=== PATIENT | male | born 1965 | race Caucasian/White ===

== ENCOUNTER 2023-10-01 07:24 | Outpatient (CLI) | payer SELFPAY ==
--- NOTE | ~2023-10-01 | XR_ITS ---
EXAMINATION: XR cervical spine 4-5V DATE: 10/01/2023 08:07 INDICATION: Numbness, anesthesia of skin. TECHNIQUE: 5 views of cervical spine were obtained. COMPARISON: Cervical spine radiographs 02/03/2008 FINDINGS: There is 7 degrees levocurvature of cervicothoracic spine. Vertebral body heights are morena l. There is moderately decreased disc height at C5-C6 and C6-C7. There is multilevel mild facet joint osteoarthritis. There is multilevel uncovertebral joint osteoarthritis, severe on the right at C5-C6 and bilaterally at C6-C7. There is mild central canal stenosis at C5-C6 and C6-C7. No prevertebral s oft tissue swelling. IMPRESSION: 1. Moderate cervical spondylosis. Reviewed, dictated and finalized at location A.
== END 2023-10-01 07:25 ==
PROVIDERS: PCP Internal Medicine Gastroenterology; Visit Provider Internal Medicine Gastroenterology
DX: M43.02 Spondylolysis, cervical region (principal)
CPT/HCPCS: 72050

== ENCOUNTER 2023-10-15 07:14 | Outpatient (CLI) | payer SELFPAY ==
--- NOTE | ~2023-10-15 | US_ITS ---
US abdomen limited INDICATION: Elevated liver function tests PROCEDURE: Realtime right upper abdominal ultrasound. COMPARISON: No prior studies for comparison. FINDINGS: The pancreas is not well visualized due to bowel gas. Liver echotexture is normal without focal mass or intrahepatic biliary dilatation. There is normal directional flow in the portal vein. Gallbladder contains a gallstone. Common bile duct measures 7.5 mm. No sonographic Pham's sign. IMPRESSION: 1: Cholelithiasis. Mild dilation of the common bile duct measuring 7.5 mm. Reviewed, dictated and finalized at location B.
== END 2023-10-15 07:15 ==
LOC: MICIMG 07:18
PROVIDERS: PCP Internal Medicine Gastroenterology; Visit Provider Internal Medicine Gastroenterology
DX: R74.01 Elevation of levels of liver transaminase levels (principal); K80.20 Calculus of gallbladder without cholecystitis without obstruction
CPT/HCPCS: 76705

== ENCOUNTER 2024-09-12 09:52 | Emergency (ER) | payer SELFPAY ==
--- NOTE | ~2024-09-12 | XR_ITS ---
XR elbow LT min 3V Ordering provider: Noemi Jacinto PA-C History: . burisitis, cut by metal . Comparison: None. FINDINGS: BONES: Chip fracture in the medial aspect of the tip of the olecranon process is noted. No other frac tures seen. JOINT SPACES: Normal. SOFT TISSUES: Soft tissue swelling is seen posteriorly in the elbow area. No definite joint effusion. IMPRESSION: Chip fracture in the olecranon process medially. Reviewed, dictated and finalized at location A.
[2024-09-12 10:03] VITALS: BP 137/84; PULSE 76; RESP 16; TEMP 36.7; O2SAT 98
[2024-09-12] MEDS: SULFAMETHOXAZOLE/TRIMETHOPRIM 800/160 MG DS TABLET 1 TAB PO (10:38)
[2024-09-12] MEDS: CEPHALEXIN 500 MG CAPSULE PO (10:38)
--- NOTE | 2024-09-12 10:39 | ED_ITS ---
HPI - Extremity Injury (Upper) General Chief Complaint: Extremity Injury, Upper Stated Complaint: hit by metal piece last week. left elbow pain Time Seen by Provider: 09/12/24 09:56 Source: patient Mode of arrival: ambulatory Limitations: no limitations History of Present Illness HPI narrative: Patient is a 58-year-old male who presents the ED with report of left elbow infection. Patient reports he was hit by a piece of metal in his L elbow at work last Tuesday. Sustained laceration to left posterior elbow. Since developed swelling throughout the left elbow. States he has been bandaging the elbow at home, but over the past couple of days, has had drainage from the laceration wound. Denies significant pain with range of motion of elbow, reports mild pain with certain pushing movements. Denies numbness. Denies fevers. Related Data Allergies Allergy/AdvReac Type Severity Reaction Status Date / Time No Known Allergies Allergy Mild Verified 09/12/24 10:06 Review of Systems 2 Review of Systems: All systems reviewed & are unremarkable except as noted in HPI. All systems reviewed & are unremarkable except as noted in HPI and below Exam 2 Narrative: GENERAL: Well appearing, well-nourished, non-toxic, in no acute distress. HEAD: Normocephalic, atraumatic. RESPIRATORY: Airway patent, respirations nonlabored. CARDIOVASCULAR: Regular rate and rhythm. Radial pulses strong and easily palpable. MUSCULOSKELETAL: Moves all extremities. Full range of motion of left elbow flexion and extension. Swelling to olecranon, seems most consistent with bursitis. No significant warmth or erythema over olecranon swelling. No significant focal tenderness over olecranon. Small laceration just proximal from olecranon region/posterior elbow/distal humerus region, appears to be healing, but small amount of purulence material draining. Sensation intact throughout extremity. SKIN: Warm, dry, normal color. NEURO: A&O X3. Speech clear. PSYCHIATRIC: Appropriate mood and affect. Normal interaction. Course Vital Signs Vital signs: Vital Signs Temperature 98.1 F 09/12/24 10:03 Pulse Rate 76 09/12/24 10:03 Respiratory Rate 16 09/12/24 10:03 Blood Pressure 137/84 09/12/24 10:03 Pulse Oximetry 98 09/12/24 10:03 Oxygen Delivery Room Air 09/12/24 10:03 Temperature 98.1 F 09/12/24 10:03 Pulse Rate 76 09/12/24 10:03 Respiratory Rate 16 09/12/24 10:03 Blood Pressure 137/84 09/12/24 10:03 Pulse Oximetry 98 09/12/24 10:03 Oxygen Delivery Room Air 09/12/24 10:03 MDM - Extremity Injury (Upper) MDM Narrative Medical decision making narrative: Exam consistent with traumatic olecranon bursitis with possibly infected laceration. Low suspicion for septic bursitis. No significant erythema or warmth over actual olecranon/bursa. No significant tenderness to palpation over olecranon/bursa. Full range of motion of elbow. Low suspicion for septic joint. Patient will be started on antibiotics for secondary infection of wound. Will be referred to orthopedics for further evaluation. X-ray of left elbow does show chip fx of medial olecranon process. Discussed case with Dr. Rodríguez, orthopedics, recommended labs, agrees w/ plan for abx, sling for fx, f/u in office next week. Laboratory studies reassuring, minimal leukocytosis of 11.2, normal inflammatory markers. Patient safe for d/c home at this time w/ outpatient f/u. Given strict return precautions. He agrees with plan. Discharged in stable condition. Medical Records Attestation: I reviewed the patient's medical records. Lab Data Attestation: I reviewed the patient's lab results. 09/12/24 12:24 09/12/24 12:24 Labs: Lab Results 09/12/24 09/12/24 09/12/24 Range/Units 12:24 12:24 12:24 WBC 11.2 H (4.5-10.0) K/mm3 RBC 5.34 (4.6-6.20) M/mm3 Hgb 15.0 (14.0-18.0) g/dL Hct 46.8 (42.0-52.0) % MCV 87.6 (80-100) fl MCH 28.1 (26-34) pg MCHC 32.1 (32-36) g/dl RDW 13.5 (11.5-14.5) % Plt Count 286 (150-375) k/mm3 MPV 10.8 H (7.4-10.4) fl Immature Gran % (Auto) 0.2 (0-0.5) % Neut % (Auto) 65.8 (45.5-73.1) % Lymph % (Auto) 25.0 (18.3-44.2) % [place] % (Auto) 7.3 (2.6-8.5) % Eos % (Auto) 1.3 (0-4.4) % Baso % (Auto) 0.4 (0.2-1.2) % Lymph # (Auto) 2.80 (0.9-3.2) K/mm3 [place] # (Auto) 0.8 H (0.1-0.6) K/mm3 Eos # (Auto) 0.2 (0-0.3) K/mm3 Baso # (Auto) 0.0 (0.0-0.1) K/mm3 Abs Immat Gran (auto) 0.02 (0.00-0.031) K/mm3 Absolute Neuts (auto) 7.4 H (1.3-6.7) K/mm3 Absolute Nucleated RBC 0.000 (0.0-0.012) K/mm3 Nucleated RBC % 0.0 (0.0-0.2) % ESR 8 (0-20) mm/hr Sodium 138 Cancelled (137-145) mmol/L Potassium 4.3 Cancelled (3.4-5.0) mmol/L Chloride 103 (98-107) mmol/L Carbon Dioxide (22-30) mmol/L Anion Gap (4-12) mmol/L BUN (9-20) mg/dL Creatinine (0.7-1.3) mg/dL Estim Creat Clear Calc ml/min Estimated GFR (59 - ) Glucose (65-110) mg/dL Calcium (8.4-10.2) mg/dL C-Reactive Protein (<1.0) mg/dL 09/12/24 09/12/24 09/12/24 Range/Units 12:24 12:24 12:24 WBC (4.5-10.0) K/mm3 RBC (4.6-6.20) M/mm3 Hgb (14.0-18.0) g/dL Hct (42.0-52.0) % MCV (80-100) fl MCH (26-34) pg MCHC (32-36) g/dl RDW (11.5-14.5) % Plt Count (150-375) k/mm3 MPV (7.4-10.4) fl Immature Gran % (Auto) (0-0.5) % Neut % (Auto) (45.5-73.1) % Lymph % (Auto) (18.3-44.2) % [place] % (Auto) (2.6-8.5) % Eos % (Auto) (0-4.4) % Baso % (Auto) (0.2-1.2) % Lymph # (Auto) (0.9-3.2) K/mm3 [place] # (Auto) (0.1-0.6) K/mm3 Eos # (Auto) (0-0.3) K/mm3 Baso # (Auto) (0.0-0.1) K/mm3 Abs Immat Gran (auto) (0.00-0.031) K/mm3 Absolute Neuts (auto) (1.3-6.7) K/mm3 Absolute Nucleated RBC (0.0-0.012) K/mm3 Nucleated RBC % (0.0-0.2) % ESR (0-20) mm/hr Sodium (137-145) mmol/L Potassium (3.4-5.0) mmol/L Chloride Cancelled (98-107) mmol/L Carbon Dioxide 27 Cancelled (22-30) mmol/L Anion Gap 8 Cancelled (4-12) mmol/L BUN 13 (9-20) mg/dL Creatinine (0.7-1.3) mg/dL Estim Creat Clear Calc ml/min Estimated GFR (59 - ) Glucose (65-110) mg/dL Calcium (8.4-10.2) mg/dL C-Reactive Protein (<1.0) mg/dL 09/12/24 09/12/24 09/12/24 Range/Units 12:24 12:24 12:24 WBC (4.5-10.0) K/mm3 RBC (4.6-6.20) M/mm3 Hgb (14.0-18.0) g/dL Hct (42.0-52.0) % MCV (80-100) fl MCH (26-34) pg MCHC (32-36) g/dl RDW (11.5-14.5) % Plt Count (150-375) k/mm3 MPV (7.4-10.4) fl Immature Gran % (Auto) (0-0.5) % Neut % (Auto) (45.5-73.1) % Lymph % (Auto) (18.3-44.2) % [place] % (Auto) (2.6-8.5) % Eos % (Auto) (0-4.4) % Baso % (Auto) (0.2-1.2) % Lymph # (Auto) (0.9-3.2) K/mm3 [place] # (Auto) (0.1-0.6) K/mm3 Eos # (Auto) (0-0.3) K/mm3 Baso # (Auto) (0.0-0.1) K/mm3 Abs Immat Gran (auto) (0.00-0.031) K/mm3 Absolute Neuts (auto) (1.3-6.7) K/mm3 Absolute Nucleated RBC (0.0-0.012) K/mm3 Nucleated RBC % (0.0-0.2) % ESR (0-20) mm/hr Sodium (137-145) mmol/L Potassium (3.4-5.0) mmol/L Chloride (98-107) mmol/L Carbon Dioxide (22-30) mmol/L Anion Gap (4-12) mmol/L BUN Cancelled (9-20) mg/dL Creatinine 0.73 Cancelled (0.7-1.3) mg/dL Estim Creat Clear Calc 97 Cancelled ml/min Estimated GFR > 60 (59 - ) Glucose (65-110) mg/dL Calcium (8.4-10.2) mg/dL C-Reactive Protein (<1.0) mg/dL 09/12/24 09/12/24 09/12/24 Range/Units 12:24 12:24 12:24 WBC (4.5-10.0) K/mm3 RBC (4.6-6.20) M/mm3 Hgb (14.0-18.0) g/dL Hct (42.0-52.0) % MCV (80-100) fl MCH (26-34) pg MCHC (32-36) g/dl RDW (11.5-14.5) % Plt Count (150-375) k/mm3 MPV (7.4-10.4) fl Immature Gran % (Auto) (0-0.5) % Neut % (Auto) (45.5-73.1) % Lymph % (Auto) (18.3-44.2) % [place] % (Auto) (2.6-8.5) % Eos % (Auto) (0-4.4) % Baso % (Auto) (0.2-1.2) % Lymph # (Auto) (0.9-3.2) K/mm3 [place] # (Auto) (0.1-0.6) K/mm3 Eos # (Auto) (0-0.3) K/mm3 Baso # (Auto) (0.0-0.1) K/mm3 Abs Immat Gran (auto) (0.00-0.031) K/mm3 Absolute Neuts (auto) (1.3-6.7) K/mm3 Absolute Nucleated RBC (0.0-0.012) K/mm3 Nucleated RBC % (0.0-0.2) % ESR (0-20) mm/hr Sodium (137-145) mmol/L Potassium (3.4-5.0) mmol/L Chloride (98-107) mmol/L Carbon Dioxide (22-30) mmol/L Anion Gap (4-12) mmol/L BUN (9-20) mg/dL Creatinine (0.7-1.3) mg/dL Estim Creat Clear Calc ml/min Estimated GFR Cancelled (59 - ) Glucose 88 Cancelled (65-110) mg/dL Calcium 9.4 Cancelled (8.4-10.2) mg/dL C-Reactive Protein 0.9 (<1.0) mg/dL Imaging Data Attestation: I personally reviewed and interpreted this imaging study as follows: Radiologist's impression: ITS Impressions Elbow X-Ray 09/12/24 11:03 IMPRESSION: Chip fracture in the olecranon process medially. Discharge Plan Discharge Clinical Impression: Olecranon bursitis of left elbow Closed olecranon process fracture Qualifiers: Encounter type: initial encounter Laterality: left Qualified Code(s): S52.022A - Displaced fracture of olecranon process without intraarticular extension of left ulna, initial encounter for closed fracture Laceration of left elbow with complication Qualifiers: Encounter type: initial encounter Qualified Code(s): S51.012A - Laceration without foreign body of left elbow, initial encounter Patient Disposition: Home Condition: Stable Instructions: Antibiotic Form, Laceration (ED), Cellulitis (ED), Elbow Bursitis (ED) Additional Instructions: Call orthopedic office make follow-up appointment for further evaluation next week. He is aware of your ED visit. Take antibiotics as prescribed. Keep wound clean and dry, change bandage frequently, at least once daily. You may continue Tylenol/ibuprofen if needed for pain. Sling for comfort/support. Return to ED if you experience worsening or severe symptoms, severe redness or warmth of elbow, redness streaking up or down arm, worsening drainage, fevers, difficulty moving arm, or any other symptoms of concern Patient Language: Croatian Prescriptions: New sulfamethoxazole-trimethoprim [Bactrim DS] 800-160 mg tablet 1 tablet PO Q12H 7 Days Qty: 14 0RF cephalexin 500 mg capsule 500 mg PO Q6H 7 Days Qty: 28 0RF Follow-up/Referrals: Laila,Fritz Johnson MD [Primary Care Provider] - Gabe Rodríguez MD [Physician] - (ORTHOPEDICS) Time of Disposition: 10:46
--- OUTSIDE RECORDS SUMMARY | 2024-09-12 11:01 | XMS_ITS | Clinical Summary ---
Author Organization [facility] Care Team Providers Care Featherer Name Role Phone Unavailable Primary Care Provider Unavailabl e Immunizations Immunization Administration Dates Next Due Covid-19, Mrna, Lnp-s, PF, 1 00 mcg/0.5 mL Dose (Moderna) 06/03/2020,05/01/2020 Social History Tobacco Use Types Packs/Day Years Used Date Smoking Tobacco: Never Assessed Sex and Gender Information Value Date Recorded Sex Assigned at Not on file Legal Sex Male 8:19 AM CDT Gender Identity Not on file Sexual Orientation Not on file Plan of Treatment Health Maintenance Due Date Last Done Comments Hepatitis C Virus (HCV) Screening 1965 TdaP Immunization 1965 Hepatitis B Immunization (1 of 3 - 19+ 3-dose series) 11/08/1983 Colonoscopy 2009 Colorectal Cancer Screening 2009 Cologuard 2014 Immunochemical Fecal Occult Blood 2014 Pneumococcal Immunization (5 0+ years) (1 of 1 - PCV) 2014 Zoster Immunization (1 of 2) 2014 PSA Discussion 11/08/2019 Influenza Immunization (#1) 2023 SARS-COV-2 Immunization (3 - 2023-25 season) 2023 06/03/2020, 05/01/2020 Respiratory Syncytial Virus (RSV) Immunization (Adult) (1 - 1-dose 75+ series) 11/08/2039 Meningococcal Immunization (ACWY) Aged Out No longer eligible b ased on patient's age to complete this topic Pneumococcal Immunization Combined Aged Out No longer eligible b ased on patient's age to complete this topic Rotavirus Immunization Aged Out No lo nger eligible based on patient's age to complete this topic
--- OUTSIDE RECORDS SUMMARY | 2024-09-12 11:01 | XMS_ITS | CONTINUITY OF CARE DOCUMENT ---
Author Name alissa maxwell Address Unknown Organization [facility] Address [address] [place] [address] Phone [phone] Care Team Providers Care [employer] Dynamics Manager Architect Name Role Phone alissa maxwell Unavailable Unavailable
[2024-09-12 12:32] LABS: Basophils Percent Auto 0.4 % (0.2-1.2); Eosinophils Absolute Auto 0.2 K/mm3 (0-0.3); Eosinophils Percent Auto 1.3 % (0-4.4); Hematocrit 46.8 % (42.0-52.0); Immature Granulocyte Absolute 0.02 K/mm3 (0.00-0.031); Immature Granulocyte Percent A 0.2 % (0-0.5); Mean Corpuscular HGB Conc 32.1 g/dl (32-36); Mean Corpuscular Hemoglobin 28.1 pg (26-34); Mean Corpuscular Volume 87.6 fl (80-100); Mean Platelet Volume 10.8 fl (7.4-10.4); Monocytes Absolute Auto 0.8 K/mm3 (0.1-0.6); Monocytes Percent Auto 7.3 % (2.6-8.5); Neutrophils Absolute Auto 7.4 K/mm3 (1.3-6.7); Neutrophils Percent Auto 65.8 % (45.5-73.1); Platelet Count Result 286 k/mm3 (150-375); Red Blood Count 5.34 M/mm3 (4.6-6.20); Red Cell Distribution Width 13.5 % (11.5-14.5); White Blood Count 11.2 K/mm3 (4.5-10.0)
--- OUTSIDE RECORDS SUMMARY | 2024-09-12 12:52 | XMS_ITS | CONTINUITY OF CARE DOCUMENT ---
Author Name alissa maxwell Address Unknown Organization [facility] Address [address] [place] [address] Phone [phone] Care Team Providers Care Supervisor [employer] Name Role Phone alissa maxwell Unavailable Unavailable
--- OUTSIDE RECORDS SUMMARY | 2024-09-12 12:52 | XMS_ITS | Clinical Summary ---
Author Organization [facility] Care Team Providers Care Car Record Clerk Name Role Phone Unavailable Primary Care Provider [...]
[2024-09-12 12:56] LABS: Anion Gap 8 mmol/L (4-12); Blood Urea Nitrogen 13 mg/dL (9-20); CRP 0.9 mg/dL (<1.0); Calcium 9.4 mg/dL (8.4-10.2); Carbon Dioxide 27 mmol/L (22-30); Chloride 103 mmol/L (98-107); Estimated CRCL calculation 97 ml/min; Estimated Glomerular Filt Rate > 60; Glucose 88 mg/dL (65-110); Potassium 4.3 mmol/L (3.4-5.0); Sodium 138 mmol/L (137-145)
[2024-09-12 13:19] LABS: Erythrocyte Sedimentation Rate 8 mm/hr (0-20)
== END 2024-09-12 14:24 | disposition home or self-care (01) ==
PROVIDERS: Emergency Provider Physician Assistant; PCP Internal Medicine Gastroenterology
DX: S52.022A Displaced fracture of olecranon process without intraarticular extension of left ulna, initial encounter for closed fracture (principal); S51.012A Laceration without foreign body of left elbow, initial encounter; L08.9 Local infection of the skin and subcutaneous tissue, unspecified; M70.22 Olecranon bursitis, left elbow
CPT/HCPCS: 36415; 73080; 80048; 85025; 85652; 86140; 99284; A4565; A9270

== ENCOUNTER 2024-12-24 07:12 | Inpatient (IN) | payer SELFPAY ==
[2024-12-24] VITALS (17 sets, daily range): BP systolic 128–172; BP diastolic 66–95; PULSE 52–92; RESP 14–21; TEMP 35.4–36.6; O2SAT 90–100; BMI 27.8
--- NOTE | 2024-12-24 | ECHO_ITS ---
Patient Info Name: Mino Young Age: 59 years : 1965 Gender: Male Ht: 70 in Wt: 201 lbs BSA: 2.14 m2 HR: 76 bpm BP: 170 / 82 mmHg Technical Quality: Good Exam Date: 12/24/2024 1:29 PM Patient Status: I Admit Date: 12/24/2024 Exam Type: CA echo doppler color flow Complete two-dimensional, color flow and Doppler transthoracic echocardiogram is performed. Staff Referring Physician: Aida Nair MD Mri Tech: Ehsan Pantoja III Attending Provider: Flower Liriano Summary 1. Complete two-dimensional, color flow and Doppler transthoracic echocardiogram is performed. 2. Left ventricular systolic function is normal, estimated at 55-60. 3. The left ventricular diastolic function is grade II diastolic dysfunction. 4. There is moderate aortic valve calcification.Significant zully on calcium on the right cusp of the aortic valve. 5. There is mild aortic valve regurgitation. 6. There is trace mitral valve regurgitation. 7. There is mild tricuspid valve regurgitation. 8. Moderate pulmonary hypertension, estimated pulmonary arterial systolic pressure is 45 mmHg. Left Ventricle Left ventricular chamber dimension is normal. Left ventricular systolic function is normal, estimated at 55-60. There is no increased left ventricular wall thickness. Left ventricular septal wall motion is normal. The left ventricular diastolic function is grade II diastolic dysfunction. Right Ventricle Right ventricular chamber dimension is normal. Right ventricular systolic function is normal. Left Atria Left atrial chamber dimension is normal. Right Atria Right atrial chamber dimension is normal. Aortic Valve The aortic valve is trileaflet. There is no aortic valve sclerosis. There is no aortic valve stenosis. There is mild aortic valve regurgitation. There is moderate aortic valve calcification.Significant zully on calcium on the right cusp of the aortic valve. Pulmonic Valve The pulmonic valve is normal. There is no pulmonic valve stenosis. There is no pulmonic regurgitation. Mitral Valve The mitral valve has normal leaflets. There is no mitral valve stenosis. There is trace mitral valve regurgitation. Tricuspid Valve The tricuspid valve leaflets are normal. There is no significant tricuspid valve stenosis. There is mild tricuspid valve regurgitation. Moderate pulmonary hypertension, estimated pulmonary arterial systolic pressure is 45 mmHg. Pericardium/Pleural The pericardium appears normal. There is no pericardial effusion. Inferior Vena Cava Normal inferior vena cava with >50% collapse upon inspiration consistent with normal right atrial pressure, 5 mmHg. Aorta The aortic root size at the sinus of Valsalva is normal. The prox ascending aorta size is normal. Left Ventricular Outflow Tract Name Value Normal LVOT 2D LVOT Diameter 2.5 cm LVOT Doppler LVOT Peak Velocity 111 cm/s LVOT Peak Gradient 5 mmHg LVOT Mean Gradient 3 mmHg LVOT VTI 26 cm LVOT VTI/AV VTI Ratio 0.5 LVOT Stroke Volume 126 ml LVOT CO 8.6 l/min LVOT CI 4.0 l/min/m2 Pulmonic Valve Name Value Normal PV Doppler PV Peak Velocity 110 cm/s PV Peak Gradient 5 mmHg PV Mean Gradient 3 mmHg Mitral Valve Name Value Normal MV Doppler MV Peak Gradient 3 mmHg MV Mean Gradient 1 mmHg MV Area (Cont Eq VTI) 4.2 cm2 MV Diastolic Function MV E Peak Velocity 97 cm/s MV A Peak Velocity 70 cm/s MV E/A 1.4 MV Decel Time (PW) 291 ms MV Annular TDI MV E/e' (Septal) 11.6 MV E/e' (Lateral) 8.2 MV E/e' (Average) 9.9 Tricuspid Valve Name Value Normal TV Regurgitation Doppler TR Peak Velocity 315 cm/s TR Peak Gradient 40 mmHg Estimated PAP/RSVP RA Pressure 5 mmHg <=5 PA Systolic Pressure 45 mmHg <36 RV Systolic Pressure 45 mmHg <36 TV Annular TDI TV Lateral Alivia s' Velocity 17.7 cm/s >=9.5 Aortic Valve Name Value Normal AV Doppler AV Peak Velocity 274 cm/s AV Peak Gradient 30 mmHg AV Mean Gradient 15 mmHg AV VTI 54 cm AV Area (Cont Eq VTI) 2.3 cm2 >=3.0 AV Area (Cont Eq Brown) 2.0 cm2 AV DI (Brown) 0.41 AV Regurgitation 2D LVOT Area 4.8 cm2 Ventricles Name Value Normal LV Dimensions 2D/MM IVS Diastolic Thickness (2D) 1.0 cm 0.6-1.0 LVID Diastole (2D) 5.9 cm 4.2-5.8 LVIW Diastolic Thickness (2D) 0.9 cm 0.6-1.0 LVID Systole (2D) 4.2 cm 2.5-4.0 LVOT Diameter 2.5 cm LV Mass (2D Cubed) 233.65 g 88.00-224.00 LV Mass Index (2D Cubed) 109 g/m2 49-115 Relative Wall Thickness (2D) 0.32 <=0.42 LV Fractional Shortening/Ejection Fraction 2D/MM LV Fractional Shortening (2D) 29 % 25-43 LV EF (2D Teichholz) 55 % LV Diastolic Volume (4C MOD) 153 ml LV EF (4C MOD) 60 % LV Diastolic Volume (2C MOD) 98 ml LV EF (2C MOD) 54 % LV Diastolic Volume (BP MOD) 126 ml 62-150 LV Diastolic Volume Index (BP MOD) 59 ml/m2 34-74 LV Systolic Volume (BP MOD) 54 ml 21-61 LV Systolic Volume Index (BP MOD) 25 ml/m2 11-31 LV EF (BP MOD) 57 % 52-72 LV Diastolic Length (4C) 8.9 cm LV Systolic Length (4C) 6.8 cm LV Stroke Volume (4C MOD) 92 ml Atria Name Value Normal LA Dimensions LA Volume (4C A-L) 76 ml LA Volume (BP A-L) 76 ml RA Dimensions RA Systolic [place] Length (4C) 6.3 cm 2.1-2.7 RA Area (4C) 20.4 cm2 <=18.0 Report Signatures
--- NOTE | ~2024-12-24 | XR_ITS ---
EXAMINATION: XR chest 1V DATE: 12/24/2024 08:16 INDICATION: Dizziness TECHNIQUE: frontal view of the chest was obtained. COMPARISON: Chest radiograph dated 01/25/2006 FINDINGS: Mild increased interstitial pattern in the bilateral lower lung zones. No focal airspace opacities, pleural effusion or pneumothorax The cardiomediastinal silhouette is normal. Old healed left clavicle fracture deformity. There are some residual intravenous contrast in the veins at the left upper arm and axilla likely related to the prior contrast-enhanced CT angiogram. Metallic BB projects along the lateral margin of the right mandible. IMPRESSION: 1. Mild increased interstitial pattern in the bilateral lower lung zones which could be due to mild pulmonary edema or atelectasis. Reviewed, dictated and finalized at location A.
--- NOTE | ~2024-12-24 | CT_ITS ---
EXAMINATION: CT brain wo phuc, 12/28/2024 17:15 CDT HISTORY: headache and dizziness post stroke COMPARISON: No comparisons available. Technique: Axial images obtained of the brain without contrast. One or more of the following dose reduction techniques were used: automated exposure control, adjustment of the mA and/or kV according to patient size, use of iterative reconstruction technique. Findings: There is a large areas of abnormal density in the right cerebellum with mass effect upon the fourth ventricle and posterior midline shift measuring 5 mm. There is no parenchymal hemorrhage. No extra-axial fluid collections. Mastoid air cells unremarkable. Sinuses and orbits unremarkable. No acute fracture. No significant facial or scalp soft tissue swelling evident. No radiopaque foreign body is seen. Impression: Large focus of abnormal density within the right cerebellum. This may be ischemic however underlying lesion is not excluded. Contrast-enhanced MRI is recommended Reviewed, dictated and finalized at location P. Impression: Large focus of abnormal density within the right cerebellum. This may be ischem ic however underlying lesion is not excluded. Contrast-enhanced MRI is recommen ded
--- NOTE | ~2024-12-24 | US_ITS ---
EXAMINATION: US venous doppler [facility], 12/25/2024 17:00 CDT HISTORY: DVT COMPARISON: None Technique: Mcneal-scale and color Doppler images were attempted of the lower saphenofemoral junction, common femoral vein,superficial femoral vein, proximal deep femoral vein, proximal deep femoral vein, popliteal vein and posterior tibial veins. Findings: Deep Venous System:There is thrombus with diminished flow in the left femoral and popliteal veins, the remaining visualized deep venous system bilaterally appears unremarkable. Superficial Venous SystemNo superficial thrombophlebitis. Soft tissues: Soft tissues are unremarkable. Impression: Left-sided DVT detailed above Reviewed, dictated and finalized at location P. Impression: Left-sided DVT detailed above
--- NOTE | ~2024-12-24 | US_ITS ---
EXAMINATION: US aorta, 12/26/2024 13:30 CDT HISTORY: stroke Comparison: None Technique: Mcneal-scale and color Doppler images were obtained. Findings: There is no aneurysm identified of the visualized aorta or the proximal common iliac arteries, no significant thrombus formation identified IMPRESSION: No aneurysm identified Reviewed, dictated and finalized at location P. IMPRESSION: No aneurysm identified
--- NOTE | ~2024-12-24 | CT_ITS ---
EXAMINATION: CTA brain carotid DATE: 12/24/2024 08:12 INDICATION: Dizziness. Headache. TECHNIQUE: Computed tomographic angiography (CTA) of the head was performed without and with 100 mL Omnipaque-350 intravenous contrast. CTA of the neck was performed with intravenous contrast. Automated exposure control and iterative reconstruction technique were employed. The dose-length product was 1687.83 mGy- cm. Maximum intensity projection and volume rendered 3D-reconstructions were created by the technologist on a separate workstation. COMPARISON: Head CT 02/03/2008 FINDINGS: HEAD CTA: There is a small old infarct in right cerebellum. There are scattered areas of low attenuation in the cerebral white matter, which is within normal limits for the patient's age. There is no intracranial hemorrhage, acute infarction, or abnormal intracranial mass lesion. The ventricles are normal in size. The orbits are normal. There is mild mucosal thickening in the paranasal sinuses. There is a small left mastoid effusion. The vertebral arteries are codominant. There is no significant stenosis of basilar artery or the posterior cerebral arteries. There is no significant stenosis of the intracranial internal carotid arteries or anterior or middle cerebral arteries. Anterior communicating artery is normal. The posterior communicating arteries are normal. There is no aneurysm. NECK CTA: There are no pathologically enlarged lymph nodes. There is no significant stenosis of the vertebral arteries. There is plaque in the proximal internal carotid arteries. There is 13% stenosis of the proximal right internal carotid artery relative to normal distal artery lumen diameter (NASCET criteria). There is 26% stenosis of the proximal left internal carotid artery relative to normal distal artery lumen diameter. There is severe cervical spondylosis. IMPRESSION: 1. Small old infarct in right cerebellum. 2. No aneurysm or significant intracranial arterial stenosis. 3. 13% stenosis of the proximal right internal carotid artery relative to normal distal artery lumen diameter (NASCET criteria). 4. 26% stenosis of the proximal left internal carotid artery relative to normal distal artery lumen diameter. Reviewed, dictated and finalized at location E. IMPRESSION: 1. Small old infarct in right cerebellum. 2. No aneurysm or significant intracranial arterial stenosis. 3. 13% stenosis of the proximal right internal carotid artery relative to morena l distal artery lumen diameter (NASCET criteria). 4. 26% stenosis of the proximal left internal carotid artery relative to normal distal artery lumen diameter.
--- NOTE | ~2024-12-24 | XR_ITS ---
EXAMINATION: XR lumbar puncture diagnostic DATE: 12/24/2024 14:35 INDICATION: Headache. Leukocytosis. TECHNIQUE: The procedure including the risks and benefits was discussed with the patient. Risks discussed included spinal headache, cerebrospinal fluid leak, bleeding, and infection. The patient understood the risks and agreed to proceed. A timeout was performed to verify the patient's name, date of , and procedure to be performed. The skin overlying the L3-L4 level was prepped and draped in usual sterile fashion. Subcutaneous 1% lidocaine was used for local anesthesia. A 22 gauge spinal needle was advanced under fluoroscopic guidance. The needle was removed and the entry site was cleaned and dressed. There were no immediate complications. A total of 1 fluoroscopic image(s) were obtained. The amount of fluoroscopy time used during this procedure was 0.1 minutes. Total DAP was 0.95 Gycm^2. There were no immediate complications. FINDINGS: Real-time fluoroscopy demonstrates the needle at the L3-L4 level. Opening pressure was 22 cm water. (Normal range is variably defined as 6-20 cm water and up to 25 cm water in obese patients. Pressure >25 cm water is one of the modified Dandy criteria for idiopathic intracranial hypertension). 12 mL of clear, colorless fluid was collected in 4 tubes. IMPRESSION: 1. Successful fluoro-guided lumbar puncture. Mildly elevated opening pressure of 22 cm water. Reviewed, dictated and finalized at location A. IMPRESSION: 1. Successful fluoro-guided lumbar puncture. Mildly elevated opening pressure o f 22 cm water.
--- NOTE | ~2024-12-24 | MR_ITS ---
EXAMINATION: MR brain/brain stem w con DATE: 12/25/2024 11:25 INDICATION: Headache. Nausea and vomiting. TECHNIQUE: Magnetic resonance imaging (MRI) of the brain and brainstem was performed without and with 19 mL MultiHance intravenous contrast. COMPARISON: Head CT 12/24/2024 FINDINGS: There are scattered acute infarcts in the frontal, parietal, and occipital lobes and cerebellum bilaterally. Metal artifact obscures much of the brain on multiple sequences. There is a 5 mm enhancing lesion in left frontal lobe. The ventricles are normal in size. The orbits are normal. There is mild mucosal thickening in left maxillary sinus. IMPRESSION: 1. Acute infarcts scattered in the bilateral frontal, parietal, and occipital lobes and cerebellum. 2. 5 mm enhancing lesion in left frontal lobe, likely a subacute infarct. Metastatic disease is less likely. Reviewed, dictated and finalized at location E. IMPRESSION: 1. Acute infarcts scattered in the bilateral frontal, parietal, and occipital l obes and cerebellum. 2. 5 mm enhancing lesion in left frontal lobe, likely a subacute infarct. Metas tatic disease is less likely.
--- NOTE | 2024-12-24 07:26 | ECG_ITS ---
Test Date: 2024-12-24 07:37:32 Measurements Intervals Miracle Rate: 46 P: 50 UT: 158 QRS: -37 QRSD: 138 T: -27 QT: 458 QTc: 403 Interpretive Statements SINUS BRADYCARDIA WITH SINUS ARRHYTHMIA MARKED LEFT AXIS DEVIATION [QRS AXIS < -30] RIGHT BUNDLE BRANCH BLOCK [120+ ms QRS DURATION, UPRIGHT V1, 40+ ms S IN I/aVL/V4/V5/V6] No previous ECG available for comparison Electronically Signed On 12-24-2024 08:43:43 CDT by Tani Marshall M.D.
[2024-12-24] MEDS: ONDANSETRON INJ 4 MG/2 ML VIAL IV PUSH (07:44)
[2024-12-24] MEDS: LACTATED RINGERS 1,000 ML 999 ML IV CONT (07:44)
--- OUTSIDE RECORDS SUMMARY | 2024-12-24 07:44 | XMS_ITS | Clinical Summary ---
Author Organization [facility] Care Team Providers Care Tile Grinder Name Role Phone Unavailable Primary Care Provider [...] Virus (HCV) Screening 1965 TdaP Immunization 1965 Cologuard 2009 Colonoscopy 2009 Colorectal Cancer Screening 2009 Immunochemical Fecal Occult Blood 2009 Pneumococcal Immunization (5 0+ years) (1 of 1 - PCV) 2014 Zoster Immunization (1 of 2) 2014 SARS-COV-2 Immunization ( - season) 2023 06/03/2020, 05/01/2020 Influenza Immunization (#1) 2024 Respiratory Syncytial Virus (RSV) Immunization (Adult) (1 - 1-dose 75+ series) 11/08/2039 Hepatitis B Immunization Aged Out No longer eligible based on patient's age to complete this topic Human Papillomavirus (HPV) Immunization Aged Out No longer eligible b ased on patient's age to complete this topic Meningococcal Immunization (ACWY) Aged Out No longer eligible b ased on patient's age to complete this topic Rotavirus Immunization Aged Out No lo nger eligible based on patient's age to complete this topic
[2024-12-24 07:48] LABS: Hematocrit 45.0 % (42.0-52.0); Hemoglobin 14.4 g/dL (14.0-18.0); Immature Granulocyte Percent A 0.7 % (0-0.5); Immature Platelet Fraction Pct 8.5 % (0.9-11.2); Lymphocytes Absolute Auto 3.35 K/mm3 (0.9-3.2); Mean Corpuscular HGB Conc 32.0 g/dl (32-36); Mean Corpuscular Hemoglobin 28.3 pg (26-34); Mean Corpuscular Volume 88.4 fl (80-100); Nucleated Red Blood Cells Absolute Auto 0.000 K/mm3 (0.0-0.012); Nucleated Red Blood Cells Perc 0.0 % (0.0-0.2); Platelet Count Result 140 k/mm3 (150-375); Red Blood Count 5.09 M/mm3 (4.6-6.20); White Blood Count 19.5 K/mm3 (4.5-10.0)
[2024-12-24] MEDS: MECLIZINE HCL 25 MG TABLET PO (07:52)
[2024-12-24 07:56] LABS: Alanine Aminotransferase 139 U/L (6-50); Albumin Level 4.2 g/dL (3.5-5.1); Alkaline Phosphatase 112 U/L (38-126); Anion Gap 9 mmol/L (4-12); Aspartate Amino Transferase 76 U/L (17-59); Bilirubin,Total 1.3 mg/dL (0.2-1.3); Blood Urea Nitrogen 10 mg/dL (9-20); Calcium 9.0 mg/dL (8.4-10.2); Carbon Dioxide 26 mmol/L (22-30); Chloride 104 mmol/L (98-107); Estimated CRCL calculation 93 ml/min; Estimated Glomerular Filt Rate > 60; Glucose 186 mg/dL (65-110); Magnesium 1.9 mg/dL (1.6-2.3); Potassium 3.6 mmol/L (3.4-5.0); Sodium 139 mmol/L (137-145); Total Protein 7.6 g/dL (6.3-8.2)
[2024-12-24 08:12] LABS: Troponin I 1.070 ng/mL (0.000-0.034)
[2024-12-24 08:33] LABS: INR 1.4; Prothrombin Time 16.7 Seconds (11.1-14.7)
[2024-12-24 08:35] LABS: Partial Thromboplastin Time 25.9 Seconds (22.3-36.8)
--- NOTE | 2024-12-24 08:36 | ED_ITS ---
HPI - Weakness General Chief complaint: Weakness Stated complaint: NICOLE PENG Time Seen by Provider: 12/24/24 07:18 Source: patient, EMS, RN notes reviewed and old records reviewed Mode of arrival: EMS Limitations: no limitations History of Present Illness HPI Narrative: This is a 59 year old male who presents for evaluation of generalized weakness. He states that for 1 week he has been having intermittent headaches, nausea, and generally feeling unwell. He reports left side throbbing headaches that last for 30 minutes and it subsides. He reports his headache has currently resolved. He came to ER because this morning he felt generalized weakness and diaphoresis. He denies chest pain but he reports having lightheadedness . He had difficulty walking due to weakness so he called 911. During my exam, he developed nausea and vomiting. Denies focal weakness. MD Complaint: generalized weakness Related Data Home Medications ?Medication ?Instructions ?Recorded ?Confirmed ?Last Taken ?Type No Home Medications 12/24/24 12/24/24 U nknown History Allergies Allergy/AdvReac Type Severity Reaction Status Date / Time No Known Allergies Allergy Mild Verified 12/24/24 17:26 Review of Systems 2 Constitutional: Constitutional: Reports fatigue and Reports weakness Eyes: Eyes: Reports photophobia Cardiovascular: Cardiovascular: Denies chest pain Gastrointestinal: Gastrointestinal: Denies abdominal pain PMFSH Past Medical History Medical History Patient denies medical problems Social History Social History Smoking status: Heavy tobacco smoker Alcohol intake: current Drinks per week: 0 Substance use: never Lack of Transportation: No Lack of Food: Never True Current Housing: I Have Housing Concerned About Future Housing: No Difficulty Paying Gas/Electric Bills: No Difficulty Paying for Meds: No Currently Unemployed: No Education: High School Diploma/GED Difficulty w/ Childcare or Family Care: No Spiritual care concerns: No Exam 2 Const: General: no acute distress and ill appearing Nutritional Appearance: well nourished Orientation/consciousness: patient oriented x3 Limitations: no limitations HENMT: Head: normal to inspection Face and sinus: normal facial exam M outh: Yes Normal oral and palatal mucosa present, Yes lip normal and Yes moist mucous membranes Eyes: Conjunctivae: conjunctivae normal Pupils: Equal, round and reactive pupils present EOM: EOMs intact bilaterally Neck: Neck: normal visual inspection Chest: Chest palpation & inspection: normal inspection of the chest Resp: Effort & Inspection: normal respiratory effort Auscultation: clear to auscultation bilaterally Cardio: Rate: regular rate Rhythm: regular rhythm Heart sounds: no murmurs GI: GI Palp: Yes Soft to palpation, No Tenderness to palpation present (GI), No Guarding due to palpation present (GI) and No Rigid due to palpation A uscultation: normal bowel sounds Skin: General skin exam: normal color Neuro: General: patient oriented x3 and CN's II-XI intact bilaterally C ranial nerves: Yes CN's II-XII intact bilaterally and Yes Nystagmus present S peech: normal speech Sensory Exam: normal sensation Coordination: f [id number] test normal and [id number] test normal Extrem: General: normal to inspection Psych: Mental Status: mental status grossly normal Affect: normal affect Attitude: cooperative Course Reevaluation(s) Reevaluation #1: PAtient denies headache and reports vertigo is subsiding Date: 12/24/24 Time: 08:37 Reevaluation #2: Dr. Corbin with hospitalist in ER. I discussed patient with her. I placed ordered for LP and patient is accepted to hospitalist service. Date: 12/24/24 Time: 11:00 Consultations Consultation #1: I spoke with business agent Dr. Nowak . He agrees to consult for NSTEMI. no recommendations given Date: 12/24/24 Time: 09:12 Consultation #2: I spoke with Dr. Woo about patient. We discussed patient symptoms and labs showing elevated wbc, low platelets, elevated troponin with cardiology consult. He states he will call neurology to see if LP should be performed and he will call back so discuss patient again. Date: 12/24/24 Time: 09:40 Vital Signs Vital signs: Vital Signs Pulse Rate 54 L 12/24/24 07:10 Respiratory Rate 17 12/24/24 07:10 Blood Pressure 159/83 H 12/24/24 07:10 Pulse Oximetry 98 12/24/24 07:10 Oxygen Delivery Room Air 12/24/24 07:10 Temperature 97.9 F 12/24/24 20:00 Pulse Rate 73 12/24/24 20:57 Respiratory Rate 20 12/24/24 20:57 Blood Pressure 132/66 12/24/24 20:00 Pulse Oximetry 90 12/24/24 20:57 Oxygen Delivery Room Air 12/24/24 20:57 Fraction of Inspired Oxygen 21 12/24/24 20:57 MDM - Weakness MDM Narrative Medical decision making narrative: PAtient presents with weakness, intermittent headache, nausea and vomiting. labs, EKG, CTA head and neck , chest xray initially ordered. I ordered 4 mg IV zofran with 25 mg meclizine as patient complaining of vertigo with nausea and vomiting. HE denies headache as this time. LAbs shows elevated wbc and elevated troponin 1.0. He denies chest pain. No source of infection found yet for elevated wbc. This could be stress. business agent consulted. Patient reported improvement in symptoms. 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 I discussed with patient and that he will need to be admitted for further evaluation given signs of AR. She reports patient was heavy drinking several years ago but not any more. Hospitalist called for admission and we discussed possibility of meningitis. HE does not have meningismus signs. Hospitalist states they will consult neuro . Antibiotics were started on patient and LP performed. Gram stain no wbc, no organisms. Patient admitted to IMU given bradycardia and elevated troponin. Differential Diagnosis Differential diagnosis: Likely acute myocardial infarction, anemia, hypoglycemia, hypothyroidism, sepsis, dehydration and other (migraine, SAH, CVA, vertigo) Medical Records Attestation: I reviewed the patient's medical records. Lab Data Attestation: I reviewed the patient's lab results. 12/24/24 07:37 12/24/24 07:37 Labs: Lab Results 12/24/24 12/24/24 12/24/24 Range/Units 07:37 07:42 09:37 WBC 19.5 H (4.5-10.0) K/mm3 RBC 5.09 (4.6-6.20) M/mm3 Hgb 14.4 (14.0-18.0) g/dL Hct 45.0 (42.0-52.0) % MCV 88.4 (80-100) fl MCH 28.3 (26-34) pg MCHC 32.0 (32-36) g/dl RDW 13.4 (11.5-14.5) % Plt Count 140 L D (150-375) k/mm3 MPV 11.3 H (7.4-10.4) fl Immature Gran % (Auto) 0.7 H (0-0.5) % Neut % (Auto) 75.9 H (45.5-73.1) % Lymph % (Auto) 17.1 L (18.3-44.2) % [place] % (Auto) 4.8 (2.6-8.5) % Eos % (Auto) 1.1 (0-4.4) % Baso % (Auto) 0.4 (0.2-1.2) % Lymph # (Auto) 3.35 H (0.9-3.2) K/mm3 [place] # (Auto) 0.9 H (0.1-0.6) K/mm3 Eos # (Auto) 0.2 (0-0.3) K/mm3 Baso # (Auto) 0.1 (0.0-0.1) K/mm3 Abs Immat Gran (auto) 0.13 H (0.00-0.031) K/mm3 Absolute Neuts (auto) 14.8 H (1.3-6.7) K/mm3 Absolute Nucleated RBC 0.000 (0.0-0.012) K/mm3 Nucleated RBC % 0.0 (0.0-0.2) % % Immature Plt Fraction 8.5 (0.9-11.2) % PT 16.7 H (11.1-14.7) Seconds INR 1.4 APTT 25.9 (22.3-36.8) Seconds Sodium 139 (137-145) mmol/L Potassium 3.6 (3.4-5.0) mmol/L Chloride 104 (98-107) mmol/L Carbon Dioxide 26 (22-30) mmol/L Anion Gap 9 (4-12) mmol/L BUN 10 (9-20) mg/dL Creatinine 0.76 (0.7-1.3) mg/dL Estim Creat Clear Calc 93 ml/min Estimated GFR > 60 (59 - ) Glucose 186 H (65-110) mg/dL POC Capillary Glucose 170 H (65-105) mg/dl Lactic Acid (0.7-2.0) mmol/L Calcium 9.0 (8.4-10.2) mg/dL Magnesium 1.9 (1.6-2.3) mg/dL Total Bilirubin 1.3 (0.2-1.3) mg/dL AST 76 H (17-59) U/L ALT 139 H (6-50) U/L Alkaline Phosphatase 112 (38-126) U/L Troponin I 1.070 H* (0.000-0.034) ng/mL Total Protein 7.6 (6.3-8.2) g/dL Albumin 4.2 (3.5-5.1) g/dL Urine Color Yellow (Yellow) Urine Appearance Clear (Clear) Urine pH 6.5 (5.0-9.0) Ur Specific [place] 1.034 (1.001-1.035) Urine Protein 2+ H (Negative) mg/dL Urine Glucose (UA) 2+ H (Negative) mg/dL Urine Ketones 1+ H (Negative) mg/dL Ur Blood (Man) Trace (Negative) Urine Nitrate Negative (Negative) Urine Bilirubin Negative (Negative) Urine Urobilinogen 1.0 (<2.0) mg/dL Leukocyte Esterase Rfl Negative (Negative) TONIO/UL Urine RBC 6-10 H (0-2) /hpf Urine WBC 0-5 (0-3) /hpf Ur Squamous Epith Cells None seen (Few) /hpf Urine Bacteria None seen /hpf Urine Casts 3-5 Urine Opiates Screen Negative (Negative) Urine Methadone Screen Negative (Negative) Ur Barbiturates Screen Negative (Negative) Ur Phencyclidine Scrn Negative (Negative) Ur Amphetamine Screen Negative (Negative) U Benzodiazepines Scrn Negative (Negative) Urine Cocaine Screen Negative (Negative) U Cannabinoids Screen Negative (Negative) Ethyl Alcohol < 10 (<10) mg/dL Influenza A (RT-PCR) Negative (Negative) Influenza B (RT-PCR) Negative (Negative) SARS-CoV-2 RNA (RT-PCR) Negative (Negative) 12/24/24 12/24/24 Range/Units 10:26 10:39 WBC (4.5-10.0) K/mm3 RBC (4.6-6.20) M/mm3 Hgb (14.0-18.0) g/dL Hct (42.0-52.0) % MCV (80-100) fl MCH (26-34) pg MCHC (32-36) g/dl RDW (11.5-14.5) % Plt Count (150-375) k/mm3 MPV (7.4-10.4) fl Immature Gran % (Auto) (0-0.5) % Neut % (Auto) (45.5-73.1) % Lymph % (Auto) (18.3-44.2) % Kid[place] % (Auto) (2.6-8.5) % Eos % (Auto) (0-4.4) % Baso % (Auto) (0.2-1.2) % Lymph # (Auto) (0.9-3.2) K/mm3 Kid[place] # (Auto) (0.1-0.6) K/mm3 Eos # (Auto) (0-0.3) K/mm3 Baso # (Auto) (0.0-0.1) K/mm3 Abs Immat Gran (auto) (0.00-0.031) K/mm3 Absolute Neuts (auto) (1.3-6.7) K/mm3 Absolute Nucleated RBC (0.0-0.012) K/mm3 Nucleated RBC % (0.0-0.2) % % Immature Plt Fraction (0.9-11.2) % PT (11.1-14.7) Seconds INR APTT (22.3-36.8) Seconds Sodium (137-145) mmol/L Potassium (3.4-5.0) mmol/L Chloride (98-107) mmol/L Carbon Dioxide (22-30) mmol/L Anion Gap (4-12) mmol/L BUN (9-20) mg/dL Creatinine (0.7-1.3) mg/dL Estim Creat Clear Calc ml/min Estimated GFR (59 - ) Glucose (65-110) mg/dL POC Capillary Glucose (65-105) mg/dl Lactic Acid 2.1 H (0.7-2.0) mmol/L Calcium (8.4-10.2) mg/dL Magnesium (1.6-2.3) mg/dL Total Bilirubin (0.2-1.3) mg/dL AST (17-59) U/L ALT (6-50) U/L Alkaline Phosphatase (38-126) U/L Troponin I 0.886 H* (0.000-0.034) ng/mL Total Protein (6.3-8.2) g/dL Albumin (3.5-5.1) g/dL Urine Color (Yellow) Urine Appearance (Clear) Urine pH (5.0-9.0) Ur Specific [place] (1.001-1.035) Urine Protein (Negative) mg/dL Urine Glucose (UA) (Negative) mg/dL Urine Ketones (Negative) mg/dL Ur Blood (Man) (Negative) Urine Nitrate (Negative) Urine Bilirubin (Negative) Urine Urobilinogen (<2.0) mg/dL Leukocyte Esterase Rfl (Negative) TONIO/UL Urine RBC (0-2) /hpf Urine WBC (0-3) /hpf Ur Squamous Epith Cells (Few) /hpf Urine Bacteria /hpf Urine Casts Urine Opiates Screen (Negative) Urine Methadone Screen (Negative) Ur Barbiturates Screen (Negative) Ur Phencyclidine Scrn (Negative) Ur Amphetamine Screen (Negative) U Benzodiazepines Scrn (Negative) Urine Cocaine Screen (Negative) U Cannabinoids Screen (Negative) Ethyl Alcohol (<10) mg/dL Influenza A (RT-PCR) (Negative) Influenza B (RT-PCR) (Negative) SARS-CoV-2 RNA (RT-PCR) (Negative) Imaging Data Radiologist's impression: ITS Impressions Head/Neck CTA 12/24/24 08:15 IMPRESSION: 1. Small old infarct in right cerebellum. 2. No aneurysm or significant intracranial arterial stenosis. 3. 13% stenosis of the proximal right internal carotid artery relative to normal distal artery lumen diameter (NASCET criteria). 4. 26% stenosis of the proximal left internal carotid artery relative to normal distal artery lumen diameter. Chest X-Ray 12/24/24 09:16 IMPRESSION: 1. Mild increased interstitial pattern in the bilateral lower lung zones which could be due to mild pulmonary edema or atelectasis. ECG Data EKG #1: Attestation: I personally reviewed and interpreted this ECG as follows: ECG completion date: 12/24/24 ECG completion time: 07:37 EKG Interpretation: bradycardia (47), sinus rhythm, RBBB and left axis Critical Care Time Critical Care Time Critical Care Time: Yes Total Critical Care Time: 40 Discharge Plan Discharge Clinical Impression: Headache, Nausea & vomiting, Elevated troponin Patient Disposition: Still a Patient Condition: Serious
[2024-12-24 08:41] LABS: Influenza A QL RT-PCR Negative (Negative); Influenza B QL RT-PCR Negative (Negative); SARS-CoV-2 RNA PCR Negative (Negative)
[2024-12-24 09:49] LABS: Add Urine Microscopic? YES; Appearance Urine Clear (Clear); Glucose Urine UA 2+ mg/dL (Negative); Leukocyte Esterase Ur Negative LEU/UL (Negative); Nitrate Urine Negative (Negative); Specific Grav Ur 1.034 (1.001-1.035)
[2024-12-24 10:07] LABS: Cannabinoid Screen Urine Negative (Negative)
--- NOTE | 2024-12-24 10:08 | PC.NURSE ---
EDP aware of pt vital signs
--- NOTE | 2024-12-24 10:21 | ECG_ITS ---
Test Date: 2024-12-24 10:27:45 Measurements Intervals [place] Rate: 67 P: 56 DC: 160 QRS: -36 QRSD: 138 T: -26 QT: 413 QTc: 437 Interpretive Statements SINUS RHYTHM LEFT AXIS DEVIATION [QRS AXIS < -30] RIGHT BUNDLE BRANCH BLOCK [120+ ms QRS DURATION, UPRIGHT V1, 40+ ms S IN I/aVL/V4/V5/V6] Compared to ECG 12/24/2024 07:37:32 Sinus bradycardia no longer present Sinus arrhythmia no longer present Electronically Signed On 12-24-2024 15:06:47 CDT by Tani Marshall M.D.
[2024-12-24 10:59] LABS: Troponin I 0.886 ng/mL (0.000-0.034)
[2024-12-24] MEDS: CEFEPIME 2 GM in SODIUM CHLORIDE 0.9% IV 50 ML 100 ML IVPB ×2 (11:08→21:33)
--- NOTE | 2024-12-24 11:11 | PM.IMHP ---
H&P: HPI History of Present Illness Date/Time: 12/24/24 11:11 Chief Complaint: Headache, nausea, vomiting Diaphoresis Narrative: 59-year-old male with past medical history of ongoing smoking, almost 2 packs per day presenting with 1 week history of headache with intermittent diaphoresis. He has been experiencing bilateral temporal headache with intermittent diaphoretic episodes. Does resolve with Tylenol occasionally. He did not check his temperature at home but feels like he might have had episode of fever. This morning he had 2 episodes of vomiting after he had his breakfast. Denies any chest pain, shortness of breath, leg swelling. Complains of discomfort in eye with light. Denies any blurry vision. Denies any outside country travel. Denies any abdominal pain. Initial workup in the ER shows white count of 19.5. CTA head and neck shows Small old infarct in right cerebellum. No aneurysm or significant intracranial arterial stenosis. 13% stenosis of the proximal right internal carotid artery relative to normal distal artery lumen diameter (NASCET criteria). 26% stenosis of the proximal left internal carotid artery relative to normal distal artery lumen diameter. His 1st troponin was elevated up to 1.070, trending down right now Review of Systems Review of Systems: All systems reviewed & are unremarkable except as noted in HPI and below PMFSH Past Medical History Medical History Patient denies medical problems Social History Social History Smoking status: Current every day smoker Meds Home Medications and Allergies Home Medications ?Medication ?Instructions ?Recorded ?Confirmed ?Type cephalexin 500 mg capsule 500 mg PO Q6H 7 days #28 caps 09/12/24 Rx sulfamethoxazole 800 1 tablet PO Q12H 7 days #14 tabs 09/12/24 Rx mg-trimethoprim 160 mg tablet (Bactrim DS) Allergies Allergy/AdvReac Type Severity Reaction Status Date / Time No Known Allergies Allergy Mild Verified 12/24/24 07:19 Vital Signs Vital Signs - 24 hr 12/24/24 07:10 12/24/24 07:56 12/24/24 08:26 Temperature 96 F L Pulse Rate 54 L 52 L 67 Respiratory Rate 17 16 Blood Pressure 159/83 H 159/81 H Pulse Oximetry 98 96 Oxygen Delivery Room Air 12/24/24 10:02 12/24/24 11:08 Temperature 95.7 F L Pulse Rate 61 60 Respiratory Rate 19 15 Blood Pressure 128/67 168/92 H Pulse Oximetry 97 95 Oxygen Delivery Exam Const: Other: Diaphoretic, ill-looking HENMT: Mouth: Yes dry mucous membranes Eyes: Sclera: sclerae normal Pupils: Equal, round and reactive pupils present EOM: EOMs intact bilaterally Neck: Neck: supple Other: No neck rigidity Resp: Effort & Inspection: normal respiratory effort Auscultation: clear to auscultation bilaterally Cardio: Rate: regular rate Rhythm: regular rhythm GI: Inspection: distended GI Palp: Yes Soft to palpation Auscultation: normal bowel sounds Neuro: Motor exam (neuro): 5/5 motor strength present throughout Other: No neck rigidity 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 No motor weakness noted in lower extremity as well Extrem: Other: No leg edema H&P: Results Labs Labs: Short CBC 12/24/24 Range/Units 07:37 WBC 19.5 H (4.5-10.0) K/mm3 Hgb 14.4 (14.0-18.0) g/dL Hct 45.0 (42.0-52.0) % Plt Count 140 L D (150-375) k/mm3 BMP 12/24/24 07:37 Sodium 139 Potassium 3.6 Chloride 104 Carbon Dioxide 26 BUN 10 Creatinine 0.76 Glucose 186 H Calcium 9.0 Cardiac Enzymes 12/24/24 12/24/24 Range/Units 07:37 10:26 Troponin I 1.070 H* 0.886 H* (0.000-0.034) ng/mL Liver Function 12/24/24 Range/Units 07:37 Total Bilirubin 1.3 (0.2-1.3) mg/dL AST 76 H (17-59) U/L ALT 139 H (6-50) U/L Alkaline Phosphatase 112 (38-126) U/L Albumin 4.2 (3.5-5.1) g/dL Urine 12/24/24 Range/Units 09:37 Urine Color Yellow (Yellow) Urine Appearance Clear (Clear) Urine pH 6.5 (5.0-9.0) Ur Specific [place] 1.034 (1.001-1.035) Urine Protein 2+ H (Negative) mg/dL Urine Glucose (UA) 2+ H (Negative) mg/dL Assessment and Plan Assessment and plan (1) Elevated troponin: Code(s): R79.89 - Other specified abnormal findings of blood chemistry Status: Acute (2) Headache: Code(s): R51.9 - Headache, unspecified Status: Acute (3) Nausea & vomiting: Code(s): R11.2 - Nausea with vomiting, unspecified Status: Acute (4) Diaphoresis: Code(s): R61 - Generalized hyperhidrosis Status: Acute (5) Leucocytosis: Code(s): D72.829 - Elevated white blood cell count, unspecified Status: Acute Plan 59-year-old male with past medical history of smoking presenting with 1 week history of headache along with nausea, vomiting and diaphoresis. 1. Headache with nausea vomiting: Admit to telemetry medicine CTA head and neck was negative for any acute events Obtain blood culture Will plan for lumbar puncture with IR Obtain CSF stain, culture, CSF protein, glucose Will start on vancomycin, cefepime, ampicillin until we have further information MRI brain Neurology consult Zofran, Tylenol p.r.n. 2. Elevated troponin: Patient denies any chest pain Continue with tele monitoring Cardiology consult Obtain echocardiogram Will continue to trend troponin Will hold aspirin, anticoagulation temporarily until we get the lumbar puncture Obtain lipid panel, hemoglobin A1c with next set of labs 3. Hyperglycemia: Obtain hemoglobin A1c with next set of labs Blood glucose checks q.6 hours Sliding-scale insulin q.6 hours Hypoglycemia treatment per protocol 4. Elevated blood pressure: Will add p.r.n. IV hydralazine until NPO status Monitor blood pressure 5. Code status: Full 6. DVT prophylaxis: SCDs for now 7. Disposition: Admit to telemetry medicine/IMU Quality VTE Prophylaxis VTE prophylaxis: mechanical ordered Hospitalist MIPS Advance Care Plan I have confirmed that the patient's Advanced Care Plan is present, code status is documented, or surrogate decision maker is listed in patient medical record.: Yes Medication Reconciliation I have utilized all available resources to obtain, update and review the patients current medications (includes all prescriptions, OTC, herbals, cannabis, and nutritional supplements).: Yes
[2024-12-24] MEDS: AMPICILLIN SODIUM 1 GM in SODIUM CHLORIDE 0.9% IV 50 ML 100 ML IVPB ×3 (12:06→23:36)
[2024-12-24] MEDS: VANCOMYCIN 1,250 MG/NS 250 ML 1,250 MG/250 ML BAG 166.67 MG IVPB (12:48)
--- NOTE | 2024-12-24 13:15 | P.CONCA_ITS ---
Assessment and Plan Assessment and plan (1) Acute non-Q wave non-ST elevation myocardial infarction (NSTEMI): Code(s): I21.4 - Non-ST elevation (NSTEMI) myocardial infarction Status: Acute (2) Elevated troponin: Code(s): R79.89 - Other specified abnormal findings of blood chemistry Status: Acute Plan Assessment: (1) Elevated cardiac troponin in patient with complaints of weakness and diaphoresis but no chest pain or shortness of breath. EKG reveals normal sinus rhythm with heart rate of 69 per minute and right bundle-branch block as well as left anterior fascicular block. Patient also has nonspecific T changes. In the absence of chest pain this appears to be type [address] segment elevation myocardial injury. No previous cardiac workup noted. (2) Elevated WBC count. Rule out infection or sepsis. (3) chest x-ray does reveal mild Sheryl increased interstitial pattern in the lower lung zones. Cannot rule out mild pulmonary edema or atelectasis. Recommendations: Continue to monitor serial cardiac enzymes and EKGs. Echocardiogram to evaluate for left ventricular systolic function and wall motion abnormalities. Treat underlying infection. Empiric antibiotics and blood cultures. Full-dose subcu Lovenox. Blood pressure is 159/81 mm of mercury. Heart rate 65 per minute History of Present Illness History of Present Illness Consult date/time: 12/24/24 13:15 Requesting physician: Flower Liriano MD Consult reason: Other (Elevated Cardiac Enzymes) Reason For Visit: nstemi,leukocytosis Narrative: This is a 59-year-old male with complaints of weakness, diaphoresis and lightheadedness for about 1 week. Patient complained of bilateral temporal headache with intermittent diaphoresis but did no complaints of chest pain, shortness of breath, abdominal pain, nausea or vomiting. Patient had 2 episodes of vomiting after the request this morning. No complaints of fever or chills. Workup in the emergency room revealed elevated WBC count 19,500. 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 No significant stenosis of the internal carotid artery is noted bilaterally. EKG has shown incomplete right bundle branch block with nonspecific T changes. Cardiac troponin was increased to 1.0 and cardiology consultation was requested. No known previous history of cardiac problems or any history suggestive of myocardial infarction or angina. Patient was examined at bedside. Patient appears comfortable without shortness of breath chest pain. Review of Systems 2 Review of Systems: Twelve point review of system was completed. Pertinent positive and negative findings per HPI. Cardiovascular: Comments: Negative for chest pain, shortness of breath or palpitations. [facility] Past Medical History Medical History Patient denies medical problems Social History Social History Smoking status: Heavy tobacco smoker Alcohol intake: current Drinks per week: 0 Substance use: never Lack of Transportation: No Lack of Food: Never True Current Housing: I Have Housing Concerned About Future Housing: No Difficulty Paying Gas/Electric Bills: No Difficulty Paying for Meds: No Currently Unemployed: No Education: High School Diploma/GED Difficulty w/ Childcare or Family Care: No Spiritual care concerns: No Meds Home Medications and Allergies Home Medications ?Medication ?Instructions ?Recorded ?Confirmed ?Type No Home Medications 12/24/24 12/24/24 H istory Allergies Allergy/AdvReac Type Severity Reaction Status Date / Time No Known Allergies Allergy Mild Verified 12/24/24 17:26 Vital Signs Vital Signs - 24 hr 12/24/24 07:10 12/24/24 07:56 12/24/24 08:26 Temperature 35.5 C L Pulse Rate 54 L 52 L 67 Respiratory Rate 17 16 Blood Pressure 159/83 H 159/81 H Pulse Oximetry 98 96 Oxygen Delivery Room Air 12/24/24 10:02 12/24/24 11:08 12/24/24 12:07 Temperature 35.4 C L 36.4 C L Pulse Rate 61 60 65 Respiratory Rate 19 15 14 Blood Pressure 128/67 168/92 H 158/83 H Pulse Oximetry 97 95 98 Oxygen Delivery 12/24/24 12:44 Temperature Pulse Rate 76 Respiratory Rate 16 Blood Pressure 139/84 Pulse Oximetry 96 Oxygen Delivery Exam 2 Narrative: Ideally gentleman appears to be awake and alert but weak. Normocephalic. No head injury noted. Neck is supple. There is no JVD or carotid bruit. Thyroid is not enlarged. There is no cervical lymphadenopathy. Lungs are clear auscultation percussion Heart sounds reveal normal S1-S2 present a soft systolic murmur. There is no S3 or S4. Abdomen soft nontender. There is no hepatosplenomegaly. Bowel sounds present. Extremities revealed no pedal edema. Distal pulses are fair bilaterally with There are no focal neurological signs. Skin and musculoskeletal is intact. Results Labs and Meds 12/25/24 03:54 12/25/24 03:54 Lab results: Cardiac Enzymes 12/24/24 12/24/24 Range/Units 07:37 10:26 AST 76 H (17-59) U/L Troponin I 1.070 H* 0.886 H* (0.000-0.034) ng/mL Coagulation 12/24/24 Range/Units 07:37 PT 16.7 H (11.1-14.7) Seconds APTT 25.9 (22.3-36.8) Seconds CBC 12/24/24 Range/Units 07:37 WBC 19.5 H (4.5-10.0) K/mm3 RBC 5.09 (4.6-6.20) M/mm3 Hgb 14.4 (14.0-18.0) g/dL Hct 45.0 (42.0-52.0) % Plt Count 140 L D (150-375) k/mm3 Lymph # (Auto) 3.35 H (0.9-3.2) K/mm3 [place]usk # (Auto) 0.9 H (0.1-0.6) K/mm3 Eos # (Auto) 0.2 (0-0.3) K/mm3 Baso # (Auto) 0.1 (0.0-0.1) K/mm3 Comprehensive Metabolic Panel 12/24/24 Range/Units 07:37 Sodium 139 (137-145) mmol/L Potassium 3.6 (3.4-5.0) mmol/L Chloride 104 (98-107) mmol/L Carbon Dioxide 26 (22-30) mmol/L BUN 10 (9-20) mg/dL Creatinine 0.76 (0.7-1.3) mg/dL Glucose 186 H (65-110) mg/dL Calcium 9.0 (8.4-10.2) mg/dL AST 76 H (17-59) U/L ALT 139 H (6-50) U/L Alkaline Phosphatase 112 (38-126) U/L Total Protein 7.6 (6.3-8.2) g/dL Albumin 4.2 (3.5-5.1) g/dL Intake and Output 12/23/24 12/24/24 12/24/24 23:59 07:59 15:59 Intake Total 1100 Balance 1100 Intake: IV 1100 Lactated Ringers 1,000 ml @ 999 1000 mls/hr IV CONT .Q1H1M STA Rx#: [id number] Ampicillin Sodium 1 gm In 50 Sodium Chloride 0.9% IV 50 ml @ 100 mls/hr IVPB Q6HR [facility] Rx#: [id number] Cefepime 2 gm In Sodium 50 Chloride 0.9% IV 50 ml @ 100 mls/hr IVPB Q8HR [facility] Rx#: [id number] Patient Weight 12/24/24 23:59 Weight 91.2 kg Imaging and Cardiology EKG results: report reviewed and other (Normal sinus rhythm with heart rate of 69 per minute. Patient has right bundle-branch block with left axis deviation and nonspecific T changes in the inferolateral leads.) Quality VTE Prophylaxis VTE prophylaxis: pharmacologic ordered (Patient will be on full-dose subcu Lovenox )
--- NOTE | 2024-12-24 13:39 | ECG_ITS ---
Test Date: 2024-12-24 13:54:17 Measurements Intervals [place] Rate: 69 P: 51 ME: 158 QRS: -38 QRSD: 133 T: -14 QT: 394 QTc: 424 Interpretive Statements SINUS RHYTHM POSSIBLE LEFT ATRIAL ENLARGEMENT [-0.1mV P-WAVE IN V1/V2] LEFT AXIS DEVIATION [QRS AXIS < -30] RIGHT BUNDLE BRANCH BLOCK [120+ ms QRS DURATION, UPRIGHT V1, 40+ ms S IN I/aVL/V4/V5/V6] POSSIBLE LEFT VENTRICULAR HYPERTROPHY [VOLTAGE CRITERIA PLUS LAE OR QRS WIDENING] Compared to ECG 12/24/2024 07:37:32 Sinus bradycardia no longer present Sinus arrhythmia no longer present Electronically Signed On 12-24-2024 15:06:34 CDT by Tani Marshall M.D.
--- NOTE | 2024-12-24 13:58 | PC.NURSE ---
Pt to XRAY at this time on portable monitor
--- NOTE | 2024-12-24 14:10 | PC.NURSE ---
Pt instructed to keep arm straight so IV pump will continue running his abx
[2024-12-24 14:48] LABS: Troponin I 0.928 ng/mL (0.000-0.034)
[2024-12-24 15:33] LABS: Nucleated Cell CSF 1 /uL (0-5)
[2024-12-24 15:34] LABS: Lymphocytes CSF 64 % (40-80); Monocytes CSF 16 % (15-45); Neutrophils CSF 20 % (0-6); Red Blood Cell CSF 88 (0-2)
[2024-12-24] MEDS: VANCOMYCIN HCL 1,000 MG in SODIUM CHLORIDE 0.9% IV 250 ML 250 MG IVPB (16:19)
--- NOTE | 2024-12-24 16:45 | PC.NURSE ---
lab called for gram stain results Neg For WBC no organism found EDP made aware
--- NOTE | 2024-12-24 17:38 | PC.NURSE ---
patient arrived.tele applied. precautions initiated.
--- NOTE | 2024-12-24 17:49 | P.CONNEU_ITS ---
Assessment and Plan Assessment and plan (1) Headache: Code(s): R51.9 - Headache, unspecified Status: Acute (2) Nausea & vomiting: Code(s): R11.2 - Nausea with vomiting, unspecified Status: Acute (3) Leucocytosis: Code(s): D72.829 - Elevated white blood cell count, unspecified Status: Acute Plan Patient has history suggestive of some sort of infection. His white cell count of the high at 19.7 with a predominance of polymorphs. Spinal fluid however shows only 1 WBC but protein was 73. Viral studies are pending. Whether it is in early stages of viral meningitis or some other viral infection or bacterial infection require further analysis. All the cultures have been sent in CSF viral studies have also been sent. The patient has been covered with antibiotics. Currently he is also being placed in isolation. The patient does smoke 2 packs of cigarettes a day however denies any alcohol or drug abuse. Urine toxicology screen was negative. Screening test for influenza a and B and COVID negative. Urinalysis however shows 2+ protein and 2+ glucose and 1+ urinary ketone and 6-10 WBC. Blood cultures have been obtained and the results of CSF and blood cultures and urine culture would follow. Consult date: 12/24/24 HPI: Mino Young is a 59 year old male presented to the emergency room with the not feeling well for a week and having intermittent headache and nausea. He generally does not suffer from chronic headache. The pain was throbbing type pain most in the left side and has some visual disturbance which is difficult to describe he became diaphoretic and almost passed out today at which point he was brought to the hospital. He still has some headache pre in the emergency underwent CT scan of brain and thereafter spinal tap, the results of which will be discussed below. His WBC count was very high at 19.5 and platelet count slightly low at 140. His WBC differential shows 75.9% polymorphs. Initial blood work shows liver enzymes slightly high with AST at 76 and ALT at was 39. Troponin level was also high at 1.07. This has been evaluated by passenger service manager. Spinal fluid examination shows 1 WBC and 20% neutrophils 64% lymphocytes and 16% monocytes CSF protein was elevated at 73 mg%. there where also 88 RBC. The viral studies are pending. Review of Systems 2 Review of Systems: Patient denies any recent febrile illness or any head trauma. He does not suffer from chronic headache and has been in fairly decent health and hardly takes any medications. The patient lives his . He does smoke 2 packs of cigarettes a day but denies any history of alcohol drinking. [facility] Past Medical History Medical History Patient denies medical problems Social History Social History Smoking status: Heavy tobacco smoker Alcohol intake: current Drinks per week: 0 Substance use: never Lack of Transportation: No Lack of Food: Never True Current Housing: I Have Housing Concerned About Future Housing: No Difficulty Paying Gas/Electric Bills: No Difficulty Paying for Meds: No Currently Unemployed: No Education: High School Diploma/GED Difficulty w/ Childcare or Family Care: No Spiritual care concerns: No Meds Home Medications and Allergies Home Medications ?Medication ?Instructions ?Recorded ?Confirmed ?Type No Home Medications 12/24/24 12/24/24 H istory Allergies Allergy/AdvReac Type Severity Reaction Status Date / Time No Known Allergies Allergy Mild Verified 12/24/24 17:26 Vital Signs Vital Signs - 24 hr 12/24/24 07:10 12/24/24 07:56 12/24/24 08:26 Temperature 96 F L Pulse Rate 54 L 52 L 67 Respiratory Rate 17 16 Blood Pressure 159/83 H 159/81 H Pulse Oximetry 98 96 Oxygen Delivery Room Air 12/24/24 10:02 12/24/24 11:08 12/24/24 12:07 Temperature 95.7 F L 97.5 F L Pulse Rate 61 60 65 Respiratory Rate 19 15 14 Blood Pressure 128/67 168/92 H 158/83 H Pulse Oximetry 97 95 98 Oxygen Delivery 12/24/24 12:44 12/24/24 13:56 12/24/24 14:47 Temperature Pulse Rate 76 78 77 Respiratory Rate 16 21 H 19 Blood Pressure 139/84 164/85 H 172/95 H Pulse Oximetry 96 98 100 Oxygen Delivery 12/24/24 15:26 12/24/24 16:19 12/24/24 16:39 Temperature 97.7 F 97.9 F Pulse Rate 76 92 84 Respiratory Rate 16 20 18 Blood Pressure 161/93 H 157/71 H 162/85 H Pulse Oximetry 99 98 97 Oxygen Delivery 12/24/24 17:08 Temperature 97.7 F Pulse Rate 83 Respiratory Rate 18 Blood Pressure 164/83 H Pulse Oximetry 100 Oxygen Delivery Exam 2 Const: General: cooperative, healthy appearing and comfortable Other: No aphasia or dysarthria. Mental status within normal range. HENMT: Head: atraumatic Mouth: Yes oropharynx normal Eyes: Alignment and Position: alignment normal and position normal EOM: E OMs intact bilaterally Neck: Neck: normal visual inspection and supple Resp: Effort & Inspection: normal respiratory effort Skin: General skin exam: normal color Neuro: Cranial nerves: Yes CN's II-XII intact bilaterally, Yes facial symmetry and Yes Midline tongue present Cognition (Neuro): normal cognition Speech: normal speech Coordination: [id number] test normal and Normal rapid alternating movements of the distal upper extremity present (Neuro) Extrem: General: normal to inspection Psych: Appearance: well kempt Mental Status: mental status grossly normal Speech and movement: Normal speech and movement present Affect: normal affect Thought process: Normal thought process present Thought content: Y es Normal thought content present Insight: Good insight present (Psych) J udgement: Good judgement present (Psych) Results Labs 12/24/24 07:37 12/24/24 07:37 Labs: Short CBC 12/24/24 Range/Units 07:37 WBC 19.5 H (4.5-10.0) K/mm3 Hgb 14.4 (14.0-18.0) g/dL Hct 45.0 (42.0-52.0) % Plt Count 140 L D (150-375) k/mm3 BMP 12/24/24 07:37 Sodium 139 Potassium 3.6 Chloride 104 Carbon Dioxide 26 BUN 10 Creatinine 0.76 Glucose 186 H Calcium 9.0 Cardiac Enzymes 12/24/24 12/24/24 12/24/24 Range/Units 07:37 10:26 13:53 Troponin I 1.070 H* 0.886 H* 0.928 H* (0.000-0.034) ng/mL Liver Function 12/24/24 Range/Units 07:37 Total Bilirubin 1.3 (0.2-1.3) mg/dL AST 76 H (17-59) U/L ALT 139 H (6-50) U/L Alkaline Phosphatase 112 (38-126) U/L Albumin 4.2 (3.5-5.1) g/dL Urine 12/24/24 Range/Units 09:37 Urine Color Yellow (Yellow) Urine Appearance Clear (Clear) Urine pH 6.5 (5.0-9.0) Ur Specific Rodman 1.034 (1.001-1.035) Urine Protein 2+ H (Negative) mg/dL Urine Glucose (UA) 2+ H (Negative) mg/dL
[2024-12-25] VITALS (16 sets, daily range): BP systolic 126–176; BP diastolic 63–83; PULSE 60–80; RESP 14–73; TEMP 36.1–36.9; O2SAT 95–96
[2024-12-25] MEDS: VANCOMYCIN 1,500 MG/NS 500 ML 1,500 MG/500 ML BAG 250 MG IVPB ×2 (00:48→13:48)
[2024-12-25] MEDS: ACETAMINOPHEN 325 MG TABLET 650 MG PO ×2 (02:03→14:37)
[2024-12-25 04:36] LABS: Hematocrit 41.4 % (42.0-52.0); Hemoglobin 13.2 g/dL (14.0-18.0); Immature Granulocyte Percent A 0.4 % (0-0.5); Immature Platelet Fraction Pct 9.8 % (0.9-11.2); Lymphocytes Absolute Auto 2.47 K/mm3 (0.9-3.2); Mean Corpuscular HGB Conc 31.9 g/dl (32-36); Mean Corpuscular Hemoglobin 28.1 pg (26-34); Mean Corpuscular Volume 88.1 fl (80-100); Nucleated Red Blood Cells Absolute Auto 0.000 K/mm3 (0.0-0.012); Nucleated Red Blood Cells Perc 0.0 % (0.0-0.2); Platelet Count Result 110 k/mm3 (150-375); Red Blood Count 4.70 M/mm3 (4.6-6.20); White Blood Count 14.2 K/mm3 (4.5-10.0)
[2024-12-25 04:39] LABS: Hemoglobin A1C 5.7 % (<5.7)
[2024-12-25 04:54] LABS: Alanine Aminotransferase 135 U/L (6-50); Albumin Level 3.7 g/dL (3.5-5.1); Alkaline Phosphatase 91 U/L (38-126); Anion Gap 6 mmol/L (4-12); Aspartate Amino Transferase 76 U/L (17-59); Bilirubin,Total 1.2 mg/dL (0.2-1.3); Blood Urea Nitrogen 9 mg/dL (9-20); Calcium 8.7 mg/dL (8.4-10.2); Carbon Dioxide 27 mmol/L (22-30); Chloride 103 mmol/L (98-107); Cholesterol 323 mg/dL (0-200); Estimated CRCL calculation 81 ml/min; Estimated Glomerular Filt Rate > 60; Glucose 97 mg/dL (65-110); HDL Direct 39 mg/dL; Potassium 4.1 mmol/L (3.4-5.0); Sodium 136 mmol/L (137-145); Total Protein 6.7 g/dL (6.3-8.2); Triglycerides 222 mg/dL (<150)
[2024-12-25] MEDS: ENOXAPARIN 100 MG/ML SYRINGE 90 MG SUB-Q ×2 (05:02→17:47)
[2024-12-25] MEDS: AMPICILLIN SODIUM 1 GM in SODIUM CHLORIDE 0.9% IV 50 ML 100 ML IVPB ×4 (05:02→23:46)
[2024-12-25] MEDS: CEFEPIME 2 GM in SODIUM CHLORIDE 0.9% IV 50 ML 100 ML IVPB ×3 (06:14→21:22)
[2024-12-25] MEDS: NICOTINE (*PBKC) 21 MG PATCH 1 PATCH TRANSDERM (08:31)
--- NOTE | 2024-12-25 12:27 | PM.PNCARD ---
Progress Note: A&P Assessment and Plan (1) Acute non-Q wave non-ST elevation myocardial infarction (NSTEMI): Code(s): I21.4 - Non-ST elevation (NSTEMI) myocardial infarction Status: Acute (2) Elevated troponin: Code(s): R79.89 - Other specified abnormal findings of blood chemistry Status: Acute Plan Assessment: (1) Elevated cardiac troponin in patient with complaints of weakness and diaphoresis but no chest pain or shortness of breath. EKG reveals normal sinus rhythm with heart rate of 69 per minute and right bundle-branch block as well as left anterior fascicular block. Patient also has nonspecific T changes. In the absence of chest pain this appears to be type [address] segment elevation myocardial injury. No previous cardiac workup noted. -S serial cardiac troponin been not suggest acute coronary syndrome. Follow-up EKG did not show ischemic ST changes. Patient is stable without chest pain. (2) Elevated WBC count. Rule out infection or sepsis. (3) chest x-ray does reveal mild Sheryl increased interstitial pattern in the lower lung zones. Cannot rule out mild pulmonary edema or atelectasis. Recommendations: -Echocardiogram reviewed from 12/24/2024 which showed normal left ventricular size and systolic function with grade 2 diastolic dysfunction and moderately elevated pulmonary hypertension the range of 45 mm Hg. Clinically patient is stable without any chest pain or shortness of breath. Cardiac troponin was flat without suggestion for acute coronary syndrome. Patient likely has type 2 , Non Q non ST segment elevation myocardial infarction likely secondary to type 2 injury and lactic acidosis and his infection. -Okay to discontinue full-dose subcu Lovenox at this time. -WBC count has been decreased. Platelet count is mildly decreased at 110,000 . -current medications reviewed. Vital signs are stable. Patient remains afebrile. -continue treatment of underlying condition prepped. Check BNP if not done on admission blood Subjective Date/time seen: 12/25/24 12:27 Interval history: Patient was examined at bedside. Patient is awake alert and appears comfortable. No complaints of shortness of breath chest pain. The cardiac troponin was 1.07 on admission which decreased to 0.88 followed by 0.928. The trend is nonspecific and does not suggest acute coronary syndrome per . Laboratory data reviewed Restoril 136, potassium 4.1, BUN is 9, creatinine 0.88. WBC decreased to 14.2 and hemoglobin is 13.2. Platelets are decreased to 110,000. Echocardiogram reviewed from 12/24/2024 which showed normal left ventricular size and systolic function estimated 55-60% with grade 2 diastolic dysfunction (moderate aortic valve calcification with mild aortic valve regurgitation. Moderate pulmonary hypertension noted estimated at 45 mm Hg. Last EKG reviewed from 12/24/2024 and does not show significant ST or ischemic changes but had nonspecific T changes noted in inferior leads. Review of Systems Review of Systems: 12 point review of system was completed. Pertinent positive and negative findings per HPI. Exam Const: Other: Patient examined bedside. Patient is awake alert and appears comfortable. No shortness of breath, orthopnea chest pain. Head and neck examination is unremarkable sclerae nonicteric. ENT examination is negative. Neck is supple. There is no JVD or carotid bruit. Thyroid isn't enlarged. Lungs are clear auscultation percussion. There is no wheezing or crepitations. Heart sounds reveal normal S1-S2. There is no significant murmurs S3 or S4. Abdomen is soft nontender there is no parasternal megaly. Bowel sounds present. Extremities revealed no pedal edema. Distal pulses are fair bilaterally. Neurological examination is intact at Skin and musculoskeletal is intact. No new rash. Objective Data Vital Signs Vital Signs: Vital Signs - 24 hr 12/24/24 12:44 12/24/24 13:56 12/24/24 14:47 Temperature Pulse Rate 76 78 77 Respiratory Rate 16 21 H 19 Blood Pressure 139/84 164/85 H 172/95 H Pulse Oximetry 96 98 100 Oxygen Delivery Fraction of Inspired Oxygen 12/24/24 15:26 12/24/24 16:19 12/24/24 16:39 Temperature 36.5 C 36.6 C Pulse Rate 76 92 84 Respiratory Rate 16 20 18 Blood Pressure 161/93 H 157/71 H 162/85 H Pulse Oximetry 99 98 97 Oxygen Delivery Fraction of Inspired Oxygen 12/24/24 17:08 12/24/24 18:00 12/24/24 20:00 Temperature 36.5 C 36.6 C Pulse Rate 83 80 83 Respiratory Rate 18 14 Blood Pressure 164/83 H 132/66 Pulse Oximetry 100 95 Oxygen Delivery Fraction of Inspired Oxygen 12/24/24 20:00 12/24/24 20:00 12/24/24 20:57 Temperature Pulse Rate 89 73 Respiratory Rate 20 Blood Pressure Pulse Oximetry 90 Oxygen Delivery Room Air Room Air Fraction of Inspired Oxygen 21 12/24/24 22:00 12/25/24 00:00 12/25/24 00:00 Temperature 36.8 C Pulse Rate 70 80 Respiratory Rate 14 Blood Pressure 145/75 H Pulse Oximetry 95 Oxygen Delivery Room Air Fraction of Inspired Oxygen 12/25/24 00:00 12/25/24 02:00 12/25/24 04:00 Temperature Pulse Rate 60 74 Respiratory Rate Blood Pressure Pulse Oximetry Oxygen Delivery Room Air Fraction of Inspired Oxygen 12/25/24 04:00 12/25/24 04:00 12/25/24 06:00 Temperature 36.7 C Pulse Rate 75 66 68 Respiratory Rate 14 Blood Pressure 126/63 Pulse Oximetry 95 Oxygen Delivery Fraction of Inspired Oxygen 12/25/24 07:39 12/25/24 11:37 Temperature 36.1 C L 36.9 C Pulse Rate 73 75 Respiratory Rate 18 18 Blood Pressure 163/82 H 176/78 H Pulse Oximetry 96 95 Oxygen Delivery Fraction of Inspired Oxygen Intake/Output Intake/Output: Intake & Output 12/22/24 12/23/24 12/24/24 12/25/24 23:59 23:59 23:59 23:59 Intake Total 1450 690 Balance 1450 690 Meds/Results Medications: Active Medications Generic Name Dose Route Start Last Admin Trade Name Freq PRN Reason Stop Dose Admin Acetaminophen 650 mg 12/24/24 10:37 12/25/24 02:03 Acetaminophen 325 Mg Tablet PO 650 mg Q6HR PRN Administration headache Dextrose 12.5 gm 12/24/24 11:15 Dextrose 50% 25 Gm/50 Ml Syringe IV PUSH PRN PRN Hypoglycemia Protocol Enoxaparin Sodium 90 mg 12/25/24 06:00 12/25/24 05:02 Enoxaparin 100 Mg/Ml Syringe SUB-Q 90 mg Q12H LUPE Administration Glucagon 1 mg 12/24/24 11:15 Glucagon For Inj 1 Mg Vial IM PRN PRN Hypoglycemia Protocol Glucose 15 gm 12/24/24 11:15 Glucose Oral Gel 15 Gm Of Glucse In 37.5 Gm Tube PO PRN PRN Hypoglycemia Protocol Hydralazine HCl 5 mg 12/24/24 11:16 Hydralazine Hcl 20 Mg/Ml Vial IV PUSH Q8H PRN Blood Pressure - High, for BP> Ampicillin Sodium 1 gm/ Sodium 50 mls @ 100 mls/hr 12/24/24 12:00 12/25/24 05:02 Chloride IVPB 100 mls/hr Q6HR LUPE Administration Cefepime HCl 2 gm/ Sodium 50 mls @ 100 mls/hr 12/24/24 22:00 12/25/24 06:14 Chloride IVPB 100 mls/hr Q8HR LUPE Administration Dextrose 1,000 mls @ 100 mls/hr 12/24/24 11:15 Dextrose 5% 1,000 Ml IVPB PRN PRN Hypoglycemia Protocol Vancomycin HCl 1,500 mg in 500 mls @ 250 mls/hr 12/25/24 01:00 12/25/24 00:48 Vancomycin 1,500 Mg/Ns 500 Ml IVPB 250 mls/hr Q12H LUPE Administration Insulin Aspart 4 - 8 units 12/24/24 12:00 12/25/24 06:25 Insulin Aspart (*Bkc) 100 Units/Ml SUB-Q Not Given Q6HR LUPE Protocol Nicotine 1 patch 12/24/24 09:00 12/25/24 08:31 Nicotine (*Pbkc) 21 Mg Patch TRANSDERM 1 patch DAILY LUPE Administration Ondansetron HCl 4 mg 12/24/24 10:36 Ondansetron Inj 4 Mg/2 Ml Vial IV PUSH Q6HR PRN Nausea And Vomiting Ondansetron HCl 4 mg 12/24/24 11:35 Ondansetron Inj 4 Mg/2 Ml Vial IV PUSH Q4H PRN Nausea Perflutren Lipid Microsphere 0 ml 12/24/24 10:36 Perflutren Lipid Microspheres 1.5 Ml Vial Diluted To 10 Ml Total Volume IV PUSH 12/27/24 10:36 ONCE PRN adequate visualization Protocol Radiology Results: ITS Impressions Head/Neck CTA 12/24/24 08:15 IMPRESSION: 1. Small old infarct in right cerebellum. 2. No aneurysm or significant intracranial arterial stenosis. 3. 13% stenosis of the proximal right internal carotid artery relative to normal distal artery lumen diameter (NASCET criteria). 4. 26% stenosis of the proximal left internal carotid artery relative to normal distal artery lumen diameter. Chest X-Ray 12/24/24 09:16 IMPRESSION: 1. Mild increased interstitial pattern in the bilateral lower lung zones which could be due to mild pulmonary edema or atelectasis. Lumbar Puncture Fluoroscopy 12/24/24 14:55 IMPRESSION: 1. Successful fluoro-guided lumbar puncture. Mildly elevated opening pressure of 22 cm water. Brain MRI 12/25/24 11:32 IMPRESSION: 1. Acute infarcts scattered in the bilateral frontal, parietal, and occipital lobes and cerebellum. 2. 5 mm enhancing lesion in left frontal lobe, likely a subacute infarct. Metastatic disease is less likely. Labs Labs: Laboratory Results - last 24 hr 12/24/24 12/24/24 12/24/24 13:53 14:26 14:28 WBC RBC Hgb Hct MCV MCH MCHC RDW Plt Count MPV Immature Gran % (Auto) Neut % (Auto) Lymph % (Auto) [place] % (Auto) Eos % (Auto) Baso % (Auto) Lymph # (Auto) [place] # (Auto) Eos # (Auto) Baso # (Auto) Abs Immat Gran (auto) Absolute Neuts (auto) Absolute Nucleated RBC Nucleated RBC % % Immature Plt Fraction Sodium Potassium Chloride Carbon Dioxide Anion Gap BUN Creatinine Estim Creat Clear Calc Estimated GFR Glucose POC Capillary Glucose Hemoglobin A1c Lactic Acid 1.3 Calcium Total Bilirubin AST ALT Alkaline Phosphatase Troponin I 0.928 H* Total Protein Albumin Triglycerides Cholesterol LDL Cholesterol Direct HDL Direct CSF Source Csf CSF Appearance Clear CSF Color Colorless CSF RBC 88 H CSF Tot Nucleated Cells 1 CSF Neutrophils 20 H CSF Lymphocytes 64 CSF Monocytes 16 CSF Glucose 90 H CSF Total Protein 73 H 12/25/24 12/25/24 12/25/24 00:07 03:54 11:35 WBC 14.2 H RBC 4.70 Hgb 13.2 L Hct 41.4 L MCV 88.1 MCH 28.1 MCHC 31.9 L RDW 13.3 Plt Count 110 L MPV 11.5 H Immature Gran % (Auto) 0.4 Neut % (Auto) 74.5 H Lymph % (Auto) 17.5 L [place] % (Auto) 6.8 Eos % (Auto) 0.4 Baso % (Auto) 0.4 Lymph # (Auto) 2.47 [place] # (Auto) 1.0 H Eos # (Auto) 0.1 Baso # (Auto) 0.1 Abs Immat Gran (auto) 0.05 H Absolute Neuts (auto) 10.6 H Absolute Nucleated RBC 0.000 Nucleated RBC % 0.0 % Immature Plt Fraction 9.8 Sodium 136 L Potassium 4.1 Chloride 103 Carbon Dioxide 27 Anion Gap 6 BUN 9 Creatinine 0.88 Estim Creat Clear Calc 81 Estimated GFR > 60 Glucose 97 POC Capillary Glucose 105 95 Hemoglobin A1c 5.7 Lactic Acid Calcium 8.7 Total Bilirubin 1.2 AST 76 H ALT 135 H Alkaline Phosphatase 91 Troponin I Total Protein 6.7 Albumin 3.7 Triglycerides 222 H Cholesterol 323 H LDL Cholesterol Direct 199 HDL Direct 39 CSF Source CSF Appearance CSF Color CSF RBC CSF Tot Nucleated Cells CSF Neutrophils CSF Lymphocytes CSF Monocytes CSF Glucose CSF Total Protein ECG Attestation: I personally reviewed and interpreted this ECG as follows: ECG completion date: 12/24/24
[2024-12-25] MEDS: SODIUM CHLORIDE 0.9% IV 250 ML 30 ML (13:07)
[2024-12-25] MEDS: oxyCODONE/ACETAMINOPHEN (*CRX) 5-325 MG TABLET 1 TABLET PO ×2 (17:10→23:47)
--- NOTE | 2024-12-25 17:28 | PM.IMPN ---
Progress Note: A&P Assessment and Plan (1) Elevated troponin: Code(s): R79.89 - Other specified abnormal findings of blood chemistry Status: Acute (2) Headache: Code(s): R51.9 - Headache, unspecified Status: Acute (3) Nausea & vomiting: Code(s): R11.2 - Nausea with vomiting, unspecified Status: Acute (4) Diaphoresis: Code(s): R61 - Generalized hyperhidrosis Status: Acute (5) Leucocytosis: Code(s): D72.829 - Elevated white blood cell count, unspecified Status: Acute Plan 59-year-old male with past medical history of smoking presenting with 1 week history of headache along with nausea, vomiting and diaphoresis. 1. Headache with nausea vomiting: Multi infarct bilateral stroke Rule out shower embolism CTA head and neck was negative for any acute events MRI brain reviewed CA ordered S/p lumbar puncture and CSF cultures still pending CSF analysis showed protein 73 with RBC 88 Continue Vancomycin, Cefepime and Ampiciliin pending CA eval A1c, lipid panel, PT/OT/ST and Aspirin and lipitor Neurology following 2. Elevated troponin: Patient denies any chest pain Continue with tele monitoring Cardiology consult Obtain echocardiogram Will continue to trend troponin Will hold aspirin, anticoagulation temporarily until we get the lumbar puncture Obtain lipid panel, hemoglobin A1c with next set of labs 3. Hyperglycemia: Obtain hemoglobin A1c with next set of labs Blood glucose checks q.6 hours Sliding-scale insulin q.6 hours Hypoglycemia treatment per protocol 4. Elevated blood pressure: Will add p.r.n. IV hydralazine until NPO status Monitor blood pressure 5. Code status: Full 6. DVT prophylaxis: SCDs for now 7. Disposition: Admit to telemetry medicine/IMU Subjective Date/time seen: 12/25/24 17:28 Interval history: Comfortable at bedside MRI brain showed showed infarct in bilateral hemispheres CA ordered Review of Systems Review of Systems: All systems reviewed & are unremarkable except as noted in HPI and below Exam Const: Other: Diaphoretic, ill-looking HENMT: Mouth: Yes dry mucous membranes Eyes: Sclera: sclerae normal Pupils: Equal, round and reactive pupils present EOM: EOMs intact bilaterally Neck: Neck: supple Other: No neck rigidity Resp: Effort & Inspection: normal respiratory effort Auscultation: clear to auscultation bilaterally Cardio: Rate: regular rate Rhythm: regular rhythm GI: Inspection: distended Auscultation: normal bowel sounds Neuro: Cranial nerves: Yes Equal, round and reactive pupils present Motor exam (neuro): 5/5 motor strength present throughout Other: No neck 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 No motor weakness noted in lower extremity as well Extrem: Other: No leg edema Objective Data Vital Signs Vital Signs: Vital Signs - 24 hr 12/24/24 18:00 12/24/24 20:00 12/24/24 20:00 Temperature 97.9 F Pulse Rate 80 83 Respiratory Rate 14 Blood Pressure 132/66 Pulse Oximetry 95 Oxygen Delivery Room Air Fraction of Inspired Oxygen 12/24/24 20:00 12/24/24 20:57 12/24/24 22:00 Temperature Pulse Rate 89 73 70 Respiratory Rate 20 Blood Pressure Pulse Oximetry 90 Oxygen Delivery Room Air Fraction of Inspired Oxygen 21 12/25/24 00:00 12/25/24 00:00 12/25/24 00:00 Temperature 98.3 F Pulse Rate 80 60 Respiratory Rate 14 Blood Pressure 145/75 H Pulse Oximetry 95 Oxygen Delivery Room Air Fraction of Inspired Oxygen 12/25/24 02:00 12/25/24 04:00 12/25/24 04:00 Temperature 98.0 F Pulse Rate 74 75 Respiratory Rate 14 Blood Pressure 126/63 Pulse Oximetry 95 Oxygen Delivery Room Air Fraction of Inspired Oxygen 12/25/24 04:00 12/25/24 06:00 12/25/24 07:39 Temperature 97.0 F L Pulse Rate 66 68 73 Respiratory Rate 18 Blood Pressure 163/82 H Pulse Oximetry 96 Oxygen Delivery Fraction of Inspired Oxygen 12/25/24 08:00 12/25/24 10:00 12/25/24 11:37 Temperature 98.4 F Pulse Rate 80 79 75 Respiratory Rate 18 Blood Pressure 176/78 H Pulse Oximetry 95 Oxygen Delivery Fraction of Inspired Oxygen 12/25/24 12:00 12/25/24 14:00 12/25/24 15:52 Temperature 97.5 F L Pulse Rate 62 72 76 Respiratory Rate 18 Blood Pressure 146/80 H Pulse Oximetry 96 Oxygen Delivery Fraction of Inspired Oxygen 12/25/24 16:00 Temperature Pulse Rate 75 Respiratory Rate Blood Pressure Pulse Oximetry Oxygen Delivery Fraction of Inspired Oxygen Intake/Output Intake/Output: Intake & Output 09/27/12/23/24 12/24/24 12/25/24 23:59 23:59 23:59 23:59 Intake Total 1450 1880 Balance 1450 1880 Meds/Results Medications: Active Medications Generic Name Dose Route Start Last Admin Trade Name Freq PRN Reason Stop Dose Admin Acetaminophen 650 mg 12/24/24 10:37 12/25/24 14:37 Acetaminophen 325 Mg Tablet PO 650 mg Q6HR PRN Administration headache Dextrose 12.5 gm 12/24/24 11:15 Dextrose 50% 25 Gm/50 Ml Syringe IV PUSH PRN PRN Hypoglycemia Protocol Enoxaparin Sodium 90 mg 12/25/24 06:00 12/25/24 05:02 Enoxaparin 100 Mg/Ml Syringe SUB-Q 90 mg Q12H LUPE Administration Glucagon 1 mg 12/24/24 11:15 Glucagon For Inj 1 Mg Vial IM PRN PRN Hypoglycemia Protocol Glucose 15 gm 12/24/24 11:15 Glucose Oral Gel 15 Gm Of Glucse In 37.5 Gm Tube PO PRN PRN Hypoglycemia Protocol Hydralazine HCl 5 mg 12/24/24 11:16 Hydralazine Hcl 20 Mg/Ml Vial IV PUSH Q8H PRN Blood Pressure - High, for BP> Ampicillin Sodium 1 gm/ Sodium 50 mls @ 100 mls/hr 12/24/24 12:00 12/25/24 12:56 Chloride IVPB 100 mls/hr Q6HR LUPE Administration Cefepime HCl 2 gm/ Sodium 50 mls @ 100 mls/hr 12/24/24 22:00 12/25/24 16:01 Chloride IVPB 100 mls/hr Q8HR LUPE Administration Dextrose 1,000 mls @ 100 mls/hr 12/24/24 11:15 Dextrose 5% 1,000 Ml IVPB PRN PRN Hypoglycemia Protocol Vancomycin HCl 1,500 mg in 500 mls @ 250 mls/hr 12/25/24 01:00 12/25/24 13:48 Vancomycin 1,500 Mg/Ns 500 Ml IVPB 250 mls/hr Q12H LUPE Administration Insulin Aspart 4 - 8 units 12/24/24 12:00 12/25/24 14:07 Insulin Aspart (*Bkc) 100 Units/Ml SUB-Q Not Given Q6HR LUPE Protocol Nicotine 1 patch 12/24/24 09:00 12/25/24 08:31 Nicotine (*Pbkc) 21 Mg Patch TRANSDERM 1 patch DAILY LUPE Administration Ondansetron HCl 4 mg 12/24/24 10:36 Ondansetron Inj 4 Mg/2 Ml Vial IV PUSH Q6HR PRN Nausea And Vomiting Ondansetron HCl 4 mg 12/24/24 11:35 Ondansetron Inj 4 Mg/2 Ml Vial IV PUSH Q4H PRN Nausea Oxycodone/Acetaminophen 1 tablet 12/25/24 16:33 Oxycodone/Acetaminophen (*Crx) 5-325 Mg Tablet PO Q6H PRN Pain Rated 7-10 Perflutren Lipid Microsphere 0 ml 12/24/24 10:36 Perflutren Lipid Microspheres 1.5 Ml Vial Diluted To 10 Ml Total Volume IV PUSH 12/27/24 10:36 ONCE PRN adequate visualization Protocol Radiology Results: ITS Impressions Head/Neck CTA 12/24/24 08:15 IMPRESSION: 1. Small old infarct in right cerebellum. 2. No aneurysm or significant intracranial arterial stenosis. 3. 13% stenosis of the proximal right internal carotid artery relative to normal distal artery lumen diameter (NASCET criteria). 4. 26% stenosis of the proximal left internal carotid artery relative to normal distal artery lumen diameter. Chest X-Ray 12/24/24 09:16 IMPRESSION: 1. Mild increased interstitial pattern in the bilateral lower lung zones which could be due to mild pulmonary edema or atelectasis. Lumbar Puncture Fluoroscopy 12/24/24 14:55 IMPRESSION: 1. Successful fluoro-guided lumbar puncture. Mildly elevated opening pressure of 22 cm water. Brain MRI 12/25/24 11:32 IMPRESSION: 1. Acute infarcts scattered in the bilateral frontal, parietal, and occipital lobes and cerebellum. 2. 5 mm enhancing lesion in left frontal lobe, likely a subacute infarct. Metastatic disease is less likely. Labs Labs: Laboratory Results - last 24 hr 12/25/24 12/25/24 12/25/24 00:07 03:54 11:35 WBC 14.2 H RBC 4.70 Hgb 13.2 L Hct 41.4 L MCV 88.1 MCH 28.1 MCHC 31.9 L RDW 13.3 Plt Count 110 L MPV 11.5 H Immature Gran % (Auto) 0.4 Neut % (Auto) 74.5 H Lymph % (Auto) 17.5 L [place] % (Auto) 6.8 Eos % (Auto) 0.4 Baso % (Auto) 0.4 Lymph # (Auto) 2.47 [place] # (Auto) 1.0 H Eos # (Auto) 0.1 Baso # (Auto) 0.1 Abs Immat Gran (auto) 0.05 H Absolute Neuts (auto) 10.6 H Absolute Nucleated RBC 0.000 Nucleated RBC % 0.0 % Immature Plt Fraction 9.8 Sodium 136 L Potassium 4.1 Chloride 103 Carbon Dioxide 27 Anion Gap 6 BUN 9 Creatinine 0.88 Estim Creat Clear Calc 81 Estimated GFR > 60 Glucose 97 POC Capillary Glucose 105 95 Hemoglobin A1c 5.7 Calcium 8.7 Total Bilirubin 1.2 AST 76 H ALT 135 H Alkaline Phosphatase 91 Total Protein 6.7 Albumin 3.7 Triglycerides 222 H Cholesterol 323 H LDL Cholesterol Direct 199 HDL Direct 39 Quality VTE Prophylaxis VTE prophylaxis: pharmacologic ordered (Patient will be on full-dose subcu Lovenox )
[2024-12-25] MEDS: ASPIRIN 81 MG ENTERIC TABLET PO (17:47)
[2024-12-25] MEDS: ATORVASTATIN 40 MG TABLET PO (17:47)
[2024-12-26] VITALS (16 sets, daily range): BP systolic 111–169; BP diastolic 58–93; PULSE 56–79; RESP 16–20; TEMP 36.4–37.2; O2SAT 90–100
[2024-12-26] MEDS: VANCOMYCIN 2,000 MG/NS 500 ML 2,000 MG/500 ML BAG 250 MG IVPB ×2 (03:50→14:31)
[2024-12-26 03:57] LABS: Hematocrit 41.1 % (42.0-52.0); Hemoglobin 13.2 g/dL (14.0-18.0); Immature Granulocyte Percent A 0.4 % (0-0.5); Immature Platelet Fraction Pct 9.6 % (0.9-11.2); Lymphocytes Absolute Auto 3.13 K/mm3 (0.9-3.2); Mean Corpuscular HGB Conc 32.1 g/dl (32-36); Mean Corpuscular Hemoglobin 27.8 pg (26-34); Mean Corpuscular Volume 86.7 fl (80-100); Nucleated Red Blood Cells Absolute Auto 0.000 K/mm3 (0.0-0.012); Nucleated Red Blood Cells Perc 0.0 % (0.0-0.2); Platelet Count Result 122 k/mm3 (150-375); Red Blood Count 4.74 M/mm3 (4.6-6.20); White Blood Count 11.2 K/mm3 (4.5-10.0)
[2024-12-26 04:08] LABS: Hemoglobin A1C 5.6 % (<5.7)
[2024-12-26 04:20] LABS: Alanine Aminotransferase 106 U/L (6-50); Albumin Level 3.7 g/dL (3.5-5.1); Alkaline Phosphatase 91 U/L (38-126); Anion Gap 6 mmol/L (4-12); Aspartate Amino Transferase 46 U/L (17-59); Bilirubin,Total 1.2 mg/dL (0.2-1.3); Blood Urea Nitrogen 14 mg/dL (9-20); Calcium 9.0 mg/dL (8.4-10.2); Carbon Dioxide 26 mmol/L (22-30); Chloride 103 mmol/L (98-107); Estimated CRCL calculation 85 ml/min; Estimated Glomerular Filt Rate > 60; Glucose 91 mg/dL (65-110); HDL Direct 35 mg/dL; Magnesium 2.1 mg/dL (1.6-2.3); Potassium 3.6 mmol/L (3.4-5.0); Sodium 135 mmol/L (137-145); Total Protein 6.7 g/dL (6.3-8.2); Triglycerides 326 mg/dL (<150)
[2024-12-26 05:11] LABS: Cholesterol 333 mg/dL (0-200)
--- NOTE | 2024-12-26 05:20 | PC.NURSE ---
called up asking about what time pt would be taken down for CA. Time unknown at this point but will call back as soon as time is known
[2024-12-26] MEDS: AMPICILLIN SODIUM 1 GM in SODIUM CHLORIDE 0.9% IV 50 ML 100 ML IVPB ×2 (05:59→11:22)
[2024-12-26] MEDS: CEFEPIME 2 GM in SODIUM CHLORIDE 0.9% IV 50 ML 100 ML IVPB ×3 (06:36→22:05)
[2024-12-26] MEDS: ENOXAPARIN 100 MG/ML SYRINGE 90 MG SUB-Q ×2 (07:29→20:26)
[2024-12-26] MEDS: ATORVASTATIN 40 MG TABLET PO (08:56)
[2024-12-26] MEDS: ASPIRIN 81 MG ENTERIC TABLET PO (08:56)
--- NOTE | 2024-12-26 12:45 | P.PNIM_ITS ---
Progress Note: A&P Assessment and Plan (1) Elevated troponin: Code(s): R79.89 - Other specified abnormal findings of blood chemistry Status: Acute (2) Headache: Code(s): R51.9 - Headache, unspecified Status: Acute (3) Nausea & vomiting: Code(s): R11.2 - Nausea with vomiting, unspecified Status: Acute (4) Diaphoresis: Code(s): R61 - Generalized hyperhidrosis Status: Acute (5) Leucocytosis: Code(s): D72.829 - Elevated white blood cell count, unspecified Status: Acute Plan 59-year-old male with past medical history of smoking presenting with 1 week history of headache along with nausea, vomiting and diaphoresis. 1. Headache with nausea vomiting: Multi infarct bilateral stroke Rule out shower embolism CTA head and neck was negative for any acute events MRI brain reviewed CA ordered S/p lumbar puncture and CSF cultures still pending CSF analysis showed protein 73 with RBC 88 Continue Vancomycin, Cefepime and Ampicillin pending CA eval A1c, lipid panel, PT/OT/ST and Aspirin and lipitor Neurology following 2. Elevated troponin: Patient denies any chest pain Continue with tele monitoring ECHO EF 55-60% Will continue to trend troponin Will hold aspirin, anticoagulation temporarily until we get the lumbar puncture LDL 200, A1c 5.6 cardiology recommended discontinuing Full dose lovenox 3. Hyperglycemia, diabetes ruled out A1c 5.6 Blood glucose checks q.6 hours Sliding-scale insulin q.6 hours Hypoglycemia treatment per protocol 4. Hypertension Started on Lisinopril and HCTZ monitor blood pressure 5. Code status: Full 6. DVT prophylaxis: Heparin infusion 7. Disposition: pending CA Subjective Date/time seen: 12/26/24 12:45 Interval history: Comfortable at bedside MRI brain showed showed infarct in bilateral hemispheres CA pending Venous doppler positive for Left sided DVT Review of Systems Review of Systems: All systems reviewed & are unremarkable except as noted in HPI and below Exam Const: Other: Diaphoretic, ill-looking HENMT: Mouth: Yes dry mucous membranes Eyes: Sclera: sclerae normal Pupils: Equal, round and reactive pupils present EOM: EOMs intact bilaterally Neck: Neck: supple Other: No neck rigidity Resp: Effort & Inspection: normal respiratory effort Auscultation: clear to auscultation bilaterally Cardio: Rate: regular rate Rhythm: regular rhythm GI: Inspection: distended Auscultation: normal bowel sounds Neuro: Cranial nerves: Yes Equal, round and reactive pupils present Motor exam (neuro): 5/5 motor strength present throughout Other: No neck 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 No motor weakness noted in lower extremity as well Extrem: Other: No leg edema Objective Data Vital Signs Vital Signs: Vital Signs - 24 hr 12/25/24 14:00 12/25/24 15:52 12/25/24 16:00 Temperature 97.5 F L Pulse Rate 72 76 75 Respiratory Rate 18 Blood Pressure 146/80 H Pulse Oximetry 96 Oxygen Delivery 12/25/24 18:00 12/25/24 20:00 12/25/24 20:00 Temperature Pulse Rate 64 70 Respiratory Rate Blood Pressure Pulse Oximetry Oxygen Delivery Room Air 12/25/24 20:09 12/25/24 22:00 12/26/24 00:00 Temperature 98.5 F Pulse Rate 73 74 Respiratory Rate 73 H Blood Pressure 156/83 H Pulse Oximetry 96 Oxygen Delivery Room Air 12/26/24 00:00 12/26/24 00:00 12/26/24 02:00 Temperature 98.5 F Pulse Rate 70 69 56 L Respiratory Rate 18 Blood Pressure 150/86 H Pulse Oximetry 96 Oxygen Delivery 12/26/24 04:00 12/26/24 04:00 12/26/24 05:18 Temperature 98.9 F Pulse Rate 72 68 Respiratory Rate 18 Blood Pressure 169/78 H Pulse Oximetry 100 Oxygen Delivery Room Air 12/26/24 06:00 12/26/24 08:00 12/26/24 08:00 Temperature 97.5 F L Pulse Rate 57 L 60 70 Respiratory Rate 16 Blood Pressure 165/80 H Pulse Oximetry 96 Oxygen Delivery 12/26/24 10:00 12/26/24 12:00 Temperature Pulse Rate 64 67 Respiratory Rate Blood Pressure Pulse Oximetry Oxygen Delivery Intake/Output Intake/Output: Intake & Output 12/23/24 12/24/24 12/25/24 12/26/24 23:59 23:59 23:59 23:59 Intake Total 1450 2320 500 Output Total 600 Balance 1450 2320 -100 Meds/Results Medications: Active Medications Generic Name Dose Route Start Last Admin Trade Name Freq PRN Reason Stop Dose Admin Acetaminophen 650 mg 12/24/24 10:37 12/25/24 14:37 Acetaminophen 325 Mg Tablet PO 650 mg Q6HR PRN Administration headache Aspirin 81 mg 12/25/24 17:30 12/26/24 08:56 Aspirin 81 Mg Enteric Tablet PO 81 mg QAM [facility]PE Administration Atorvastatin Calcium 40 mg 12/25/24 17:30 12/26/24 08:56 Atorvastatin 40 Mg Tablet PO 40 mg DAILY [facility]PE Administration Dextrose 12.5 gm 12/24/24 11:15 Dextrose 50% 25 Gm/50 Ml Syringe IV PUSH PRN PRN Hypoglycemia Protocol Enoxaparin Sodium 90 mg 12/25/24 06:00 12/26/24 07:29 Enoxaparin 100 Mg/Ml Syringe SUB-Q 90 mg Q12H [facility]PE Administration Glucagon 1 mg 12/24/24 11:15 Glucagon For Inj 1 Mg Vial IM PRN PRN Hypoglycemia Protocol Glucose 15 gm 12/24/24 11:15 Glucose Oral Gel 15 Gm Of Glucse In 37.5 Gm Tube PO PRN PRN Hypoglycemia Protocol Heparin Sodium (Porcine) 0 units 12/26/24 12:43 Heparin Sodium 5,000 Units/Ml Vial IV PUSH PRN PRN aPTT less than 55 seconds Heparin Sodium (Porcine) 0 units 12/26/24 12:43 Heparin Sodium 5,000 Units/Ml Vial IV PUSH PRN PRN aPTT 55 - 70 seconds Hydralazine HCl 5 mg 12/24/24 11:16 12/26/24 08:58 Hydralazine Hcl 20 Mg/Ml Vial IV PUSH 5 mg Q8H PRN Administration Blood Pressure - High, for BP> Ampicillin Sodium 1 gm/ Sodium 50 mls @ 100 mls/hr 12/24/24 12:00 12/26/24 12:14 Chloride IVPB Infused Q6HR [facility] Infusion Cefepime HCl 2 gm/ Sodium 50 mls @ 100 mls/hr 12/24/24 22:00 12/26/24 06:36 Chloride IVPB 100 mls/hr Q8HR [facility] Administration Dextrose 1,000 mls @ 100 mls/hr 12/24/24 11:15 Dextrose 5% 1,000 Ml IVPB PRN PRN Hypoglycemia Protocol Vancomycin HCl 2,000 mg in 500 mls @ 250 mls/hr 12/26/24 03:00 12/26/24 03:50 Vancomycin 2,000 Mg/Ns 500 Ml IVPB 250 mls/hr Q12H [facility] Administration Heparin Sodium/Dextrose 25,000 units in 250 mls @ 16.056 mls/hr 12/26/24 12:45 Heparin Sodium/D5w 100 Units/Ml IV CONT .[id number] [facility] Protocol 18 UNITS/KG/HR Nicotine 1 patch 12/24/24 09:00 12/26/24 09:05 Nicotine (*Pbkc) 21 Mg Patch TRANSDERM Not Given DAILY [facility] Ondansetron HCl 4 mg 12/24/24 10:36 Ondansetron Inj 4 Mg/2 Ml Vial IV PUSH Q6HR PRN Nausea And Vomiting Ondansetron HCl 4 mg 12/24/24 11:35 Ondansetron Inj 4 Mg/2 Ml Vial IV PUSH Q4H PRN Nausea Oxycodone/Acetaminophen 1 tablet 12/25/24 16:33 12/25/24 23:47 Oxycodone/Acetaminophen (*Crx) 5-325 Mg Tablet PO 1 tablet Q6H PRN Administration Pain Rated 7-10 Perflutren Lipid Microsphere 0 ml 12/24/24 10:36 Perflutren Lipid Microspheres 1.5 Ml Vial Diluted To 10 Ml Total Volume IV PUSH 12/27/24 10:36 ONCE PRN adequate visualization Protocol Radiology Results: ITS Impressions Head/Neck CTA 12/24/24 08:15 IMPRESSION: 1. Small old infarct in right cerebellum. 2. No aneurysm or significant intracranial arterial stenosis. 3. 13% stenosis of the proximal right internal carotid artery relative to normal distal artery lumen diameter (NASCET criteria). 4. 26% stenosis of the proximal left internal carotid artery relative to normal distal artery lumen diameter. Chest X-Ray 12/24/24 09:16 IMPRESSION: 1. Mild increased interstitial pattern in the bilateral lower lung zones which could be due to mild pulmonary edema or atelectasis. Lumbar Puncture Fluoroscopy 12/24/24 14:55 IMPRESSION: 1. Successful fluoro-guided lumbar puncture. Mildly elevated opening pressure of 22 cm water. Brain MRI 12/25/24 11:32 IMPRESSION: 1. Acute infarcts scattered in the bilateral frontal, parietal, and occipital lobes and cerebellum. 2. 5 mm enhancing lesion in left frontal lobe, likely a subacute infarct. Metastatic disease is less likely. Venous Doppler Study 12/25/24 17:47 Impression: Left-sided DVT detailed above Labs Labs: Laboratory Results - last 24 hr 12/25/24 12/25/24 12/26/24 17:53 23:38 00:09 WBC RBC Hgb Hct MCV MCH MCHC RDW Plt Count MPV Immature Gran % (Auto) Neut % (Auto) Lymph % (Auto) [place] % (Auto) Eos % (Auto) Baso % (Auto) Lymph # (Auto) [place] # (Auto) Eos # (Auto) Baso # (Auto) Abs Immat Gran (auto) Absolute Neuts (auto) Absolute Nucleated RBC Nucleated RBC % % Immature Plt Fraction Sodium Potassium Chloride Carbon Dioxide Anion Gap BUN Creatinine Estim Creat Clear Calc Estimated GFR Glucose POC Capillary Glucose 138 H 85 Hemoglobin A1c Lactic Acid Calcium Magnesium Total Bilirubin AST ALT Alkaline Phosphatase Total Protein Albumin Triglycerides Cholesterol LDL Cholesterol Direct HDL Direct Vancomycin Trough 11.7 12/26/24 12/26/24 03:50 11:13 WBC 11.2 H RBC 4.74 Hgb 13.2 L Hct 41.1 L MCV 86.7 MCH 27.8 MCHC 32.1 RDW 13.4 Plt Count 122 L MPV 11.5 H Immature Gran % (Auto) 0.4 Neut % (Auto) 61.5 Lymph % (Auto) 27.9 [place] % (Auto) 8.2 Eos % (Auto) 1.2 Baso % (Auto) 0.8 Lymph # (Auto) 3.13 [place] # (Auto) 0.9 H Eos # (Auto) 0.1 Baso # (Auto) 0.1 Abs Immat Gran (auto) 0.05 H Absolute Neuts (auto) 6.9 H Absolute Nucleated RBC 0.000 Nucleated RBC % 0.0 % Immature Plt Fraction 9.6 Sodium 135 L Potassium 3.6 Chloride 103 Carbon Dioxide 26 Anion Gap 6 BUN 14 D Creatinine 0.83 Estim Creat Clear Calc 85 Estimated GFR > 60 Glucose 91 POC Capillary Glucose 84 Hemoglobin A1c 5.6 Lactic Acid 0.6 L Calcium 9.0 Magnesium 2.1 Total Bilirubin 1.2 AST 46 ALT 106 H Alkaline Phosphatase 91 Total Protein 6.7 Albumin 3.7 Triglycerides 326 H Cholesterol 333 H LDL Cholesterol Direct 200 HDL Direct 35 Vancomycin Trough Quality VTE Prophylaxis VTE prophylaxis: pharmacologic ordered (Patient will be on full-dose subcu Lovenox )
--- NOTE | 2024-12-26 13:00 | WPDNEUROPN ---
Subjective Date/time seen: 12/26/24 13:00 Interval history: 59 years old right-handed male has been admitted to the hospital through the emergency room for the complaints of headache for which he underwent spinal fluid studies in the emergency room and was subsequently treated for the possible meningitis of viral in nature though the possibility of bacterial meningitis is also entertained, since admission his CBC has revealed decreasing leukocytosis with platelet count also going down, his head and neck CTA was only with 13% stenosis of proximal right internal carotid and 26% stenosis proximal left internal carotid but MRI of the brain raised the possibly acute infarct scattered in the bilateral frontal parietal and occipital lobes as the left cerebellum obviously he will need a transesophageal echocardiogram in addition I have ordered the ultrasound of the abdominal and thoracic aorta as well, he is being continued on aspirin 81mg daily till the echocardiogram is done and also is receiving broad-spectrum antibiotic kills the spinal fluid culture is obtained the antibiotic have not been discontinued for the possibility of the vasculitis incidental because of the bihemispheric involvement. Obviously we have to rule out the possibility of bihemispheric embolic source. Objective Data Vital Signs Vital Signs: Vital Signs - 24 hr 12/25/24 14:00 12/25/24 15:52 12/25/24 16:00 Temperature 36.4 C L Pulse Rate 72 76 75 Respiratory Rate 18 Blood Pressure 146/80 H Pulse Oximetry 96 Oxygen Delivery 12/25/24 18:00 12/25/24 20:00 12/25/24 20:00 Temperature Pulse Rate 64 70 Respiratory Rate Blood Pressure Pulse Oximetry Oxygen Delivery Room Air 12/25/24 20:09 12/25/24 22:00 12/26/24 00:00 Temperature 36.9 C Pulse Rate 73 74 Respiratory Rate 73 H Blood Pressure 156/83 H Pulse Oximetry 96 Oxygen Delivery Room Air 12/26/24 00:00 12/26/24 00:00 12/26/24 02:00 Temperature 36.9 C Pulse Rate 70 69 56 L Respiratory Rate 18 Blood Pressure 150/86 H Pulse Oximetry 96 Oxygen Delivery 12/26/24 04:00 12/26/24 04:00 12/26/24 05:18 Temperature 37.2 C Pulse Rate 72 68 Respiratory Rate 18 Blood Pressure 169/78 H Pulse Oximetry 100 Oxygen Delivery Room Air 12/26/24 06:00 12/26/24 08:00 12/26/24 08:00 Temperature 36.4 C L Pulse Rate 57 L 60 70 Respiratory Rate 16 Blood Pressure 165/80 H Pulse Oximetry 96 Oxygen Delivery 12/26/24 10:00 12/26/24 12:00 12/26/24 12:39 Temperature Pulse Rate 64 67 Respiratory Rate Blood Pressure Pulse Oximetry Oxygen Delivery Room Air Intake/Output Intake/Output: Intake & Output 12/23/24 12/24/24 12/25/24 12/26/24 23:59 23:59 23:59 23:59 Intake Total 1450 2320 500 Output Total 600 Balance 1450 2320 -100 Meds/Results Medications: Active Medications Generic Name Dose Route Start Last Admin Trade Name Freq PRN Reason Stop Dose Admin Acetaminophen 650 mg 12/24/24 10:37 12/25/24 14:37 Acetaminophen 325 Mg Tablet PO 650 mg Q6HR PRN Administration headache Aspirin 81 mg 12/25/24 17:30 12/26/24 08:56 Aspirin 81 Mg Enteric Tablet PO 81 mg QAM LUPE Administration Atorvastatin Calcium 40 mg 12/25/24 17:30 12/26/24 08:56 Atorvastatin 40 Mg Tablet PO 40 mg DAILY LUPE Administration Dextrose 12.5 gm 12/24/24 11:15 Dextrose 50% 25 Gm/50 Ml Syringe IV PUSH PRN PRN Hypoglycemia Protocol Enoxaparin Sodium 90 mg 12/25/24 06:00 12/26/24 07:29 Enoxaparin 100 Mg/Ml Syringe SUB-Q 90 mg Q12H [facility]PE Administration Glucagon 1 mg 12/24/24 11:15 Glucagon For Inj 1 Mg Vial IM PRN PRN Hypoglycemia Protocol Glucose 15 gm 12/24/24 11:15 Glucose Oral Gel 15 Gm Of Glucse In 37.5 Gm Tube PO PRN PRN Hypoglycemia Protocol Heparin Sodium (Porcine) 0 units 12/26/24 12:43 Heparin Sodium 5,000 Units/Ml Vial IV PUSH PRN PRN aPTT less than 55 seconds Heparin Sodium (Porcine) 0 units 12/26/24 12:43 Heparin Sodium 5,000 Units/Ml Vial IV PUSH PRN PRN aPTT 55 - 70 seconds Hydralazine HCl 5 mg 12/24/24 11:16 12/26/24 08:58 Hydralazine Hcl 20 Mg/Ml Vial IV PUSH 5 mg Q8H PRN Administration Blood Pressure - High, for BP> Hydrochlorothiazide 12.5 mg 10/01/25 12:55 Hydrochlorothiazide 12.5 Mg Capsule PO QAM [facility] Ampicillin Sodium 1 gm/ Sodium 50 mls @ 100 mls/hr 12/24/24 12:00 12/26/24 12:14 Chloride IVPB Infused Q6HR [facility] Infusion Cefepime HCl 2 gm/ Sodium 50 mls @ 100 mls/hr 12/24/24 22:00 12/26/24 06:36 Chloride IVPB 100 mls/hr Q8HR [facility]PE Administration Dextrose 1,000 mls @ 100 mls/hr 12/24/24 11:15 Dextrose 5% 1,000 Ml IVPB PRN PRN Hypoglycemia Protocol Vancomycin HCl 2,000 mg in 500 mls @ 250 mls/hr 12/26/24 03:00 12/26/24 03:50 Vancomycin 2,000 Mg/Ns 500 Ml IVPB 250 mls/hr Q12H [facility] Administration Heparin Sodium/Dextrose 25,000 units in 250 mls @ 16.056 mls/hr 12/26/24 12:45 Heparin Sodium/D5w 100 Units/Ml IV CONT .[id number] [facility] Protocol 18 UNITS/KG/HR Lisinopril 5 mg 12/26/24 12:55 Lisinopril 5 Mg Tablet PO QAM [facility] Nicotine 1 patch 12/24/24 09:00 12/26/24 09:05 Nicotine (*Pbkc) 21 Mg Patch TRANSDERM Not Given DAILY [facility] Ondansetron HCl 4 mg 12/24/24 10:36 Ondansetron Inj 4 Mg/2 Ml Vial IV PUSH Q6HR PRN Nausea And Vomiting Ondansetron HCl 4 mg 12/24/24 11:35 Ondansetron Inj 4 Mg/2 Ml Vial IV PUSH Q4H PRN Nausea Oxycodone/Acetaminophen 1 tablet 12/25/24 16:33 12/25/24 23:47 Oxycodone/Acetaminophen (*Crx) 5-325 Mg Tablet PO 1 tablet Q6H PRN Administration Pain Rated 7-10 Perflutren Lipid Microsphere 0 ml 12/24/24 10:36 Perflutren Lipid Microspheres 1.5 Ml Vial Diluted To 10 Ml Total Volume IV PUSH 12/27/24 10:36 ONCE PRN adequate visualization Protocol Radiology Results: ITS Impressions Head/Neck CTA 12/24/24 08:15 IMPRESSION: 1. Small old infarct in right cerebellum. 2. No aneurysm or significant intracranial arterial stenosis. 3. 13% stenosis of the proximal right internal carotid artery relative to normal distal artery lumen diameter (NASCET criteria). 4. 26% stenosis of the proximal left internal carotid artery relative to normal distal artery lumen diameter. Chest X-Ray 12/24/24 09:16 IMPRESSION: 1. Mild increased interstitial pattern in the bilateral lower lung zones which could be due to mild pulmonary edema or atelectasis. Lumbar Puncture Fluoroscopy 12/24/24 14:55 IMPRESSION: 1. Successful fluoro-guided lumbar puncture. Mildly elevated opening pressure of 22 cm water. Brain MRI 12/25/24 11:32 IMPRESSION: 1. Acute infarcts scattered in the bilateral frontal, parietal, and occipital lobes and cerebellum. 2. 5 mm enhancing lesion in left frontal lobe, likely a subacute infarct. Metastatic disease is less likely. Venous Doppler Study 12/25/24 17:47 Impression: Left-sided DVT detailed above Labs Labs: Laboratory Results - last 24 hr 12/25/24 12/25/24 12/26/24 17:53 23:38 00:09 WBC RBC Hgb Hct MCV MCH MCHC RDW Plt Count MPV Immature Gran % (Auto) Neut % (Auto) Lymph % (Auto) [place] % (Auto) Eos % (Auto) Baso % (Auto) Lymph # (Auto) [place] # (Auto) Eos # (Auto) Baso # (Auto) Abs Immat Gran (auto) Absolute Neuts (auto) Absolute Nucleated RBC Nucleated RBC % % Immature Plt Fraction Sodium Potassium Chloride Carbon Dioxide Anion Gap BUN Creatinine Estim Creat Clear Calc Estimated GFR Glucose POC Capillary Glucose 138 H 85 Hemoglobin A1c Lactic Acid Calcium Magnesium Total Bilirubin AST ALT Alkaline Phosphatase Total Protein Albumin Triglycerides Cholesterol LDL Cholesterol Direct HDL Direct Vancomycin Trough 11.7 12/26/24 12/26/24 03:50 11:13 WBC 11.2 H RBC 4.74 Hgb 13.2 L Hct 41.1 L MCV 86.7 MCH 27.8 MCHC 32.1 RDW 13.4 Plt Count 122 L MPV 11.5 H Immature Gran % (Auto) 0.4 Neut % (Auto) 61.5 Lymph % (Auto) 27.9 [place] % (Auto) 8.2 Eos % (Auto) 1.2 Baso % (Auto) 0.8 Lymph # (Auto) 3.13 [place] # (Auto) 0.9 H Eos # (Auto) 0.1 Baso # (Auto) 0.1 Abs Immat Gran (auto) 0.05 H Absolute Neuts (auto) 6.9 H Absolute Nucleated RBC 0.000 Nucleated RBC % 0.0 % Immature Plt Fraction 9.6 Sodium 135 L Potassium 3.6 Chloride 103 Carbon Dioxide 26 Anion Gap 6 BUN 14 D Creatinine 0.83 Estim Creat Clear Calc 85 Estimated GFR > 60 Glucose 91 POC Capillary Glucose 84 Hemoglobin A1c 5.6 Lactic Acid 0.6 L Calcium 9.0 Magnesium 2.1 Total Bilirubin 1.2 AST 46 ALT 106 H Alkaline Phosphatase 91 Total Protein 6.7 Albumin 3.7 Triglycerides 326 H Cholesterol 333 H LDL Cholesterol Direct 200 HDL Direct 35 Vancomycin Trough
[2024-12-26 13:19] LABS: Hematocrit 42.7 % (42.0-52.0); Hemoglobin 13.9 g/dL (14.0-18.0); Immature Granulocyte Percent A 0.3 % (0-0.5); Lymphocytes Absolute Auto 2.44 K/mm3 (0.9-3.2); Mean Corpuscular HGB Conc 32.6 g/dl (32-36); Mean Corpuscular Hemoglobin 27.9 pg (26-34); Mean Corpuscular Volume 85.6 fl (80-100); Nucleated Red Blood Cells Absolute Auto 0.000 K/mm3 (0.0-0.012); Nucleated Red Blood Cells Perc 0.0 % (0.0-0.2); Platelet Count Result 141 k/mm3 (150-375); Red Blood Count 4.99 M/mm3 (4.6-6.20); White Blood Count 11.5 K/mm3 (4.5-10.0)
[2024-12-26 13:30] LABS: INR 1.2; Prothrombin Time 15.1 Seconds (11.1-14.7)
[2024-12-26 13:31] LABS: Partial Thromboplastin Time 37.8 Seconds (22.3-36.8)
[2024-12-26 14:08] LABS: HSV-1 DNA, CSF Negative (Negative); HSV-2 DNA, CSF Negative (Negative)
[2024-12-26] MEDS: oxyCODONE/ACETAMINOPHEN (*CRX) 5-325 MG TABLET 1 TABLET PO ×2 (14:33→20:26)
--- NOTE | 2024-12-26 14:47 | PM.PNCARD ---
Progress Note: A&P Assessment and Plan (1) Acute non-Q wave non-ST elevation myocardial infarction (NSTEMI): Code(s): I21.4 - Non-ST elevation (NSTEMI) myocardial infarction Status: Acute Assessment and Plan: Assessment: (1) Elevated cardiac troponin in patient with complaints of weakness and diaphoresis but no chest pain or shortness of breath. EKG reveals normal sinus rhythm with heart rate of 69 per minute and right bundle-branch block as well as left anterior fascicular block. Patient also has nonspecific T changes. In the absence of chest pain this appears to be type [address] segment elevation myocardial injury. No previous cardiac workup noted. (2) Elevated WBC count. Rule out infection or sepsis. Patient has complaints of headache. Evaluated by Neurology Service also her lumbar tap. (3) chest x-ray does reveal mild increased interstitial pattern in the lower lung zones. Cannot rule out mild pulmonary edema or atelectasis. 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 Subsequent MRI scan shows several areas of acute infarcts involving the frontal, parietal and occipital lobes as well as cerebellum. Transesophageal echocardiogram is not recommended. (5) hyperlipidemia with total cholesterol 333 with triglycerides at 326. LDL cholesterol is 200 and HDL is 35. (2) Elevated troponin: Code(s): R79.89 - Other specified abnormal findings of blood chemistry Status: Acute Plan 1. Neurology assessment noted as well as MRI scan reports. Agree with transesophageal echocardiogram which will be done tomorrow by Cardiology Department blood 2. Echocardiogram reports an EKG reviewed. EKG will start bundle branch block with left axis deviation and normal sinus rhythm. 3. Currently blood pressure 150 to 93 mm of mercury. Heart rate 70 per minute in normal sinus rhythm. Patient is afebrile. 4. Laboratory data reviewed from 12/26/2024. I have discussed 11.5, hemoglobin 13.9 and platelets are 141,000. Sodium 135, potassium 3.6, BUN is 14, creatinine 0.83. 5. Recommend high-dose statin possible he epidural 40 mg at bedtime for hyperlipidemia and elevated LDL cholesterol. Patient is already on Lipitor 40 mg daily. 6. No suggestion of acute coronary syndrome based on EKG and troponin pattern. Discontinue full-dose subcu Lovenox on this patient. Continue only needed for DVT prophylaxis. Subjective Date/time seen: 12/26/24 14:47 Interval history: Patient admitted on 12/20/2024 with elevated WBC count, headache and nausea. His cardiac troponin I was elevated however subsequently the trend was nonsignificant. Patient was taken off the whole does subQ Lovenox. His CT scan on 12/24/2024 revealed a small old infarct in the right cerebellum but no aneurysm and no significant stenosis of internal carotid arteries bilaterally. MRI scan on 12/25/2024 revealed acute infarct scattered bilateral in frontal parietal and occipital lobes and cerebellum. There was 2.5 mm enhancing lesion in the left frontal lobe likely subacute infarct. Transesophageal echocardiogram is now recommended to to rule out cardiac embolic source. His echocardiogram on 12/24/2024 revealed normal left ventricular size and systolic function with moderate aortic valve calcification and mild aortic valve regurgitation. Moderate pulmonary hypertension noted at 45 mm acute His EKG on admission revealed normal sinus rhythm with complete right bundle-branch block and left axis deviation. Nonspecific ST changes noted. Patient was evaluated by Neurology Service and had a lumbar spine tap and was empirically treated for meningitis a viral nature. His white count was elevated therefore bacterial infection also cannot be ruled out. Ultrasound the abdominal and thoracic aorta were recommended by Neurology Service and continue aspirin 81 mg daily. Review of Systems Review of Systems: Twelve point review of system was completed. Pertinent positive and negative findings per HPI. Cardiovascular negative for chest pain or shortness of breath. Neurovascular positive for headache. Exam Narrative: Patient is awake alert. Continued but improved headache. Head and neck examination is unremarkable sclerae nonicteric. Neck is supple. There is no due to carotid bruit. Lungs are clear auscultation percussion. Heart sounds reveal normal S1-S2, no S3 or S4 appreciated. No murmur appreciated. Abdomen soft nontender without hepatosplenomegaly. Bowel sounds present. Obese. Neuro exam is intact without any focal neurological abnormalities. There is no leg edema. Objective Data Vital Signs Vital Signs: Vital Signs - 24 hr 12/25/24 15:52 12/25/24 16:00 12/25/24 18:00 Temperature 36.4 C L Pulse Rate 76 75 64 Respiratory Rate 18 Blood Pressure 146/80 H Pulse Oximetry 96 Oxygen Delivery 12/25/24 20:00 12/25/24 20:00 12/25/24 20:09 Temperature 36.9 C Pulse Rate 70 73 Respiratory Rate 73 H Blood Pressure 156/83 H Pulse Oximetry 96 Oxygen Delivery Room Air 12/25/24 22:00 12/26/24 00:00 12/26/24 00:00 Temperature 36.9 C Pulse Rate 74 70 Respiratory Rate 18 Blood Pressure 150/86 H Pulse Oximetry 96 Oxygen Delivery Room Air 12/26/24 00:00 12/26/24 02:00 12/26/24 04:00 Temperature Pulse Rate 69 56 L Respiratory Rate Blood Pressure Pulse Oximetry Oxygen Delivery Room Air 12/26/24 04:00 12/26/24 05:18 12/26/24 06:00 Temperature 37.2 C Pulse Rate 72 68 57 L Respiratory Rate 18 Blood Pressure 169/78 H Pulse Oximetry 100 Oxygen Delivery 12/26/24 08:00 12/26/24 08:00 12/26/24 10:00 Temperature 36.4 C L Pulse Rate 60 70 64 Respiratory Rate 16 Blood Pressure 165/80 H Pulse Oximetry 96 Oxygen Delivery 12/26/24 12:00 12/26/24 12:00 12/26/24 12:39 Temperature 36.4 C Pulse Rate 67 70 Respiratory Rate 16 Blood Pressure 150/93 H Pulse Oximetry 97 Oxygen Delivery Room Air Intake/Output Intake/Output: Intake & Output 12/23/24 12/24/24 12/25/24 12/26/24 23:59 23:59 23:59 23:59 Intake Total 1450 2320 1050 Output Total 600 Balance 1450 2320 450 Meds/Results Medications: Active Medications Generic Name Dose Route Start Last Admin Trade Name Freq PRN Reason Stop Dose Admin Acetaminophen 650 mg 12/24/24 10:37 12/25/24 14:37 Acetaminophen 325 Mg Tablet PO 650 mg Q6HR PRN Administration headache Aspirin 81 mg 12/25/24 17:30 12/26/24 08:56 Aspirin 81 Mg Enteric Tablet PO 81 mg QAM LUPE Administration Atorvastatin Calcium 40 mg 12/25/24 17:30 12/26/24 08:56 Atorvastatin 40 Mg Tablet PO 40 mg DAILY LUPE Administration Dextrose 12.5 gm 12/24/24 11:15 Dextrose 50% 25 Gm/50 Ml Syringe IV PUSH PRN PRN Hypoglycemia Protocol Enoxaparin Sodium 90 mg 12/25/24 06:00 12/26/24 07:29 Enoxaparin 100 Mg/Ml Syringe SUB-Q 90 mg Q12H LUPE Administration Glucagon 1 mg 12/24/24 11:15 Glucagon For Inj 1 Mg Vial IM PRN PRN Hypoglycemia Protocol Glucose 15 gm 12/24/24 11:15 Glucose Oral Gel 15 Gm Of Glucse In 37.5 Gm Tube PO PRN PRN Hypoglycemia Protocol Hydralazine HCl 5 mg 12/24/24 11:16 12/26/24 08:58 Hydralazine Hcl 20 Mg/Ml Vial IV PUSH 5 mg Q8H PRN Administration Blood Pressure - High, for BP> Hydrochlorothiazide 12.5 mg 12/26/24 12:55 12/26/24 14:23 Hydrochlorothiazide 12.5 Mg Capsule PO 12.5 mg QAM LUPE Administration Ampicillin Sodium 1 gm/ Sodium 50 mls @ 100 mls/hr 12/24/24 12:00 12/26/24 12:14 Chloride IVPB Infused Q6HR LUPE Infusion Cefepime HCl 2 gm/ Sodium 50 mls @ 100 mls/hr 12/24/24 22:00 12/26/24 14:30 Chloride IVPB 100 mls/hr Q8HR LUPE Administration Dextrose 1,000 mls @ 100 mls/hr 12/24/24 11:15 Dextrose 5% 1,000 Ml IVPB PRN PRN Hypoglycemia Protocol Vancomycin HCl 2,000 mg in 500 mls @ 250 mls/hr 12/26/24 03:00 12/26/24 14:31 Vancomycin 2,000 Mg/Ns 500 Ml IVPB 250 mls/hr Q12H LUPE Administration Lisinopril 5 mg 12/26/24 12:55 12/26/24 14:24 Lisinopril 5 Mg Tablet PO 5 mg QAM LUPE Administration Nicotine 1 patch 12/24/24 09:00 12/26/24 09:05 Nicotine (*Pbkc) 21 Mg Patch TRANSDERM Not Given DAILY LUPE Ondansetron HCl 4 mg 12/24/24 10:36 Ondansetron Inj 4 Mg/2 Ml Vial IV PUSH Q6HR PRN Nausea And Vomiting Ondansetron HCl 4 mg 12/24/24 11:35 Ondansetron Inj 4 Mg/2 Ml Vial IV PUSH Q4H PRN Nausea Oxycodone/Acetaminophen 1 tablet 12/25/24 16:33 12/26/24 14:33 Oxycodone/Acetaminophen (*Crx) 5-325 Mg Tablet PO 1 tablet Q6H PRN Administration Pain Rated 7-10 Perflutren Lipid Microsphere 0 ml 12/24/24 10:36 Perflutren Lipid Microspheres 1.5 Ml Vial Diluted To 10 Ml Total Volume IV PUSH 12/27/24 10:36 ONCE PRN adequate visualization Protocol Radiology Results: ITS Impressions Head/Neck CTA 12/24/24 08:15 IMPRESSION: 1. Small old infarct in right cerebellum. 2. No aneurysm or significant intracranial arterial stenosis. 3. 13% stenosis of the proximal right internal carotid artery relative to normal distal artery lumen diameter (NASCET criteria). 4. 26% stenosis of the proximal left internal carotid artery relative to normal distal artery lumen diameter. Chest X-Ray 12/24/24 09:16 IMPRESSION: 1. Mild increased interstitial pattern in the bilateral lower lung zones which could be due to mild pulmonary edema or atelectasis. Lumbar Puncture Fluoroscopy 12/24/24 14:55 IMPRESSION: 1. Successful fluoro-guided lumbar puncture. Mildly elevated opening pressure of 22 cm water. Brain MRI 12/25/24 11:32 IMPRESSION: 1. Acute infarcts scattered in the bilateral frontal, parietal, and occipital lobes and cerebellum. 2. 5 mm enhancing lesion in left frontal lobe, likely a subacute infarct. Metastatic disease is less likely. Venous Doppler Study 12/25/24 17:47 Impression: Left-sided DVT detailed above Aorta Ultrasound 12/26/24 14:02 IMPRESSION: No aneurysm identified Labs Labs: Laboratory Results - last 24 hr 12/24/24 12/25/24 12/25/24 14:26 17:53 23:38 WBC RBC Hgb Hct MCV MCH MCHC RDW Plt Count MPV Immature Gran % (Auto) Neut % (Auto) Lymph % (Auto) Braxton % (Auto) Eos % (Auto) Baso % (Auto) Lymph # (Auto) Braxton # (Auto) Eos # (Auto) Baso # (Auto) Abs Immat Gran (auto) Absolute Neuts (auto) Absolute Nucleated RBC Nucleated RBC % % Immature Plt Fraction PT INR APTT Sodium Potassium Chloride Carbon Dioxide Anion Gap BUN Creatinine Estim Creat Clear Calc Estimated GFR Glucose POC Capillary Glucose 138 H 85 Hemoglobin A1c Lactic Acid Calcium Magnesium Total Bilirubin AST ALT Alkaline Phosphatase Total Protein Albumin Triglycerides Cholesterol LDL Cholesterol Direct HDL Direct CSF Herpes I DNA (PCR) Negative CSF Herpes II DNA (PCR) Negative Vancomycin Trough 12/26/24 12/26/24 12/26/24 00:09 03:50 11:13 WBC 11.2 H RBC 4.74 Hgb 13.2 L Hct 41.1 L MCV 86.7 MCH 27.8 MCHC 32.1 RDW 13.4 Plt Count 122 L MPV 11.5 H Immature Gran % (Auto) 0.4 Neut % (Auto) 61.5 Lymph % (Auto) 27.9 Braxton % (Auto) 8.2 Eos % (Auto) 1.2 Baso % (Auto) 0.8 Lymph # (Auto) 3.13 Braxton # (Auto) 0.9 H Eos # (Auto) 0.1 Baso # (Auto) 0.1 Abs Immat Gran (auto) 0.05 H Absolute Neuts (auto) 6.9 H Absolute Nucleated RBC 0.000 Nucleated RBC % 0.0 % Immature Plt Fraction 9.6 PT INR APTT Sodium 135 L Potassium 3.6 Chloride 103 Carbon Dioxide 26 Anion Gap 6 BUN 14 D Creatinine 0.83 Estim Creat Clear Calc 85 Estimated GFR > 60 Glucose 91 POC Capillary Glucose 84 Hemoglobin A1c 5.6 Lactic Acid 0.6 L Calcium 9.0 Magnesium 2.1 Total Bilirubin 1.2 AST 46 ALT 106 H Alkaline Phosphatase 91 Total Protein 6.7 Albumin 3.7 Triglycerides 326 H Cholesterol 333 H LDL Cholesterol Direct 200 HDL Direct 35 CSF Herpes I DNA (PCR) CSF Herpes II DNA (PCR) Vancomycin Trough 11.7 12/26/24 13:05 WBC 11.5 H RBC 4.99 Hgb 13.9 L Hct 42.7 MCV 85.6 MCH 27.9 MCHC 32.6 RDW 13.2 Plt Count 141 L MPV 11.5 H Immature Gran % (Auto) 0.3 Neut % (Auto) 70.6 Lymph % (Auto) 21.2 Braxton % (Auto) 6.4 Eos % (Auto) 1.0 Baso % (Auto) 0.5 Lymph # (Auto) 2.44 Braxton # (Auto) 0.7 H Eos # (Auto) 0.1 Baso # (Auto) 0.1 Abs Immat Gran (auto) 0.04 H Absolute Neuts (auto) 8.1 H Absolute Nucleated RBC 0.000 Nucleated RBC % 0.0 % Immature Plt Fraction PT 15.1 H INR 1.2 APTT 37.8 H Sodium Potassium Chloride Carbon Dioxide Anion Gap BUN Creatinine Estim Creat Clear Calc Estimated GFR Glucose POC Capillary Glucose Hemoglobin A1c Lactic Acid Calcium Magnesium Total Bilirubin AST ALT Alkaline Phosphatase Total Protein Albumin Triglycerides Cholesterol LDL Cholesterol Direct HDL Direct CSF Herpes I DNA (PCR) CSF Herpes II DNA (PCR) Vancomycin Trough
[2024-12-26] MEDS: AMPICILLIN SODIUM 2 GM in SODIUM CHLORIDE 0.9% IV 100 ML 200 ML IVPB ×3 (17:11→23:36)
--- NOTE | 2024-12-26 18:30 | PC.NURSE ---
On 12/26/24, the CONTRACT MAIL CARRIER, [Lupillo Champion ], provided care and completed [facility] documentation on this patient. I have reviewed the CONTRACT MAIL CARRIER's documentation and agree with the findings.
--- NOTE | 2024-12-26 20:54 | PC.NURSE ---
called pts Amara and updated her on pt condition and plan for night. Also updated her on scheduled time for pts CA in morning but knows time could change.
[2024-12-27] VITALS (22 sets, daily range): BP systolic 113–177; BP diastolic 67–97; PULSE 48–76; RESP 12–18; TEMP 36–36.7; O2SAT 94–100
--- NOTE | 2024-12-27 | ECHO_ITS ---
Patient Info Name: Mino Young Age: 59 years : 1965 Gender: Male Ht: 70 in Wt: 196 lbs BSA: 2.11 m2 HR: 113 bpm Technical Quality: Good Exam Date: 12/27/2024 8:37 AM Patient Status: I Admit Date: 12/24/2024 Exam Type: CA echo transesophageal Complete two-dimensional, color flow and Doppler transesophageal study is performed. Staff Referring Physician: Apolinar Lomeli MD Rack Washer: Pebbles Cassidy Attending Provider: Flower Liriano Summary 1. Left ventricular chamber dimension is normal. 2. Left ventricular systolic function is normal with an ejection fraction of 65-70% by visual estimation. 3. The left ventricular diastolic function is indeterminate as it was not assessed. 4. There is moderate aortic valve sclerosis. 5. There is mild aortic valve stenosis with valve area of 1.9 cm2 by planimetry. 6. There is trace mitral valve regurgitation. Procedure Details Risks/benefits/alternative to CA discuss with patient and he gave informed consent. Patient was monitored electrocardiographically, vitals, pulse ox. He was in sinus rhythm, HR 70 bpm, BP 150/80 mmHg, pulse ox 100%. Cetcaine spray x 2 to posterior oropharynx. Versed 2 mg and Fentanyl 50 mcg IV given for conscious sedation. CA probe advanced and he swallowed probe without incident. Multiple images obtained. Agitated saline administered x 1. CA probe withdrawn and no blood noted on CA probe tip. Patient tolerated procedure well with no complications. Left Ventricle Left ventricular chamber dimension is normal. Left ventricular systolic function is normal with an ejection fraction of 65-70% by visual estimation. The left ventricular diastolic function is indeterminate as it was not assessed. Right Ventricle Right ventricular chamber dimension is normal. Right ventricular systolic function is normal. Left Atria Left atrial chamber dimension is normal. Right Atria Right atrial chamber dimension is normal. Atrial Septum Intact interatrial septum visualized by 2D, color flow and agitated saline imaging. Agitated saline injection opacified right side cardiac chambers without shunt to left side cardiac chambers. Atrial Appendage There is no thrombus visualized in the left atrial appendage. Aortic Valve The aortic valve is trileaflet. There is moderate aortic valve sclerosis. There is mild aortic valve stenosis with valve area of 1.9 cm2 by planimetry. There is no aortic valve regurgitation. Pulmonic Valve There is no pulmonic regurgitation. Mitral Valve There is no mitral valve stenosis. There is trace mitral valve regurgitation. Tricuspid Valve There is no tricuspid valve regurgitation. Pericardium/Pleural There is no pericardial effusion. Inferior Vena Cava Inferior vena cava is not well visualized. Aorta The aortic root size at the sinus of Valsalva is normal. Aortic Valve Name Value Normal AV 2D/MM AV Area (Planimetry) 1.9 cm2 Report Signatures
[2024-12-27] MEDS: VANCOMYCIN 2,000 MG/NS 500 ML 2,000 MG/500 ML BAG 250 MG IVPB (04:25)
[2024-12-27 04:29] LABS: Hematocrit 40.7 % (42.0-52.0); Hemoglobin 13.2 g/dL (14.0-18.0); Immature Granulocyte Percent A 0.4 % (0-0.5); Lymphocytes Absolute Auto 2.84 K/mm3 (0.9-3.2); Mean Corpuscular HGB Conc 32.4 g/dl (32-36); Mean Corpuscular Hemoglobin 28.0 pg (26-34); Mean Corpuscular Volume 86.2 fl (80-100); Nucleated Red Blood Cells Absolute Auto 0.000 K/mm3 (0.0-0.012); Nucleated Red Blood Cells Perc 0.0 % (0.0-0.2); Platelet Count Result 145 k/mm3 (150-375); Red Blood Count 4.72 M/mm3 (4.6-6.20); White Blood Count 11.4 K/mm3 (4.5-10.0)
[2024-12-27 04:41] LABS: Alanine Aminotransferase 89 U/L (6-50); Albumin Level 3.8 g/dL (3.5-5.1); Alkaline Phosphatase 83 U/L (38-126); Anion Gap 4 mmol/L (4-12); Aspartate Amino Transferase 37 U/L (17-59); Bilirubin,Total 1.2 mg/dL (0.2-1.3); Blood Urea Nitrogen 13 mg/dL (9-20); Calcium 9.0 mg/dL (8.4-10.2); Carbon Dioxide 30 mmol/L (22-30); Chloride 99 mmol/L (98-107); Estimated CRCL calculation 86 ml/min; Estimated Glomerular Filt Rate > 60; Glucose 89 mg/dL (65-110); Magnesium 1.9 mg/dL (1.6-2.3); Potassium 3.5 mmol/L (3.4-5.0); Sodium 133 mmol/L (137-145); Total Protein 6.8 g/dL (6.3-8.2)
[2024-12-27] MEDS: oxyCODONE/ACETAMINOPHEN (*CRX) 5-325 MG TABLET 1 TABLET PO ×3 (05:07→14:45)
[2024-12-27] MEDS: AMPICILLIN SODIUM 2 GM in SODIUM CHLORIDE 0.9% IV 100 ML 200 ML IVPB ×2 (05:31→09:53)
[2024-12-27] MEDS: CEFEPIME 2 GM in SODIUM CHLORIDE 0.9% IV 50 ML 100 ML IVPB (06:00)
[2024-12-27] MEDS: fentaNYL CITRATE INJ (*CRX) 100 MCG/2 ML VIAL 50 MCG IV PUSH (08:39)
[2024-12-27] MEDS: MIDAZOLAM HCL (*CRX) 2 MG/2 ML VIAL 3 MG IV PUSH (08:39)
[2024-12-27] MEDS: ASPIRIN 81 MG ENTERIC TABLET PO (09:52)
[2024-12-27] MEDS: ATORVASTATIN 40 MG TABLET PO (09:52)
[2024-12-27] MEDS: NICOTINE (*PBKC) 21 MG PATCH 1 PATCH TRANSDERM (09:54)
[2024-12-27] MEDS: ENOXAPARIN 100 MG/ML SYRINGE 90 MG SUB-Q ×2 (09:54→21:11)
--- NOTE | 2024-12-27 11:07 | P.PNCA_ITS ---
Progress Note: A&P Assessment and Plan (1) Acute non-Q wave non-ST elevation myocardial infarction (NSTEMI): Code(s): I21.4 - Non-ST elevation (NSTEMI) myocardial infarction Status: Acute Assessment and Plan: Assessment: (1) Elevated cardiac troponin in patient with complaints of weakness and diaphoresis but no chest pain or shortness of breath. EKG reveals normal sinus rhythm with heart rate of 69 per minute and right bundle-branch block as well as left anterior fascicular block. Patient also has nonspecific T changes. In the absence of chest pain this appears to be type [address] segment elevation myocardial injury. No previous cardiac workup noted. (2) Elevated WBC count. Rule out infection or sepsis. Patient has complaints of headache. Evaluated by Neurology Service also her lumbar tap. (3) chest x-ray does reveal mild increased interstitial pattern in the lower lung zones. Cannot rule out mild pulmonary edema or atelectasis. 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 Subsequent MRI scan shows several areas of acute infarcts involving the frontal, parietal and occipital lobes as well as cerebellum. Transesophageal echocardiogram is not recommended. (5) hyperlipidemia with total cholesterol 333 with triglycerides at 326. LDL cholesterol is 200 and HDL is 35. (2) Elevated troponin: Code(s): R79.89 - Other specified abnormal findings of blood chemistry Status: Acute Plan 1. Neurology assessment noted as well as MRI scan reports. Agree with transesophageal echocardiogram which will be done tomorrow by Cardiology Department blood. -Transesophageal echocardiogram on 12/27/2024 revealed normal left ventricular size and systolic function estimated at 65-70%. There is moderate aortic valve sclerosis with mild aortic valve stenosis estimated at 1.9 sq cm and trace mitral valve regurgitation. 2. Echocardiogram reports an EKG reviewed. EKG will start bundle branch block with left axis deviation and normal sinus rhythm. 3. Currently blood pressure is 113/67 mm of mercury and heart rate is 52 per minute. 4. Laboratory data reviewed from 12/27/2024. WBC count remains elevated at 11.4, hemoglobin is 13.2 and platelets are 145,000. Sodium 133, potassium 3.5, BUN is 13 and creatinine 0.8. 5. Recommend high-dose statin Lipitor 40 mg at bedtime for hyperlipidemia and elevated LDL cholesterol. Patient is already on Lipitor 40 mg daily. 6. No suggestion of acute coronary syndrome based on EKG and troponin pattern. Discontinue full-dose subcu Lovenox on this patient. Continue only needed for DVT prophylaxis. Since transesophageal echocardiogram is negative for intracardiac source of thrombi recommend 30 day event monitor for this patient. Increased activity he has tolerated. Initiate discharge planning if okay with Neurology Service. Discussed with patient and by phone. Subjective Date/time seen: 12/27/24 11:07 Interval history: History of the present illness: Patient admitted on 12/20/2024 with elevated WBC count, headache and nausea. His cardiac troponin I was elevated however subsequently the trend was nonsignificant. Patient was taken off the whole does subQ Lovenox. His CT scan on 12/24/2024 revealed a small old infarct in the right cerebellum but no aneurysm and no significant stenosis of internal carotid arteries bilaterally. MRI scan on 12/25/2024 revealed acute infarct scattered bilateral in frontal parietal and occipital lobes and cerebellum. There was 2.5 mm enhancing lesion in the left frontal lobe likely subacute infarct. Transesophageal echocardiogram is now recommended to to rule out cardiac embolic source. His echocardiogram on 12/24/2024 revealed normal left ventricular size and systolic function with moderate aortic valve calcification and mild aortic valve regurgitation. Moderate pulmonary hypertension noted at 45 mm acute His EKG on admission revealed normal sinus rhythm with complete right bundle- branch block and left axis deviation. Nonspecific ST changes noted. Patient was evaluated by Neurology Service and had a lumbar spine tap and was empirically treated for meningitis a viral nature. His white count was elevated therefore bacterial infection also cannot be ruled out. Ultrasound the abdominal and thoracic aorta were recommended by Neurology Service and continue aspirin 81 mg daily. Subjective: Patient examined at the bedside. Patient is awake and alert appears to be comfortable without shortness of breath or chest pain. Continues to have mild headache but otherwise no focal neurological symptoms. Review of Systems Review of Systems: Twelve point review of system was completed. Pertinent positive and negative findings per HPI. Cardiovascular negative for chest pain or shortness of breath. Neurovascular positive for headache. Exam Narrative: Patient is awake alert. Continued but improved headache. Head and neck examination is unremarkable sclerae nonicteric. Neck is supple. There is no due to carotid bruit. Lungs are clear auscultation percussion. Heart sounds reveal normal S1-S2, no S3 or S4 appreciated. No murmur appreciated. Abdomen soft nontender without hepatosplenomegaly. Bowel sounds present. Obese. Neuro exam is intact without any focal neurological abnormalities. There is no leg edema. Const: Other: Patient examined bedside. Patient is awake alert and appears comfortable. No shortness of breath, orthopnea chest pain. Head and neck examination is unremarkable sclerae nonicteric. ENT examination is negative. Neck is supple. There is no JVD or carotid bruit. Thyroid isn't enlarged. Lungs are clear auscultation percussion. There is no wheezing or crepitations. Heart sounds reveal normal S1-S2. There is no significant murmurs S3 or S4. Abdomen is soft nontender there is no parasternal megaly. Bowel sounds present. Extremities revealed no pedal edema. Distal pulses are fair bilaterally. Neurological examination is intact at Skin and musculoskeletal is intact. No new rash. Objective Data Vital Signs Vital Signs: Vital Signs - 24 hr 12/26/24 12:00 12/26/24 12:00 12/26/24 12:39 Temperature 36.4 C Pulse Rate 67 70 Respiratory Rate 16 Blood Pressure 150/93 H Pulse Oximetry 97 Oxygen Delivery Room Air Fraction of Inspired Oxygen 12/26/24 14:00 12/26/24 16:00 12/26/24 16:00 Temperature 36.7 C Pulse Rate 69 68 79 Respiratory Rate 18 Blood Pressure 111/58 L Pulse Oximetry 96 Oxygen Delivery Fraction of Inspired Oxygen 12/26/24 18:00 12/26/24 20:00 12/26/24 20:00 Temperature Pulse Rate 69 66 Respiratory Rate Blood Pressure Pulse Oximetry Oxygen Delivery Room Air Fraction of Inspired Oxygen 12/26/24 20:06 12/26/24 20:13 12/26/24 22:00 Temperature 36.8 C Pulse Rate 69 63 72 Respiratory Rate 16 20 Blood Pressure 128/67 Pulse Oximetry 96 90 Oxygen Delivery Room Air Fraction of Inspired Oxygen 21 12/26/24 23:27 12/26/24 23:37 12/27/24 00:00 Temperature 36.4 C Pulse Rate 77 56 L Respiratory Rate 18 Blood Pressure 122/71 Pulse Oximetry 94 Oxygen Delivery Room Air Fraction of Inspired Oxygen 12/27/24 02:00 12/27/24 04:00 12/27/24 04:00 Temperature 36.5 C Pulse Rate 53 L 55 L Respiratory Rate 16 Blood Pressure 125/70 Pulse Oximetry 95 Oxygen Delivery Room Air Fraction of Inspired Oxygen 12/27/24 04:00 12/27/24 06:00 12/27/24 07:48 Temperature 36.6 C Pulse Rate 51 L 48 L 64 Respiratory Rate 18 Blood Pressure 137/69 Pulse Oximetry 95 Oxygen Delivery Fraction of Inspired Oxygen 12/27/24 08:35 12/27/24 08:40 12/27/24 08:45 Temperature 36.7 C Pulse Rate 63 76 62 Respiratory Rate 13 15 13 Blood Pressure 168/84 H 171/97 H 137/76 Pulse Oximetry 100 97 94 Oxygen Delivery Fraction of Inspired Oxygen 12/27/24 09:00 12/27/24 09:15 Temperature Pulse Rate 55 L 52 L Respiratory Rate 14 12 Blood Pressure 131/72 113/67 Pulse Oximetry 96 95 Oxygen Delivery Fraction of Inspired Oxygen Intake/Output Intake/Output: Intake & Output 12/24/24 12/25/24 12/26/24 12/27/24 23:59 23:59 23:59 23:59 Intake Total 1450 2320 2930 450 Output Total 600 Balance 1450 2320 2330 450 Meds/Results Medications: Active Medications Generic Name Dose Route Start Last Admin Trade Name Freq PRN Reason Stop Dose Admin Acetaminophen 650 mg 12/24/24 10:37 12/25/24 14:37 Acetaminophen 325 Mg Tablet PO 650 mg Q6HR PRN Administration headache Aspirin 81 mg 12/25/24 17:30 12/27/24 09:52 Aspirin 81 Mg Enteric Tablet PO 81 mg QAM LUPE Administration Atorvastatin Calcium 40 mg 12/25/24 17:30 12/27/24 09:52 Atorvastatin 40 Mg Tablet PO 40 mg DAILY LUPE Administration Dextrose 12.5 gm 12/24/24 11:15 Dextrose 50% 25 Gm/50 Ml Syringe IV PUSH PRN PRN Hypoglycemia Protocol Enoxaparin Sodium 90 mg 12/26/24 21:00 12/27/24 09:54 Enoxaparin 100 Mg/Ml Syringe SUB-Q 90 mg Q12HR LUPE Administration Glucagon 1 mg 12/24/24 11:15 Glucagon For Inj 1 Mg Vial IM PRN PRN Hypoglycemia Protocol Glucose 15 gm 12/24/24 11:15 Glucose Oral Gel 15 Gm Of Glucse In 37.5 Gm Tube PO PRN PRN Hypoglycemia Protocol Hydralazine HCl 5 mg 12/24/24 11:16 12/26/24 08:58 Hydralazine Hcl 20 Mg/Ml Vial IV PUSH 5 mg Q8H PRN Administration Blood Pressure - High, for BP> Hydrochlorothiazide 12.5 mg 12/26/24 12:55 12/27/24 09:52 Hydrochlorothiazide 12.5 Mg Capsule PO 12.5 mg QAM LUPE Administration Cefepime HCl 2 gm/ Sodium 50 mls @ 100 mls/hr 12/24/24 22:00 12/27/24 06:00 Chloride IVPB 100 mls/hr Q8HR LUPE Administration Dextrose 1,000 mls @ 100 mls/hr 12/24/24 11:15 Dextrose 5% 1,000 Ml IVPB PRN PRN Hypoglycemia Protocol Vancomycin HCl 2,000 mg in 500 mls @ 250 mls/hr 12/26/24 03:00 12/27/24 04:25 Vancomycin 2,000 Mg/Ns 500 Ml IVPB 250 mls/hr Q12H LUPE Administration Ampicillin Sodium 2 gm/ Sodium 100 mls @ 200 mls/hr 12/27/24 10:00 12/27/24 09:53 Chloride IVPB 200 mls/hr Q4H LUPE Administration Lisinopril 5 mg 12/26/24 12:55 12/27/24 09:52 Lisinopril 5 Mg Tablet PO 5 mg QAM LUPE Administration Nicotine 1 patch 12/24/24 09:00 12/27/24 09:54 Nicotine (*Pbkc) 21 Mg Patch TRANSDERM 1 patch DAILY LUPE Administration Ondansetron HCl 4 mg 12/24/24 10:36 Ondansetron Inj 4 Mg/2 Ml Vial IV PUSH Q6HR PRN Nausea And Vomiting Oxycodone/Acetaminophen 1 tablet 12/25/24 16:33 12/27/24 05:07 Oxycodone/Acetaminophen (*Crx) 5-325 Mg Tablet PO 1 tablet Q6H PRN Administration Pain Rated 7-10 Radiology Results: ITS Impressions Head/Neck CTA 12/24/24 08:15 IMPRESSION: 1. Small old infarct in right cerebellum. 2. No aneurysm or significant intracranial arterial stenosis. 3. 13% stenosis of the proximal right internal carotid artery relative to normal distal artery lumen diameter (NASCET criteria). 4. 26% stenosis of the proximal left internal carotid artery relative to normal distal artery lumen diameter. Chest X-Ray 12/24/24 09:16 IMPRESSION: 1. Mild increased interstitial pattern in the bilateral lower lung zones which could be due to mild pulmonary edema or atelectasis. Lumbar Puncture Fluoroscopy 12/24/24 14:55 IMPRESSION: 1. Successful fluoro-guided lumbar puncture. Mildly elevated opening pressure of 22 cm water. Brain MRI 12/25/24 11:32 IMPRESSION: 1. Acute infarcts scattered in the bilateral frontal, parietal, and occipital lobes and cerebellum. 2. 5 mm enhancing lesion in left frontal lobe, likely a subacute infarct. Metastatic disease is less likely. Venous Doppler Study 12/25/24 17:47 Impression: Left-sided DVT detailed above Aorta Ultrasound 12/26/24 14:02 IMPRESSION: No aneurysm identified Labs Labs: Laboratory Results - last 24 hr 12/24/24 12/26/24 12/26/24 14:26 11:13 13:05 WBC 11.5 H RBC 4.99 Hgb 13.9 L Hct 42.7 MCV 85.6 MCH 27.9 MCHC 32.6 RDW 13.2 Plt Count 141 L MPV 11.5 H Immature Gran % (Auto) 0.3 Neut % (Auto) 70.6 Lymph % (Auto) 21.2 [place] % (Auto) 6.4 Eos % (Auto) 1.0 Baso % (Auto) 0.5 Lymph # (Auto) 2.44 [place] # (Auto) 0.7 H Eos # (Auto) 0.1 Baso # (Auto) 0.1 Abs Immat Gran (auto) 0.04 H Absolute Neuts (auto) 8.1 H Absolute Nucleated RBC 0.000 Nucleated RBC % 0.0 PT 15.1 H INR 1.2 APTT 37.8 H Sodium Potassium Chloride Carbon Dioxide Anion Gap BUN Creatinine Estim Creat Clear Calc Estimated GFR Glucose POC Capillary Glucose 84 Calcium Magnesium Total Bilirubin AST ALT Alkaline Phosphatase Total Protein Albumin CSF Herpes I DNA (PCR) Negative CSF Herpes II DNA (PCR) Negative 12/27/24 03:59 WBC 11.4 H RBC 4.72 Hgb 13.2 L Hct 40.7 L MCV 86.2 MCH 28.0 MCHC 32.4 RDW 13.1 Plt Count 145 L MPV 11.9 H Immature Gran % (Auto) 0.4 Neut % (Auto) 64.0 Lymph % (Auto) 24.9 [place] % (Auto) 8.1 Eos % (Auto) 2.0 Baso % (Auto) 0.6 Lymph # (Auto) 2.84 [place] # (Auto) 0.9 H Eos # (Auto) 0.2 Baso # (Auto) 0.1 Abs Immat Gran (auto) 0.05 H Absolute Neuts (auto) 7.3 H Absolute Nucleated RBC 0.000 Nucleated RBC % 0.0 PT INR APTT Sodium 133 L Potassium 3.5 Chloride 99 Carbon Dioxide 30 Anion Gap 4 BUN 13 Creatinine 0.82 Estim Creat Clear Calc 86 Estimated GFR > 60 Glucose 89 POC Capillary Glucose Calcium 9.0 Magnesium 1.9 Total Bilirubin 1.2 AST 37 ALT 89 H Alkaline Phosphatase 83 Total Protein 6.8 Albumin 3.8 CSF Herpes I DNA (PCR) CSF Herpes II DNA (PCR)
--- NOTE | 2024-12-27 14:24 | P.CONINF_ITS ---
Assessment and Plan Assessment and plan (1) Cerebrovascular accident (CVA) involving left cerebral hemisphere: Code(s): I63.9 - Cerebral infarction, unspecified Status: Acute Assessment and Plan: -Bihemispheric strokes -No current evidence of meningitis, brain abscess or endocarditis -CA negative -Workup as per Neurology service (2) Cerebrovascular accident (CVA) involving right cerebral hemisphere: Code(s): I63.9 - Cerebral infarction, unspecified Status: Acute Assessment and Plan: -Bihemispheric strokes -No current evidence of meningitis, brain abscess or endocarditis -CA negative -Workup as per Neurology service (3) Leucocytosis: Code(s): D72.829 - Elevated white blood cell count, unspecified Status: Acute Assessment and Plan: -Reactive leukocytosis resolving -No current evidence of septicemia, pneumonia, UTI, cellulitis, endocarditis, or [employer] infection (4) Headache: Code(s): R51.9 - Headache, unspecified Status: Acute Assessment and Plan: -Likely secondary to stroke -Management as per Neurology service Plan -As there is no current evidence of [employer] infection, endocarditis, etc, will discontinue Vancomycin IV, Cefepime, and Ampicillin -Continue stroke work-up as per Neurology service -Continue to monitor CBC Discussed with patient and family at bedside. All questions answered ID service will sign off HPI Data of Consult Date/Time: 12/27/24 14:24 Requesting Physician: Flower Liriano MD Primary Care Provider: Fritz MoserMD Consult Narrative Reason for consult: Antibiotics Narrative: Mino Young is a 59 year old male who was admitted with one week history of headache and central vision blurring. Patient reports no fever/chills/sweats. Neuroimaging notable for bihemispheric strokes. Patient noted to have peripheral leukocytosis on admission. Blood cultures have been negative to date. He underwent lumbar puncture with CSF cell count not consistent with purulent meningitis and CSF cultures NGTD. Patient underwent CA which was negative for endocarditis. Presently, patient reports no other new symptoms. Review of Systems 2 Review of Systems: All systems reviewed & are unremarkable except as noted in HPI and below PMFSH Past Medical History Medical History Patient denies medical problems Social History Social History Smoking status: Heavy tobacco smoker Alcohol intake: current Drinks per week: 0 Substance use: never Lack of Transportation: No Lack of Food: Never True Current Housing: I Have Housing Concerned About Future Housing: No Difficulty Paying Gas/Electric Bills: No Difficulty Paying for Meds: No Currently Unemployed: No Education: High School Diploma/GED Difficulty w/ Childcare or Family Care: No Spiritual care concerns: No Meds Home Medications and Allergies Home Medications ?Medication ?Instructions ?Recorded ?Confirmed ?Type No Home Medications 12/24/24 12/24/24 H istory Allergies Allergy/AdvReac Type Severity Reaction Status Date / Time No Known Allergies Allergy Mild Verified 12/24/24 17:26 Vital Signs Vital Signs - 24 hr 12/26/24 16:00 12/26/24 16:00 12/26/24 18:00 Temperature 98.1 F Pulse Rate 68 79 69 Respiratory Rate 18 Blood Pressure 111/58 L Pulse Oximetry 96 Oxygen Delivery Fraction of Inspired Oxygen 12/26/24 20:00 12/26/24 20:00 12/26/24 20:06 Temperature 98.3 F Pulse Rate 66 69 Respiratory Rate 16 Blood Pressure 128/67 Pulse Oximetry 96 Oxygen Delivery Room Air Fraction of Inspired Oxygen 12/26/24 20:13 12/26/24 22:00 12/26/24 23:27 Temperature 97.6 F Pulse Rate 63 72 77 Respiratory Rate 20 18 Blood Pressure 122/71 Pulse Oximetry 90 94 Oxygen Delivery Room Air Fraction of Inspired Oxygen 21 12/26/24 23:37 12/27/24 00:00 12/27/24 02:00 Temperature Pulse Rate 56 L 53 L Respiratory Rate Blood Pressure Pulse Oximetry Oxygen Delivery Room Air Fraction of Inspired Oxygen 12/27/24 04:00 12/27/24 04:00 12/27/24 04:00 Temperature 97.7 F Pulse Rate 55 L 51 L Respiratory Rate 16 Blood Pressure 125/70 Pulse Oximetry 95 Oxygen Delivery Room Air Fraction of Inspired Oxygen 12/27/24 06:00 12/27/24 07:48 12/27/24 08:00 Temperature 97.9 F Pulse Rate 48 L 64 62 Respiratory Rate 18 Blood Pressure 137/69 Pulse Oximetry 95 Oxygen Delivery Fraction of Inspired Oxygen 12/27/24 08:35 12/27/24 08:40 12/27/24 08:45 Temperature 98.0 F Pulse Rate 63 76 62 Respiratory Rate 13 15 13 Blood Pressure 168/84 H 171/97 H 137/76 Pulse Oximetry 100 97 94 Oxygen Delivery Fraction of Inspired Oxygen 12/27/24 09:00 12/27/24 09:15 12/27/24 10:00 Temperature Pulse Rate 55 L 52 L 62 Respiratory Rate 14 12 Blood Pressure 131/72 113/67 Pulse Oximetry 96 95 Oxygen Delivery Fraction of Inspired Oxygen 12/27/24 12:00 12/27/24 12:30 12/27/24 14:00 Temperature 98.1 F Pulse Rate 70 64 72 Respiratory Rate 18 Blood Pressure 134/72 Pulse Oximetry 95 Oxygen Delivery Fraction of Inspired Oxygen Exam 2 Narrative: Gen: alert and oriented x 3, NAD Pulm: no dyspnea, normal chest wall excursion Abd: nondistended Derm: no rash Lines: PIVs intact Results Labs 12/27/24 03:59 12/27/24 03:59 Labs: Short CBC 12/27/24 Range/Units 03:59 WBC 11.4 H (4.5-10.0) K/mm3 Hgb 13.2 L (14.0-18.0) g/dL Hct 40.7 L (42.0-52.0) % Plt Count 145 L (150-375) k/mm3 BMP 12/27/24 03:59 Sodium 133 L Potassium 3.5 Chloride 99 Carbon Dioxide 30 BUN 13 Creatinine 0.82 Glucose 89 Calcium 9.0 Liver Function 12/27/24 Range/Units 03:59 Total Bilirubin 1.2 (0.2-1.3) mg/dL AST 37 (17-59) U/L ALT 89 H (6-50) U/L Alkaline Phosphatase 83 (38-126) U/L Albumin 3.8 (3.5-5.1) g/dL
--- NOTE | 2024-12-27 16:06 | WPDNEUROPN ---
Progress Note: A&P Assessment and Plan (1) Multiple cerebral infarctions: Code(s): I63.9 - Cerebral infarction, unspecified Status: Acute (2) Headache: Code(s): R51.9 - Headache, unspecified Status: Acute Plan The patient is the concern about the headache. He does not have any weakness in upper lower limbs is coordination also appears to be fairly decent. I reviewed the CT scan as well as MRI of the brain. There are fairly large infarct in the left cerebellar area and several infarcts in both cerebral hemispheres. This will require some follow-up probably a [facility] In the meanwhile he should be treated with antiplatelets and statins. A cardiac source is certainly strong possibility in view of the multiple infarcts in various distribution. So far the cardiac workup has shown a moderate aortic valve stenosis however no other significant abnormalities seen. He should have a prolonged cardiac monitoring and should follow with a rivet machine operator regarding the aortic stenosis. His the transesophageal echocardiogram shows ejection fraction was 65-70%. His LDL was very high at 200 then cholesterol was 333. He has been started on atorvastatin 40 mg a day . I would suggest consider dietary consultation also. He has also on aspirin 81 mg a day. I would suggest to add Plavix 75 mg a day. If the prolonged cardiac monitoring shows any cardiac arrhythmia he may be a candidate for anticoagulation however this decision will have to be made objective data and discussion with the rivet machine operator also. With regard to the headache it may be difficult 1 to treat when present with the stroke. I would suggest Depakote ER 500 mg twice a day and Periactin. Subjective Date/time seen: 12/27/24 16:06 Interval history: The patient is 59 years old admitted to the hospital with headaches and nausea and high white cell count of 19.7. Spinal tap did not show evidence for meningitis. CSF protein was slightly high however a CT scan of brain shows old cerebellar infarct. MRI of the brain shown several acute infarct on both cerebral hemispheres extensively as well as a large left cerebellar infarct. Patient continues to complain of headache and has been getting OxyContin. No nausea vomiting or diplopia or weakness in upper lower limbs at this time. Review of Systems Review of Systems: All systems reviewed & are unremarkable except as noted in HPI and below Exam Const: General: cooperative, healthy appearing and comfortable HENMT: Head: atraumatic Mouth: Yes oropharynx normal Eyes: Alignment and Position: alignment normal and position normal EOM: EOMs intact bilaterally Neck: Neck: normal visual inspection and supple Resp: Effort & Inspection: normal respiratory effort Cardio: Heart sounds: S1 normal heart sound present and S2 normal heart sound present Skin: General skin exam: normal color Neuro: Cranial nerves: Yes CN's II-XII intact bilaterally, Yes facial symmetry and Yes Midline tongue present Cognition (Neuro): normal cognition Speech: normal speech Coordination: [id number] test normal and Normal rapid alternating movements of the distal upper extremity present (Neuro) Extrem: General: normal to inspection Psych: Mental Status: mental status grossly normal Speech and movement: Normal speech and movement present Affect: normal affect Thought content: Yes Normal thought content present Insight: Good insight present (Psych) Judgement: Good judgement present (Psych) Objective Data Vital Signs Vital Signs: Vital Signs - 24 hr 12/26/24 18:00 12/26/24 20:00 12/26/24 20:00 Temperature Pulse Rate 69 66 Respiratory Rate Blood Pressure Pulse Oximetry Oxygen Delivery Room Air Fraction of Inspired Oxygen 12/26/24 20:06 12/26/24 20:13 12/26/24 22:00 Temperature 98.3 F Pulse Rate 69 63 72 Respiratory Rate 16 20 Blood Pressure 128/67 Pulse Oximetry 96 90 Oxygen Delivery Room Air Fraction of Inspired Oxygen 21 12/26/24 23:27 12/26/24 23:37 12/27/24 00:00 Temperature 97.6 F Pulse Rate 77 56 L Respiratory Rate 18 Blood Pressure 122/71 Pulse Oximetry 94 Oxygen Delivery Room Air Fraction of Inspired Oxygen 12/27/24 02:00 12/27/24 04:00 12/27/24 04:00 Temperature 97.7 F Pulse Rate 53 L 55 L Respiratory Rate 16 Blood Pressure 125/70 Pulse Oximetry 95 Oxygen Delivery Room Air Fraction of Inspired Oxygen 12/27/24 04:00 12/27/24 06:00 12/27/24 07:48 Temperature 97.9 F Pulse Rate 51 L 48 L 64 Respiratory Rate 18 Blood Pressure 137/69 Pulse Oximetry 95 Oxygen Delivery Fraction of Inspired Oxygen 12/27/24 08:00 12/27/24 08:35 12/27/24 08:40 Temperature 98.0 F Pulse Rate 62 63 76 Respiratory Rate 13 15 Blood Pressure 168/84 H 171/97 H Pulse Oximetry 100 97 Oxygen Delivery Fraction of Inspired Oxygen 12/27/24 08:45 12/27/24 09:00 12/27/24 09:15 Temperature Pulse Rate 62 55 L 52 L Respiratory Rate 13 14 12 Blood Pressure 137/76 131/72 113/67 Pulse Oximetry 94 96 95 Oxygen Delivery Fraction of Inspired Oxygen 12/27/24 10:00 12/27/24 12:00 12/27/24 12:30 Temperature 98.1 F Pulse Rate 62 70 64 Respiratory Rate 18 Blood Pressure 134/72 Pulse Oximetry 95 Oxygen Delivery Fraction of Inspired Oxygen 12/27/24 14:00 Temperature Pulse Rate 72 Respiratory Rate Blood Pressure Pulse Oximetry Oxygen Delivery Fraction of Inspired Oxygen Intake/Output Intake/Output: Intake & Output 12/24/24 12/25/24 12/26/24 12/27/24 23:59 23:59 23:59 23:59 Intake Total 1450 2320 2930 450 Output Total 600 Balance 1450 2320 2330 450 Meds/Results Medications: Active Medications Generic Name Dose Route Start Last Admin Trade Name Freq PRN Reason Stop Dose Admin Acetaminophen 650 mg 12/24/24 10:37 12/25/24 14:37 Acetaminophen 325 Mg Tablet PO 650 mg Q6HR PRN Administration headache Aspirin 81 mg 12/25/24 17:30 12/27/24 09:52 Aspirin 81 Mg Enteric Tablet PO 81 mg QAM LUPE Administration Atorvastatin Calcium 40 mg 12/25/24 17:30 12/27/24 09:52 Atorvastatin 40 Mg Tablet PO 40 mg DAILY LUPE Administration Dextrose 12.5 gm 12/24/24 11:15 Dextrose 50% 25 Gm/50 Ml Syringe IV PUSH PRN PRN Hypoglycemia Protocol Docusate Sodium 100 mg 12/27/24 14:14 Docusate Sodium 100 Mg Capsule PO Q12H PRN Constipation Enoxaparin Sodium 90 mg 12/26/24 21:00 12/27/24 09:54 Enoxaparin 100 Mg/Ml Syringe SUB-Q 90 mg Q12HR LUPE Administration Glucagon 1 mg 12/24/24 11:15 Glucagon For Inj 1 Mg Vial IM PRN PRN Hypoglycemia Protocol Glucose 15 gm 12/24/24 11:15 Glucose Oral Gel 15 Gm Of Glucse In 37.5 Gm Tube PO PRN PRN Hypoglycemia Protocol Hydralazine HCl 5 mg 12/24/24 11:16 12/26/24 08:58 Hydralazine Hcl 20 Mg/Ml Vial IV PUSH 5 mg Q8H PRN Administration Blood Pressure - High, for BP> Hydrochlorothiazide 12.5 mg 12/26/24 12:55 12/27/24 09:52 Hydrochlorothiazide 12.5 Mg Capsule PO 12.5 mg QAM LUPE Administration Dextrose 1,000 mls @ 100 mls/hr 12/24/24 11:15 Dextrose 5% 1,000 Ml IVPB PRN PRN Hypoglycemia Protocol Lisinopril 5 mg 12/26/24 12:55 12/27/24 09:52 Lisinopril 5 Mg Tablet PO 5 mg QAM LUPE Administration Nicotine 1 patch 12/24/24 09:00 12/27/24 09:54 Nicotine (*Pbkc) 21 Mg Patch TRANSDERM 1 patch DAILY LUPE Administration Ondansetron HCl 4 mg 12/24/24 10:36 Ondansetron Inj 4 Mg/2 Ml Vial IV PUSH Q6HR PRN Nausea And Vomiting Oxycodone/Acetaminophen 2 tablet 12/27/24 14:13 Oxycodone/Acetaminophen (*Crx) 5-325 Mg Tablet PO Q6H PRN Pain Rated 7-10 Polyethylene Glycol 17 gm 12/27/24 14:14 12/27/24 14:46 Polyethylene Glycol 3350 17 Gm Powd.Pack PO 17 gm QAM PRN Administration Constipation Radiology Results: ITS Impressions Head/Neck CTA 12/24/24 08:15 IMPRESSION: 1. Small old infarct in right cerebellum. 2. No aneurysm or significant intracranial arterial stenosis. 3. 13% stenosis of the proximal right internal carotid artery relative to normal distal artery lumen diameter (NASCET criteria). 4. 26% stenosis of the proximal left internal carotid artery relative to normal distal artery lumen diameter. Chest X-Ray 12/24/24 09:16 IMPRESSION: 1. Mild increased interstitial pattern in the bilateral lower lung zones which could be due to mild pulmonary edema or atelectasis. Lumbar Puncture Fluoroscopy 12/24/24 14:55 IMPRESSION: 1. Successful fluoro-guided lumbar puncture. Mildly elevated opening pressure of 22 cm water. Brain MRI 12/25/24 11:32 IMPRESSION: 1. Acute infarcts scattered in the bilateral frontal, parietal, and occipital lobes and cerebellum. 2. 5 mm enhancing lesion in left frontal lobe, likely a subacute infarct. Metastatic disease is less likely. Venous Doppler Study 12/25/24 17:47 Impression: Left-sided DVT detailed above Aorta Ultrasound 12/26/24 14:02 IMPRESSION: No aneurysm identified Labs Labs: Laboratory Results - last 24 hr 12/27/24 03:59 WBC 11.4 H RBC 4.72 Hgb 13.2 L Hct 40.7 L MCV 86.2 MCH 28.0 MCHC 32.4 RDW 13.1 Plt Count 145 L MPV 11.9 H Immature Gran % (Auto) 0.4 Neut % (Auto) 64.0 Lymph % (Auto) 24.9 [place] % (Auto) 8.1 Eos % (Auto) 2.0 Baso % (Auto) 0.6 Lymph # (Auto) 2.84 [place] # (Auto) 0.9 H Eos # (Auto) 0.2 Baso # (Auto) 0.1 Abs Immat Gran (auto) 0.05 H Absolute Neuts (auto) 7.3 H Absolute Nucleated RBC 0.000 Nucleated RBC % 0.0 Sodium 133 L Potassium 3.5 Chloride 99 Carbon Dioxide 30 Anion Gap 4 BUN 13 Creatinine 0.82 Estim Creat Clear Calc 86 Estimated GFR > 60 Glucose 89 Calcium 9.0 Magnesium 1.9 Total Bilirubin 1.2 AST 37 ALT 89 H Alkaline Phosphatase 83 Total Protein 6.8 Albumin 3.8
[2024-12-27] MEDS: DIVALPROEX SODIUM ER 500 MG TAB.24H PO (17:09)
[2024-12-27] MEDS: oxyCODONE/ACETAMINOPHEN (*CRX) 5-325 MG TABLET 2 TABLET PO (20:04)
[2024-12-27] MEDS: CYPROHEPTADINE HCL 4 MG TABLET PO (21:11)
[2024-12-28] VITALS (18 sets, daily range): BP systolic 108–148; BP diastolic 54–86; PULSE 58–81; RESP 16–18; TEMP 36.4–36.8; O2SAT 92–99
[2024-12-28] MEDS: oxyCODONE/ACETAMINOPHEN (*CRX) 5-325 MG TABLET 2 TABLET PO ×2 (04:00→21:26)
[2024-12-28] MEDS: CYPROHEPTADINE HCL 4 MG TABLET PO ×3 (05:23→21:25)
[2024-12-28] MEDS: NICOTINE (*PBKC) 21 MG PATCH 1 PATCH TRANSDERM (09:03)
[2024-12-28] MEDS: ENOXAPARIN 100 MG/ML SYRINGE 90 MG SUB-Q ×2 (09:04→21:27)
[2024-12-28] MEDS: DIVALPROEX SODIUM ER 500 MG TAB.24H PO ×2 (09:04→16:18)
[2024-12-28] MEDS: ASPIRIN 81 MG ENTERIC TABLET PO (09:04)
[2024-12-28] MEDS: ATORVASTATIN 40 MG TABLET PO (09:04)
--- NOTE | 2024-12-28 10:53 | PM.PNCARD ---
Progress Note: A&P Assessment and Plan (1) Acute non-Q wave non-ST elevation myocardial infarction (NSTEMI): Code(s): I21.4 - Non-ST elevation (NSTEMI) myocardial infarction Status: Acute Assessment and Plan: Assessment: (1) Elevated cardiac troponin in patient with complaints of weakness and diaphoresis but no chest pain or shortness of breath. EKG reveals normal sinus rhythm with heart rate of 69 per minute and right bundle-branch block as well as left anterior fascicular block. Patient also has nonspecific T changes. In the absence of chest pain this appears to be type [address] segment elevation myocardial injury. No previous cardiac workup noted. (2) Elevated WBC count. Rule out infection or sepsis. Patient has complaints of headache. Evaluated by Neurology Service also her lumbar tap. (3) chest x-ray does reveal mild increased interstitial pattern in the lower lung zones. Cannot rule out mild pulmonary edema or atelectasis. 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 Subsequent MRI scan shows several areas of acute infarcts involving the frontal, parietal and occipital lobes as well as cerebellum. Transesophageal echocardiogram is not recommended. (5) hyperlipidemia with total cholesterol 333 with triglycerides at 326. LDL cholesterol is 200 and HDL is 35. (2) Elevated troponin: Code(s): R79.89 - Other specified abnormal findings of blood chemistry Status: Acute (3) Multiple cerebral infarctions: Code(s): I63.9 - Cerebral infarction, unspecified Status: Acute Plan 1. Neurology assessment noted as well as MRI scan reports. Agree with transesophageal echocardiogram which will be done tomorrow by Cardiology Department blood. -Transesophageal echocardiogram on 12/27/2024 revealed normal left ventricular size and systolic function estimated at 65-70%. There is moderate aortic valve sclerosis with mild aortic valve stenosis estimated at 1.9 sq cm and trace mitral valve regurgitation. 2. Echocardiogram reports an EKG reviewed. EKG will start bundle branch block with left axis deviation and normal sinus rhythm. 3. Currently blood pressure is 113/67 mm of mercury and heart rate is 52 per minute. 4. Laboratory data reviewed from 12/27/2024. The scan remains mildly elevated at 11.4. 5. Recommend high-dose statin Lipitor 40 mg at bedtime for hyperlipidemia and elevated LDL cholesterol. Patient is already on Lipitor 40 mg daily. 6. No suggestion of acute coronary syndrome based on EKG and troponin pattern. Discontinue full-dose subcu Lovenox on this patient. Continue only needed for DVT prophylaxis. 7. DVT involving left leg. Since transesophageal echocardiogram is negative for intracardiac source of thrombi recommend 30 day event monitor for this patient. Increased activity he has tolerated. Discussed with at the bedside. Patient needs workup for hypercoagulable states in view of his left leg DVT and multi-infarct stroke situation. Hematology consultation is recommended. We will go ahead and order basic hypercoagulable state workup. Patient has been ambulating without any problems. Patient needs social service evaluation for outpatient management. Okay to discharge patient home once Hematology evaluation is done. Switch to oral Eliquis 10 mg b.i.d. for 7 days followed by 5 mg b.i.d. for 6 months. Subjective Date/time seen: 12/28/24 10:53 Interval history: History of the present illness: Patient admitted on 12/20/2024 with elevated WBC count, headache and nausea. His cardiac troponin I was elevated however subsequently the trend was nonsignificant. Patient was taken off the whole does subQ Lovenox. His CT scan on 12/24/2024 revealed a small old infarct in the right cerebellum but no aneurysm and no significant stenosis of internal carotid arteries bilaterally. MRI scan on 12/25/2024 revealed acute infarct scattered bilateral in frontal parietal and occipital lobes and cerebellum. There was 2.5 mm enhancing lesion in the left frontal lobe likely subacute infarct. Transesophageal echocardiogram is now recommended to to rule out cardiac embolic source. His echocardiogram on 12/24/2024 revealed normal left ventricular size and systolic function with moderate aortic valve calcification and mild aortic valve regurgitation. Moderate pulmonary hypertension noted at 45 mm acute His EKG on admission revealed normal sinus rhythm with complete right bundle-branch block and left axis deviation. Nonspecific ST changes noted. Patient was evaluated by Neurology Service and had a lumbar spine tap and was empirically treated for meningitis a viral nature. His white count was elevated therefore bacterial infection also cannot be ruled out. Ultrasound the abdominal and thoracic aorta were recommended by Neurology Service and continue aspirin 81 mg daily. Subjective: Patient examined at the bedside. Patient is awake and alert appears to be comfortable without shortness of breath or chest pain. Continues to have mild headache but otherwise no focal neurological symptoms. Intermittent headache is noted. No complaints of chest pain, shortness of breath or palpitations. No swelling of the left leg. Review of Systems Review of Systems: Twelve point review of system was completed. Pertinent positive and negative findings per HPI. Cardiovascular negative for chest pain or shortness of breath. Neurovascular positive for headache. Exam Narrative: Patient is awake alert. Continued but improved headache. Head and neck examination is unremarkable sclerae nonicteric. Neck is supple. There is no due to carotid bruit. Lungs are clear auscultation percussion. Heart sounds reveal normal S1-S2, no S3 or S4 appreciated. No murmur appreciated. Abdomen soft nontender without hepatosplenomegaly. Bowel sounds present. Obese. Neuro exam is intact without any focal neurological abnormalities. There is no leg edema. Const: Other: Patient examined bedside. Patient is awake alert and appears comfortable. No shortness of breath, orthopnea chest pain. Head and neck examination is unremarkable sclerae nonicteric. ENT examination is negative. Neck is supple. There is no JVD or carotid bruit. Thyroid isn't enlarged. Lungs are clear auscultation percussion. There is no wheezing or crepitations. Heart sounds reveal normal S1-S2. There is no significant murmurs S3 or S4. Abdomen is soft nontender there is no parasternal megaly. Bowel sounds present. Extremities revealed no pedal edema. Distal pulses are fair bilaterally. Neurological examination is intact at Skin and musculoskeletal is intact. No new rash. Objective Data Vital Signs Vital Signs: Vital Signs - 24 hr 12/27/24 12:00 12/27/24 12:30 12/27/24 14:00 Temperature 36.7 C Pulse Rate 70 64 72 Respiratory Rate 18 Blood Pressure 134/72 Pulse Oximetry 95 Oxygen Delivery 12/27/24 16:00 12/27/24 16:16 12/27/24 18:00 Temperature 36.0 C L Pulse Rate 56 L 57 L 55 L Respiratory Rate 18 Blood Pressure 151/74 H Pulse Oximetry 97 Oxygen Delivery 12/27/24 20:00 12/27/24 20:00 12/27/24 20:00 Temperature 36.5 C Pulse Rate 62 70 Respiratory Rate 18 Blood Pressure 177/74 H Pulse Oximetry 96 96 Oxygen Delivery Room Air 12/27/24 22:00 12/27/24 23:09 12/27/24 23:32 Temperature 36.6 C Pulse Rate 66 76 Respiratory Rate 18 Blood Pressure 145/84 H Pulse Oximetry 96 98 Oxygen Delivery Room Air 12/28/24 00:00 12/28/24 02:00 12/28/24 04:00 Temperature Pulse Rate 62 58 L Respiratory Rate Blood Pressure Pulse Oximetry 98 Oxygen Delivery Room Air 12/28/24 04:56 12/28/24 08:15 Temperature 36.5 C 36.5 C Pulse Rate 59 L 76 Respiratory Rate 16 18 Blood Pressure 121/65 111/54 L Pulse Oximetry 92 94 Oxygen Delivery Intake/Output Intake/Output: Intake & Output 12/25/24 12/26/24 12/27/24 12/28/24 23:59 23:59 23:59 23:59 Intake Total 2320 2930 850 790 Output Total 600 Balance 2320 2330 850 790 Meds/Results Medications: Active Medications Generic Name Dose Route Start Last Admin Trade Name Freq PRN Reason Stop Dose Admin Acetaminophen 650 mg 12/24/24 10:37 12/25/24 14:37 Acetaminophen 325 Mg Tablet PO 650 mg Q6HR PRN Administration headache Aspirin 81 mg 12/25/24 17:30 12/28/24 09:04 Aspirin 81 Mg Enteric Tablet PO 81 mg QAM LUPE Administration Atorvastatin Calcium 40 mg 12/25/24 17:30 12/28/24 09:04 Atorvastatin 40 Mg Tablet PO 40 mg DAILY LUPE Administration Cyproheptadine HCl 4 mg 12/27/24 22:00 12/28/24 05:23 Cyproheptadine Hcl 4 Mg Tablet PO 4 mg Q8HR LUPE Administration Dextrose 12.5 gm 12/24/24 11:15 Dextrose 50% 25 Gm/50 Ml Syringe IV PUSH PRN PRN Hypoglycemia Protocol Divalproex Sodium 500 mg 12/27/24 17:00 12/28/24 09:04 Divalproex Sodium Er 500 Mg Tab.24h PO 500 mg BID LUPE Administration Docusate Sodium 100 mg 12/27/24 14:14 Docusate Sodium 100 Mg Capsule PO Q12H PRN Constipation Enoxaparin Sodium 90 mg 12/26/24 21:00 12/28/24 09:04 Enoxaparin 100 Mg/Ml Syringe SUB-Q 90 mg Q12HR LUPE Administration Glucose 15 gm 12/24/24 11:15 Glucose Oral Gel 15 Gm Of Glucse In 37.5 Gm Tube PO PRN PRN Hypoglycemia Protocol Hydralazine HCl 5 mg 12/24/24 11:16 12/27/24 21:11 Hydralazine Hcl 20 Mg/Ml Vial IV PUSH 5 mg Q8H PRN Administration Blood Pressure - High, for BP> Hydrochlorothiazide 12.5 mg 12/26/24 12:55 12/28/24 09:04 Hydrochlorothiazide 12.5 Mg Capsule PO 12.5 mg QAM LUPE Administration Dextrose 1,000 mls @ 100 mls/hr 12/24/24 11:15 Dextrose 5% 1,000 Ml IVPB PRN PRN Hypoglycemia Protocol Lisinopril 5 mg 12/26/24 12:55 12/28/24 09:04 Lisinopril 5 Mg Tablet PO 5 mg QAM LUPE Administration Nicotine 1 patch 12/24/24 09:00 12/28/24 09:03 Nicotine (*Pbkc) 21 Mg Patch TRANSDERM 1 patch DAILY LUPE Administration Ondansetron HCl 4 mg 12/24/24 10:36 Ondansetron Inj 4 Mg/2 Ml Vial IV PUSH Q6HR PRN Nausea And Vomiting Oxycodone/Acetaminophen 2 tablet 12/27/24 14:13 12/28/24 04:00 Oxycodone/Acetaminophen (*Crx) 5-325 Mg Tablet PO 2 tablet Q6H PRN Administration Pain Rated 7-10 Polyethylene Glycol 17 gm 12/27/24 14:14 12/27/24 14:46 Polyethylene Glycol 3350 17 Gm Powd.Pack PO 17 gm QAM PRN Administration Constipation Radiology Results: ITS Impressions Head/Neck CTA 12/24/24 08:15 IMPRESSION: 1. Small old infarct in right cerebellum. 2. No aneurysm or significant intracranial arterial stenosis. 3. 13% stenosis of the proximal right internal carotid artery relative to normal distal artery lumen diameter (NASCET criteria). 4. 26% stenosis of the proximal left internal carotid artery relative to normal distal artery lumen diameter. Chest X-Ray 12/24/24 09:16 IMPRESSION: 1. Mild increased interstitial pattern in the bilateral lower lung zones which could be due to mild pulmonary edema or atelectasis. Lumbar Puncture Fluoroscopy 12/24/24 14:55 IMPRESSION: 1. Successful fluoro-guided lumbar puncture. Mildly elevated opening pressure of 22 cm water. Brain MRI 12/25/24 11:32 IMPRESSION: 1. Acute infarcts scattered in the bilateral frontal, parietal, and occipital lobes and cerebellum. 2. 5 mm enhancing lesion in left frontal lobe, likely a subacute infarct. Metastatic disease is less likely. Venous Doppler Study 12/25/24 17:47 Impression: Left-sided DVT detailed above Aorta Ultrasound 12/26/24 14:02 IMPRESSION: No aneurysm identified Labs Labs: Laboratory Results - last 24 hr 12/24/24 12/26/24 12/26/24 14:26 11:13 13:05 WBC 11.5 H RBC 4.99 Hgb 13.9 L Hct 42.7 MCV 85.6 MCH 27.9 MCHC 32.6 RDW 13.2 Plt Count 141 L MPV 11.5 H Immature Gran % (Auto) 0.3 Neut % (Auto) 70.6 Lymph % (Auto) 21.2 [place] % (Auto) 6.4 Eos % (Auto) 1.0 Baso % (Auto) 0.5 Lymph # (Auto) 2.44 [place] # (Auto) 0.7 H Eos # (Auto) 0.1 Baso # (Auto) 0.1 Abs Immat Gran (auto) 0.04 H Absolute Neuts (auto) 8.1 H Absolute Nucleated RBC 0.000 Nucleated RBC % 0.0 PT 15.1 H INR 1.2 APTT 37.8 H Sodium Potassium Chloride Carbon Dioxide Anion Gap BUN Creatinine Estim Creat Clear Calc Estimated GFR Glucose POC Capillary Glucose 84 Calcium Magnesium Total Bilirubin AST ALT Alkaline Phosphatase Total Protein Albumin CSF Herpes I DNA (PCR) Negative CSF Herpes II DNA (PCR) Negative 12/27/24 03:59 WBC 11.4 H RBC 4.72 Hgb 13.2 L Hct 40.7 L MCV 86.2 MCH 28.0 MCHC 32.4 RDW 13.1 Plt Count 145 L MPV 11.9 H Immature Gran % (Auto) 0.4 Neut % (Auto) 64.0 Lymph % (Auto) 24.9 [place] % (Auto) 8.1 Eos % (Auto) 2.0 Baso % (Auto) 0.6 Lymph # (Auto) 2.84 [place] # (Auto) 0.9 H Eos # (Auto) 0.2 Baso # (Auto) 0.1 Abs Immat Gran (auto) 0.05 H Absolute Neuts (auto) 7.3 H Absolute Nucleated RBC 0.000 Nucleated RBC % 0.0 PT INR APTT Sodium 133 L Potassium 3.5 Chloride 99 Carbon Dioxide 30 Anion Gap 4 BUN 13 Creatinine 0.82 Estim Creat Clear Calc 86 Estimated GFR > 60 Glucose 89 POC Capillary Glucose Calcium 9.0 Magnesium 1.9 Total Bilirubin 1.2 AST 37 ALT 89 H Alkaline Phosphatase 83 Total Protein 6.8 Albumin 3.8 CSF Herpes I DNA (PCR) CSF Herpes II DNA (PCR)
--- NOTE | 2024-12-28 14:38 | PM.IMPN ---
Progress Note: A&P Assessment and Plan (1) Acute non-Q wave non-ST elevation myocardial infarction (NSTEMI): Code(s): I21.4 - Non-ST elevation (NSTEMI) myocardial infarction Status: Acute (2) Leucocytosis: Code(s): D72.829 - Elevated white blood cell count, unspecified Status: Acute (3) Headache: Code(s): R51.9 - Headache, unspecified Status: Acute (4) Multiple cerebral infarctions: Code(s): I63.9 - Cerebral infarction, unspecified Status: Acute Plan I have been asked to take over this patient's care as he and his family did not agree with the previous physicians plan for discharge. The patient reports to me his wants him to be fixed before returning home. He tells me never had a headache prior to this incident. His headache was the worse upon admission. Now it lingers and it is exacerbated when he is standing and walking to the bathroom. It is generalized. Has no change in vision, no eye pain. It is associated with dizziness and ringing in his ears. He reports he has not had nausea or vomiting and otherwise can walk without any instability. 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 I educated him about this and the possibility it will remain or resolve slowly over time. He will have to follow with Neurology in the outpatient setting. It appears neurology has also been aware of this and on 01/16/2025 at night they started cyproheptadine and Depakote. These have not decreases headache. Continue these for now, orthostatic vitals, I discussed with nursing have the standing vitals done after he develops the symptoms he reports above such as headache, lightheadedness, ringing in his ears. We will see if he has any orthostasis. As well, since he has been started on anticoagulation and has had multiple infarcts we will repeat a CT head without contrast to assess for hemorrhagic transformation. Aside from this, we can follow with Neurology on the results to get any further recommendations. Patient wishes to be full code. The patient tells me he has not been a smoker for some time, but then the nurse tells me he quit just during this admission. None the less, Will discontinue that and monitor for improvement as nicotine patch can cause headache. Continue aspirin, hydrochlorothiazide, Lovenox therapeutic, atorvastatin. Patient wishes to be full code. Continue telemetry. Time Spent With Patient Time with patient: Greater than 35 minutes Subjective Date/time seen: 12/28/24 14:38 Interval history: I have been asked to take over this patient's care as he and his family did not agree with the previous physicians plan for discharge. The patient reports to me his wants him to be fixed before returning home. He tells me never had a headache prior to this incident. His headache was the worst upon admission. Now it lingers and it is the worse when he is standing and walking to the bathroom. It is generalized. Has no change in vision, no eye pain. It is associated with dizziness and ringing in his ears. He reports he has not had nausea or vomiting and otherwise can walk without any instability. Review of Systems Review of Systems: All systems reviewed & are unremarkable except as noted in HPI and below (Subjective) Exam Const: General: comfortable and no acute distress HENMT: Mouth: Yes moist mucous membranes Eyes: Pupils: Equal, round and reactive pupils present Neck: Neck: supple Resp: Effort & Inspection: normal respiratory effort Auscultation: clear to auscultation bilaterally Cardio: Rate: regular rate Rhythm: regular rhythm Heart sounds: no murmurs GI: Inspection: non-distended GI Palp: Yes Soft to palpation and No Tenderness to palpation present (GI) Auscultation: normal bowel sounds Neuro: General: deep tendon reflexes 2+ bilaterally Speech: normal speech Motor exam (neuro): 5/5 motor strength present throughout Sensory Exam: normal sensation Extrem: General: no edema Objective Data Vital Signs Vital Signs: Vital Signs - 24 hr 12/27/24 16:00 12/27/24 16:16 12/27/24 18:00 Temperature 96.8 F L Pulse Rate 56 L 57 L 55 L Respiratory Rate 18 Blood Pressure 151/74 H Pulse Oximetry 97 Oxygen Delivery 12/27/24 20:00 12/27/24 20:00 12/27/24 20:00 Temperature 97.7 F Pulse Rate 62 70 Respiratory Rate 18 Blood Pressure 177/74 H Pulse Oximetry 96 96 Oxygen Delivery Room Air 12/27/24 22:00 12/27/24 23:09 12/27/24 23:32 Temperature 97.8 F Pulse Rate 66 76 Respiratory Rate 18 Blood Pressure 145/84 H Pulse Oximetry 96 98 Oxygen Delivery Room Air 12/28/24 00:00 12/28/24 02:00 12/28/24 04:00 Temperature Pulse Rate 62 58 L Respiratory Rate Blood Pressure Pulse Oximetry 98 Oxygen Delivery Room Air 12/28/24 04:56 12/28/24 08:00 12/28/24 08:00 Temperature 97.7 F Pulse Rate 59 L 80 Respiratory Rate 16 Blood Pressure 121/65 Pulse Oximetry 92 94 Oxygen Delivery Room Air 12/28/24 08:15 12/28/24 10:00 12/28/24 11:48 Temperature 97.7 F 97.6 F Pulse Rate 76 68 62 Respiratory Rate 18 18 Blood Pressure 111/54 L 148/86 H Pulse Oximetry 94 99 Oxygen Delivery 12/28/24 12:00 12/28/24 12:00 12/28/24 14:00 Temperature Pulse Rate 64 68 Respiratory Rate Blood Pressure Pulse Oximetry 99 Oxygen Delivery Room Air Intake/Output Intake/Output: Intake & Output 12/25/24 12/26/24 12/27/24 12/28/24 23:59 23:59 23:59 23:59 Intake Total 2320 2930 850 790 Output Total 600 Balance 2320 2330 850 790 Meds/Results Medications: Active Medications Generic Name Dose Route Start Last Admin Trade Name Freq PRN Reason Stop Dose Admin Acetaminophen 650 mg 12/24/24 10:37 12/25/24 14:37 Acetaminophen 325 Mg Tablet PO 650 mg Q6HR PRN Administration headache Aspirin 81 mg 12/25/24 17:30 12/28/24 09:04 Aspirin 81 Mg Enteric Tablet PO 81 mg QAM LUPE Administration Atorvastatin Calcium 40 mg 12/25/24 17:30 12/28/24 09:04 Atorvastatin 40 Mg Tablet PO 40 mg DAILY LUPE Administration Cyproheptadine HCl 4 mg 12/27/24 22:00 12/28/24 13:57 Cyproheptadine Hcl 4 Mg Tablet PO 4 mg Q8HR LUPE Administration Dextrose 12.5 gm 12/24/24 11:15 Dextrose 50% 25 Gm/50 Ml Syringe IV PUSH PRN PRN Hypoglycemia Protocol Divalproex Sodium 500 mg 12/27/24 17:00 12/28/24 09:04 Divalproex Sodium Er 500 Mg Tab.24h PO 500 mg BID LUPE Administration Docusate Sodium 100 mg 12/27/24 14:14 Docusate Sodium 100 Mg Capsule PO Q12H PRN Constipation Enoxaparin Sodium 90 mg 12/26/24 21:00 12/28/24 09:04 Enoxaparin 100 Mg/Ml Syringe SUB-Q 90 mg Q12HR LUPE Administration Glucose 15 gm 12/24/24 11:15 Glucose Oral Gel 15 Gm Of Glucse In 37.5 Gm Tube PO PRN PRN Hypoglycemia Protocol Hydralazine HCl 5 mg 12/24/24 11:16 12/27/24 21:11 Hydralazine Hcl 20 Mg/Ml Vial IV PUSH 5 mg Q8H PRN Administration Blood Pressure - High, for BP> Hydrochlorothiazide 12.5 mg 12/26/24 12:55 12/28/24 09:04 Hydrochlorothiazide 12.5 Mg Capsule PO 12.5 mg QAM LUPE Administration Dextrose 1,000 mls @ 100 mls/hr 12/24/24 11:15 Dextrose 5% 1,000 Ml IVPB PRN PRN Hypoglycemia Protocol Lisinopril 5 mg 12/26/24 12:55 12/28/24 09:04 Lisinopril 5 Mg Tablet PO 5 mg QAM LUPE Administration Nicotine 1 patch 12/24/24 09:00 12/28/24 09:03 Nicotine (*Pbkc) 21 Mg Patch TRANSDERM 1 patch DAILY LUPE Administration Ondansetron HCl 4 mg 12/24/24 10:36 Ondansetron Inj 4 Mg/2 Ml Vial IV PUSH Q6HR PRN Nausea And Vomiting Oxycodone/Acetaminophen 2 tablet 12/27/24 14:13 12/28/24 04:00 Oxycodone/Acetaminophen (*Crx) 5-325 Mg Tablet PO 2 tablet Q6H PRN Administration Pain Rated 7-10 Polyethylene Glycol 17 gm 12/27/24 14:14 12/27/24 14:46 Polyethylene Glycol 3350 17 Gm Powd.Pack PO 17 gm QAM PRN Administration Constipation Radiology Results: ITS Impressions Head/Neck CTA 12/24/24 08:15 IMPRESSION: 1. Small old infarct in right cerebellum. 2. No aneurysm or significant intracranial arterial stenosis. 3. 13% stenosis of the proximal right internal carotid artery relative to normal distal artery lumen diameter (NASCET criteria). 4. 26% stenosis of the proximal left internal carotid artery relative to normal distal artery lumen diameter. Chest X-Ray 12/24/24 09:16 IMPRESSION: 1. Mild increased interstitial pattern in the bilateral lower lung zones which could be due to mild pulmonary edema or atelectasis. Lumbar Puncture Fluoroscopy 12/24/24 14:55 IMPRESSION: 1. Successful fluoro-guided lumbar puncture. Mildly elevated opening pressure of 22 cm water. Brain MRI 12/25/24 11:32 IMPRESSION: 1. Acute infarcts scattered in the bilateral frontal, parietal, and occipital lobes and cerebellum. 2. 5 mm enhancing lesion in left frontal lobe, likely a subacute infarct. Metastatic disease is less likely. Venous Doppler Study 12/25/24 17:47 Impression: Left-sided DVT detailed above Aorta Ultrasound 12/26/24 14:02 IMPRESSION: No aneurysm identified
[2024-12-29] VITALS (11 sets, daily range): BP systolic 91–128; BP diastolic 56–76; PULSE 52–78; RESP 14–18; TEMP 36.4–36.8; O2SAT 94–95
[2024-12-29 04:09] LABS: Hematocrit 44.8 % (42.0-52.0); Hemoglobin 14.6 g/dL (14.0-18.0); Immature Granulocyte Percent A 0.4 % (0-0.5); Lymphocytes Absolute Auto 2.29 K/mm3 (0.9-3.2); Mean Corpuscular HGB Conc 32.6 g/dl (32-36); Mean Corpuscular Hemoglobin 28.1 pg (26-34); Mean Corpuscular Volume 86.3 fl (80-100); Nucleated Red Blood Cells Absolute Auto 0.000 K/mm3 (0.0-0.012); Nucleated Red Blood Cells Perc 0.0 % (0.0-0.2); Platelet Count Result 217 k/mm3 (150-375); Red Blood Count 5.19 M/mm3 (4.6-6.20); White Blood Count 9.8 K/mm3 (4.5-10.0)
[2024-12-29 04:22] LABS: Anion Gap 9 mmol/L (4-12); Blood Urea Nitrogen 27 mg/dL (9-20); Calcium 9.4 mg/dL (8.4-10.2); Carbon Dioxide 30 mmol/L (22-30); Chloride 95 mmol/L (98-107); Estimated CRCL calculation 47 ml/min; Estimated Glomerular Filt Rate 45; Glucose 97 mg/dL (65-110); Magnesium 2.4 mg/dL (1.6-2.3); Potassium 4.6 mmol/L (3.4-5.0); Sodium 134 mmol/L (137-145)
[2024-12-29] MEDS: CYPROHEPTADINE HCL 4 MG TABLET PO (06:26)
[2024-12-29] MEDS: ASPIRIN 81 MG ENTERIC TABLET PO (09:10)
[2024-12-29] MEDS: DIVALPROEX SODIUM ER 500 MG TAB.24H PO (09:10)
[2024-12-29] MEDS: ENOXAPARIN 100 MG/ML SYRINGE 90 MG SUB-Q (09:10)
[2024-12-29] MEDS: ATORVASTATIN 40 MG TABLET PO (09:10)
--- NOTE | 2024-12-29 10:48 | PM.PNCARD ---
Progress Note: A&P Assessment and Plan (1) Acute non-Q wave non-ST elevation myocardial infarction (NSTEMI): Code(s): I21.4 - Non-ST elevation (NSTEMI) myocardial infarction Status: Acute Assessment and Plan: Assessment: (1) Elevated cardiac troponin in patient with complaints of weakness and diaphoresis but no chest pain or shortness of breath. EKG reveals normal sinus rhythm with heart rate of 69 per minute and right bundle-branch block as well as left anterior fascicular block. Patient also has nonspecific T changes. In the absence of chest pain this appears to be type [address] segment elevation myocardial injury. No previous cardiac workup noted. (2) Elevated WBC count. Rule out infection or sepsis. Patient has complaints of headache. Evaluated by Neurology Service also her lumbar tap. (3) chest x-ray does reveal mild increased interstitial pattern in the lower lung zones. Cannot rule out mild pulmonary edema or atelectasis. 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 Subsequent MRI scan shows several areas of acute infarcts involving the frontal, parietal and occipital lobes as well as cerebellum. Transesophageal echocardiogram is not recommended. (5) hyperlipidemia with total cholesterol 333 with triglycerides at 326. LDL cholesterol is 200 and HDL is 35. (6) elevated creatinine at 1.5. Creatinine was 0.9 previously. (2) Elevated troponin: Code(s): R79.89 - Other specified abnormal findings of blood chemistry Status: Acute (3) Multiple cerebral infarctions: Code(s): I63.9 - Cerebral infarction, unspecified Status: Acute Plan 1. Neurology assessment noted as well as MRI scan reports. Agree with transesophageal echocardiogram which will be done tomorrow by Cardiology Department blood. -Transesophageal echocardiogram on 12/27/2024 revealed normal left ventricular size and systolic function estimated at 65-70%. There is moderate aortic valve sclerosis with mild aortic valve stenosis estimated at 1.9 sq cm and trace mitral valve regurgitation. 2. Echocardiogram reports an EKG reviewed. EKG will start bundle branch block with left axis deviation and normal sinus rhythm. 3. Currently blood pressure is 113/67 mm of mercury and heart rate is 52 per minute. 4. Laboratory data reviewed from 12/27/2024. The scan remains mildly elevated at 11.4. 5. Recommend high-dose statin Lipitor 40 mg at bedtime for hyperlipidemia and elevated LDL cholesterol. Patient is already on Lipitor 40 mg daily. 6. No suggestion of acute coronary syndrome based on EKG and troponin pattern. Discontinue full-dose subcu Lovenox on this patient. Continue only needed for DVT prophylaxis. 7. DVT involving left leg. Since transesophageal echocardiogram is negative for intracardiac source of thrombi recommend 30 day event monitor for this patient. Increased activity he has tolerated. Discussed with at the bedside. Patient needs workup for hypercoagulable states in view of his left leg DVT and multi-infarct stroke situation. Hematology consultation is recommended. We will go ahead and order basic hypercoagulable state workup. Creatinine is elevated at 1.5. Patient currently on hydrochlorothiazide and lisinopril. Will stop both and start patient on amlodipine 5 mg daily and hydralazine 25 mg t.i.d.. Patient is bradycardic at 52 per minute. Patient has been ambulating without any problems. Patient needs social service evaluation for outpatient management. Patient being transferred to [facility] for further evaluation and treatment at a tertiary center. Switch to oral Eliquis 10 mg b.i.d. for 7 days followed by 5 mg b.i.d. for 6 months. Subjective Date/time seen: 12/29/24 10:48 Interval history: History of the present illness: Patient admitted on 12/20/2024 with elevated WBC count, headache and nausea. His cardiac troponin I was elevated however subsequently the trend was nonsignificant. Patient was taken off the whole does subQ Lovenox. His CT scan on 12/24/2024 revealed a small old infarct in the right cerebellum but no aneurysm and no significant stenosis of internal carotid arteries bilaterally. MRI scan on 12/25/2024 revealed acute infarct scattered bilateral in frontal parietal and occipital lobes and cerebellum. There was 2.5 mm enhancing lesion in the left frontal lobe likely subacute infarct. Transesophageal echocardiogram is now recommended to to rule out cardiac embolic source. His echocardiogram on 12/24/2024 revealed normal left ventricular size and systolic function with moderate aortic valve calcification and mild aortic valve regurgitation. Moderate pulmonary hypertension noted at 45 mm acute His EKG on admission revealed normal sinus rhythm with complete right bundle-branch block and left axis deviation. Nonspecific ST changes noted. Patient was evaluated by Neurology Service and had a lumbar spine tap and was empirically treated for meningitis a viral nature. His white count was elevated therefore bacterial infection also cannot be ruled out. Ultrasound the abdominal and thoracic aorta were recommended by Neurology Service and continue aspirin 81 mg daily. Subjective: Patient examined at the bedside. Patient is awake and alert appears to be comfortable without shortness of breath or chest pain. Continues to have mild headache but otherwise no focal neurological symptoms. Intermittent headache is noted. No complaints of chest pain, shortness of breath or palpitations. No swelling of the left leg. Patient was evaluated by hematology service and plans are being initiated to transfer patient to [facility]. Review of Systems Review of Systems: Twelve point review of system was completed. Pertinent positive and negative findings per HPI. Cardiovascular negative for chest pain or shortness of breath. Neurovascular positive for headache. Exam Narrative: Patient is awake alert. Continued but improved headache. Head and neck examination is unremarkable sclerae nonicteric. Neck is supple. There is no due to carotid bruit. Lungs are clear auscultation percussion. Heart sounds reveal normal S1-S2, no S3 or S4 appreciated. No murmur appreciated. Abdomen soft nontender without hepatosplenomegaly. Bowel sounds present. Obese. Neuro exam is intact without any focal neurological abnormalities. There is no leg edema. Const: Other: Patient examined bedside. Patient is awake alert and appears comfortable. No shortness of breath, orthopnea chest pain. Head and neck examination is unremarkable sclerae nonicteric. ENT examination is negative. Neck is supple. There is no JVD or carotid bruit. Thyroid isn't enlarged. Lungs are clear auscultation percussion. There is no wheezing or crepitations. Heart sounds reveal normal S1-S2. There is no significant murmurs S3 or S4. Abdomen is soft nontender there is no parasternal megaly. Bowel sounds present. Extremities revealed no pedal edema. Distal pulses are fair bilaterally. Neurological examination is intact at Skin and musculoskeletal is intact. No new rash. Objective Data Vital Signs Vital Signs: Vital Signs - 24 hr 12/28/24 11:48 12/28/24 12:00 12/28/24 12:00 Temperature 36.4 C Pulse Rate 62 64 Respiratory Rate 18 Blood Pressure 148/86 H Pulse Oximetry 99 99 Oxygen Delivery Room Air 12/28/24 14:00 12/28/24 15:42 12/28/24 15:42 Temperature Pulse Rate 68 Respiratory Rate Blood Pressure 138/73 141/78 H Pulse Oximetry Oxygen Delivery 12/28/24 15:42 12/28/24 15:45 12/28/24 15:53 Temperature 36.7 C Pulse Rate 70 Respiratory Rate 16 Blood Pressure 144/78 H 138/73 Pulse Oximetry 97 97 Oxygen Delivery Room Air 12/28/24 16:00 12/28/24 18:00 12/28/24 19:47 Temperature 36.8 C Pulse Rate 62 74 81 Respiratory Rate 16 Blood Pressure 108/56 L Pulse Oximetry 94 Oxygen Delivery 12/28/24 20:00 12/28/24 20:00 12/28/24 22:00 Temperature Pulse Rate 72 61 Respiratory Rate Blood Pressure Pulse Oximetry Oxygen Delivery Room Air 12/29/24 00:00 12/29/24 00:00 12/29/24 00:11 Temperature 36.7 C Pulse Rate 70 57 L Respiratory Rate 14 Blood Pressure 91/56 L Pulse Oximetry 94 Oxygen Delivery Room Air 12/29/24 02:00 12/29/24 04:00 12/29/24 04:00 Temperature Pulse Rate 52 L 55 L Respiratory Rate Blood Pressure Pulse Oximetry Oxygen Delivery Room Air 12/29/24 04:30 12/29/24 06:00 12/29/24 07:32 Temperature 36.8 C 36.4 C L Pulse Rate 60 55 L 78 Respiratory Rate 15 18 Blood Pressure 128/76 119/72 Pulse Oximetry 94 95 Oxygen Delivery 12/29/24 08:00 12/29/24 08:00 12/29/24 10:00 Temperature Pulse Rate 58 L 60 Respiratory Rate Blood Pressure Pulse Oximetry Oxygen Delivery Room Air Intake/Output Intake/Output: Intake & Output 12/26/24 12/27/24 12/28/24 12/29/24 23:59 23:59 23:59 23:59 Intake Total 2930 850 1710 420 Output Total 600 Balance 2330 850 1710 420 Meds/Results Medications: Active Medications Generic Name Dose Route Start Last Admin Trade Name Freq PRN Reason Stop Dose Admin Acetaminophen 650 mg 12/24/24 10:37 12/25/24 14:37 Acetaminophen 325 Mg Tablet PO 650 mg Q6HR PRN Administration headache Amlodipine Besylate 5 mg 12/30/24 09:00 Amlodipine Besylate 5 Mg Tablet PO DAILY LUPE Aspirin 81 mg 12/25/24 17:30 12/29/24 09:10 Aspirin 81 Mg Enteric Tablet PO 81 mg QAM LUPE Administration Atorvastatin Calcium 40 mg 12/25/24 17:30 12/29/24 09:10 Atorvastatin 40 Mg Tablet PO 40 mg DAILY LUPE Administration Cyproheptadine HCl 4 mg 12/27/24 22:00 12/29/24 06:26 Cyproheptadine Hcl 4 Mg Tablet PO 4 mg Q8HR LUPE Administration Dextrose 12.5 gm 12/24/24 11:15 Dextrose 50% 25 Gm/50 Ml Syringe IV PUSH PRN PRN Hypoglycemia Protocol Divalproex Sodium 500 mg 12/27/24 17:00 12/29/24 09:10 Divalproex Sodium Er 500 Mg Tab.24h PO 500 mg BID LUPE Administration Docusate Sodium 100 mg 12/27/24 14:14 Docusate Sodium 100 Mg Capsule PO Q12H PRN Constipation Enoxaparin Sodium 90 mg 12/26/24 21:00 12/29/24 09:10 Enoxaparin 100 Mg/Ml Syringe SUB-Q 90 mg Q12HR LUPE Administration Glucose 15 gm 12/24/24 11:15 Glucose Oral Gel 15 Gm Of Glucse In 37.5 Gm Tube PO PRN PRN Hypoglycemia Protocol Hydralazine HCl 5 mg 12/24/24 11:16 12/27/24 21:11 Hydralazine Hcl 20 Mg/Ml Vial IV PUSH 5 mg Q8H PRN Administration Blood Pressure - High, for BP> Hydralazine HCl 25 mg 12/29/24 13:00 Hydralazine Hcl 25 Mg Tablet PO TID LUPE Dextrose 1,000 mls @ 100 mls/hr 12/24/24 11:15 Dextrose 5% 1,000 Ml IVPB PRN PRN Hypoglycemia Protocol Oxycodone/Acetaminophen 2 tablet 12/27/24 14:13 12/28/24 21:26 Oxycodone/Acetaminophen (*Crx) 5-325 Mg Tablet PO 2 tablet Q6H PRN Administration Pain Rated 7-10 Polyethylene Glycol 17 gm 12/27/24 14:14 12/27/24 14:46 Polyethylene Glycol 3350 17 Gm Powd.Pack PO 17 gm QAM PRN Administration Constipation Radiology Results: ITS Impressions Head/Neck CTA 12/24/24 08:15 IMPRESSION: 1. Small old infarct in right cerebellum. 2. No aneurysm or significant intracranial arterial stenosis. 3. 13% stenosis of the proximal right internal carotid artery relative to normal distal artery lumen diameter (NASCET criteria). 4. 26% stenosis of the proximal left internal carotid artery relative to normal distal artery lumen diameter. Chest X-Ray 12/24/24 09:16 IMPRESSION: 1. Mild increased interstitial pattern in the bilateral lower lung zones which could be due to mild pulmonary edema or atelectasis. Lumbar Puncture Fluoroscopy 12/24/24 14:55 IMPRESSION: 1. Successful fluoro-guided lumbar puncture. Mildly elevated opening pressure of 22 cm water. Brain MRI 12/25/24 11:32 IMPRESSION: 1. Acute infarcts scattered in the bilateral frontal, parietal, and occipital lobes and cerebellum. 2. 5 mm enhancing lesion in left frontal lobe, likely a subacute infarct. Metastatic disease is less likely. Venous Doppler Study 12/25/24 17:47 Impression: Left-sided DVT detailed above Aorta Ultrasound 12/26/24 14:02 IMPRESSION: No aneurysm identified Head CT 12/28/24 17:34 Impression: Large focus of abnormal density within the right cerebellum. This may be ischemic however underlying lesion is not excluded. Contrast-enhanced MRI is recommended Labs Labs: Laboratory Results - last 24 hr 12/28/24 12/29/24 11:11 03:55 WBC 9.8 RBC 5.19 Hgb 14.6 Hct 44.8 MCV 86.3 MCH 28.1 MCHC 32.6 RDW 13.2 Plt Count 217 MPV 11.3 H Immature Gran % (Auto) 0.4 Neut % (Auto) 65.7 Lymph % (Auto) 23.3 [place] % (Auto) 8.6 H Eos % (Auto) 1.4 Baso % (Auto) 0.6 Lymph # (Auto) 2.29 [place] # (Auto) 0.8 H Eos # (Auto) 0.1 Baso # (Auto) 0.1 Abs Immat Gran (auto) 0.04 H Absolute Neuts (auto) 6.4 Absolute Nucleated RBC 0.000 Nucleated RBC % 0.0 Sodium 134 L Potassium 4.6 Chloride 95 L Carbon Dioxide 30 Anion Gap 9 BUN 27 H D Creatinine 1.57 H Estim Creat Clear Calc 47 Estimated GFR 45 L Glucose 97 Calcium 9.4 Magnesium 2.4 H Homocysteine 15.0 H
--- NOTE | 2024-12-29 13:04 | PM.TDS ---
Transfer Discharge Sum: Prov Provider Date of admission: 12/24/24 11:35 Primary care physician: Fritz Moser, MD Admitting clinician: Flower Liriano MD Attending physician on admission: Laura Corbin Consults: 12/24/24 Consult to Physician Routine Comment: Consulting Provider: Cayetano Zayas callisthenics instructor/MD group to consult: neurology Reason for consultation: headache Has provider been notified: Yes Consult to Physician Routine Comment: Consulting Provider: Cayetano Zayas Reason for consultation: headache Has provider been notified: Yes Consult to Physician Routine Comment: Consulting Provider: Black Nowak Reason for consultation: NSTEMI Has provider been notified: Yes 12/28/24 Consult to Physician Routine Comment: Consulting Provider: Federico Hart callisthenics instructor/MD group to consult: hematology Reason for consultation: Rule out Clotting disorder Has provider been notified: No Attending physician on discharge: Flower Liriano Discharging clinician: Flower Liriano Anticipated date of transfer: 12/29/24 Receiving physician/facility: [facility] DS: Admitting Diagnosis Discharge Date 12/29/24 Admitting Diagnosis Headache DS: Discharge Diagnosis Discharge Diagnosis (1) Multiple cerebral infarctions: Code(s): I63.9 - Cerebral infarction, unspecified Status: Acute Transfer Discharge Sum: Med Medications Active and Home Medications: Home Medications No Home Medications 12/28/24 [History Confirmed 12/28/24] Transfer Discharge Sum: Hosp Hospital Course Hospital course: Mino Young is a 59 year old male with history of ongoing smoking, nearly 2 packs per day, presenting with headache. Patient reports for about a week or so he has had a headache, at some point a friend noticed him wobbling as if he was drunk. On the day of admission he woke up with 2 episodes of vomiting after eating breakfast and a worsening headache. Head and neck CTA in 12/24/2024 on admission demonstrates: 1. Small old infarct in right cerebellum. 2. No aneurysm or significant intracranial arterial stenosis. 3. 13% stenosis of the proximal right internal carotid artery relative to normal distal artery lumen diameter (NASCET criteria). 4. 26% stenosis of the proximal left internal carotid artery relative to normal distal artery lumen diameter. Lumbar puncture performed with 88 RBC, no nucleated cells, 20% neutrophil, 90 mg/dL of glucose, 73 mg/dL of protein. Neurology consulted antibiotics were discontinued. On 12/25/2028 MRI brain/brainstem with contrast demonstratin. Acute infarcts scattered in the bilateral frontal, parietal, and occipital lobes and cerebellum. 2. 5 mm enhancing lesion in left frontal lobe, likely a subacute infarct. Metastatic disease is less likely. Patient was started on aspirin 81 mg p.o. q.day, atorvastatin 40 mg p.o. q.day. nicotine patch. Lipid panel demonstrating triglycerides 326, cholesterol 333, LDL 200, HDL 35. Bilateral lower extremity venous Doppler ultrasounds demonstrating DVT with diminished flow in the left femoral and popliteal veins. Patient was started on Lovenox therapeutic dosing. Discharge was planned. However patient complained of persistent headache which was minimal while laying down and worse while walking to the bathroom associated dizziness and ringing in his ears. Orthostatic vitals were negative. He was started on cyproheptadine 4 mg p.o. q.8 hours and Depakote 500 mg p.o. b.i.d. without any improvement. Repeat CT head on 12/28/2024 demonstrates large focus of abnormal density within the right cerebellum, mass effect upon the 4th ventricle and posterior midline shift measuring 5 mm. No obvious parent, hemorrhage identified. Serum creatinine noted to be elevated at 1.57 on 12/29/2024. Hydrochlorothiazide and lisinopril discontinued. Dr. Bo at [facility] graciously accepted the patient for further evaluation. Patient was transferred in stable condition on 12/29/2024 via ground transport. Patient Condition: Gaurded Prognosis Time Spent with Patient Time attestation: Total time spent providing and/or coordinating transfer services: Greater than 55 minutes spent coordinating transfer services. Exam Const: General: comfortable and no acute distress Other: A&O x3 HENMT: Mouth: Yes moist mucous membranes Eyes: Pupils: Equal, round and reactive pupils present Neck: Neck: supple Resp: Effort & Inspection: normal respiratory effort Auscultation: clear to auscultation bilaterally Cardio: Rate: regular rate Rhythm: regular rhythm Heart sounds: no murmurs GI: Inspection: non-distended GI Palp: Yes Soft to palpation Neuro: General: gait normal and deep tendon reflexes 2+ bilaterally Speech: normal speech Motor exam (neuro): 5/5 motor strength present throughout Sensory Exam: normal sensation Extrem: General: no edema Psych: Mental Status: mental status grossly normal DS: Data Data Completed and Pending Labs on day of discharge: Labs from last 24 hours 12/29/24 12/28/24 03:55 11:11 WBC 9.8 RBC 5.19 Hgb 14.6 Hct 44.8 MCV 86.3 MCH 28.1 MCHC 32.6 RDW 13.2 Plt Count 217 MPV 11.3 H Immature Gran % (Auto) 0.4 Neut % (Auto) 65.7 Lymph % (Auto) 23.3 Kaufman % (Auto) 8.6 H Eos % (Auto) 1.4 Baso % (Auto) 0.6 Lymph # (Auto) 2.29 Kaufman # (Auto) 0.8 H Eos # (Auto) 0.1 Baso # (Auto) 0.1 Abs Immat Gran (auto) 0.04 H Absolute Neuts (auto) 6.4 Absolute Nucleated RBC 0.000 Nucleated RBC % 0.0 Sodium 134 L Potassium 4.6 Chloride 95 L Carbon Dioxide 30 Anion Gap 9 BUN 27 H D Creatinine 1.57 H Estim Creat Clear Calc 47 Estimated GFR 45 L Glucose 97 Calcium 9.4 Magnesium 2.4 H Homocysteine 15.0 H Preliminary micro results at discharge 12/24/24 10:39 Blood Culture - Preliminary Blood 12/24/24 10:43 Blood Culture - Preliminary Blood
[2025-01-02 16:08] LABS: Anti-MPO Antibodies <0.2 units (0.0-0.9); Anti-PR3 Antibodies <0.2 units (0.0-0.9); Saccharomyces cerevisiae, IgA <20.0 Units (0.0-24.9); Saccharomyces cerevisiae, IgG <20.0 Units (0.0-24.9)
== END 2024-12-29 12:22 | disposition short-term general hospital (02) | DRG 45 ==
LOC: ANHED 07:55 → ANHIMU 11:47
PROVIDERS: Internal Medicine; Internal Medicine Cardiovascular Disease; Admitting Provider General Practice; Emergency Provider General Practice; PCP Internal Medicine Gastroenterology; Visit Provider General Practice
PROC: B24BZZ4 Ultrasonography of Heart with Aorta, Transesophageal (ICD-10-PCS; CPT 93312; principal; 2024-12-27 09:00)
DX: I63.9 Cerebral infarction, unspecified (principal); I21.A1 Myocardial infarction type 2; I82.412 Acute embolism and thrombosis of left femoral vein; I82.432 Acute embolism and thrombosis of left popliteal vein; I35.0 Nonrheumatic aortic (valve) stenosis; F17.210 Nicotine dependence, cigarettes, uncomplicated; Z20.822 Contact with and (suspected) exposure to COVID-19
CPT/HCPCS: 36415; 62328; 70450; 70496; 70498; 70552; 71045; 76775; 80048; 80053; 80061; 80202; 80307; 81001; 81240; 81241; 82077; 82945; 82948; 83036; 83090; 83605; 83735; 84157; 84484; 85025; 85055; 85300; 85303; 85306; 85610; 85730; 86037; 86364; 86671; 87040; 87529; 87636; 89051; 92523; 93005; 93306; 93312; 93320; 93325; 93970; 96361; 96365; 96375; 97161; 99285; A9270; A9577; J0290; J0360; J0692; J1650; J2250; J2405; J3010; J3373; J7040; J7050; J7120; Q9967

== ENCOUNTER 2025-01-11 08:16 | Emergency (ER) | payer SELFPAY ==
--- NOTE | ~2025-01-11 | CT_ITS ---
CT abdomen pelvis w con Clinical History: lower ab pain, rectal bleeding . Comparison: None Technique: Axial images lung bases to symphysis pubis IV contrast information not listed in PACS Coronal, sagittal reformats CT images acquired with automatic exposure control for dose reduction DLP: 521 mGy-cm Findings: Lung bases: Clear. Visualized heart and pericardium: Enlarged. Liver: Enlarged. Steatosis. No intrahepatic biliary ductal dilatation. Tiny hyperdense focus segment 4A Gallbladder: Unremarkable. Spleen: Geographic area of decreased enhancement. Pancreas: Unremarkable. Adrenal glands: Unremarkable. Kidneys: Right kidney-mild atrophy. No hydronephrosis. No renal stones. Left kidney-enlarged. No hydronephrosis. No renal stones. Distal esophagus/stomach: Mild distal esophageal wall thickening/esophagitis. Small bowel loops: Normal caliber and wall thickness. Colon: Diverticula. Normal caliber and wall thickness. Normal RLQ appendix. Nodes: Multiple small retroperitoneal nodes. Peritoneum: No ascites. No free air. Urinary bladder: Unremarkable. Prostate: Prominent. Bones: No acute bony abnormality. Soft tissues: Unremarkable. Aorta: No aneurysm or dissection. Atherosclerotic disease. IVC: Unremarkable. Main portal vein/SMV/splenic vein: Patent. IMPRESSION: 1. Intrahepatic biliary ductal dilatation. If indicated per LFTs, consider MRCP. 2. Probable early cirrhosis. Tiny hyperdense focus are focus of enhancement. Too small to characterize. Recommend correlation with AFP. Recommend ultrasound and/or MRI in 3-6 months. 3. Colonic diverticula. No evidence of diverticulitis. Reviewed, dictated and finalized at location R. IMPRESSION: 1. Intrahepatic biliary ductal dilatation. If indicated per LFTs, consider MRC P. 2. Probable early cirrhosis. Tiny hyperdense focus are focus of enhancement. T oo small to characterize. Recommend correlation with AFP. Recommend ultrasound and/or MRI in 3-6 months. 3. Colonic diverticula. No evidence of diverticulitis.
[2025-01-11 08:24] VITALS: BP 136/80; PULSE 66; RESP 16; TEMP 36.5; O2SAT 100
--- OUTSIDE RECORDS SUMMARY | 2025-01-11 08:24 | XMS_ITS | Patient Health Record ---
Author Organization [facility] Address [address] [place] [address] Care Team Providers Care Gantry Crane Operator Name Role Phone Petar Luna Primary Care Provider Allergies No Known Allergies Reason For Referral No Information Medications Medication SIG (Take, Route, Frequency, Duration) Notes Start Date End Date Status Atorvastatin Calcium 80 MG 1 tablet Oral ly Once a day Active Aspirin 81 81 MG 1 tablet Orally Once a day Active Eliquis 5 MG as directed Orally Active Social History Tobacco Use: Social History Observation Description Date Details (start date - stop date) Former Smoker NA - NA Tobacco Control (Standard) Question Answer Notes Tobacco use: Former smoker How long has it been since you last smoked? Less than 1 month Problems Problem Type SNOMED Code ICD Code Onset Dates Problem Status W/U Status Risk Notes Problem Hyperlipidemia (39877377) Hyperlipidemia (E78.5) Active confirmed Problem CVA - Cerebrovascular accident (573568287) CVA (cerebral vascular accident) (I63.9) Active confirmed Problem Overweight (219102911) Over weight (E66.3) Active confirmed Problem Atrial fibrillation (92638242) Atrial fibrillation (I48.91) Active confirmed Vital Signs Heart Rate 64 /min 01/09/2025 Temperature 97.9 degrees Fahrenheit 01/09/2025 Respiratory Rate 16 /min 01/09/2025 Oximetry 97 % 01/09/2025 Blood pressure diastolic 60 mm Hg 01/09/2025 Height 70 in in 01/09/2025 Blood pressure systolic 112 mm Hg 01/09/2025 Weight 188.4 lbs lbs 01/09/2025 BMI 27.03 kg/m2 01/09/2025 Encounters Encounter Location Date Provider Diagnosis [address] [address] 01/11/2025 Petaryariel Batistaner [address] [address] 01/09/2025 Petaryariel Luna Atrial fibrillation I48.91 ; CVA (cerebral vascular accident) I63.9 ; Hyperlipidemia E78.5 ; Former smoker Z87.891 and Over weight E66.3 Assessments Encounter Date Diagnosis (ICD Code) Assessment Notes Treatment Notes Treatment Clinical Notes Section Notes 01/09/2025 CVA (cerebral vascular accident) (ICD-10 - I63.9) 01/09/2025 Atrial fibrillation (ICD-10 - I48.91) 01/09/2025 Hyperlipidemia (ICD-10 - E78.5) 01/09/2025 Former smoker (ICD-10 - Z87.891) 01/09/2025 Over weight (ICD-10 - E66.3) 01/09/2025 Other Continue current medication. Consider f/u lab in 3 months. Records requested. He defers health screening until he is insured. Plan Of Treatment No Information Medical (General) History Hospitalization History Reason Date(Month/Year) Stroke 11/2024 Stroke [facility] 12/2024
--- OUTSIDE RECORDS SUMMARY | 2025-01-11 08:24 | XMS_ITS | Clinical Summary ---
Author Organization [facility] Care Team Providers Care Hardboard Press Operator Name Role Phone Unavailable Primary Care Provider [...] 2014 Zoster Immunization (1 of 2) 2014 Influenza Immunization (#1) 2024 SARS-COV-2 Immunization ( season) 2024 06/03/2020, 05/01/2020 Respiratory Syncytial Virus (RSV) Immunization [...]
--- OUTSIDE RECORDS SUMMARY | 2025-01-11 08:24 | XMS_ITS | Clinical Summary ---
Author Organization [facility] Address [address] [place] [address] Care Team Providers Care Machine Milker Name Role Phone Provider, No Pcp Primary Care Provider Unavailab le Source Comments [facility],non-owned Affiliates and Associated Physician Practices is amultiple site organization consisting of ambulatory clinics and hospital sitesin [place], [place], [place] and [place]. This disclosure is being madepursuant to the Care Everywhere program and may not contain all information available regarding this patient. Last updated 17.[facility] Allergies No known active allergies Medications * Be aware that medications may not be up to date on this document. Alwaysverify current medications with the patient. aspirin (Aspirin) 81 MG chew tablet Take 1 (one) tablet by mouth once daily (chew and swallow) 30 tablet 2 5 Active apixaban (Eliquis) 5 MG tablet Take 1 (one) tablet by mouth 2 times daily 60 tablet 2 5 Active atorvastatin (Lipitor) 80 MG tablet Take 1 (one) tablet by mouth at bedtime 30 tablet 2 5 Active dabigatran (praDAXA) 150 MG capsuleIndicat ions:Deep Vein Thrombosis Take 1 (one) capsule by mouth 2 times daily - take after completing Eliquis. Reasons: Blood Clot in a Deep Vein 60 capsule 1 5 Active rivaroxaban (Xarelto) 20 MG tablet Take 1 (one) tablet by mouth daily with food - this should be started after completing Eliquis. Then follow up with neurology. 01/08/20 25 Discontinu ed(Clinicmilan Lainez) Active Problems Problem Noted Date Diagnosed Date Acute ischemic stroke 12/29/2024 Dizziness 12/29/2024 Headache 12/29/2024 Encounters Date Type Department Care Team Description 01/08/2025 Telephone Transitional Care at [address] [address] Took, Saige, PharmD Rx Medication Issue 01/07/2025 10:00 AM CDT Office Visit Transitional Care at [address] [phone] Thomas Mckeon II, MD Acute ischemic stroke (HCC) (Primary Dx); Chronic nonintractable headache, unspecified headache type; Need for vaccination; Deep vein thrombosis (DVT) of left lower extremity, unspecified chronicity, unspecified vein (HCC) 01/07/2025 Telephone Transitional Care at [address] [address] Took, Saige, PharmD Rx Medication Issue 01/07/2025 Telephone Transitional Care at [address] [address] Took, Saige, PharmD Patient Assistance Program 01/01/2025 Travel 01/01/2025 Telephone Transitional Care at [address] [phone] Geri Patino RN Transitional Care 12/31/2024 4:20 PM CDT - 12/31/2024 5:09 PM CDT Surgery [facility] - Cardiac Knitting Machine Fixer [address] [place] [address] Cristy Alejandro MD Loop Recorder Implant 12/29/2024 1:10 PM CDT - 12/31/2024 5:30 PM CDT Hospital Encounter [facility] [address] [place] [address] Ld Bo MD Neurology Discharge Disposition: Home or Self Care 12/29/2024 Travel from Last 3 Months Immunizations Immunization Administration Dates Next Due Covid Moderna primary monovalent 12+ yr 0.5mL ,01/24/2021 INFLUENZA VACCINE, TRIV. (FL UZONE; FLULAVAL; FLUARIX; AFLURIA TRIVALENT; 6MO+), 0.5 ML (IIV3) 01/07/2025 PNEUMOCOCCAL PCV20 CONJ VAC IM 01/07/2025 Social History Tobacco Use Types Packs/Day Years Used Date Smoking Tobacco: Former Cigarettes Smokeless Tobacco: Never Tobacco Cessation:Counseling Given: Not Answered Comments:PATIENT STATES STOPPED SMOKING 3 DAYS AGO Alcohol Use Standard Drinks/Week Comments Not Currently 0 (1 standard drink = 0.6 oz pur e alcohol) AUDIT-C Answer Date Recorded Q1: How often do you have a drink containing alcohol? Never 12/29/2024 Q2: How many drinks containi ng alcohol do you have on a typical day when you are drinking? Patient does not drink Q3: How often do you have si x or more drinks on one occasion? Never 12/29/2024 Overall Financial Resource Strain (CARDIA) Answe r Date Recorded How hard is it for you to pa y for the very basics like food, housing, medical care, and heating? Not hard at all 12/29/2024 PHQ-2 Answer Date Recorded Patient Health Questionnaire-2 Score 0 12/29/2024 [facility] [place] [facility] - Occupational Stress Questionnaire Answer Date Recorded Do you feel stress - tense, restless, nervous, or anxious, or unable to sleep at night because your mind is troubled all the time - these days? Not at all 12/29/2024 Hunger Vital Sign Answer Date Recorded Within the past 12 months, y ou worried that your food would run out before you got the money to buy more. Never true 12/30/19 25 Within the past 12 months, t he food you bought just didn't last and you didn't have money to get more. Never true 12/29/2024 PRAPARE - Transportation Answer Date Re corded In the past 12 months, has l ack of transportation kept you from medical appointments or from getting medications? No 06/2024 In the past 12 months, has l ack of transportation kept you from meetings, work, or from getting things needed for daily living? No 12/29/2024 Housing Stability Vital Sign Answer Casey e Recorded In the last 12 months, was t here a time when you were not able to pay the mortgage or rent on time? No 12/29/2024 Number of Times Moved in the Last Year Not on fi le 12/29/2024 At any time in the past 12 m [facility], were you homeless or living in a detention (including now)? No 12/29/2024 Sex and Gender Information Value Date Recorded Sex Assigned at Not on file Legal Sex Male 9:25 AM CDT Gender Identity Not on file Sexual Orientation Not on file Last Filed Vital Signs Vital Sign Reading Time Taken Comments Blood Pressure 129/72 01/07/2025 9:43 AM CDT Pulse 68 01/07/2025 9:43 AM CDT Temperature 36.3 C (97.3 F) 01/07/2025 9:43 AM CDT Respiratory Rate 18 01/07/2025 9:43 AM CDT Oxygen Saturation 98% 01/07/2025 9:43 AM CDT Inhaled Oxygen Concentration - - Weight 85.1 kg (187 lb 9.6 oz) 01/07/2025 9:43 A M CDT Height 177.8 cm (5' 10) 01/07/2025 9:43 AM CDT Body Mass Index 26.92 01/07/2025 9:43 AM CDT Plan of Treatment Upcoming Encounters Date Type Department Care Team (Late st Contact Info) Description 01/28/2025 1:30 PM VEHICLE CHECK IN CLERK Office Visit [facility] - Neurology [address] [facility] [place] [phone] Noemi Osorio PA-C [address] [facility] [address] [place] [phone] 02/05/2025 1:00 AM VEHICLE CHECK IN CLERK Clinical Support [facility] - Cardiology [address] [facility], [address] [phone] 03/12/2025 1:00 AM VEHICLE CHECK IN CLERK Clinical Support [facility] - Cardiology [address] [facility], [address] [phone] 04/16/2025 1:00 AM VEHICLE CHECK IN CLERK Clinical Support [facility] - Cardiology [address] [facility], [place] [address] [place] [phone] 05/21/2025 1:00 AM VEHICLE CHECK IN CLERK Clinical Support [facility] - Cardiology [address] [facility], [address] [address] 06/25/2025 1:00 AM CDT Clinical Support [facility] - Cardiology [address] [facility], [address] [address] Health Maintenance Due Date Last Done Comments COLOGUARD (AGES 45-75) - COLON CA SCREENING 1964 COLON MONITORING 1964 COLONOSCOPY - COLON CA SCREENING 1964 CT COLONOGRAPHY - COLON CA SCREENING 1964 Colorectal Cancer Screening 1964 FIT - COLON CA SCREENING 1964 FLEX SIG - COLON CA SCREENING 1964 HIV SCREENING 11/08/1979 HEPATITIS C SCREENING 11/03/1982 DTAP/TDAP/TD VACCINES (1 - Tdap) 11/08/1983 ZOSTER VACCINE (1 of 2) 2014 COVID-19 VACCINE ( season) 2024 10/31/2021, 01/24/2021, 06/03/2020, Additional history exists SCREENING FOR DIABETES 01/01/2028 , 12/31/2024, 12/31/2024, Additional history exists Respiratory Syncytial Virus (RSV) Vaccine Pt: or over 60 yrs (1 - 1-dose 75+ series) 11/08/2039 DEPRESSION SCREENING Completed 01/07/2025 INFLUENZA VACCINE Completed 01/07/2025 PNEUMOCOCCAL VACCINE 50+ Completed 01/07/2025 HEPATITIS B VACCINE Aged Out No longe r eligible based on patient's age to complete this topic HIB VACCINE Aged Out No longer eligi ble based on patient's age to complete this topic HPV VACCINE Aged Out No longer eligi ble based on patient's age to complete this topic MENINGOCOCCAL (Group B) VACCINE SHARED DECISION-MAKING Aged Out No longer eligible based on patient's age to complete this topic MENINGOCOCCAL GROUPS A/C/Y/W VACCINE Aged Out No longer eligible based on patient's age to complete this topic Medical Devices Implanted Type Area Cardiac Monitor Device Identifier Shelf Expiration Date Model / Serial / Lot Rcdr Crd Linq Ii Ins - [id number] Implanted:Qty: 1 on 12/31/2024 by Cristy Alejandro MD at [facility] [employer] [id number] 02/22/2026 [id number] / [id number] / [id number] Procedures Procedure Name Priority Date/Time Associated Diagnosis Comments CCL LOOP RECORDER IMPLANT Routine 12/31/2024 4:23 PM CDT Acute ischemic stroke (HCC) GLUCOSE - POINT OF CARE Routine 12/31/2024 11:26 AM CDT GLUCOSE - POINT OF CARE Routine 12/31/2024 7:45 AM CDT PHOSPHORUS BLOOD Routine 12/31/2024 5:28 AM CDT MAGNESIUM BLOOD Routine 12/31/2024 5:28 AM CDT CBC W/O DIFFERENTIAL Routine 12/31/2024 5:28 AM CDT BASIC METABOLIC PANEL (CALCIUM TOTAL) Routine 12/31/2024 5:28 AM CDT CARDIAC PROCEDURE ORDER 12/31/2024 GLUCOSE - POINT OF CARE Routine 12/30/2024 8:45 PM CDT GLUCOSE - POINT OF CARE Routine 12/30/2024 3:53 PM CDT GLUCOSE - POINT OF CARE Routine 12/30/2024 11:59 AM CDT GLUCOSE - POINT OF CARE Routine 12/30/2024 7:36 AM CDT PHOSPHORUS BLOOD Routine 12/30/2024 2:57 AM CDT MAGNESIUM BLOOD Routine 12/30/2024 2:57 AM CDT CBC W/O DIFFERENTIAL Routine 12/30/2024 2:57 AM CDT BASIC METABOLIC PANEL (CALCIUM TOTAL) Routine 12/30/2024 2:57 AM CDT GLUCOSE - POINT OF CARE Routine 12/29/2024 7:59 PM CDT TROPONIN-I HIGH SENSITIVE REFLEX 1HOUR Timed 12/29/2024 3:35 PM CDT LIPID PROFILE STAT 12/29/2024 2:37 PM CDT HEMOGLOBIN A1C MELVIN 12/29/2024 2:37 PM CDT TROPONIN-I HIGH SENSITIVE BASELINE + 1HR STAT 12/29/2024 2:37 PM CDT PT EVAL AND TREAT Routine 12/29/2024 2:0 5 PM CDT OT EVAL AND TREAT Routine 12/29/2024 2:0 5 PM CDT from Last 3 Months Results * CCL LOOP RECORDER IMPLANT (12/31/2024 4:23 PM CDT) Anatomical Region Laterality Modality X-Ray Angiograph y Narrative 01/03/2025 8:30 AM CDT Successful implantation of [facility] REVEAL LINQ loop recorder. Reason for Procedure 59 yo male who presented with CVA. Found to have bilateral frontal, parietal and occipital lobes and cerebellar strokes on MRI brain. Patient presenting for loop recorder implant for surveillance of afib. Procedure Details Estimated Blood Loss: 0 mL Procedure Details and Comments: Patient Name: Mino Young Date of procedure: 12/31/2024 Operators: Cristy Alejandro MD and Winsome Augustine MD Consent: Written - Risks, benefits, and alternatives were discussed with the patient, and the patient verbalized understand and was eager to proceed. Indications: Stroke Procedure Description The patient was prepped and draped in the usual sterile fashion. For local anesthesia, 10 cc of 1% lidocaine with epinephrine was used to infiltrate the surrounding subcutaneous area. A small incision was made in the left intercostal space lateral to the sternum. The LINQII introducer system was used to deploy the LINQII device. The incision was closed with indermil and steri-strips. Post- operative interrogation was performed to confirm adequacy of signal. The incision was closed with steri-strips and surgical glue. The patient tolerated the procedure well. Date of procedure: 01/03/2025 Operators: Dr. Muniz Flavia Consent: Written - Risks, benefits, and alternatives were discussed with the patient, and the patient verbalized understand and was eager to proceed. Indications: See pre-procedure diagnoses above Procedure Start Time: 1609 Procedure Stop Time: 1634 Device Characteristics/Parameters [facility] REVEAL LINQ Serial Number: [id number] Tachy setting: > 188 bpm Glynn setting: < 30 bpm Pause: 3 second R wave sensitivity: 0.035 mV R wave sensing 0.5 mV Complications: None Estimated blood loss: None Recommendations: Routine remote transmission q3 months. Loop Recorder Implantation Care Instructions (Please include these instructions in patient's discharge paperwork) Remove pressure dressing after showering in approximately ~24 hours. Leave underlying steri-strips in place that are covering the incision. Allow steri-strips to fall off by themselves (in 2-3 weeks). Please keep the incision site as dry as possible and do not get the incision soaking wet. No tub bathing, hot tubs or swimming for 1 week. Please plug the home monitor system on your nightstand within 5 feet from where you sleep. Winsome Augustine MD Cardiovascular Diseases Fellow [facility] Attending Note: I was personally involved and supervised all critical portions of this procedure. us Ld Bo MD CV ELECTROPHYSIOLOGY CUPID PROCS Final Result * GLUCOSE - POINT OF CARE (12/31/2024 11:26 AM CDT) Only the most recent of7 resultswithin the time period is included. [facility] Glucose WB/POC 84 70 - 99 mg/dL 12/31/2024 11:27 AM [facility] Specimen Type Arterial/C apillary 12/31/2024 11:27 AM [facility] Blood BLOOD SPECIMEN / Unknown 12/31/2024 11:26 AM CDT 12/31/2024 11:27 AM CDT us Ld Bo MD LAB - POINT OF CARE ORDERAB LES Final Result [facility] [address] [place] [address], [facility] [phone] * (ABNORMAL) CBC W/O DIFFERENTIAL (12/31/2024 5:28 AM CDT) Only the most recent of2 resultswithin the time period is included. [facility] WBC 9.7 4.0 - 10.7 x10E9/L 12/31/2024 6:49 AM [facility] RBC Count 5.08 4.30 - 5.80 x10E12/L 12/31/2024 6:49 AM [facility] Hemoglobin 14.4 13.3 - 17.5 g/dL 12/31/2024 6:49 AM [facility] Hematocrit 43.7 38.7 - 51.1 % 12/31/2024 6:49 AM [facility] MCV 86.0 80.0 - 98.0 fL 12/31/2024 6:49 AM [facility] MCH 28.3 26.7 - 33.6 pg 12/31/2024 6:49 AM [facility] MCHC 33.0 31.7 - 36.3 g/dL 12/31/2024 6:49 AM [facility] RDW-CV 13.0 11.3 - 14.8 % 12/31/2024 6:49 AM [facility] Platelet Count 238 150 - 420 x10E9/L 12/31/2024 6:49 AM [facility] MPV 11.7(H) 7.8 - 11.4 fL 12/31/2024 6:49 AM [facility] Blood BLOOD SPECIMEN / Unknown Lab Venipuncture / Unknown 12/31/2024 5:28 AM CDT 12/31/2024 6:40 AM CDT us Ld Bo MD LAB - HEMATOLOGY ORDERABLES Final Result [facility] [address] [place] [address], [facility] [phone] * (ABNORMAL) BASIC METABOLIC PANEL (CALCIUM TOTAL) (12/31/2024 5:28 AM CDT) Only the most recent of2 resultswithin the time period is included. BUN 26 7 - 26 mg/dL 12/31/2024 7:22 AM [facility] Creatinine 0.93 0.71 - 1.16 mg/dL 12/31/2024 7:22 AM [facility] Sodium 139 136 - 145 mmol/L 12/31/2024 7:22 AM [facility] Potassium 4.0 3.5 - 4.5 mmol/L 12/31/2024 7:22 AM [facility] Chloride 104 98 - 107 mmol/L 12/31/2024 7:22 AM [facility] CO2 24 22 - 29 mmol/L 12/31/2024 7:22 AM [facility] Glucose 85 70 - 99 mg/dL 12/31/2024 7:22 AM [facility] Calcium 9.3 8.4 - 10.2 mg/dL 12/31/2024 7:22 AM [facility] Anion Gap 11 6 - 16 12/31/2024 7:22 AM [facility] BUN/Creatinine Ratio 28(H) 7 - 23 12/31/2024 7:22 AM [facility] Osmolality Calculated 292 275 - 295 mOsm/kg 12/31/2024 7:22 AM [facility] eGFR by CKD-EPI >90 >=90 mL/min/1.7 3 m2 12/31/2024 7:22 AM [facility] Comment:Estimated Glomerular Filtration Rate (eGFR) calculated using the CKD-EPI Creatinine Equation (2020), per the National Kidney Foundation and [place] Society of Nephrology recommendations. Blood BLOOD SPECIMEN / Unknown Lab Venipuncture / Unknown 12/31/2024 5:28 AM CDT 12/31/2024 6:40 AM CDT us Ld Bo MD LAB - CHEMISTRY ORDERABLES Final Result Performing Organization Address City/[facility]/ZIP Co de Phone Number [address] [address], [place] [phone] * PHOSPHORUS BLOOD (12/31/2024 5:28 AM CDT) Only the most recent of2 resultswithin the time period is included. Phosphorus 2.8 2.8 - 5.1 mg/dL 12/31/2024 7:22 AM CDT [facility] Blood BLOOD SPECIMEN / Unknown Lab Venipuncture / Unknown 12/31/2024 5:28 AM CDT 12/31/2024 6:40 AM CDT us Ld Bo MD LAB - CHEMISTRY ORDERABLES Final Result Performing Organization Address City/[facility]/ZIP Co de Phone Number [address] [address], [place] [phone] * MAGNESIUM BLOOD (12/31/2024 5:28 AM CDT) Only the most recent of2 resultswithin the time period is included. Magnesium 2.3 1.6 - 2.6 mg/dL 12/31/2024 7:22 AM CDT [facility] Blood BLOOD SPECIMEN / Unknown Lab Venipuncture / Unknown 12/31/2024 5:28 AM CDT 12/31/2024 6:40 AM CDT us Ld Bo MD LAB - CHEMISTRY ORDERABLES Final Result Performing Organization Address City/[facility]/ZIP Co de Phone Number [address] [address], [facility] [phone] * CARDIAC PROCEDURE ORDER (12/31/2024) Narrative 12/31/2024 Ordered by an unspecified provider. us Scanned Document CARDIAC SERVICES ORDERABLES Fin al Result * (ABNORMAL) TROPONIN-I HIGH SENSITIVE REFLEX 1HOUR (12/29/2024 3:35 PM CDT) Troponin I High Sensitive 180(H) <=35 ng/L 12/29/2024 5:30 PM CDT [facility] Delta Troponin I HS <0 <6 ng/L 12/29/2024 5:30 PM CDT [facility] Blood BLOOD SPECIMEN / Unknown Lab Venipuncture / Unknown 12/29/2024 3:35 PM CDT 12/29/2024 4:52 PM CDT Ld Bo MD LAB - CHEMISTRY ORDERABLES Final Result [address] [address], [facility] [phone] * (ABNORMAL) TROPONIN-I HIGH SENSITIVE BASELINE + 1HR (12/29/2024 2:37 PM CDT) [facility] Troponin I High Sensitive 184(H) <=35 ng/L 12/29/2024 3:42 PM CDT [facility] Blood BLOOD SPECIMEN / Unknown Lab Venipuncture / Unknown 12/29/2024 2:37 PM CDT 12/29/2024 3:10 PM CDT Ld Bo MD LAB - CHEMISTRY ORDERABLES Final Result [address] [address], [facility] [phone] * HEMOGLOBIN A1C (12/29/2024 2:37 PM CDT) Pathologist [facility] Hemoglobin A1c 5.5 <=5.6 % 12/29/2024 5:41 PM CDT [facility] Estimated Average Glucose 111 mg/dL 12/29/2024 5:41 PM T [facility] Comment: HbA1c Interpretation: Normal : < 5.7% Pre-diabetes: 5.7-6.4% Diabetes: Equal to or greater than 6.5% Test results diagnostic of diabetes should be repeated for confirmation. Treatment target values recommended by ADA and other clinical organizations should be used to evaluate metabolic control in patients. Reference: [place] Diabetes Association, Standards of Care in Diabetes -2020 In patients 70 years and older consider HbA1c target range of 7.0-7.5% (Reference: Andrey Johnson et al. JAMDA. 2012) The Sebia assay for the measurement of HbA1c is a National Glycohemoglobin Standardization Program (NGSP) certified method. Blood BLOOD SPECIMEN / Unknown Lab Venipuncture / Unknown 12/29/2024 2:37 PM CDT 12/29/2024 3:10 PM CDT us Ld Bo MD LAB - CHEMISTRY ORDERABLES Final Result [facility] [address] [place] [address], [facility] [phone] * (ABNORMAL) LIPID PROFILE (12/29/2024 2:37 PM CDT) Cholesterol Total 261(H) <200 mg/dL 12/29/2024 3:38 PM T [facility] HDL 30(L) >40 mg/dL 12/29/2024 3:38 PM [facility] Comment: ATP III Classification of HDL Cholesterol: <40 mg/dL: Considered a major risk factor. >60 mg/dL: Considered a negative risk factor. LDL Calculated 166(H) <100 mg/dL 12/29/2024 3:38 PM T [facility] Comment: ATP III Classification of LDL Cholesterol: <100 mg/dL: Optimal 100 - 129 mg/dL: Near Optimal/Above Optimal 130 - 159 mg/dL: Borderline High 160 - 189 mg/dL: High >190 mg/dL: Very High LDL is calculated using the Friedewald equation. Triglycerides 325(H) <150 mg/dL 12/29/2024 3:38 PM CDT [facility] Comment: ATP III Classification of Triglycerides: <150 mg/dL: Normal 150 - 199 mg/dL: Borderline High 200 - 400 mg/dL: High >500 mg/dL: Very High Blood BLOOD SPECIMEN / Unknown Lab Venipuncture / Unknown 12/29/2024 2:37 PM CDT 12/29/2024 3:10 PM CDT us Ld Bo MD LAB - CHEMISTRY ORDERABLES Final Result [facility] [address] [place] [address], [facility] [phone] from Last 3 Months Insurance MEDICAID - PENDING Advance Directives * Full Code (Latest Code Status on File) Date Activated Date Inactivated Comments 12/29/2024 2:05 PM 12/31/2024 6:35 PM Care Teams Machine Milker Relationship Specialty Start Date End Date Provider, No Pcp PCP - General 01/07/25
[2025-01-11 08:38] VITALS: BP 136/80; PULSE 64; RESP 16; O2SAT 98
[2025-01-11 08:42] LABS: Hematocrit 39.7 % (42.0-52.0); Hemoglobin 12.7 g/dL (14.0-18.0); Immature Granulocyte Percent A 0.3 % (0-0.5); Lymphocytes Absolute Auto 2.05 K/mm3 (0.9-3.2); Mean Corpuscular HGB Conc 32.0 g/dl (32-36); Mean Corpuscular Hemoglobin 27.9 pg (26-34); Mean Corpuscular Volume 87.3 fl (80-100); Nucleated Red Blood Cells Absolute Auto 0.000 K/mm3 (0.0-0.012); Nucleated Red Blood Cells Perc 0.0 % (0.0-0.2); Platelet Count Result 169 k/mm3 (150-375); Red Blood Count 4.55 M/mm3 (4.6-6.20); White Blood Count 9.9 K/mm3 (4.5-10.0)
--- NOTE | 2025-01-11 08:54 | ED_ITS ---
HPI - General Adult General Chief complaint: GI Bleed Stated complaint: GI bleed, on blood thinners Time Seen by Provider: 01/11/25 08:26 History of Present Illness HPI narrative: 59-year-old male presents to the emergency department for evaluation for rectal bleeding. Patient did have a CVA pressure 1 month ago and was started on Eliquis. Patient states last night after shower he did notice some blood. Patient does have history of hemorrhoids. Patient does have some lower abdominal discomfort. Patient states he has not noticed any blood in the bowl but just noticed when he wiped. Patient states the blood was bright red. Patient denies any nausea vomiting or coffee-ground emesis. Patient denies any black tarry stool. Related Data Home Medications ?Medication ?Instructions ?Recorded ?Confirmed ?Last Taken ?Type No Home Medications 12/28/24 12/28/24 U nknown History Allergies Allergy/AdvReac Type Severity Reaction Status Date / Time No Known Allergies Allergy Mild Verified 01/11/25 08:28 Review of Systems 2 Review of Systems: All systems reviewed & are unremarkable except as noted in HPI and below PMFSH Past Medical History Medical History (Updated 01/11/25 @ 10:45 by Maurice Beverly MD) Headache Multiple cerebral infarctions Patient denies medical problems Social History Social History Smoking status: Heavy tobacco smoker Alcohol intake: current Drinks per week: 0 Substance use: never Lack of Transportation: No Lack of Food: Never True Current Housing: I Have Housing Concerned About Future Housing: No Difficulty Paying Gas/Electric Bills: No Difficulty Paying for Meds: No Currently Unemployed: No Education: High School Diploma/GED Difficulty w/ Childcare or Family Care: No Spiritual care concerns: No Exam 2 Narrative: APPEARANCE: Well appearing, no pain, no distress, well-nourished. HEAD: normocephalic, atraumatic. EYES: PERRLA/EOMI, conjunctivae clear. NOSE: Normal no drainage EARS:TMS clear with good light reflex. THROAT: Pharynx clear, no exudate. NECK: Supple. No adenopathy, no masses. RESPIRATORY: Airway patent, respirations nonlabored. Clear to auscultation bilaterally, no rales, rhonchi, wheezing. CARDIOVASCULAR: Regular rate and rhythm without murmurs rubs or gallops. ABDOMINAL: Of lower quadrant tenderness to palpation MUSCULOSKELETAL: Moves all extremities. Strength/ROM intact, No edema, No calf tenderness. NEURO: Alert. Cranial nerves II through XII intact. SKIN: Warm, dry. Normal Color Rectal exam: Internal hemorrhoid palpated, no active bleeding. Course Vital Signs Vital signs: Vital Signs Temperature 97.7 F 01/11/25 08:24 Pulse Rate 66 01/11/25 08:24 Respiratory Rate 16 01/11/25 08:24 Blood Pressure 136/80 01/11/25 08:24 Pulse Oximetry 100 01/11/25 08:24 Oxygen Delivery Room Air 01/11/25 08:24 Temperature 97.7 F 01/11/25 08:24 Pulse Rate 65 01/11/25 10:59 Respiratory Rate 15 01/11/25 10:59 Blood Pressure 157/84 H 01/11/25 10:59 Pulse Oximetry 100 01/11/25 10:59 Oxygen Delivery Room Air 01/11/25 08:24 Medical Decision Making MDM Narrative Medical decision making narrative: 59-year-old male presents to the emergency department for evaluation for intermittent rectal bleeding he states is only noticed when wiping afterwards. Patient denied any blood in stool denies any significant clots. Patient denies any coffee-ground emesis as well. Patient is currently afebrile does have a hemoglobin of 12.7 which is similar to his baseline of 13.2. INR is 1.5. Patient is on Eliquis. Patient has no elevation of AST ALT alk-phos. Patient has no right upper quadrant tenderness to palpation. CT scan does show evidence of diverticulosis. Palpated and internal hemorrhoid on the exam. Patient's bleeding may be secondary to the internal hemorrhoid versus bleeding diverticula, no evidence of diverticulitis. Differential Diagnosis Differential Diagnosis: Colitis, diverticulitis, internal hemorrhoid, External hemorrhoid, upper GI bleed, lower GI bleed Vital Signs Vital Signs: Vital Signs Temperature 97.7 F 01/11/25 08:24 Pulse Rate 66 01/11/25 08:24 Respiratory Rate 16 01/11/25 08:24 Blood Pressure 136/80 01/11/25 08:24 Pulse Oximetry 100 01/11/25 08:24 Oxygen Delivery Room Air 01/11/25 08:24 Temperature 97.7 F 01/11/25 08:24 Pulse Rate 65 01/11/25 10:59 Respiratory Rate 15 01/11/25 10:59 Blood Pressure 157/84 H 01/11/25 10:59 Pulse Oximetry 100 01/11/25 10:59 Oxygen Delivery Room Air 01/11/25 08:24 Lab Data Lab results reviewed: Yes I reviewed the patient's lab results. 01/11/25 08:37 01/11/25 08:37 Labs: Lab Results 01/11/25 Range/Units 08:37 WBC 9.9 (4.5-10.0) K/mm3 RBC 4.55 L (4.6-6.20) M/mm3 Hgb 12.7 L (14.0-18.0) g/dL Hct 39.7 L (42.0-52.0) % MCV 87.3 (80-100) fl MCH 27.9 (26-34) pg MCHC 32.0 (32-36) g/dl RDW 12.7 (11.5-14.5) % Plt Count 169 (150-375) k/mm3 MPV 11.1 H (7.4-10.4) fl Immature Gran % (Auto) 0.3 (0-0.5) % Neut % (Auto) 66.5 (45.5-73.1) % Lymph % (Auto) 20.8 (18.3-44.2) % [place] % (Auto) 10.1 H (2.6-8.5) % Eos % (Auto) 1.8 (0-4.4) % Baso % (Auto) 0.5 (0.2-1.2) % Lymph # (Auto) 2.05 (0.9-3.2) K/mm3 [place] # (Auto) 1.0 H (0.1-0.6) K/mm3 Eos # (Auto) 0.2 (0-0.3) K/mm3 Baso # (Auto) 0.1 (0.0-0.1) K/mm3 Abs Immat Gran (auto) 0.03 (0.00-0.031) K/mm3 Absolute Neuts (auto) 6.6 (1.3-6.7) K/mm3 Absolute Nucleated RBC 0.000 (0.0-0.012) K/mm3 Nucleated RBC % 0.0 (0.0-0.2) % PT 18.0 H (11.1-14.7) Seconds INR 1.5 APTT 32.4 (22.3-36.8) Seconds Sodium 137 (137-145) mmol/L Potassium 4.0 (3.4-5.0) mmol/L Chloride 104 (98-107) mmol/L Carbon Dioxide 24 (22-30) mmol/L Anion Gap 9 (4-12) mmol/L BUN 14 D (9-20) mg/dL Creatinine 0.78 (0.7-1.3) mg/dL Estim Creat Clear Calc 90 ml/min Estimated GFR > 60 (59 - ) Glucose 81 (65-110) mg/dL Calcium 9.4 (8.4-10.2) mg/dL Total Bilirubin 0.6 (0.2-1.3) mg/dL AST 43 (17-59) U/L ALT 49 (6-50) U/L Alkaline Phosphatase 85 (38-126) U/L Total Protein 7.4 (6.3-8.2) g/dL Albumin 4.2 (3.5-5.1) g/dL Blood Type A Positive Antibody Screen Negative Imaging Data Radiologist's impression: Impressions Abdomen/Pelvis CT 01/11/25 09:50 IMPRESSION: 1. Intrahepatic biliary ductal dilatation. If indicated per LFTs, consider MRCP. 2. Probable early cirrhosis. Tiny hyperdense focus are focus of enhancement. Too small to characterize. Recommend correlation with AFP. Recommend ultrasound and/or MRI in 3-6 months. 3. Colonic diverticula. No evidence of diverticulitis. Discharge Plan Discharge Clinical Impression: Hemorrhoids, Rectal bleed, Diverticula of colon Patient Disposition: Home Condition: Stable Instructions: Antibiotic Form, Hemorrhoids (ED), Rectal Bleeding (ED), Diverticulosis (ED) Additional Instructions: Clear liquid diet for the next 1-3 days. Have close follow-up with GI. If you have any worsening symptoms then please call or return to the emergency department. Your CT scan also showed evidence of possible early cirrhosis. You will need close follow-up with your primary care physician for this and they may want to order additional imaging of your liver and the upcoming month. Patient Language: Icelandic Prescriptions: No Action No Home Medications Follow-up/Referrals: Odilon Roy MD [Physician, Gastroenterology] Ehsan,Fritz Johnson MD [Primary Care Provider]
[2025-01-11 08:58] LABS: INR 1.5; Prothrombin Time 18.0 Seconds (11.1-14.7)
[2025-01-11 08:59] LABS: Partial Thromboplastin Time 32.4 Seconds (22.3-36.8)
--- OUTSIDE RECORDS SUMMARY | 2025-01-11 09:05 | XMS_ITS | Clinical Summary ---
Author Organization [facility] Care Team Providers Care Nurse Aide Evaluator Name Role Phone Unavailable Primary Care Provider [...]
[2025-01-11 09:30] LABS: Alanine Aminotransferase 49 U/L (6-50); Albumin Level 4.2 g/dL (3.5-5.1); Alkaline Phosphatase 85 U/L (38-126); Anion Gap 9 mmol/L (4-12); Aspartate Amino Transferase 43 U/L (17-59); Bilirubin,Total 0.6 mg/dL (0.2-1.3); Blood Urea Nitrogen 14 mg/dL (9-20); Calcium 9.4 mg/dL (8.4-10.2); Carbon Dioxide 24 mmol/L (22-30); Chloride 104 mmol/L (98-107); Estimated CRCL calculation 90 ml/min; Estimated Glomerular Filt Rate > 60; Glucose 81 mg/dL (65-110); Potassium 4.0 mmol/L (3.4-5.0); Sodium 137 mmol/L (137-145); Total Protein 7.4 g/dL (6.3-8.2)
[2025-01-11 10:59] VITALS: BP 157/84; PULSE 65; RESP 15; O2SAT 100
== END 2025-01-11 11:00 | disposition home or self-care (01) ==
PROVIDERS: Emergency Provider Emergency Medicine; PCP Internal Medicine Gastroenterology
DX: K64.9 Unspecified hemorrhoids (principal); K62.5 Hemorrhage of anus and rectum; K57.30 Diverticulosis of large intestine without perforation or abscess without bleeding; Z86.73 Personal history of transient ischemic attack (TIA), and cerebral infarction without residual deficits; Z79.01 Long term (current) use of anticoagulants; F17.200 Nicotine dependence, unspecified, uncomplicated
CPT/HCPCS: 36415; 74177; 80053; 85025; 85610; 85730; 86850; 86900; 86901; 99284; Q9967

== ENCOUNTER 2025-02-14 06:37 | Emergency (ER) | payer MEDICAID, SELFPAY ==
[2025-02-14] VITALS (56 sets, daily range): BP systolic 107–160; BP diastolic 55–88; PULSE 74–94; RESP 12–22; TEMP 36.8; O2SAT 93–100
--- NOTE | ~2025-02-14 | CT_ITS ---
EXAMINATION: CT brain wo con DATE: 02/14/2025 07:41 INDICATION: Headache TECHNIQUE: Computed tomography (CT) of the head was performed without intravenous contrast. The dose-length product was 605.33 mGy-cm. COMPARISON: December 28, 2024 FINDINGS: Encephalomalacic appearing changes in the right cerebellar hemisphere again noted. Focal area of hyperdensity not as evident on today's exam. Increased hypoattenuation in the right parafalcine occipital lobe consistent with subacute infarction. Hyperattenuating changes along the superior margin of the infarction probably associated with luxury reperfusion. See cortical margin on image 34 series 2. Also sagittal image 35 series 602. No discrete bleed. Midline shift or severe mass effect. IMPRESSION: 1. New small right occipital lobe infarction with hyper attenuating changes along the margin likely representing luxury reperfusion; small acute parenchymal hemorrhage however is not excluded. 2. Chronic-appearing right cerebellar infarction. 3. Correlation with follow-up MRI should be considered as recommended on the December 28 exam. Reviewed, dictated and finalized at location A. LIFT AND AUTOMATIC WINDOW REPAIRER IMPRESSION: 1. New small right occipital lobe infarction with hyper attenuating changes lakshmi ng the margin likely representing luxury reperfusion; small acute parenchymal h emorrhage however is not excluded. 2. Chronic-appearing right cerebellar infarction. 3. Correlation with follow-up MRI should be considered as recommended on the Oc exam.
--- NOTE | ~2025-02-14 | XR_ITS ---
Examination: XR chest 1V Clinical History: leg pain Comparison: 12/04/2024 Technique: Portable AP Findings: Loop recorder. Cardiomegaly. Lungs clear. No acute bony abnormality. IMPRESSION: 1. No acute cardiopulmonary findings given portable technique. Reviewed, dictated and finalized at location R. MACEUTICAL OPERATOR
--- NOTE | ~2025-02-14 | US_ITS ---
RIGHT LOWER EXTREMITY VENOUS DUPLEX Clinical History: Right calf pain COMPARISON: None TECHNIQUE: Grayscale, color, duplex/spectral Doppler sonography right leg FINDINGS/IMPRESSION: 1. DVT within popliteal, posterior tibial, and peroneal veins. 2. No common femoral or femoral vein thrombus. 3. Lesser saphenous vein thrombus. Reviewed, dictated and finalized at location R. SALES REPRESENTATIVE
--- OUTSIDE RECORDS SUMMARY | 2025-02-14 06:40 | XMS_ITS | Clinical Summary ---
Author Organization [facility] Address [address] [place] [address] Care Team Providers Care Irrigation Technician Name Role Phone Petar Luna MD Primary Care Provider [phone] Source Comments [facility],non-owned Affiliates and Associated Physician Practices is amultiple site organization consisting of ambulatory clinics and hospital sitesin [place], [place], [place] and [place]. This disclosure is being madepursuant to the Care Everywhere program and may not contain all information available regarding this patient. Last updated 17.[employer] [employer] Allergies No known active allergies Medications * Be aware that medications may not be up to date on this document. Alwaysverify current medications with the patient. aspirin (Aspirin) 81 MG chew tablet Take 1 (one) tablet by mouth once daily (chew and swallow) 29 tablet 5 4:48 PM CDT 01/25/20 25 Active dabigatran (praDAXA) 150 MG capsuleIndica tions:Deep Vein Thrombosis Take 1 (one) capsule by mouth 2 times daily - take after completing Eliquis. Reasons: Blood Clot in a Deep Vein 60 capsule 01/25/20 25 Active atorvastatin (Lipitor) 80 MG tablet Take 1 (one) tablet by mouth at bedtime 30 tablet 5 4:48 PM CDT 01/25/20 25 Active losartan (Cozaar) 25 MG tabletIndicat ions:Hyperten juan luis,ST-Segme nt Elevation Myocardial Infarction Take 1 (one) tablet by mouth once daily Reasons: High Blood Pressure, ST-Segment Elevation Heart Attack 30 tablet 5 4:48 PM CDT 01/25/20 25 Active metoprolol succinate XL 24hr (Toprol XL) 25 MG tabletIndicat ions:Heart Failure,Hyper tension Take 1 (one) tablet by mouth once daily Reasons: Heart Failure, High Blood Pressure 30 tablet 5 4:48 PM CDT 01/25/20 25 Active polyethylene glycol 3350 (Miralax) 17 g packet Take 17 (seventeen) g by mouth once daily as needed for Constipation 14 packet 01/25/20 25 Active spironolacton e (Aldactone) 25 MG tabletIndicat ions:Hyperten juan luis,Left Systolic Heart Failure Take 0.5 (one-half) tablet by mouth once daily Reasons: High Blood Pressure, Left Systolic Heart Failure 15 tablet 5 4:48 PM CDT 01/25/20 25 Active clopidogrel (plaVIX) 75 MG tabletIndicat ions:Carotid Atheroscleros is,Ischemic Stroke Take 1 (one) tablet by mouth once daily Reasons: Buildup of Plaques in Large Arteries Leading to the Brain, Stroke Due To Limited Blood Flow 30 tablet 5 4:48 PM CDT 01/26/20 25 Active aspirin (Aspirin) 81 MG chew tablet Take 1 (one) tablet by mouth once daily (chew and swallow) 30 tablet 2 01/02/20 25 025 Discontinued apixaban (Eliquis) 5 MG tablet Take 1 (one) tablet by mouth 2 times daily 60 tablet 2 01/01/20 25 025 Discontinued(C linical Decision) atorvastatin (Lipitor) 80 MG tablet Take 1 (one) tablet by mouth at bedtime 30 tablet 2 01/01/20 25 025 Discontinued dabigatran (praDAXA) 150 MG capsuleIndica tions:Deep Vein Thrombosis Take 1 (one) capsule by mouth 2 times daily - take after completing Eliquis. Reasons: Blood Clot in a Deep Vein 60 capsule 1 01/08/20 25 025 Discontinued polyethylene glycol 3350 (Miralax) 17 g packet Take 17 (seventeen) g by mouth once daily as needed for Constipation 14 packet 01/25/20 25 025 Discontinued senna (Senokot) 8.6 MG tablet Take 1 (one) tablet by mouth once daily as needed for Constipation 14 tablet 01/25/20 25 025 Discontinued dabigatran (praDAXA) 150 MG capsuleIndica tions:Deep Vein Thrombosis Take 1 (one) capsule by mouth 2 times daily - take after completing Eliquis. Reasons: Blood Clot in a Deep Vein 180 capsule 3 01/25/20 25 025 Discontinued clopidogrel (plaVIX) 75 MG tabletIndicat ions:Carotid Atheroscleros is,Ischemic Stroke Take 1 (one) tablet by mouth once daily Reasons: Buildup of Plaques in Large Arteries Leading to the Brain, Stroke Due To Limited Blood Flow 90 tablet 3 01/26/20 25 025 Discontinued aspirin (Aspirin) 81 MG chew tablet Take 1 (one) tablet by mouth once daily (chew and swallow) 29 tablet 01/25/20 25 025 Discontinued losartan (Cozaar) 25 MG tabletIndicat ions:Hyperten juan luis,ST-Segme nt Elevation Myocardial Infarction Take 1 (one) tablet by mouth once daily Reasons: High Blood Pressure, ST-Segment Elevation Heart Attack 30 tablet 01/25/20 25 025 Discontinued metoprolol succinate XL 24hr (Toprol XL) 25 MG tabletIndicat ions:Heart Failure,Hyper tension Take 1 (one) tablet by mouth once daily Reasons: Heart Failure, High Blood Pressure 30 tablet 01/25/20 25 025 Discontinued spironolacton e (Aldactone) 25 MG tabletIndicat ions:Hyperten juan luis,Left Systolic Heart Failure Take 0.5 (one-half) tablet by mouth once daily Reasons: High Blood Pressure, Left Systolic Heart Failure 15 tablet 01/25/20 25 025 Discontinued aspirin (Aspirin) 81 MG chew tablet Take 1 (one) tablet by mouth once daily (chew and swallow) 29 tablet 01/25/20 25 025 Discontinued dabigatran (praDAXA) 150 MG capsuleIndica tions:Deep Vein Thrombosis Take 1 (one) capsule by mouth 2 times daily - take after completing Eliquis. Reasons: Blood Clot in a Deep Vein 60 capsule 01/25/20 25 025 Discontinued atorvastatin (Lipitor) 80 MG tablet Take 1 (one) tablet by mouth at bedtime 30 tablet 01/25/20 25 025 Discontinued losartan (Cozaar) 25 MG tabletIndicat ions:Hyperten juan luis,ST-Segme nt Elevation Myocardial Infarction Take 1 (one) tablet by mouth once daily Reasons: High Blood Pressure, ST-Segment Elevation Heart Attack 30 tablet 01/25/20 25 025 Discontinued metoprolol succinate XL 24hr (Toprol XL) 25 MG tabletIndicat ions:Heart Failure,Hyper tension Take 1 (one) tablet by mouth once daily Reasons: Heart Failure, High Blood Pressure 30 tablet 01/25/20 25 025 Discontinued polyethylene glycol 3350 (Miralax) 17 g packet Take 17 (seventeen) g by mouth once daily as needed for Constipation 14 packet 01/25/20 25 025 Discontinued sennosides (Senokot) 8.6 MG tablet Take 1 (one) tablet by mouth once daily as needed for Constipation 14 tablet 01/25/20 25 025 Discontinued clopidogrel (plaVIX) 75 MG tabletIndicat ions:Carotid Atheroscleros is,Ischemic Stroke Take 1 (one) tablet by mouth once daily Reasons: Buildup of Plaques in Large Arteries Leading to the Brain, Stroke Due To Limited Blood Flow 30 tablet 01/26/20 25 025 Discontinued spironolacton e (Aldactone) 25 MG tabletIndicat ions:Hyperten juan luis,Left Systolic Heart Failure Take 0.5 (one-half) tablet by mouth once daily Reasons: High Blood Pressure, Left Systolic Heart Failure 15 tablet 01/25/20 25 025 Discontinued sennosides (Senokot) 8.6 MG tablet Take 1 (one) tablet by mouth once daily as needed for Constipation 14 tablet 4:48 PM CDT 01/25/20 25 025 Discontinued(L ist Clean-Up) Active Problems Problem Noted Date Diagnosed Date Carotid stenosis 01/22/2025 Assessment & Plan (01/24/2025 11:25 AM CDT): - History of CVA - new acute vision changes stable - possibly 2/2 to carotid stenosis - CTH revealed evolving Right occipital hypodensity consistent with acute infarct. - CTA h/n demonstrating no LVO but mutiple extracranial areas of atherosclerotic disease including 60-70% occlusion at the Left carotid bifurcation. Neurology following. Originally ordered MRI brain but later Dc'd MRI due to visualization of acute infarct on CTH. PLAN: - Carotid doppler ordered - Start Aspirin 81 mg, Dabigatran 150 mg, and Clopidogrel 75 mg - Continue Atorvastatin 80 mg - Telemetry - TTE 01/23/2025: Per cardiology recommendations, patient should be started on triple therapy with Aspirin, Clopidogrel, and Dabigatran 150 mg for the duration of one month followed by Clopidogrel (Plavix) and Riveroxaban (Xarelto) therafter. Neurology recommendations: - Acute right occipital lobe ischemia stroke due to [employer] occlusion; cardio embolic phenomenon of stroke - Secondary prevention of AIS with lifelong anticoagulation given apical hypokinesis secondary to 100% occlusion of LAD - Amendable to 1 month of triple therapy followed by Plavix indefinitely - Continue atorvastatin 80 mg - Patient already scheduled for follow up in Stroke clinic, Jan 28 - will adjust accordingly based on hospital stay - PT/OT/ST Stroke Team to sign off given known nature of the patient's acute ischemic stroke and plan in place for secondary prevention with anticoagulation. Assessment & Plan (01/23/2025 5:59 PM CDT): - History of CVA - new acute vision changes stable - possibly 2/2 to carotid stenosis - CTH revealed evolving Right occipital hypodensity consistent with acute infarct. - CTA h/n demonstrating no LVO but mutiple extracranial areas of atherosclerotic disease including 60-70% occlusion at the Left carotid bifurcation. Neurology following. Originally ordered MRI brain but later Dc'd MRI due to visualization of acute infarct on CTH. PLAN: - Carotid doppler ordered - Start Aspirin 81 mg, Riveroxaban 20 mg, and Clopidogrel 75 mg - Continue Atorvastatin 80 mg - Telemetry - TTE 01/23/2025: Per cardiology recommendations, patient should be started on triple therapy with Aspirin, Clopidogrel, and Riveroxaban (Xarelto) for the duration of one month followed by Clopidogrel (Plavix) and Riveroxaban (Xarelto) therafter. Neurology recommendations: - Secondary prevention of AIS with lifelong anticoagulation given apical hypokinesis secondary to 100% occlusion of LAD - Amendable to 1 month of triple therapy followed by Plavix indefinitely - Continue atorvastatin 80 mg - Patient already scheduled for follow up in Stroke clinic, Jan 28 - will adjust accordingly based on hospital stay - PT/OT/ST Stroke Team to sign off given known nature of the patient's acute ischemic stroke and plan in place for secondary prevention with anticoagulation. Assessment & Plan (01/23/2025 4:45 PM CDT): - History of CVA - new acute vision changes stable - possibly 2/2 to carotid stenosis - CTH revealed evolving R occipital hypodensity inconsistent with acute infarct. - CTA h/n demonstrating no LVO but mutiple extracranial areas of atherosclerotic disease including 60-70% occlusion at the Left carotid bifurcation. Neurology following. Originally ordered MRI brain but later Dc'd MRI due to visualization of acute infarct on CTH. PLAN: - Carotid doppler - Start Aspirin 81 mg, Riveroxaban 20 mg, and Clopidogrel 75 mg - Continue Atorvastatin 80 mg - Telemetry - TTE 01/23/2025: Per cardiology recommendations, patient should be started on triple therapy with Aspirin, Clopidogrel, and Riveroxaban (Xarelto) for the duration of one month followed by Clopidogrel (Plavix) and Riveroxaban (Xarelto) therafter. Assessment & Plan (01/22/2025 4:36 PM CDT): CTH revealed evolving R occipital hypodensity inconsistent with acute infarct. CTA h/n demonstrating no LVO but mutiple extracranial areas of atherosclerotic disease including 60-70% occlusion at the L carotid bifurcation. Neurology following. Originally ordered MRI brain but later Dc'd MRI due to visualization of acute infarct on CTH. PLAN: - Continue ASA and Atorvastatin 80 - telemetry - TTE Vision changes 01/21/2025 Assessment & Plan (01/24/2025 11:25 AM CDT): - History of CVA - new acute vision changes stable - possibly 2/2 to carotid stenosis - CTH revealed evolving Right occipital hypodensity consistent with acute infarct. - CTA h/n demonstrating no LVO but mutiple extracranial areas of atherosclerotic disease including 60-70% occlusion at the Left carotid bifurcation. Neurology following. Originally ordered MRI brain but later Dc'd MRI due to visualization of acute infarct on CTH. PLAN: - Carotid doppler ordered - Start Aspirin 81 mg, Dabigatran 150 mg, and Clopidogrel 75 mg - Continue Atorvastatin 80 mg - Telemetry - TTE 01/23/2025: Per cardiology recommendations, patient should be started on triple therapy with Aspirin, Clopidogrel, and Dabigatran 150 mg for the duration of one month followed by Clopidogrel (Plavix) and Riveroxaban (Xarelto) therafter. Neurology recommendations: - Acute right occipital lobe ischemia stroke due to [employer] occlusion; cardio embolic phenomenon of stroke - Secondary prevention of AIS with lifelong anticoagulation given apical hypokinesis secondary to 100% occlusion of LAD - Amendable to 1 month of triple therapy followed by Plavix indefinitely - Continue atorvastatin 80 mg - Patient already scheduled for follow up in Stroke clinic, Jan 28 - will adjust accordingly based on hospital stay - PT/OT/ST Stroke Team to sign off given known nature of the patient's acute ischemic stroke and plan in place for secondary prevention with anticoagulation. Assessment & Plan (01/23/2025 5:59 PM CDT): - History of CVA - new acute vision changes stable - possibly 2/2 to carotid stenosis - CTH revealed evolving Right occipital hypodensity consistent with acute infarct. - CTA h/n demonstrating no LVO but mutiple extracranial areas of atherosclerotic disease including 60-70% occlusion at the Left carotid bifurcation. Neurology following. Originally ordered MRI brain but later Dc'd MRI due to visualization of acute infarct on CTH. PLAN: - Carotid doppler ordered - Start Aspirin 81 mg, Riveroxaban 20 mg, and Clopidogrel 75 mg - Continue Atorvastatin 80 mg - Telemetry - TTE 01/23/2025: Per cardiology recommendations, patient should be started on triple therapy with Aspirin, Clopidogrel, and Riveroxaban (Xarelto) for the duration of one month followed by Clopidogrel (Plavix) and Riveroxaban (Xarelto) therafter. Neurology recommendations: - Secondary prevention of AIS with lifelong anticoagulation given apical hypokinesis secondary to 100% occlusion of LAD - Amendable to 1 month of triple therapy followed by Plavix indefinitely - Continue atorvastatin 80 mg - Patient already scheduled for follow up in Stroke clinic, Jan 28 - will adjust accordingly based on hospital stay - PT/OT/ST Stroke Team to sign off given known nature of the patient's acute ischemic stroke and plan in place for secondary prevention with anticoagulation. Assessment & Plan (01/23/2025 4:45 PM CDT): - History of CVA - new acute vision changes stable - possibly 2/2 to carotid stenosis - CTH revealed evolving R occipital hypodensity inconsistent with acute infarct. - CTA h/n demonstrating no LVO but mutiple extracranial areas of atherosclerotic disease including 60-70% occlusion at the Left carotid bifurcation. Neurology following. Originally ordered MRI brain but later Dc'd MRI due to visualization of acute infarct on CTH. PLAN: - Carotid doppler - Start Aspirin 81 mg, Riveroxaban 20 mg, and Clopidogrel 75 mg - Continue Atorvastatin 80 mg - Telemetry - TTE 01/23/2025: Per cardiology recommendations, patient should be started on triple therapy with Aspirin, Clopidogrel, and Riveroxaban (Xarelto) for the duration of one month followed by Clopidogrel (Plavix) and Riveroxaban (Xarelto) therafter. Assessment & Plan (01/22/2025 3:36 PM CDT): - hx of CVA - new acute vision changes stable - possibly 2/2 to carotid stenosis PLAN: - carotid doppler Assessment & Plan (01/21/2025 3:55 PM CDT): CVA History of ischemic stroke in prior three months 01/21/2025 Assessment & Plan (01/24/2025 11:25 AM CDT): - History of CVA - new acute vision changes stable - possibly 2/2 to carotid stenosis - CTH revealed evolving Right occipital hypodensity consistent with acute infarct. - CTA h/n demonstrating no LVO but mutiple extracranial areas of atherosclerotic disease including 60-70% occlusion at the Left carotid bifurcation. Neurology following. Originally ordered MRI brain but later Dc'd MRI due to visualization of acute infarct on CTH. PLAN: - Carotid doppler ordered - Start Aspirin 81 mg, Dabigatran 150 mg, and Clopidogrel 75 mg - Continue Atorvastatin 80 mg - Telemetry - TTE 01/23/2025: Per cardiology recommendations, patient should be started on triple therapy with Aspirin, Clopidogrel, and Dabigatran 150 mg for the duration of one month followed by Clopidogrel (Plavix) and Riveroxaban (Xarelto) therafter. Neurology recommendations: - Acute right occipital lobe ischemia stroke due to [employer] occlusion; cardio embolic phenomenon of stroke - Secondary prevention of AIS with lifelong anticoagulation given apical hypokinesis secondary to 100% occlusion of LAD - Amendable to 1 month of triple therapy followed by Plavix indefinitely - Continue atorvastatin 80 mg - Patient already scheduled for follow up in Stroke clinic, Jan 28 - will adjust accordingly based on hospital stay - PT/OT/ST Stroke Team to sign off given known nature of the patient's acute ischemic stroke and plan in place for secondary prevention with anticoagulation. Assessment & Plan (01/23/2025 5:59 PM CDT): - History of CVA - new acute vision changes stable - possibly 2/2 to carotid stenosis - CTH revealed evolving Right occipital hypodensity consistent with acute infarct. - CTA h/n demonstrating no LVO but mutiple extracranial areas of atherosclerotic disease including 60-70% occlusion at the Left carotid bifurcation. Neurology following. Originally ordered MRI brain but later Dc'd MRI due to visualization of acute infarct on CTH. PLAN: - Carotid doppler ordered - Start Aspirin 81 mg, Riveroxaban 20 mg, and Clopidogrel 75 mg - Continue Atorvastatin 80 mg - Telemetry - TTE 01/23/2025: Per cardiology recommendations, patient should be started on triple therapy with Aspirin, Clopidogrel, and Riveroxaban (Xarelto) for the duration of one month followed by Clopidogrel (Plavix) and Riveroxaban (Xarelto) therafter. Neurology recommendations: - Secondary prevention of AIS with lifelong anticoagulation given apical hypokinesis secondary to 100% occlusion of LAD - Amendable to 1 month of triple therapy followed by Plavix indefinitely - Continue atorvastatin 80 mg - Patient already scheduled for follow up in Stroke clinic, Jan 28 - will adjust accordingly based on hospital stay - PT/OT/ST Stroke Team to sign off given known nature of the patient's acute ischemic stroke and plan in place for secondary prevention with anticoagulation. Assessment & Plan (01/23/2025 4:45 PM CDT): - History of CVA - new acute vision changes stable - possibly 2/2 to carotid stenosis - CTH revealed evolving R occipital hypodensity inconsistent with acute infarct. - CTA h/n demonstrating no LVO but mutiple extracranial areas of atherosclerotic disease including 60-70% occlusion at the Left carotid bifurcation. Neurology following. Originally ordered MRI brain but later Dc'd MRI due to visualization of acute infarct on CTH. PLAN: - Carotid doppler - Start Aspirin 81 mg, Riveroxaban 20 mg, and Clopidogrel 75 mg - Continue Atorvastatin 80 mg - Telemetry - TTE 01/23/2025: Per cardiology recommendations, patient should be started on triple therapy with Aspirin, Clopidogrel, and Riveroxaban (Xarelto) for the duration of one month followed by Clopidogrel (Plavix) and Riveroxaban (Xarelto) therafter. Assessment & Plan (01/22/2025 4:36 PM CDT): CTH revealed evolving R occipital hypodensity inconsistent with acute infarct. CTA h/n demonstrating no LVO but mutiple extracranial areas of atherosclerotic disease including 60-70% occlusion at the L carotid bifurcation. Neurology following. Originally ordered MRI brain but later Dc'd MRI due to visualization of acute infarct on CTH. PLAN: - Continue ASA and Atorvastatin 80 - telemetry - TTE Assessment & Plan (01/21/2025 5:08 PM CDT): CTH revealed evolving R occipital hypodensity inconsistent with acute infarct. CTA h/n demonstrating no LVO but mutiple extracranial areas of atherosclerotic disease including 60-70% occlusion at the L carotid bifurcation Continue ASA and statin Neuro on board Follow on MRI brain Continue tele, echo Speech and PTOT Elevated troponin 01/21/2025 Assessment & Plan (01/24/2025 1:51 PM CDT): - Troponins 4000s with ST elevations in V3-V6 - Cardiology consulted, ddx STEMI vs Takotsubo - CT: Hypoenhancement of the left ventricular apex. PLAN: - 01/23/2025: Left heart catheterization done by the Cardiology. 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 PCI was deferred due to STEMI onset more than 24 hours ago without ongoing chest pain, hemodynamic or electric instability. Patient started on triple therapy with Aspirin, clopidogrel, and Dabigatran for a month followed by clopidogrel (plavix) and dabigatran thereafter until discontinued. Patient will be continued on Lifelong anticoagulation. - If develop chest pain or arrhythmias please call cardiology urgently 01/24/2025: Cardiology recommendations at the time of discharge: Recommendations: - Triple therapy with Dabigatran 150 mg BID, Plavix 75 mg daily, and ASA 81 mg daily for 1 month followed by Dabigatran and Plavix - Start metoprolol succinate 25 mg daily, Losartan 25 mg, aldactone 12.5 mg daily - outpatient follow-up with cardiology set up by - yadiraay for discharge from cardiology perspective Assessment & Plan (01/23/2025 5:59 PM CDT): - Troponins 4000s with ST elevations in V3-V6 - Cardiology consulted, ddx STEMI vs Takotsubo - CT: Hypoenhancement of the left ventricular apex. PLAN: - 01/23/2025: Left heart catheterization done by the Cardiology. 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 PCI was deferred due to STEMI onset more than 24 hours ago without ongoing chest pain, hemodynamic or electric instability. Patient started on triple therapy with Aspirin, clopidogrel, and Riveroxaban for a month followed by - If develop chest pain or arrhythmias please call cardiology urgently Assessment & Plan (01/23/2025 4:45 PM CDT): - Troponins 4000s with ST elevations in V3-V6 - Cardiology consulted, ddx STEMI vs Takotsubo - CT: Hypoenhancement of the left ventricular apex. PLAN: - 01/23/2025: Left heart catheterization done by the Cardiology. 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 PCI was deferred due to STEMI onset more than 24 hours ago without ongoing chest pain, hemodynamic or electric instability. Patient started on triple therapy with Aspirin, clopidogrel, and Riveroxaban for a month followed by - if develop chest pain or arrhythmias please call cardiology urgently Assessment & Plan (01/22/2025 3:36 PM CDT): - Troponins 4000s with ST elevations in V3-V6 - Cardiology consulted, ddx STEMI vs Takotsubo - CT: Hypoenhancement of the left ventricular apex. PLAN: - [facility] 01/22 or 01/23, can start on DAPT if PCI with neurology giving ok - if develop chest pain or arrhythmias please call cardiology urgently Assessment & Plan (01/21/2025 3:55 PM CDT): 2/[address] elevation 01/21/2025 Assessment & Plan (01/24/2025 1:51 PM CDT): - Troponins 4000s with ST elevations in V3-V6 - Cardiology consulted, ddx STEMI vs Takotsubo - CT: Hypoenhancement of the left ventricular apex. PLAN: - 01/23/2025: Left heart catheterization done by the Cardiology. 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 PCI was deferred due to STEMI onset more than 24 hours ago without ongoing chest pain, hemodynamic or electric instability. Patient started on triple therapy with Aspirin, clopidogrel, and Dabigatran for a month followed by clopidogrel (plavix) and dabigatran thereafter until discontinued. Patient will be continued on Lifelong anticoagulation. - If develop chest pain or arrhythmias please call cardiology urgently 01/24/2025: Cardiology recommendations at the time of discharge: Recommendations: - Triple therapy with Dabigatran 150 mg BID, Plavix 75 mg daily, and ASA 81 mg daily for 1 month followed by Dabigatran and Plavix - Start metoprolol succinate 25 mg daily, Losartan 25 mg, aldactone 12.5 mg daily - outpatient follow-up with cardiology set up by - yadiraay for discharge from cardiology perspective Assessment & Plan (01/23/2025 5:59 PM CDT): - Troponins 4000s with ST elevations in V3-V6 - Cardiology consulted, ddx STEMI vs Takotsubo - CT: Hypoenhancement of the left ventricular apex. PLAN: - 01/23/2025: Left heart catheterization done by the Cardiology. 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 PCI was deferred due to STEMI onset more than 24 hours ago without ongoing chest pain, hemodynamic or electric instability. Patient started on triple therapy with Aspirin, clopidogrel, and Riveroxaban for a month followed by - If develop chest pain or arrhythmias please call cardiology urgently Assessment & Plan (01/23/2025 4:45 PM CDT): - Troponins 4000s with ST elevations in V3-V6 - Cardiology consulted, ddx STEMI vs Takotsubo - CT: Hypoenhancement of the left ventricular apex. PLAN: - 01/23/2025: Left heart catheterization done by the Cardiology. 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 PCI was deferred due to STEMI onset more than 24 hours ago without ongoing chest pain, hemodynamic or electric instability. Patient started on triple therapy with Aspirin, clopidogrel, and Riveroxaban for a month followed by - if develop chest pain or arrhythmias please call cardiology urgently Assessment & Plan (01/22/2025 3:36 PM CDT): - Troponins 4000s with ST elevations in V3-V6 - Cardiology consulted, ddx STEMI vs Takotsubo - CT: Hypoenhancement of the left ventricular apex. PLAN: - [facility] 01/22 or 01/23, can start on DAPT if PCI with neurology giving ok - if develop chest pain or arrhythmias please call cardiology urgently Assessment & Plan (01/21/2025 5:08 PM CDT): Card consulted STEMI vs Takotsubo On Hep gtt, ASA, statin Rec echo Continue Tele CT ; Hypoenhancement of the left ventricular apex. Given the patient's elevated troponin, findings are concerning for a myocardial infarction. Close monitoring, and urgent card call if developed chest pain, arrhythmias Plan for [facility] this admission tomorrow NPO pmn Pulmonary embolism 01/21/2025 Assessment & Plan (01/24/2025 11:25 AM CDT): Non-occlusive pulmonary emboli in the right lower lobe and right upper lobe segmental and subsegmental branches. No evidence of right heart strain. PLAN: - Heparin drip discontinued. - Eliquis not started - Per Cardiology, triple therapy started with Aspirin, Clopidogrel, and Dabigatran for the duration of one month followed by Clopidogrel (Plavix) and Dabigatran therafter. Assessment & Plan (01/23/2025 5:59 PM CDT): Non-occlusive pulmonary emboli in the right lower lobe and right upper lobe segmental and subsegmental branches. No evidence of right heart strain. PLAN: - Heparin drip discontinued. - Eliquis not started - Per Cardiology, triple therapy started with Aspirin, Clopidogrel, and Riveroxaban (Xarelto) for the duration of one month followed by Clopidogrel (Plavix) and Riveroxaban (Xarelto) therafter. Assessment & Plan (01/23/2025 4:45 PM CDT): Nonocclusive pulmonary emboli in the right lower lobe and right upper lobe segmental and subsegmental branches. No evidence of right heart strain. PLAN: - Heparin drip discontinued. - Eliquis not started - Per Cardiology, triple therapy started with Aspirin, Clopidogrel, and Riveroxaban (Xarelto) for the duration of one month followed by Clopidogrel (Plavix) and Riveroxaban (Xarelto) therafter. Assessment & Plan (01/22/2025 3:36 PM CDT): Nonocclusive pulmonary emboli in the right lower lobe and right upper lobe segmental and subsegmental branches. No evidence of right heart strain. PLAN: - Continue hep gtt Assessment & Plan (01/21/2025 5:08 PM CDT): Nonocclusive pulmonary emboli in the right lower lobe and right upper lobe segmental and subsegmental branches. No evidence of right heart strain. Continue hep gtt Abnormal EKG 01/21/2025 Acute ischemic stroke 12/29/2024 Dizziness 12/29/2024 Headache 12/29/2024 Encounters Date Type Department Care Team Description 01/31/2025 10:00 AM BIOINFORMATICS SOFTWARE ENGINEER Office Visit [facility] - Neurology [address] [facility] [place] [address] Noemi Osorio PA-C Cerebrovascular accident (CVA), unspecified mechanism (HCC) (Primary Dx); Coronary artery disease involving nisqually heart without angina pectoris, unspecified vessel or lesion type; Acute pulmonary embolism without acute cor pulmonale, unspecified pulmonary embolism type (HCC) 01/25/2025 Travel 01/23/2025 10:45 AM CDT - 01/23/2025 12:05 PM CDT Surgery [facility] - Cardiac Freight Sales Broker [address] [place] [address] Lupis Odonnell MD Left Heart Cath 01/21/2025 7:04 AM CDT - 01/24/2025 4:40 PM CDT Hospital Encounter [facility] [address] [place] [phone] Jeff Mcguire MD Rodriguez, Wilson, MD Hoque, Farzana, MD Wal[place]ik, Anne C, DO Internal Medicine Discharge Disposition: Home or Self Care 01/21/2025 Travel 01/16/2025 Telephone [facility] - Cardiology [address] [facility] [address] [place] [phone] Cristy Alejandro MD Loop Recorder; Chest Pain 01/08/2025 Telephone Transitional Care at [address] [address] Took, Saige, PharmD Rx Medication Issue 01/07/2025 10:00 AM CDT Office Visit Transitional Care at [address] [phone] Thomas Mckeon II, MD Acute ischemic stroke (HCC) (Primary Dx); Chronic nonintractable headache, unspecified headache type; Need for vaccination; Deep vein thrombosis (DVT) of left lower extremity, unspecified chronicity, unspecified vein (HCC) 01/07/2025 Telephone Transitional Care at [address] [phone] Took, Saige, PharmD Rx Medication Issue 01/07/2025 Telephone Transitional Care at [address] [phone] Saige Kumar PharmD Patient Assistance Program 01/01/2025 Travel 01/01/2025 Telephone Transitional Care at [facility] [address] [place] [phone] Geri Patino, log hauler 12/31/2024 4:20 PM CDT - 12/31/2024 5:09 PM CDT Surgery [facility] - Cardiac Freight Sales Broker [address] [place] [phone] Cristy Alejandro MD Loop Recorder Implant 12/29/2024 1:10 PM CDT - 12/31/2024 5:30 PM CDT Hospital Encounter [facility] [address] [place] [phone] Ld Bo MD Neurology Discharge Disposition: Home [...] Tobacco: Never Tobacco Cessation:Counseling Given: Not Answered Alcohol Use Standard Drinks/Week Comments Not Currently 0 (1 standard drink = 0.6 oz pur e alcohol) PHQ-2 Answer Date Recorded Patient Health Questionnaire-2 Score 0 01/23/2025 PRAPARE - Transportation Answer Date Re corded [...] any time in the past 12 m ont, were you homeless or living in a fci (including now)? No 12/29/2024 AUDIT-C Answer Date Recorded Q1: How often do you have a drink containing alcohol? Never 01/22/2025 Q2: How many drinks containi ng alcohol do you have on a typical day when you are drinking? Patient does not drink Q3: How often do you have si x or more drinks on one occasion? Never 01/22/2025 Overall Financial Resource Strain (CARDIA) Answe r Date Recorded How hard is it for you to pa y for the very basics like food, housing, medical care, and heating? Not hard at all 01/22/2025 [facility] - Occupational Stress Questionnaire Answer Date Recorded Do you feel stress - tense, restless, nervous, or anxious, or unable to sleep at night because your mind is troubled all the time - these days? Not at all 01/22/2025 Hunger Vital Sign Answer Date Recorded Within the past 12 months, y ou worried that your food would run out before you got the money to buy more. Never true 01/23/20 25 Within the past 12 months, t he food you bought just didn't last and you didn't have money to get more. Never true 01/22/2025 PRAPARE - Transportation Answer Date Re corded In the past 12 months, has l ack of transportation kept you from medical appointments or from getting medications? No 12/27 In the past 12 months, has l ack of transportation kept you from meetings, work, or from getting things needed for daily living? No 01/22/2025 Housing Stability Vital Sign Answer Casey e Recorded In the last 12 months, was t here a time when you were not able to pay the mortgage or rent on time? No 01/22/2025 In the past 12 months, how m any times have you moved where you were living? 0 01/22/2025 At any time in the past 12 m [facility], were you homeless or living in a fci (including now)? No 01/22/2025 Sex and Gender Information Value Date Recorded Sex Assigned at Male 01/21/2025 7:47 AM CDT Legal Sex Male 9:25 AM CDT Gender Identity Not on file Sexual Orientation Not on file Last Filed Vital Signs Vital Sign Reading Time Taken Comments Blood Pressure 104/66 01/31/2025 9:55 AM BIOINFORMATICS SOFTWARE ENGINEER Pulse 66 01/31/2025 9:55 AM BIOINFORMATICS SOFTWARE ENGINEER Temperature 36.7 C (98 F) 01/24/2025 11:40 AM CDT Respiratory Rate 18 01/24/2025 11:40 AM CDT Oxygen Saturation 98% 01/31/2025 9:55 AM BIOINFORMATICS SOFTWARE ENGINEER Inhaled Oxygen Concentration - - Weight 81.7 kg (180 lb 3.2 oz) 01/31/2025 9:55 A M BIOINFORMATICS SOFTWARE ENGINEER Height 177.8 cm (5' 10) 01/31/2025 9:55 AM BIOINFORMATICS SOFTWARE ENGINEER Body Mass Index 25.86 01/31/2025 9:55 AM BIOINFORMATICS SOFTWARE ENGINEER Plan of Treatment Upcoming Encounters Date Type Department Care Team (Late st Contact Info) Description 02/28/2025 2:00 PM BIOINFORMATICS SOFTWARE ENGINEER Office Visit [facility] - Cardiology [address] [facility], [address] [address] Noemi Osorio PA-C [address] [facility] [address] [place] [phone] Kye Ingram MD [address] [facility] [address] [place] [address] 03/12/2025 1:00 AM BIOINFORMATICS SOFTWARE ENGINEER Clinical Support [facility] - [facility]iology [address] [facility], [address] [address] 04/16/2025 1:00 AM BIOINFORMATICS SOFTWARE ENGINEER Clinical Support [facility] - Cardiology [address] [facility], [address] [address] 05/21/2025 1:00 AM BIOINFORMATICS SOFTWARE ENGINEER Clinical Support [facility] - Cardiology [address] [facility], [address] [address] 06/25/2025 1:00 AM CDT Clinical Support [facility] - Cardiology [address] [facility], [place] [address] [place] [phone] 08/01/2025 10:00 AM CDT Office Visit [facility] - Neurology [address] [facility] [place] [phone] Noemi Osorio PA-C [address] [facility] [address] [place] [address] Health Maintenance Due Date Last Done Comments COLOGUARD (AGES 45-75) - COLON CA SCREENING 1964 COLON MONITORING 1964 COLONOSCOPY - COLON CA SCREENING 1964 CT COLONOGRAPHY - COLON CA SCREENING 1964 Colorectal Cancer Screening 1964 FIT - COLON CA SCREENING 1964 FLEX SIG - COLON CA SCREENING 1964 HIV SCREENING 11/08/1979 HEPATITIS C SCREENING 11/03/1982 DTAP/TDAP/TD VACCINES (1 - Tdap) 11/08/1983 Respiratory Syncytial Virus (RSV) Vaccine Pt: or over 60 yrs (1 - Risk 50-74 years 1-dose series) 2014 ZOSTER VACCINE (1 of 2) 2014 COVID-19 VACCINE ( season) 2024 10/31/2021, 01/24/2021, 06/03/2020, Additional history exists SCREENING FOR DIABETES 01/25/2028 , 01/24/2025, 01/24/2025, Additional history exists DEPRESSION SCREENING Completed 01/07/2025 INFLUENZA VACCINE Completed [...] this topic Medical Devices Implanted Type Area Extension Service Supervisor Device Identifier Shelf Expiration Date Model / Serial / Lot Rcdr Crd Linq Ii Ins - [id number] Implanted:Qty: 1 on 12/31/2024 by Cristy Alejandro MD at [facility] [employer] [id number] 02/22/2026 LNQ22 / [id number] / [id number] Procedures Procedure Name Priority Date/Time Associated Diagnosis Comments CARDIAC EKG ORDER 01/25/2025 11: 38 AM CDT GLUCOSE - POINT OF CARE Routine 01/24/2025 11:38 AM CDT VAS CAROTID DUPLEX BILATERAL Routine 01/24/2025 11:33 AM CDT Stenosis of left carotid artery Pulmonary embolism without acute cor pulmonale, unspecified chronicity, unspecified pulmonary embolism type (HCC) GLUCOSE - POINT OF CARE Routine 01/24/2025 7:52 AM CDT BASIC METABOLIC PANEL (CALCIUM TOTAL) Routine 01/24/2025 12:12 AM CDT CBC W AUTO DIFFERENTIAL Routine 01/24/2025 12:11 AM CDT HEPATIC FUNCTION PANEL Routine 01/23/2025 11:53 PM CDT GLUCOSE - POINT OF CARE Routine 01/23/2025 8:28 PM CDT CCL LEFT HEART CATH Routine 01/23/2025 1 1:56 AM CDT Abnormal EKG GLUCOSE - POINT OF CARE Routine 01/23/2025 7:44 AM CDT PT-INR Routine 01/23/2025 2:00 AM CDT CBC W AUTO DIFFERENTIAL Routine 01/23/2025 2:00 AM CDT BASIC METABOLIC PANEL (CALCIUM TOTAL) Routine 01/23/2025 2:00 AM CDT PTT STAT 01/23/2025 2:00 AM CDT GLUCOSE - POINT OF CARE Routine 01/22/2025 9:28 PM CDT PTT Timed 01/22/2025 6:40 PM CDT GLUCOSE - POINT OF CARE Routine 01/22/2025 3:48 PM CDT EKG 12-LEAD STAT 01/22/2025 12:15 PM CDT Abnormal EKG GLUCOSE - POINT OF CARE Routine 01/22/2025 11:31 AM CDT ECHO COMPLETE W CONTRAST W BUBBLE STUDY PENDING DISCHARGE 01/22/2025 9:50 AM CDT Vision changes GLUCOSE - POINT OF CARE Routine 01/22/2025 8:24 AM CDT PTT STAT 01/22/2025 6:55 AM CDT CBC W AUTO DIFFERENTIAL Routine 01/22/2025 6:55 AM CDT BASIC METABOLIC PANEL (CALCIUM TOTAL) Routine 01/22/2025 6:55 AM CDT PT-INR Routine 01/21/2025 11:04 PM CDT PTT Timed 01/21/2025 11:04 PM CDT GLUCOSE - POINT OF CARE Routine 01/21/2025 7:55 PM CDT PTT Timed 01/21/2025 3:37 PM CDT TROPONIN-I HIGH SENSITIVE REFLEX 1HOUR Timed 01/21/2025 2:08 PM CDT TROPONIN-I HIGH SENSITIVE BASELINE + 1HR STAT 01/21/2025 12:26 PM CDT PTT STAT 01/21/2025 10:53 AM CDT PT-INR STAT 01/21/2025 10:[address] CHEST WWO CONTRAST STAT 01/21/2025 10:13 AM CDT Vision changes History of ischemic stroke in prior three months TROPONIN-I HIGH SENSITIVE REFLEX 1HOUR Timed 01/21/2025 9:30 AM CDT EKG 12-LEAD Routine 01/21/2025 9:27 AM CDT Dizziness EKG 12-LEAD Routine 01/21/2025 8:14 AM CDT Elevated troponin TROPONIN-I HIGH SENSITIVE BASELINE + 1HR STAT 01/21/2025 7:55 AM CDT ALCOHOL ETHYL BLOOD STAT 01/21/2025 7 :55 AM CDT PTT STAT 01/21/2025 7:55 AM CDT PT-INR STAT 01/21/2025 7:55 AM CDT COMPREHENSIVE METABOLIC PANEL STAT 01/21/2025 7:55 AM CDT CBC W AUTO DIFFERENTIAL STAT 01/21/2025 7:55 AM CDT EKG 12-LEAD STAT 01/21/2025 7:33 AM CDT Vision changes ISTAT CREATININE Routine 01/21/2025 7:29 AM CDT GLUCOSE - POINT OF CARE Routine 01/21/2025 7:28 AM CDT INR WHOLE BLOOD - POINT OF CARE (IP) STROKE Routine 01/21/2025 7:[address] ANGIO BRAIN NECK STROKE STAT 01/21/2025 7:21 AM CDT Vision changes CT BRAIN STROKE STAT 01/21/2025 7:21 AM CDT Vision changes CCL LOOP RECORDER IMPLANT Routine 12/31/2024 4:23 [...] CDT from Last 3 Months Results * CARDIAC EKG ORDER (01/25/2025 11:38 AM CDT) Narrative 01/25/2025 11:38 AM CDT Ordered by an unspecified provider. us Scanned Document CARDIAC SERVICES ORDERABLES Fin al Result * GLUCOSE - POINT OF CARE (01/24/2025 11:38 AM CDT) Only the most recent of17 resultswithin the time period is included. Glucose WB/POC 85 70 - 99 mg/dL 01/24/2025 11:43 AM CDT [facility] Specimen Type Arterial/C apillary 01/24/2025 11:43 AM CDT [facility] Blood BLOOD SPECIMEN / Unknown 01/24/2025 11:38 AM CDT 01/24/2025 11:43 AM CDT us Blanca Mcwilliams DO LAB - POINT OF CARE ORDERABLE S Final Result [facility] [address] [place] [address], [facility] [phone] * VAS Carotid Duplex Bilateral (01/24/2025 11:33 AM CDT) Anatomical Region Laterality Modality Neck Ultrasound 01/24/2025 11:0 2 AM CDT Narrative Procedure Note Jacinto Pozo MD - 01/24/2025 Blanca Mcwilliams DO VASCULAR LAB ORDERABLES Edite d Result - Final * (ABNORMAL) BASIC METABOLIC PANEL (CALCIUM TOTAL) (01/24/2025 12:12 AM CDT) Only the most recent of5 resultswithin the time period is included. BUN 16 7 - 26 mg/dL 01/24/2025 12:48 AM [facility] Creatinine 0.91 0.71 - 1.16 mg/dL 01/24/2025 12:48 AM [facility] Sodium 135(L) 136 - 145 mmol/L 01/24/2025 12:48 AM [facility] Potassium 4.0 3.5 - 4.5 mmol/L 01/24/2025 12:48 AM [facility] Chloride 101 98 - 107 mmol/L 01/24/2025 12:48 AM [facility] CO2 22 22 - 29 mmol/L 01/24/2025 12:48 AM [facility] Glucose 101(H) 70 - 99 mg/dL 01/24/2025 12:48 AM [facility] Calcium 9.4 8.4 - 10.2 mg/dL 01/24/2025 12:48 AM [facility] Anion Gap 12 6 - 16 01/24/2025 12:48 AM [facility] BUN/Creatinine Ratio 18 7 - 23 01/24/2025 12:48 AM [facility] Osmolality Calculated 281 275 - 295 mOsm/kg 01/24/2025 12:48 AM [facility] eGFR by CKD-EPI >90 >=90 mL/min/1.7 3 m2 01/24/2025 12:48 AM [facility] Comment:Estimated Glomerular Filtration Rate (eGFR) calculated using the CKD-EPI Creatinine Equation (2020), per the National Kidney Foundation and [place] [employer] Nephrology recommendations. Blood BLOOD SPECIMEN / Unknown Lab Venipuncture / Unknown 01/24/2025 12:12 AM CDT 01/24/2025 12:19 AM CDT us Jeff Mcguire MD LAB - CHEMISTRY ORDERABLES Fi nal Result [facility] [address] [place] [address], [facility] [phone] * (ABNORMAL) CBC W AUTO DIFFERENTIAL (01/24/2025 12:11 AM CDT) Only the most recent of4 resultswithin the time period is included. WBC 11.4(H) 4.0 - 10.7 x10E9/L 01/24/2025 12:28 AM [facility] RBC Count 4.04(L) 4.30 - 5.80 x10E12/L 01/24/2025 12:28 AM [facility] Hemoglobin 11.2(L) 13.3 - 17.5 g/dL 01/24/2025 12:28 AM [facility] Hematocrit 33.8(L) 38.7 - 51.1 % 01/24/2025 12:28 AM [facility] MCV 83.7 80.0 - 98.0 fL 01/24/2025 12:28 AM [facility] MCH 27.7 26.7 - 33.6 pg 01/24/2025 12:28 AM [facility] MCHC 33.1 31.7 - 36.3 g/dL 01/24/2025 12:28 AM [facility] RDW-CV 12.3 11.3 - 14.8 % 01/24/2025 12:28 AM [facility] Platelet Count 271 150 - 420 x10E9/L 01/24/2025 12:28 AM [facility] MPV 11.3 7.8 - 11.4 fL 01/24/2025 12:28 AM [facility] Neutrophil % 72.4 41.0 - 74.0 % 01/24/2025 12:28 AM [facility] Lymphocyte % 16.3(L) 17.0 - 47.0 % 01/24/2025 12:28 AM [facility] Monocyte % 9.2 3.0 - 11.0 % 01/24/2025 12:28 AM [facility] Eosinophil % 1.2 0.0 - 7.0 % 01/24/2025 12:28 AM [facility] Basophil % 0.5 0.0 - 1.6 % 01/24/2025 12:28 AM [facility] Immature Granulocytes % 0.4 0.0 - 1.0 % 01/24/2025 12:28 AM [facility] Neutrophil Absolute 8.28(H) 1.60 - 7.50 x10E9/L 01/24/2025 12:28 AM [facility] Lymphocyte Absolute 1.86 1.00 - 4.40 x10E9/L 01/24/2025 12:28 AM [facility] Monocyte Absolute 1.05(H) 0.15 - 1.00 x10E9/L 01/24/2025 12:28 AM [facility] Eosinophil Absolute 0.14 0.00 - 0.60 x10E9/L 01/24/2025 12:28 AM [facility] Basophil Absolute 0.06 0.00 - 0.13 x10E9/L 01/24/2025 12:28 AM [facility] Blood BLOOD SPECIMEN / Unknown Lab Venipuncture / Unknown 01/24/2025 12:11 AM CDT 01/24/2025 12:19 AM CDT us Jeff Mcguire MD LAB - HEMATOLOGY ORDERABLES F inal Result [facility] [address] [place] [address], [facility] [phone] * (ABNORMAL) HEPATIC FUNCTION PANEL (01/23/2025 11:53 PM CDT) Protein Total 7.0 6.0 - 8.3 g/dL 12:47 AM [facility] Albumin 3.3(L) 3.4 - 5.0 g/dL 01/24/2025 12:47 AM T [facility] Bilirubin Total 0.8 0.2 - 1.2 mg/dL 12/28 12:47 AM [facility] Bilirubin Conjugated 0.2 0.1 - 0.5 mg/dL 01/24/2025 12:47 AM [facility] Bilirubin Unconjugated 0.6 Unconjugated Bilirubin is a calculated value: Reference ranges have not been established. mg/dL 01/24/2025 12:47 AM [facility] Alkaline Phosphatase 135 40 - 150 U/L 01/24/2025 12:47 AM [facility] ALT 80(H) 5 - 55 U/L 01/24/2025 12:47 AM [facility] AST 56(H) 5 - 34 U/L 01/24/2025 12:47 AM [facility] Albumin/Globulin Ratio 0.9(L) 1.1 - 2.3 01/24/2025 12:47 AM [facility] Blood BLOOD SPECIMEN / Unknown Lab Venipuncture / Unknown 01/23/2025 11:53 PM CDT 01/24/2025 12:19 AM CDT Blanca Mcwilliams DO LAB - CHEMISTRY ORDERABLES Fi nal Result [facility] [address] [place] [address], [facility] [phone] * CCL LEFT HEART CATH (01/23/2025 11:56 AM CDT) Anatomical Region Laterality Modality X-Ray Angiograph y Narrative 01/24/2025 4:04 PM CDT 100% acute occlusion of mid LAD. Milld to moderate non obstructive CAD of RCA and LCX. PCI deferred due to STEMI onset more than 24 hours ago without ongiong chest pain, hemodynamic or electric instability. . Reason for Procedure 1 year old male with recent cryptogenic, acute ischemic stroke and loop recorder placement presenting with worsening visual symptoms, fatigue, and no chest pain was found to have elevated troponins, and ST elevations on EKG are concerning for STEMI vs Takotsubo cardiomyopathy. We will plan C to r/o CAD Procedure Details Estimated Blood Loss: 3 mL Procedure Details and Comments: PROCEDURES PERFORMED: ###. Retrograde right radial arterial access performed using ultrasound guidance. ###. Bilateral selective coronary angiography. PROCEDURE DESCRIPTION The patient was brought to the Cardiac Catheterization Lab in a fasting state. All relevant laboratory results had been reviewed. The right radial site was prepared and draped in the standard manner to ensure sterile conditions. A proper time-out procedure was conducted, confirming the patient's identity, procedure, physician, position, and documentation, all under our direct supervision, with no safety concerns raised by the staff. The patient was premedicated with midazolam and fentanyl, administered slowly and steadily. Conscious sedation was successfully achieved. Continuous monitoring of telemetry, heart rate, blood pressure, and oxygen saturation was performed by an independent fence laborer registered nurse. The right radial site was anesthetized with a 1% lidocaine solution, and a 6- Tajik vascular sheath was inserted percutaneously using a guidewire exchanger with a finder needle. We were unable to advance the diagnostic catheter using the standard technique of wiring over the J-tipped 0.035 wire or the Zhang wire. Angiogram of radial artery showed proximal loop with significant stenosis/spasm. We were however able to advance the diagnostic catheters using the 0.014 coronary wire and the 2 mm balloon using the balloon assisted tracking technique. A [place] 4 catheter was used for left coronary angiogram. JR4 diagnostic catheter was used for right coronary angiogram Coronary Findings Diagnostic Dominance: Right Left Main: The vessel was visualized by selective angiography, is large in size and is angiographically normal. Left Anterior Descending: Ost LAD to Prox LAD lesion is 50% stenosed. HARVINDER flow is 3. Mid LAD lesion is 100% stenosed. HARVINDER flow is 0. First Diagonal Branch: The vessel was visualized by angiography and is moderate in size. First Obtuse Marginal Branch: The vessel was visualized by angiography and is moderate in size. 1st Mrg lesion is 30% stenosed. HARVINDER flow is 3. Right Coronary Artery: The vessel was visualized by selective angiography and is large in size. Prox RCA lesion is 30% stenosed. HARVINDER flow is 3. Intervention No interventions have been documented. Recommendations - 1. GDMT for CAD and CMP 2. Further recommendations as per cardiology consult team us Jeff Mcguire MD CV CARDIAC CATH [place] PROCS F inal Result * (ABNORMAL) PTT (01/23/2025 2:00 AM CDT) Only the most recent of7 resultswithin the time period is included. APTT 94.7(H) 23.0 - 38.4 Seconds 01/23/2025 7:00 AM CDT [facility] Comment:Suggested therapeuti c range for full dose I.V. unfractionated heparin therapy for venous thromboembolism is 71 to 109 seconds. Blood BLOOD SPECIMEN / Unknown Lab Venipuncture / Unknown 01/23/2025 2:00 AM CDT 01/23/2025 2:42 AM CDT us Ruth Hart MD LAB - COAGULATION ORDERABLES Fin al Result [address] [address], [facility] [phone] * (ABNORMAL) PT-INR (01/23/2025 2:00 AM CDT) Only the most recent of4 resultswithin the time period is included. PT 16.7(H) 12.1 - 14.8 Seconds 01/23/2025 7:00 AM CDT [facility] INR 1.3 See Comment 01/23/2025 7:00 AM CDT [facility] Comment:The suggested therap eutic range for standard coumadin (warfarin) therapy is an INR of 2.0-3.0. For high-risk patients (Mechanical Mitral Valve Prosthesis, etc.), the suggested prophylactic therapeutic range is an INR of 2.5-3.5. Blood BLOOD SPECIMEN / Unknown Lab Venipuncture / Unknown 01/23/2025 2:00 AM CDT 01/23/2025 2:42 AM CDT us Jeff Mcguire MD LAB - COAGULATION ORDERABLES Final Result Performing Organization Address [facility] Co de Phone Number [address] [address], [facility] [phone] * EKG 12-Lead (01/22/2025 12:15 PM CDT) Only the most recent of4 resultswithin the time period is included. Ventricular Rate 75 BPM [facility] MUSE Atrial Rate [address] [facility] MUSE P-R Interval [address] [facility] MUSE QRS Duration ms [address] [facility] MUSE Q-T Interval ms [address] [facility] MUSE QTC Calculation (Bezet) 442 ms [facility] MUSE Calculated P [place] 43 degrees [facility] MUSE Calculated R [place] -58 degrees [facility] MUSE Calculated T [place] -21 degrees [facility] MUSE Interpretation EKG NORMAL SINUS RHYTHM LEFT ANTERIOR FASCICULAR BLOCK POSSIBLE INFERIOR INFARCT , AGE UNDETERMINED ANTERIOR INFARCT , POSSIBLY ACUTE T WAVE ABNORMALITY, CONSIDER LATERAL ISCHEMIA ACUTE MS / STEMI ABNORMAL ECG WHEN COMPARED WITH ECG OF 21-JAN-2025 09:27, NO SIGNIFICANT CHANGE WAS FOUND Confirmed by MD PAULO, AARTI ([id number]) on 01/22/2025 2:10:[address] [facility] MUSE 01/22/2025 12:1 5 PM CDT 01/22/2025 2:10 PM CDT us Reji Fajardo MD ECG ORDERABLES Edited Resul t - Final Performing Organization Address [facility] de Phone Number [facility] MUSE * ECHO COMPLETE W CONTRAST W BUBBLE STUDY (01/22/2025 9:50 AM CDT) AV area index 0.88 cm /m SSM CV FUJI PACS Dimensionless Index 0.469 unitless SSM CV FUJI PACS Myocardial strain charge 2 unitless SSM CV FUJI PACS LV EDV A2C 218 ml SSM CV FU JI PACS LV EDV A4C 254 ml SSM CV FU JI PACS LV ESV A2C 127 ml SSM CV FU JI PACS LV ESV A4C 113 ml SSM CV FU JI PACS IVSd 2D 1.17 cm SSM CV FUJ I PACS LVIDd 5.72 cm SSM CV FUJ I PACS LVIDs 4.28 cm SSM CV FUJ I PACS LVOT diam 2.2 cm SSM CV FUJ I PACS LVOT VTI 26.9 cm SSM CV FUJ I PACS LVOT pk brown 136 cm/s SSM CV F UJI PACS LVOT pk grad 7 mmHg SSM CV FUJI PACS LVPWd 1.18 cm SSM CV FUJ I PACS MV lat a' brown 8.81 cm/s SSM CV FUJI PACS MV E' lateral brown 7.72 cm/s SS M CV FUJI PACS MV lat S' brown 7.18 cm/s SSM CV FUJI PACS LV A2C EF 41.743 % SSM CV FUJ I PACS LV A4C EF 55.512 % SSM CV FUJ I PACS LV biplane EF 48.361 % SSM CV FUJI PACS GLS -9.8 % SSM CV FUJ I PACS LA vol BP 49.6 ml SSM CV FUJ I PACS LA size 3.8 cm SSM CV FUJ I PACS LA vol index 0.024 l/m SSM CV FUJI PACS RA DIASTOLIC MAJOR AXIS LENGTH (4C) 5.33 cm SSM CV FUJI PACS RA area 16.5 cm SSM CV FUJI PACS AR DECEL TIME 0.451 s SSM CV FUJI PACS AV PHT 0.131 s SSM CV FUJ I PACS AV pk brown regurg 412 cm/s SSM CV FUJI PACS AV pk brown 324 cm/s SSM CV FUJ I PACS AV pk grad 40 mmHg SSM CV FU JI PACS AV mn grad 21 mmHg SSM CV FU JI PACS AV VTI 57.4 cm SSM CV FUJ I PACS AV area cont VTI 1.781 cm SSM CV FUJI PACS AV area pk brown 1.596 cm SSM CV FUJI PACS ST junction 3.02 cm SSM CV F UJI PACS Sinus of Valsalva 3.649 cm SS M CV FUJI PACS Ascending aorta 3.5 cm SSM CV FUJI PACS MV A pk brown 56.8 cm/s SSM CV F UJI PACS MV E pk brown 62.1 cm/s SSM CV F UJI PACS MV mn grad 1 mmHg SSM CV FU JI PACS MV VTI 20.6 cm SSM CV FUJ I PACS PV VTI 23.2 cm SSM CV FUJ I PACS PV pk brown 153 cm/s SSM CV FUJ I PACS RV-dao basal diam 3.41 cm SSM CV FUJI PACS RV-dao mid diam 2.78 cm SSM CV FUJI PACS TAPSE 2.19 cm SSM CV FUJ I PACS TR pk brown 259 cm/s SSM CV FUJ I PACS Anatomical Region Laterality Modality Ultrasound 01/22/2025 8:50 AM CDT Narrative 01/22/2025 1:25 PM CDT Summary * The left ventricle is dilated, with mildly reduced systolic function and an estimated ejection fraction of 48 % by biplane method of disks. Left ventricular wall motion is abnormal. * The apical septal wall, apical lateral wall, apical inferior wall, and apical cap are hypokinetic. * The left ventricular diastolic function is consistent with grade II diastolic dysfunction. * Right ventricle is normal in size with normal systolic function. * The aortic valve is probably trileaflet. The right coronary cusps is severe thickened and calcified and restricted in motion. * There is mild aortic valve stenosis with a peak velocity of 3.2 m/s, mean gradient of 21 mmHg, and aortic valve area of 1.78 cm2. * There is likely moderate aortic valve regurgitation that is eccentric directed posteriorly. * Agitated saline contrast study at rest and with Valsalva is negative for a shunt. * The pulmonary artery systolic pressure is normal, 30 mmHg. Patient Info Name: Mino Young Age: 59 years : 1965 Gender: Male Ht: 70 in Wt: 181 lb BSA: 2.02 m2 HR: 79 bpm BP: 151 / 76 mmHg Heart Rhythm: Sinus Rhythm Exam Date: 01/22/2025 8:50 AM Patient Status: I/P Study Site: [facility] Primary Location: [facility] EStudy Info Technical Quality: Adequate Exam Type: ECHO COMPLETE W CONTRAST W BUBBLE STUDY Indications H53.9 - Vision changes Procedure(s) * A complete 2D, color Doppler, spectral Doppler and M-Mode transthoracic echocardiogram was performed with an Ultrasound Enhancing Agent (UEA), a Bubble Study and Strain. Contrast/Agitated Saline Contrast / Saline: Definity Amount: 0.50 ml Reaction to Contrast: no Contrast / Saline: Agitated Saline Amount: 20.00 ml Reaction to Contrast: no Staff Referring Physician: Jeff Mcguire Ordering Provider: Jeff Mcguire Attending Physician: Jeff Mcguire Fellow: Iam Resendez Customer Service Agent: Jeison Pennington Left Ventricle Left ventricular systolic function is mildly reduced with an estimated ejection fraction of 48 % by biplane method of disks. The left ventricle is dilated. Left ventricular segmental wall motion is abnormal. All other mcfadden appear normal. The left ventricular diastolic function is consistent with grade II diastolic dysfunction. The apical septal wall, apical lateral wall, apical inferior wall, and apical cap are hypokinetic. Right Ventricle The right ventricle is normal in size. Right ventricular systolic function is normal. Left Atrium The left atrium is normal in size with a left atrial volume index of 24 ml/m2 by BP MOD. Right Atrium The right atrium is normal in size. Atrial Septum Intact interatrial septum visualized by 2D and color Doppler imaging. Agitated saline contrast study at rest and with Valsalva is negative for a shunt. Aortic Valve The aortic valve is probably trileaflet. The right coronary cusps is severe thickened and calcified and restricted in motion. There is mild aortic valve stenosis with a peak velocity of 3.2 m/s, mean gradient of 21 mmHg, and aortic valve area of 1.78 cm2. There is likely moderate aortic valve regurgitation that is eccentric directed posteriorly. The aortic regurgitation is eccentric directed posteriorly. Pulmonic Valve The pulmonic valve is not well visualized. There is no pulmonic valve stenosis. There is no pulmonic regurgitation. Mitral Valve The mitral valve is normal. There is no mitral valve stenosis. There is no mitral valve regurgitation. Tricuspid Valve The tricuspid valve is normal. There is trace tricuspid valve regurgitation. The pulmonary artery systolic pressure is normal, 30 mmHg. Inferior Vena Cava The inferior vena cava is normal in size (< 2.1 cm). There is > 50% collapse of the IVC upon inspiration with an estimated right atrial pressure of 3 mmHg. Pericardium/Pleural There is no pericardial effusion. Aorta The aortic root at the sinus of Valsalva is normal in size measuring 3.6 cm with an index of 1.8 cm/m2. The ascending aorta is normal in size measuring 3.5 cm with an index of 1.7 cm/m2. Measurements Left Ventricular Outflow Tract Name Value Normal LVOT 2D LVOT Diameter 2.2 cm LVOT Area 3.8 cm2 LVOT Doppler LVOT Peak Velocity 1.4 m/s LVOT Peak Gradient 7 mmHg LVOT Mean Velocity 87.40 cm/s LVOT Mean Gradient 4 mmHg LVOT VTI 26.9 cm LVOT VTI/AV VTI Ratio 0.5 LVOT Stroke Volume 102 ml LVOT Stroke Volume Index 50 ml/m2 35-58 Pulmonic Valve Name Value Normal PV Doppler PV Peak Velocity 1.5 m/s PV Peak Gradient 8 mmHg PV Mean Gradient 4 mmHg PV Accel Time 74.00 ms Mitral Valve Name Value Normal MV Doppler MV Peak Gradient 2 mmHg MV Mean Gradient 1 mmHg MV DI (VTI) 0.77 MV PHT 47 ms MV Area (PHT) 4.68 cm2 4.00-5.00 MV Area (Cont Eq VTI) 4.96 cm2 MV Diastolic Function MV E Peak Velocity 0.6 m/sec MV A Peak Velocity 0.6 m/sec MV E/A 1.1 MV Decel Time (PW) 185 ms MV Annular TDI MV Septal s' Velocity 8 cm/s MV Septal e' Velocity 6 cm/s >=8 MV Septal a' Velocity 11 cm/s MV E/e' (Septal) 10 <=8 MV A/a' (Septal) 5 MV Lateral s' Velocity 7 cm/s MV Lateral e' Velocity 8 cm/s >=10 MV Lateral a' Velocity 9 cm/s MV E/e' (Lateral) 8 <=8 MV A/a' (Lateral) 6 MV e' Average 7 cm/s MV E/e' (Average) 9 Tricuspid Valve Name Value Normal TV Regurgitation Doppler TR Peak Velocity 2.6 m/s TR Peak Gradient 27 mmHg Estimated PAP/RSVP RA Pressure 3 mmHg <=5 PA Systolic Pressure 30 mmHg <35 RV Systolic Pressure 30 mmHg <36 TV Annular TDI TV Lateral Alivia s' Velocity 18 cm/s 10-19 Aorta Name Value Normal Ascending Aorta Sinus of Valsalva Diameter 3.6 cm 2.8-4.0 Sinus of Valsalva Index 1.8 cm/m2 1.3-2.1 Ao Sinotub Junction Diameter 3.0 cm 2.6-3.2 Asc Ao Diameter 3.5 cm 2.2-3.8 Asc Ao Diameter Index 1.7 cm/m2 1.1-1.9 Aortic Valve Name Value Normal AV Doppler AV Peak Velocity 3.24 m/s AV Peak Gradient 40 mmHg AV Mean Gradient 21 mmHg AV VTI 57 cm AV Area (Cont Eq VTI) 1.78 cm2 >=2.00 AV Area (Cont Eq Brown) 1.60 cm2 AV DI (VTI) 0.47 AV DI (Brown) 0.42 AV Regurgitation 2D LVOT Area 3.80 cm2 AV Regurgitation Doppler AR Decel Time 451 ms AR PHT 131 ms Ventricles Name Value Normal LV Dimensions 2D/MM IVS Diastolic Thickness (2D) 1.2 cm 0.6-1.0 LVID Diastole (2D) 5.7 cm 4.2-5.8 LVPW Diastolic Thickness (2D) 1.2 cm 0.6-1.0 LVID Systole (2D) 4.3 cm 2.5-4.0 LVPW Systolic Thickness (2D) 1.9 cm LV Mass (2D Cubed) 282 g 88-224 LV Mass Index (2D Cubed) 139 g/m2 49-115 Relative Wall Thickness (2D) 0.41 <=0.42 LV Fractional Shortening/Ejection Fraction 2D/MM LV Fractional Shortening (2D) 25 % 25-43 LV EF (2D Teichgerirz) 49 % 52-72 LV Diastolic Volume (4C MOD) 254 ml LV EF (4C MOD) 56 % LV Diastolic Volume (2C MOD) 218 ml LV EF (2C MOD) 42 % LV Diastolic Volume (BP MOD) 244 ml 62-150 LV Diastolic Volume Index (BP MOD) 121 ml/m2 34-74 LV Systolic Volume (BP MOD) 126 ml 21-61 LV Systolic Volume Index (BP MOD) 62 ml/m2 11-31 LV EF (BP MOD) 48 % 52-72 LV Diastolic Length (4C) 8.9 cm LV Systolic Length (4C) 7.9 cm LV Stroke Volume (4C MOD) 141 ml LV Global Longitudinal Strain -10 % RV Dimensions 2D/MM RV Basal Diastolic Dimension 3.4 cm 2.5-4.1 RV Mid-Cavity Diastolic Dimension 2.8 cm 1.9-3.5 RV Diastolic Length (4C) 8.7 cm 5.9-8.3 TAPSE 2.2 cm >=1.7 Atria Name Value Normal LA Dimensions LA Dimension (2D) 3.8 cm 3.0-4.1 LA Dimen Index (2D) 1.9 cm/m2 LA Volume (BP MOD) 50 ml LA Volume Index (BP MOD) 24 ml/m2 16-34 RA Dimensions RA Diastolic Major [place] Length (4C) 5.3 cm RA Area (4C) 17 cm2 <=18 RA Area (4C) Index 8 cm2/m2 RA ESV (4C MOD) 43 ml 18-32 RA ESV Index (4C MOD) 21 ml/m2 16-34 Report Signatures Finalized by Cara Amador on 01/22/2025 01:25 PM Reviewed by Fellow Iam Resendez on 01/22/2025 10:31 AM Procedure Note Cara Amador MD - 01/22/2025 Summary * The left ventricle is dilated, with mildly reduced systolic functionand an estimated ejection fraction of 48 % by biplane method of disks. Left ventricular wall motion is abnormal. * The apical septal wall, apical lateral wall, apical inferior wall,and apical cap are hypokinetic. * The left ventricular diastolic function is consistent with grade II diastolic dysfunction. * Right ventricle is normal in size with normal systolic function. * The aortic valve is probably trileaflet. The right coronary cuspsis severe thickened and calcified and restricted in motion. * There is mild aortic valve stenosis with a peak velocity of 3.2 m/s,mean gradient of 21 mmHg, and aortic valve area of 1.78 cm2. * There is likely moderate aortic valve regurgitation that iseccentric directed posteriorly. * Agitated saline contrast study at rest and with Valsalva is negativefor a shunt. * The pulmonary artery systolic pressure is normal, 30 mmHg. Patient Info Name: Mino Young Age: 59 years : 1965 Gender: Male Ht: 70 in Wt: 181 lb BSA: 2.02 m2 HR: 79 bpm BP: 151 / 76 mmHg Heart Rhythm: Sinus Rhythm Exam Date: 01/22/2025 8:50 AM Patient Status: I/P Study Site: [facility] Primary Location: [facility] EStudy Info Technical Quality: Adequate Exam Type: ECHO COMPLETE W CONTRAST W BUBBLE STUDY Indications H53.9 - Vision changes Procedure(s) * A complete 2D, color Doppler, spectral Doppler and M-Modetransthoracic echocardiogram was performed with an Ultrasound Enhancing Agent (UEA), a Bubble Study and Strain. Contrast/Agitated Saline Contrast / Saline: Definity Amount: 0.50 ml Reaction to Contrast: no Contrast / Saline: Agitated Saline Amount: 20.00 ml Reaction to Contrast: no Staff Referring Physician: Jeff Mcguire Ordering Provider: Jeff Mcguire Attending Physician: Jeff Mcguire Fellow: Iam Resendez Customer Service Agent: Jeison Pennington Left Ventricle Left ventricular systolic function is mildly reduced with an estimated ejection fraction of 48 % by biplane method of disks. The left ventricleis dilated. Left ventricular segmental wall motion is abnormal. All otherwalls appear normal. The left ventricular diastolic function is consistentwith grade II diastolic dysfunction. The apical septal wall, apical lateralwall, apical inferior wall, and apical cap are hypokinetic. Right Ventricle The right ventricle is normal in size. Right ventricular systolicfunction is normal. Left Atrium The left atrium is normal in size with a left atrial volume index of24 ml/m2 by BP MOD. Right Atrium The right atrium is normal in size. Atrial Septum Intact interatrial septum visualized by 2D and color Doppler imaging. Agitated saline contrast study at rest and with Valsalva is negative fora shunt. Aortic Valve The aortic valve is probably trileaflet. The right coronary cusps issevere thickened and calcified and restricted in motion. There is mild aorticvalve stenosis with a peak velocity of 3.2 m/s, mean gradient of 21 mmHg, andaortic valve area of 1.78 cm2. There is likely moderate aortic valveregurgitation that is eccentric directed posteriorly. The aortic regurgitation iseccentric directed posteriorly. Pulmonic Valve The pulmonic valve is not well visualized. There is no pulmonic valve stenosis. There is no pulmonic regurgitation. Mitral Valve The mitral valve is normal. There is no mitral valve stenosis. There isno mitral valve regurgitation. Tricuspid Valve The tricuspid valve is normal. There is trace tricuspid valveregurgitation. The pulmonary artery systolic pressure is normal, 30 mmHg. Inferior Vena Cava The inferior vena cava is normal in size (< 2.1 cm). There is > 50%collapse of the IVC upon inspiration with an estimated right atrial pressure of 3mmHg. Pericardium/Pleural There is no pericardial effusion. Aorta The aortic root at the sinus of Valsalva is normal in size measuring 3.6cm with an index of 1.8 cm/m2. The ascending aorta is normal in sizemeasuring 3.5 cm with an index of 1.7 cm/m2. Measurements Left Ventricular Outflow Tract Name Value Normal LVOT 2D LVOT Diameter 2.2 cm LVOT Area 3.8 cm2 LVOT Doppler LVOT Peak Velocity 1.4 m/s LVOT Peak Gradient 7 mmHg LVOT Mean Velocity 87.40 cm/s LVOT Mean Gradient 4 mmHg LVOT VTI 26.9 cm LVOT VTI/AV VTI Ratio 0.5 LVOT Stroke Volume 102 ml LVOT Stroke Volume Index 50 ml/m2 35-58 Pulmonic Valve Name Value Normal PV Doppler PV Peak Velocity 1.5 m/s PV Peak Gradient 8 mmHg PV Mean Gradient 4 mmHg PV Accel Time 74.00 ms Mitral Valve Name Value Normal MV Doppler MV Peak Gradient 2 mmHg MV Mean Gradient 1 mmHg MV DI (VTI) 0.77 MV PHT 47 ms MV Area (PHT) 4.68 cm2 4.00-5.00 MV Area (Cont Eq VTI) 4.96 cm2 MV Diastolic Function MV E Peak Velocity 0.6 m/sec MV A Peak Velocity 0.6 m/sec MV E/A 1.1 MV Decel Time (PW) 185 ms MV Annular TDI MV Septal s' Velocity 8 cm/s MV Septal e' Velocity 6 cm/s >=8 MV Septal a' Velocity 11 cm/s MV E/e' (Septal) 10 <=8 MV A/a' (Septal) 5 MV Lateral s' Velocity 7 cm/s MV Lateral e' Velocity 8 cm/s >=10 MV Lateral a' Velocity 9 cm/s MV E/e' (Lateral) 8 <=8 MV A/a' (Lateral) 6 MV e' Average 7 cm/s MV E/e' (Average) 9 Tricuspid Valve Name Value Normal TV Regurgitation Doppler TR Peak Velocity 2.6 m/s TR Peak Gradient 27 mmHg Estimated PAP/RSVP RA Pressure 3 mmHg <=5 PA Systolic Pressure 30 mmHg <35 RV Systolic Pressure 30 mmHg <36 TV Annular TDI TV Lateral Alivia s' Velocity 18 cm/s 10-19 Aorta Name Value Normal Ascending Aorta Sinus of Valsalva Diameter 3.6 cm 2.8-4.0 Sinus of Valsalva Index 1.8 cm/m2 1.3-2.1 Ao Sinotub Junction Diameter 3.0 cm 2.6-3.2 Asc Ao Diameter 3.5 cm 2.2-3.8 Asc Ao Diameter Index 1.7 cm/m2 1.1-1.9 Aortic Valve Name Value Normal AV Doppler AV Peak Velocity 3.24 m/s AV Peak Gradient 40 mmHg AV Mean Gradient 21 mmHg AV VTI 57 cm AV Area (Cont Eq VTI) 1.78 cm2 >=2.00 AV Area (Cont Eq Brown) 1.60 cm2 AV DI (VTI) 0.47 AV DI (Brown) 0.42 AV Regurgitation 2D LVOT Area 3.80 cm2 AV Regurgitation Doppler AR Decel Time 451 ms AR PHT 131 ms Ventricles Name Value Normal LV Dimensions 2D/MM IVS Diastolic Thickness (2D) 1.2 cm 0.6-1.0 LVID Diastole (2D) 5.7 cm 4.2-5.8 LVPW Diastolic Thickness (2D) 1.2 cm 0.6-1.0 LVID Systole (2D) 4.3 cm 2.5-4.0 LVPW Systolic Thickness (2D) 1.9 cm LV Mass (2D Cubed) 282 g 88-224 LV Mass Index (2D Cubed) 139 g/m2 49-115 Relative Wall Thickness (2D) 0.41 <=0.42 LV Fractional Shortening/Ejection Fraction 2D/MM LV Fractional Shortening (2D) 25 % 25-43 LV EF (2D Teicholz) 49 % 52-72 LV Diastolic Volume (4C MOD) 254 ml LV EF (4C MOD) 56 % LV Diastolic Volume (2C MOD) 218 ml LV EF (2C MOD) 42 % LV Diastolic Volume (BP MOD) 244 ml 62-150 LV Diastolic Volume Index (BP MOD) 121 ml/m2 34-74 LV Systolic Volume (BP MOD) 126 ml 21-61 LV Systolic Volume Index (BP MOD) 62 ml/m2 11-31 LV EF (BP MOD) 48 % 52-72 LV Diastolic Length (4C) 8.9 cm LV Systolic Length (4C) 7.9 cm LV Stroke Volume (4C MOD) 141 ml LV Global Longitudinal Strain -10 % RV Dimensions 2D/MM RV Basal Diastolic Dimension 3.4 cm 2.5-4.1 RV Mid-Cavity Diastolic Dimension 2.8 cm 1.9-3.5 RV Diastolic Length (4C) 8.7 cm 5.9-8.3 TAPSE 2.2 cm >=1.7 Atria Name Value Normal LA Dimensions LA Dimension (2D) 3.8 cm 3.0-4.1 LA Dimen Index (2D) 1.9 cm/m2 LA Volume (BP MOD) 50 ml LA Volume Index (BP MOD) 24 ml/m2 16-34 RA Dimensions RA Diastolic [place] Length (4C) 5.3 cm RA Area (4C) 17 cm2 <=18 RA Area (4C) Index 8 cm2/m2 RA ESV (4C MOD) 43 ml 18-32 RA ESV Index (4C MOD) 21 ml/m2 16-34 Report Signatures Finalized by Cara Amador on 01/22/2025 01:25 PM Reviewed by Fellow Iam Resendez on 01/22/2025 10:31 AM Jeff Mcguire MD ECHO CUPID Final Result * (ABNORMAL) TROPONIN-I HIGH SENSITIVE REFLEX 1HOUR (01/21/2025 2:08 PM CDT) Only the most recent of3 resultswithin the time period is included. Pathologist [facility] Troponin I High Sensitive 3,447(HH) <=35 ng/L 01/21/2025 4:26 PM CDT [facility] Delta Troponin I HS 01/21/2025 4:26 PM CDT [facility] Comment:Delta value intentio delilah not calculated. Baseline to 1 hour specimen collection interval exceeded. Blood BLOOD SPECIMEN / Unknown Venipuncture / Unknown 01/21/2025 2:08 PM CDT 01/21/2025 2:16 PM CDT Jeff Mcguire MD LAB - CHEMISTRY ORDERABLES Fi nal Result [address] [address], [facility] [phone] * (ABNORMAL) TROPONIN-I HIGH SENSITIVE BASELINE + 1HR (01/21/2025 12:26 PM CDT) Only the most recent of3 resultswithin the time period is included. Troponin I High Sensitive 4,441(HH) <=35 ng/L 01/21/2025 2:30 PM CDT [facility] Blood BLOOD SPECIMEN / Unknown Venipuncture / Unknown 01/21/2025 12:26 PM CDT 01/21/2025 12:30 PM CDT us Jeff Mcguire MD LAB - CHEMISTRY ORDERABLES Fi nal Result [id number] [place] [address], [facility] [phone] * CT Chest Wwo Contrast (01/21/2025 10:13 AM CDT) Anatomical Region Laterality Modality Chest Computed Tomogra phy 01/21/2025 10:2 9 AM CDT Impressions 01/21/2025 11:22 AM CDT Impression: 1.Nonocclusive pulmonary emboli in the right lower lobe and right upper lobe segmental and subsegmental branches. No evidence of right heart strain. 2.Anterior splenic infarct. 3.Hypoenhancement of the left ventricular apex. Given the patient's elevated troponin, findings are concerning for a myocardial infarction. 4.Partial visualization of a small area of hypoattenuation in the anterior left kidney which is nonspecific. This may represent a partially visualized cyst. Given additional areas of infarction, a small area of renal infarction cannot be excluded. Findings discussed with Dr. Mcguire by Dr. Nas Singh at 01/21/2025 10:52 AM with read back comprehension and verification. > Dictated by Nas Singh MD (resident manager). > Dictated by Nas Singh 01/21/2025 10:29 AM > Dictated by Sales Data Analyst I, Luisana Hale have personally reviewed and interpreted this examination/study. > Interpreting Provider: Luisana Hale on 01/21/2025 11:22 AM Narrative 01/21/2025 11:22 AM CDT PROCEDURE: CT CHEST WWO CONTRAST, DATE/TIME OF EXAM: 01/21/2025 10:13 AM, LOCATION [facility] INDICATION: H53.9: Vision changes Z86.73: History of ischemic stroke in prior three months ADDITIONAL CLINICAL INFORMATION: Ordering Provider Reason For Exam: pulmonary nodule on CTA, hypercoaguable state Technologist Note: Additional: COMPARISON: None. TECHNIQUE: CT of the chest was performed without and following the uneventful administration of 100 mL of Isovue 370 intravenous contrast according to standard protocol. Findings: Lower Neck and Axillae: Normal. Lungs: No pulmonary parenchymal or airway process is present. No suspicious pulmonary nodules are identified. No pleural fluid or pneumothorax is present. Heart and Pericardium: There is coronary artery atherosclerosis. There is hypoenhancement of the left ventricular apex (series 4 image 75). Mediastinum and Latoya: No enlarged lymph nodes are present. There are calcified mediastinal lymph nodes. Thoracic Vasculature: Nonocclusive pulmonary emboli in the right lower lobe segmental and subsegmental branches (series 4 image 69 and 75). Nonocclusive thrombi in the right upper lobe segmental and subsegmental branches (series 10 image 50, series 4 image 70 and 50). There is no evidence of right heart strain. There is atherosclerosis of the thoracic aorta. Bones and Chest Wall: Bone windows demonstrate no suspicious lytic or blastic lesions. The visible osseous structures are intact. Degenerative changes are seen in the spine. Upper Abdomen: Wedge-shaped area of hypoattenuation in the anterior spleen concerning for a splenic infarct (series 4 image 99). There is a dilated common bile duct measuring up to 1.3 cm with a small decompressed gallbladder. The pancreatic duct is normal in caliber. There is a nonspecific 5 mm hyperenhancing observation in the left hemiliver which may represent a flash filling hemangioma (series 10 image 34). There is a small amount of contrast in the renal collecting system. Partial visualization of a small area of hypoattenuation in the anterior left kidney which is nonspecific. Procedure Note Luisana Vázquez MD - 01/21/2025 PROCEDURE: CT CHEST WWO CONTRAST, DATE/TIME OF EXAM: 01/21/2025 10:13AM, LOCATION [facility] INDICATION: H53.9: Vision changes Z86.73: History of ischemic stroke in prior three months ADDITIONAL CLINICAL INFORMATION: Ordering Provider Reason For Exam: pulmonary nodule on CTA,hypercoaguable state Technologist Note: Additional: COMPARISON: None. TECHNIQUE: CT of the chest was performed without and following the uneventful administration of 100 mL of Isovue 370 intravenous contrast according to standard protocol. Findings: Lower Neck and Axillae: Normal. Lungs: No pulmonary parenchymal or airway process is present. No suspicious pulmonary nodules are identified. No pleural fluid or pneumothorax is present. Heart and Pericardium: There is coronary artery atherosclerosis. There is hypoenhancement ofthe left ventricular apex (series 4 image 75). Mediastinum and Latoya: No enlarged lymph nodes are present. There are calcified mediastinallymph nodes. Thoracic Vasculature: Nonocclusive pulmonary emboli in the right lower lobe segmental and subsegmental branches (series 4 image 69 and 75). Nonocclusive thrombiin the right upper lobe segmental and subsegmental branches (series 10image 50, series 4 image 70 and 50). There is no evidence of right heartstrain. There is atherosclerosis of the thoracic aorta. Bones and Chest Wall: Bone windows demonstrate no suspicious lytic or blastic lesions. The visible osseous structures are intact. Degenerative changes are seen inthe spine. Upper Abdomen: Wedge-shaped area of hypoattenuation in the anterior spleen concerningfor a splenic infarct (series 4 image 99). There is a dilated common bileduct measuring up to 1.3 cm with a small decompressed gallbladder. The pancreatic duct is normal in caliber. There is a nonspecific 5 mm hyperenhancing observation in the left hemiliver which may represent a flash filling hemangioma (series 10 image 34). There is a small amount of contrast in the renal collecting system.Partial visualization of a small area of hypoattenuation in the anterior left kidney which is nonspecific. Impression: 1.Nonocclusive pulmonary emboli in the right lower lobe and right upper lobe segmental and subsegmental branches. No evidence of right heart strain. 2.Anterior splenic infarct. 3.Hypoenhancement of the left ventricular apex. Given the patient's elevated troponin, findings are concerning for a myocardial infarction. 4.Partial visualization of a small area of hypoattenuation in theanterior left kidney which is nonspecific. This may represent a partiallyvisualized cyst. Given additional areas of infarction, a small area of renal infarction cannot be excluded. Findings discussed with Dr. Mcguire by Dr. Nas Singh at 01/21/2025 10:52 AM with read back comprehension and verification. > Dictated by Nas Singh MD (resident manager). > Dictated by Nas Singh 01/21/2025 10:29 AM > Dictated by Sales Data Analyst I, Luisana Hale have personally reviewed and interpreted this examination/study. > Interpreting Provider: Luisana Hale on 01/21/2025 11:22 AM us Jeff Mcguire MD CT ORDERABLES Final Result * (ABNORMAL) COMPREHENSIVE METABOLIC PANEL (01/21/2025 7:55 AM [facility]) BUN 11 7 - 26 mg/dL 01/21/2025 9:25 AM [facility] Creatinine 0.76 0.71 - 1.16 mg/dL 01/21/2025 9:25 AM [facility] Sodium 135(L) 136 - 145 mmol/L 01/21/2025 9:25 AM [facility] Potassium 3.6 3.5 - 4.5 mmol/L 01/21/2025 9:25 AM [facility] Chloride 101 98 - 107 mmol/L 01/21/2025 9:25 AM [facility] CO2 23 22 - 29 mmol/L 01/21/2025 9:25 AM [facility] Glucose 88 70 - 99 mg/dL 01/21/2025 9:25 AM [facility] Calcium 9.0 8.4 - 10.2 mg/dL 01/21/2025 9:25 AM [facility] Protein Total 6.8 6.0 - 8.3 g/dL 01/21/2025 9:25 AM [facility] Albumin 3.5 3.4 - 5.0 g/dL 01/21/2025 9:25 AM [facility] Bilirubin Total 1.4(H) 0.2 - 1.2 mg/dL 01/21/2025 9:25 AM [facility] Alkaline Phosphatase 125 40 - 150 U/L 01/21/2025 9:25 AM [facility] ALT 141(H) 5 - 55 U/L 01/21/2025 9:25 AM [facility] AST 92(H) 5 - 34 U/L 01/21/2025 9:25 AM [facility] Anion Gap 11 6 - 16 01/21/2025 9:25 AM [facility] BUN/Creatinine Ratio 14 7 - 23 01/21/2025 9:25 AM [facility] Osmolality Calculated 279 275 - 295 mOsm/kg 01/21/2025 9:25 AM CDT [facility] Albumin/Globulin Ratio 1.1 1.1 - 2.3 01/21/2025 9:25 AM T [facility] eGFR by CKD-EPI >90 >=90 mL/min/1.7 3 m2 01/21/2025 9:25 AM [facility] Comment:Estimated Glomerular Filtration Rate (eGFR) calculated using the CKD-EPI Creatinine Equation (2020), per the National Kidney Foundation and [place] [employer]ph[employer] recommendations. Blood BLOOD SPECIMEN / Unknown Venipuncture / Unknown 01/21/2025 7:55 AM CDT 01/21/2025 7:59 AM CDT Jeff Mcguire MD LAB - CHEMISTRY ORDERABLES Fi nal Result [facility] [address] [place] [address], [facility] [phone] * ALCOHOL ETHYL BLOOD (01/21/2025 7:55 AM CDT) Ethanol (mg/dL) <10 <10 mg/dL 9:20 AM [facility] Ethanol Calculated (g/dL) <0.010 <=0.010 g/dL 01/21/2025 9:20 AM T [facility] Blood BLOOD SPECIMEN / Unknown Venipuncture / Unknown 01/21/2025 7:55 AM CDT 01/21/2025 7:59 AM CDT Narrative [facility] - 01/21/2025 9:20 AM CDT Ethanol Interp <10: None Detected. Depression of DIRECTOR OF ALUMNI RELATIONS: >100 mg/dl Potentially Critical: >250 mg/dl Potentially Fatal >400 mg/dl Ethanol in the patient's blood will contribute to the osmolar gap. Ethanol's contribution to the osmolar gap can be estimated by dividing the concentration of ethanol in mg/dL by 4.6. This test is for clinical use only and does not equal a DEMARIO for legal purposes. us Jeff Mcguire MD LAB - CHEMISTRY ORDERABLES Fi nal Result [address] [address], [facility] [phone] * ISTAT CREATININE (01/21/2025 7:29 AM CDT) Creatinine POCT 0.90 0.60 - 1.30 mg/dL 01/21/2025 7:[address] [facility] eGFR by CKD-EPI >90 >90 mL/min/1.7 3 m2 01/21/2025 7:30 AM CDT [facility] Sample iSTAT MOISÉS 01/21/2025 7:30 AM CDT [facility] Blood BLOOD SPECIMEN / Unknown 01/21/2025 7:29 AM CDT 01/21/2025 7:30 AM CDT us Jeff Mcguire MD LAB - POINT OF CARE ORDERABLE S Final Result Performing Organization Address City/Va Hospital/ZIP Co de Phone Number [address] [address], [facility] [phone] * (ABNORMAL) INR WHOLE BLOOD - POINT OF CARE (IP) STROKE (01/21/2025 7:27 AM CDT) INR 1.6(H) 0.9 - 1.2 01/21/2025 7:30 AM CDT [facility] Device [id number] 01/21/2025 7:30 AM CDT [facility] Powder Worker ID [id number] 01/21/2025 7:30 AM CDT [facility] Blood BLOOD SPECIMEN / Unknown 01/21/2025 7:27 AM CDT 01/21/2025 7:30 AM CDT us Jeff Mcguire MD LAB - POINT OF CARE ORDERABLE S Final Result [address] [address], [facility] [phone] * CT BRAIN - Stroke (01/21/2025 7:21 AM CDT) Anatomical Region Laterality Modality Head Computed Tomogra phy 01/21/2025 12:1 6 PM CDT Impressions 01/21/2025 12:40 PM CDT IMPRESSION: 1.Findings concerning for evolving acute right FARM 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 2.Additional age-indeterminate and chronic findings as detailed above. 3.No midline shift. 4.MRI of the brain is recommended for further evaluation. The preliminary findings were communicated with the primary team by [place] [facility] The final results of this exam were discussed with Dr. Larisa Pulido on 01/21/2025 at 12:17 PM, was read back comprehension and verification. > Interpreting Provider: Deon Pulido MD on 01/21/2025 12:40 PM Narrative 01/21/2025 12:40 PM CDT PROCEDURE: CT BRAIN STROKE, DATE/TIME OF EXAM: 01/21/2025 7:27 AM, LOCATION [facility] INDICATION: H53.9: Vision changes EXAMINATION: Computed tomography (CT) of the head without contrast ADDITIONAL CLINICAL INFORMATION: Ordering Provider Reason For Exam: Vision change Technologist Note: None. Additional: None. TECHNIQUE: CT of the head was performed without contrast according to standard protocol. CT dose reduction technique was used, including Automated Exposure Control. COMPARISON: No prior study is available for comparison at the time of this dictation. FINDINGS: No acute intra- or extra-axial fluid collections are identified. There is mild cerebral volume loss with associated ex vacuo ventricular dilatation. The basilar cisterns are patent. Mild local mass effect in the right occipital lobe due to the presence of cytotoxic edema. There is no significant midline shift is seen. Loss of the lazaro-white matter differentiation and hypoattenuation are identified in the right occipital lobe, concerning for evolving acute right F[employer] 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 Additional area of perhaps more chronic infarction is also noted in the posterior lateral right occipital lobe. 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 Additional infarcts are not excluded. Periventricular white matter hypoattenuation is indicative of chronic small vessel ischemic disease. There is vascular calcification of the carotid siphons. No acute calvarial fracture is identified. Slight elongation of the right more than left orbits which could represent mild staphyloma. The orbits appear otherwise grossly unremarkable. There is mild paranasal sinus disease. There is chronic deformity of the. There are meera bullosa of the middle turbinates. There is mild opacification of the left mastoid air cells and and mild opacification in the dependent right mastoid air cells. No soft tissue abnormality is identified. Procedure Note Deon Pulido MD - 01/21/2025 PROCEDURE: CT BRAIN STROKE, DATE/TIME OF EXAM: 01/21/2025 7:27 AM, LOCATION [facility] INDICATION: H53.9: Vision changes EXAMINATION: Computed tomography (CT) of the head without contrast ADDITIONAL CLINICAL INFORMATION: Ordering Provider Reason For Exam: Vision change Technologist Note: None. Additional: None. TECHNIQUE: CT of the head was performed without contrast according to standard protocol. CT dose reduction technique was used, including Automated Exposure Control. COMPARISON: No prior study is available for comparison at the time ofthis dictation. FINDINGS: No acute intra- or extra-axial fluid collections are identified. Thereis mild cerebral volume loss with associated ex vacuo ventriculardilatation. The basilar cisterns are patent. Mild local mass effect in the right occipital lobe due to the presence of cytotoxic edema. There is no significant midline shift is seen. Loss of the lazaro-white matter differentiation and hypoattenuation are identified in the rightoccipital lobe, concerning for evolving acute right F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 Additional area of perhaps more chronic infarction is also noted in the posterior lateral right occipital lobe. 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 Additional infarcts are not excluded. Periventricular white matter hypoattenuation is indicative of chronic small vessel ischemic disease. There is vascular calcificationof the carotid siphons. No acute calvarial fracture is identified. Slight elongation of the right more than left orbits which could represent mild staphyloma. The orbits appear otherwise grossly unremarkable. There ismild paranasal sinus disease. There is chronic deformity of the. There are meera bullosa of the middle turbinates. There is mild opacification ofthe left mastoid air cells and and mild opacification in the dependent right mastoid air cells. No soft tissue abnormality is identified. IMPRESSION: 1.Findings concerning for evolving acute right FARM 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 2.Additional age-indeterminate and chronic findings as detailed above. 3.No midline shift. 4.MRI of the brain is recommended for further evaluation. The preliminary findings were communicated with the primary team by [place] [facility] The final results of this exam were discussed with Dr. Larisa Cazares on 01/21/2025 at 12:17 PM, was read back comprehension and verification. > Interpreting Provider: Deon Pulido MD on 01/21/2025 12:40PM us Jeff Mcguire MD CT ORDERABLES Final Result * CT ANGIO BRAIN NECK STROKE (01/21/2025 7:21 AM CDT) Anatomical Region Laterality Modality Head Computed Tomogra phy 01/21/2025 8:00 AM CDT Impressions 01/21/2025 1:41 PM CDT IMPRESSION: 1.Atherosclerotic disease of the extracranial and intracranial arterial vessels as outlined above. 2.There is approximately 60-70% occlusion at the left carotid bifurcation secondary to calcific and soft plaque. 3.Limited visualization of the distal segments of the posterior cerebral arteries; distal occlusion cannot be excluded. 4.MRI of the brain/MRA of the head the neck is recommended for further evaluation. 5.There is a 3 mm nodule noted in the right upper lobe. Follow-up CT can be performed in one year. > Dictated by Eric Dias MD (resident manager) > Dictated by Eric Dias MD 01/21/2025 8:00 AM Results of this exam were communicated with closed loop confirmation to Larisa Pulido on 01/21/2025 1:30 PM PM, with read back comprehension and verification. > Dictated by Sales Data Analyst I, Deon Pulido MD have personally reviewed and interpreted this examination/study. > Interpreting Provider: Deon Pulido MD on 01/21/2025 1:41 PM Narrative 01/21/2025 1:41 PM CDT PROCEDURE: CT ANGIO BRAIN NECK STROKE, DATE/TIME OF EXAM: 01/21/2025 7:48 AM, LOCATION [facility] INDICATION: H53.9: Vision changes COMPARISON: None. TECHNIQUE: CT of the head was performed without contrast according to standard protocol. Then CT angiography of the head and neck was obtained after the uneventful administration of 75 mL Isovue-370 intravenous contrast. Three dimensional postprocessing was performed by the technologist and sent to the workstation for review. FINDINGS: Non-angiographic findings: Please refer to noncontrast CT head for non-angiographic findings of the head. Multilevel degenerative changes are noted in the visualized cervical spine. Mild spinal canal stenosis noted at C6-C7. Multilevel facet arthropathy and neural foraminal stenosis is noted. A 3 mm nodule is noted in the right upper lobe (series 7, image 10). Dependent subsegmental atelectatic changes are noted in the visualized lung apices. Angiographic findings: There is atherosclerotic disease of the aortic arch. The configuration of the brachiocephalic vessels is typical. There is atherosclerotic calcification of the innominate and subclavian arteries. There is atherosclerotic disease of the right carotid bifurcation and origin of the right internal carotid artery with less than 50 percent focal stenosis by NASCET criteria. Soft and there are minimal calcified plaques are noted. The right common and internal carotid arteries otherwise appear normal. There is atherosclerotic disease of the left carotid bifurcation and origin of the left internal carotid artery with less than 60-70 percent focal stenosis by NASCET criteria. The left common and internal carotid arteries otherwise appear normal. There are extensive soft and mild calcified plaques at the left carotid bifurcation. There is atherosclerotic disease involving the cervical vertebral arteries without significant focal stenosis. There is atherosclerotic disease involving the distal internal carotid arteries without significant focal stenosis. The anterior and middle cerebral arteries appear normal. The distal vertebral arteries appear normal. The basilar artery is patent. There is origin of the right FARM MACHINERY MECHANIC. The proximal segments of the posterior cerebral arteries can't be visualized however, there is limited visualization of the distal segments, unclear whether there is occlusion. Otherwise, no aneurysms, vascular occlusions, or hemodynamically significant intracranial stenoses are identified. Procedure Note Deon Pulido MD - 01/21/2025 PROCEDURE: CT ANGIO BRAIN NECK STROKE, DATE/TIME OF EXAM: :48 AM, LOCATION [facility] INDICATION: H53.9: Vision changes COMPARISON: None. TECHNIQUE: CT of the head was performed without contrast according to standard protocol. Then CT angiography of the head and neck was obtained after the uneventful administration of 75 mL Isovue-370 intravenous contrast. Three dimensional postprocessing was performed by the technologist and sent to the workstation for review. FINDINGS: Non-angiographic findings: Please refer to noncontrast CT head for non-angiographic findings of the head. Multilevel degenerative changes are noted in the visualizedcervical spine. Mild spinal canal stenosis noted at C6-C7. Multilevel facet arthropathy and neural foraminal stenosis is noted. A 3 mm nodule isnoted in the right upper lobe (series 7, image 10). Dependent subsegmental atelectatic changes are noted in the visualized lung apices. Angiographic findings: There is atherosclerotic disease of the aortic arch. The configurationof the brachiocephalic vessels is typical. There is atherosclerotic calcification of the innominate and subclavian arteries. There is atherosclerotic disease of the right carotid bifurcation and origin ofthe right internal carotid artery with less than 50 percent focal stenosisby NASCET criteria. Soft and there are minimal calcified plaques are noted. The right common and internal carotid arteries otherwise appear normal. There is atherosclerotic disease of the left carotid bifurcation andorigin of the left internal carotid artery with less than 60-70 percent focal stenosis by NASCET criteria. The left common and internal carotidarteries otherwise appear normal. There are extensive soft and mild calcified plaques at the left carotid bifurcation. There is atheroscleroticdisease involving the cervical vertebral arteries without significant focal stenosis. There is atherosclerotic disease involving the distal internal carotid arteries without significant focal stenosis. The anterior and middle cerebral arteries appear normal. The distal vertebral arteries appear normal. The basilar artery is patent. There is origin of the right FARM MACH[employer] MECHANIC. The proximal segments of the posterior cerebral arteries can't be visualized however, there is limited visualization of the distalsegments, unclear whether there is occlusion. Otherwise, no aneurysms, vascular occlusions, or hemodynamically significant intracranial stenoses are identified. IMPRESSION: 1.Atherosclerotic disease of the extracranial and intracranial arterial vessels as outlined above. 2.There is approximately 60-70% occlusion at the left carotidbifurcation secondary to calcific and soft plaque. 3.Limited visualization of the distal segments of the posterior cerebral arteries; distal occlusion cannot be excluded. 4.MRI of the brain/MRA of the head the neck is recommended for further evaluation. 5.There is a 3 mm nodule noted in the right upper lobe. Follow-up CT canbe performed in one year. > Dictated by Eric Dias MD (resident manager) > Dictated by Eric Dias MD 01/21/2025 8:00 AM Results of this exam were communicated with closed loop confirmation to [facility] Dr. Pulido on 01/21/2025 1:30 PM PM, with read backcomprehension and verification. > Dictated by Sales Data Analyst I, Deon Pulido MD have personally reviewed and interpretedthis examination/study. > Interpreting Provider: Deon Pulido MD on 01/21/2025 1:41 PM Jeff Mcguire MD CT ORDERABLES Final Result * CCL LOOP RECORDER IMPLANT (12/31/2024 4:23 PM CDT) Anatomical Region Laterality Modality X-Ray Angiograph y Narrative 01/03/2025 8:30 AM CDT Successful implantation of [employer] REVEAL LINQ loop recorder. Reason for Procedure [...] intercostal space lateral to the sternum. The [id number] introducer system was used to deploy the [...] 1609 Procedure Stop Time: 1634 Device Characteristics/Parameters [employer] Serial Number: [id number] Tachy setting: > 188 bpm Glynn setting: [...] sleep. Winsome Augustine MD Cardiovascular Diseases Fellow [facility] Attending Note: I was personally involved and supervised all critical portions of this procedure. us Ld Bo MD CV ELECTROPHYSIOLOGY CUPID PROCS Final Result * (ABNORMAL) CBC W/O DIFFERENTIAL (12/31/2024 5:28 AM CDT) Only the most recent of2 resultswithin the time period is included. WBC 9.7 4.0 - 10.7 x10E9/L 12/31/2024 6:[address] [facility] RBC Count 5.08 4.30 - 5.80 x10E12/L 12/31/2024 6:49 AM [facility] Hemoglobin 14.4 13.3 - 17.5 g/dL 12/31/2024 6:49 AM [facility] Hematocrit 43.7 38.7 - 51.1 % 12/31/2024 6:49 AM [facility] MCV 86.0 80.0 - 98.0 fL 12/31/2024 6:49 AM [facility] MCH 28.3 26.7 - 33.6 pg 12/31/2024 6:49 AM [facility] MCHC 33.0 31.7 - 36.3 g/dL 12/31/2024 6:49 AM [facility] RDW-CV 13.0 11.3 - 14.8 % 12/31/2024 6:49 AM [facility] Platelet Count 238 150 - 420 x10E9/L 12/31/2024 6:49 AM [facility] MPV 11.7(H) 7.8 - 11.4 fL 12/31/2024 6:49 AM [facility] Blood BLOOD SPECIMEN / Unknown Lab Venipuncture / Unknown 12/31/2024 5:28 AM CDT 12/31/2024 6:40 AM CDT us Ld Bo MD LAB - HEMATOLOGY ORDERABLES Final Result [facility] [address] [place] [address], [facility] [phone] * PHOSPHORUS BLOOD (12/31/2024 5:28 AM CDT) Only the most recent of2 resultswithin the time period is included. Phosphorus 2.8 2.8 - 5.1 mg/dL 12/31/2024 7:22 AM [facility] Blood BLOOD SPECIMEN / Unknown Lab Venipuncture / Unknown 12/31/2024 5:28 AM CDT 12/31/2024 6:40 AM CDT us Ld Bo MD LAB - CHEMISTRY ORDERABLES Final Result [address] [address], [place] [phone] * MAGNESIUM BLOOD (12/31/2024 5:28 AM CDT) Only the most recent of2 resultswithin the time period is included. Magnesium 2.3 1.6 - 2.6 mg/dL 12/31/2024 7:22 AM CDT [facility] Blood BLOOD SPECIMEN / Unknown Lab Venipuncture / Unknown 12/31/2024 5:28 AM CDT 12/31/2024 6:40 AM CDT us Ld Bo MD LAB - CHEMISTRY ORDERABLES Final Result Performing Organization Address City/Va Hospital/ZIP Co de Phone Number [address] [address], [place] [phone] * CARDIAC PROCEDURE ORDER (12/31/2024) Narrative 12/31/2024 Ordered by an unspecified provider. us Scanned Document CARDIAC SERVICES ORDERABLES Fin al Result * HEMOGLOBIN A1C (12/29/2024 2:37 PM CDT) Hemoglobin A1c 5.5 <=5.6 % 12/29/2024 5:41 PM CDT [facility] Estimated Average Glucose 111 mg/dL 12/29/2024 5:41 PM CDT [facility] Comment: HbA1c Interpretation: Normal : < 5.7% Pre-diabetes: 5.7-6.4% Diabetes: Equal to or greater than 6.5% Test results diagnostic of diabetes should be repeated for confirmation. Treatment target values recommended by ADA and other clinical organizations should be used to evaluate metabolic control in patients. Reference: [place] Diabetes Association, Standards of Care in Diabetes [...] MD LAB - CHEMISTRY ORDERABLES Final Result [facility] [address] [place] [address], [place] [phone] * (ABNORMAL) LIPID PROFILE (12/29/2024 2:37 PM CDT) Cholesterol Total 261(H) <200 mg/dL 12/29/2024 3:38 PM CDT [facility] HDL 30(L) >40 mg/dL 12/29/2024 3:38 PM CDT [facility] Comment: ATP III Classification of HDL Cholesterol: <40 mg/dL: Considered a major risk factor. >60 mg/dL: Considered a negative risk factor. LDL Calculated 166(H) <100 mg/dL 12/29/2024 3:38 PM CDT [facility] Comment: ATP III Classification of LDL Cholesterol: <100 mg/dL: Optimal 100 - 129 mg/dL: Near Optimal/Above Optimal 130 - 159 mg/dL: Borderline High 160 - 189 mg/dL: High >190 mg/dL: Very High LDL is calculated using the Friedewald equation. Triglycerides 325(H) <150 mg/dL 12/29/2024 3:38 PM CDT [facility] Comment: ATP III Classification of Triglycerides: <150 mg/dL: Normal 150 - 199 mg/dL: Borderline High 200 - 400 mg/dL: High >500 mg/dL: Very High Blood BLOOD SPECIMEN / Unknown Lab Venipuncture / Unknown 12/29/2024 2:37 PM CDT 12/29/2024 3:10 PM CDT us Ld Bo MD LAB - CHEMISTRY ORDERABLES Final Result [facility] [address] [place] [address], [place] [phone] from Last 3 Months Insurance MEDICAID [facility] Advance Directives * Full Code (Latest Code Status on File) Date Activated Date Inactivated Comments 01/23/2025 10:56 AM 01/24/2025 5:47 PM * LIMITED RESUSCITATION-PRIOR AND AFTER ARREST Date Activated Date Inactivated Comments 01/21/2025 4:24 PM 01/23/2025 10:56 AM Question Answer Comments Limited Resuscitation: No Chest Compress ionNo Intubation, No Invasive Ventilation * Full Code Date Activated Date Inactivated Comments 01/21/2025 7:44 AM 01/21/2025 4:24 PM * Full Code Date Activated Date Inactivated Comments 12/29/2024 2:05 PM 12/31/2024 6:35 PM Care Teams Irrigation Technician Relationship Specialty Start Date End Date Petar Luna MD [address] [place] [address] PCP - General Internal Medicine 01/28/25
--- OUTSIDE RECORDS SUMMARY | 2025-02-14 06:40 | XMS_ITS | Clinical Summary ---
Author Organization [facility] Care Team Providers Care Bit Setter Name Role Phone Unavailable Primary Care Provider [...]
--- OUTSIDE RECORDS SUMMARY | 2025-02-14 06:40 | XMS_ITS | Patient Health Record ---
Author Organization [facility] Address [address] [place] [address] Care Team Providers Care Computer Systems Technician Name Role Phone Petar Luna Primary Care Provider Allergies No Known Allergies Reason For Referral Reason [facility] vision therapy, Diagnosis 1 CVA (cerebral vascul ar accident) (I63.9) Referral Organization [facility] Referring Provider First Name Petar Referring Provider Last Name Cheryl Referring Provider Speciality Internal edicine Referred Provider Specialty Ophthalmolog y Referral Priority Routine Reason Eye therapy after [facility] Diagnosis 1 CVA (cerebral vascul ar accident) (I63.9) Referral Organization [facility] Referring Provider First Name Petar Referring Provider Last Name Cheryl Referring Provider Speciality Internal edicine Referred Provider Specialty Occupational Therapy General Notes Carlyn Victor RN 01/2025 12:49:19 PM >company is aware that the client is without insurance and they will see him. spoke with she is aware of referral Clinical Notes [facility] , [address] [facility] , , fax [phone] Referral Priority Routine Medications Medication SIG (Take, Route, Frequency, Duration) Notes Start Date End Date Status Metoprolol Succinate ER 25 MG 1 tablet Orally Once a day; Duration: 90 days Active Clopidogrel Bisulfate 75 MG 1 tablet Ora lly Once a day; Duration: 90 days Active Losartan Potassium 25 MG 1 tablet Orally Once a day; Duration: 90 days Active Spironolactone 25 MG 1 tablet Orally Onc e a day; Duration: 90 days Active Atorvastatin Calcium 80 MG 1 tablet Oral ly Once a day; Duration: 90 days Active Dabigatran Etexilate Mesylate 150 MG 1 capsule Orally Twice a day; Duration: 90 days Active Aspirin 81 81 MG 1 tablet Orally Once a day Active Social History Tobacco Use: Social History Observation Description Date Details (start date - stop date) Former Smoker NA - NA Tobacco Control (Standard) Question Answer Notes Tobacco use: Former smoker How long has it been since you last smoked? Less than 1 month Problems Problem Type SNOMED Code ICD Code Onset Dates Problem Status W/U Status Risk Notes Problem Hyperlipidemia (12659061) Hyperlipidemia (E78.5) Active confirmed Problem Coronary artery disease (64834597) Coronary artery disease (I25.10) Active confirmed Problem CVA - Cerebrovascular accident (836594646) CVA (cerebral vascular accident) (I63.9) Active confirmed Problem Overweight (969519849) Over weight (E66.3) Active confirmed Problem Congestive heart failure (55967451) Congestive heart failure (I50.9) Active confirmed Problem Atrial fibrillation (97179860) Atrial fibrillation (I48.91) Active confirmed Vital Signs Heart Rate 63 /min 02/04/2025 Temperature 97.9 degrees Fahrenheit 01/09/2025 Respiratory Rate 16 /min 02/04/2025 Oximetry 99 % 02/04/2025 Blood pressure diastolic 64 mm Hg 02/04/2025 Height 70 in 02/04/2025 Blood pressure systolic 114 mm Hg 02/04/2025 Weight 182 lbs 02/04/2025 BMI 26.11 kg/m2 02/04/2025 Encounters Encounter Location Date Provider Diagnosis [address] [place] [address] 01/09/2025 Petar Luna Atrial fibrillation I48.91 ; CVA (cerebral vascular accident) I63.9 ; Hyperlipidemia E78.5 ; Former smoker Z87.891 and Over weight E66.3 [facility] [address] [place] [address] 02/04/2025 Petar Luna Coronary artery dise ase I25.10 ; CVA (cerebral vascular accident) I63.9 ; Congestive heart failure I50.9 ; Over weight E66.3 ; Hyperlipidemia E78.5 and Former smoker Z87.[address] [facility] [place] [address] 01/11/2025 Petar Luna [facility] [address] 01/28/2025 Petar Luna [place] [address] [place] [address] 02/05/2025 Petar Luna CVA (cerebral vascul ar accident) I63.9 [facility] [address] [place] [address] 02/06/2025 Petar Luna [address] [place] [address] 02/13/2025 Petar Luna Assessments Encounter Date Diagnosis (ICD Code) Assessment Notes Treatment Notes Treatment Clinical Notes Section Notes 02/05/2025 CVA (cerebral vascular accident) (ICD-10 - I63.9) 01/09/2025 CVA (cerebral vascular accident) (ICD-10 - I63.9) 01/09/2025 Atrial fibrillation (ICD-10 - I48.91) 02/04/2025 Coronary artery disease (ICD-10 - I25.10) 02/04/2025 CVA (cerebral vascular accident) (ICD-10 - I63.9) 01/09/2025 Hyperlipidemia (ICD-10 - E78.5) 02/04/2025 Congestive heart failure (ICD-10 - I50.9) 02/04/2025 Over weight (ICD-10 - E66.3) 01/09/2025 Former smoker (ICD-10 - Z87.891) 01/09/2025 Over weight (ICD-10 - E66.3) 02/04/2025 Hyperlipidemia (ICD-10 - E78.5) 02/04/2025 Former smoker (ICD-10 - Z87.891) 01/09/2025 Other Continue current medication. Consider f/u lab in 3 months. Records requested. He defers health screening until he is insured. Plan Of Treatment No Information Medical (General) History Medical History History ICD Code heart attack stroke Hospitalization History Reason Date(Month/Year) Stroke [facility] 12/2024 Stroke 11/2024
--- NOTE | 2025-02-14 07:15 | PC.NURSE ---
Assumed care of pt from Ayah REYES. Pt resting quietly. No distress noted
--- NOTE | 2025-02-14 07:15 | ED.EXTPRO ---
HPI - Extremity Problem General Chief complaint: Extremity Problem,Nontraumatic Stated complaint: PENG, Carol leg pain Time Seen by Provider: 02/14/25 07:13 Source: patient Mode of arrival: ambulatory Limitations: no limitations History of Present Illness HPI Narrative: Right calf pain started 2 days ago, today noted that he cannot flex right foot because of pain at the calf muscle. Also complaining of intermittent headache. Patient dropped off to the ED He denies any fever, chills, nausea, vomiting, diarrhea constipation, chest pain, shortness of breath. History of hypertension and hyperlipidemia Related Data Home Medications ?Medication ?Instructions ?Recorded ?Confirmed ?Last Taken ?Type aspirin 81 mg tablet,delayed 81 mg PO DAILY 02/14/25 02/14/25 02/14/25 History release (Adult Aspirin Regimen) atorvastatin 80 mg tablet 80 mg PO QPM 02/14/25 02/14/25 02/14/25 History clopidogrel 75 mg tablet (Plavix) 75 mg PO DAILY 02/14/25 02/14/25 02/14/25 History dabigatran etexilate 150 mg 150 mg PO BID 02/14/25 02/14/25 02/14/25 History capsule (Pradaxa) losartan 25 mg tablet (Cozaar) 25 mg PO DAILY 02/14/25 02/14/25 02/14/25 History metoprolol succinate 25 mg capsule 25 mg PO DAILY 02/14/25 02/14/25 02/14/25 History sprinkle, ext. release 24 hr spironolactone 25 mg tablet 12.5 mg PO DAILY 02/14/25 02/14/25 02/14/25 History (Aldactone) Allergies Allergy/AdvReac Type Severity Reaction Status Date / Time No Known Allergies Allergy Mild Verified 02/14/25 06:38 [facility] Past Medical History Medical History (Updated 02/14/25 @ 09:24 by Ashok Ferreira MD) Headache Multiple cerebral infarctions Patient denies medical problems Social History Social History Smoking status: Heavy tobacco smoker Alcohol intake: current Drinks per week: 0 Substance use: never Lack of Transportation: No Lack of Food: Never True Current Housing: I Have Housing Concerned About Future Housing: No Difficulty Paying Gas/Electric Bills: No Difficulty Paying for Meds: No Currently Unemployed: No Education: High School Diploma/GED Difficulty w/ Childcare or Family Care: No Spiritual care concerns: No Exam Narrative: General appearance: Well-developed, well-nourished Skin: Normal color Head: Normocephalic, nontraumatic Eyes: Clear conjunctiva ENT: Oropharynx normal, ears normal, nose normal Neck: Supple, nontender Chest and respiratory: Airway patent, no respiratory distress, no accessory muscle use Heart: Regular rate/rhythm Abdomen: Soft, nontender, no organomegaly, quiet bowel sounds Vascular: Normal peripheral pulses, normal capillary refill. Musculoskeletal: severe tenderness, swelling of the right calf muscle. Neurologic: Alert and oriented ?3, COMMODITY BUYER is normal as tested, no gross motor deficit Course Consultations Consultation #1: DR. DE LA O, STROKE, [facility]. RECOMMENDS START PATIENT ON HEPARIN DRIP. Date: 02/14/25 Time: 09:21 Consultation #2: DR. SUAZO, CYTOGENETIC TECHNICIAN AT [facility], ACCEPTED PATIENT CONSULT FOR ELEVATED TROPONIN Date: 02/14/25 Time: 09:29 Vital Signs Vital signs: Vital Signs Temperature 36.8 C 02/14/25 06:42 Pulse Rate 94 02/14/25 06:42 Respiratory Rate 18 02/14/25 06:42 Blood Pressure 160/85 H 02/14/25 06:42 Pulse Oximetry 100 02/14/25 06:42 Oxygen Delivery Room Air 02/14/25 06:42 Temperature 36.8 C 02/14/25 06:42 Pulse Rate 93 02/14/25 17:34 Respiratory Rate 21 H 02/14/25 17:34 Blood Pressure 137/70 02/14/25 17:34 Pulse Oximetry 96 02/14/25 17:34 Oxygen Delivery Room Air 02/14/25 06:42 MDM - Extremity (Nontraumatic) Lab Data 02/14/25 07:00 02/14/25 07:00 Labs: Lab Results 02/14/25 02/14/25 02/14/25 Range/Units 07:00 12:16 16:19 WBC 12.2 H (4.5-10.0) K/mm3 RBC 4.22 L (4.6-6.20) M/mm3 Hgb 11.7 L (14.0-18.0) g/dL Hct 36.7 L (42.0-52.0) % MCV 87.0 (80-100) fl MCH 27.7 (26-34) pg MCHC 31.9 L (32-36) g/dl RDW 13.7 (11.5-14.5) % Plt Count 225 (150-375) k/mm3 MPV 11.6 H (7.4-10.4) fl Immature Gran % (Auto) 0.3 (0-0.5) % Neut % (Auto) 72.2 (45.5-73.1) % Lymph % (Auto) 18.5 (18.3-44.2) % [place] % (Auto) 6.8 (2.6-8.5) % Eos % (Auto) 1.8 (0-4.4) % Baso % (Auto) 0.4 (0.2-1.2) % Lymph # (Auto) 2.25 (0.9-3.2) K/mm3 [place] # (Auto) 0.8 H (0.1-0.6) K/mm3 Eos # (Auto) 0.2 (0-0.3) K/mm3 Baso # (Auto) 0.1 (0.0-0.1) K/mm3 Abs Immat Gran (auto) 0.04 H (0.00-0.031) K/mm3 Absolute Neuts (auto) 8.8 H (1.3-6.7) K/mm3 Absolute Nucleated RBC 0.000 (0.0-0.012) K/mm3 Nucleated RBC % 0.0 (0.0-0.2) % PT 19.4 H (11.1-14.7) Seconds INR 1.6 APTT 49.9 H 50.8 H (22.3-36.8) Seconds D-Dimer 10.48 H (<0.48) ug/mL Sodium 137 (137-145) mmol/L Potassium 4.9 (3.4-5.0) mmol/L Chloride 100 (98-107) mmol/L Carbon Dioxide 26 (22-30) mmol/L Anion Gap 11 (4-12) mmol/L BUN 17 (9-20) mg/dL Creatinine 0.96 (0.7-1.3) mg/dL Estim Creat Clear Calc 74 ml/min Estimated GFR > 60 (59 - ) Glucose 113 H (65-110) mg/dL Calcium 9.5 (8.4-10.2) mg/dL Total Bilirubin 0.8 (0.2-1.3) mg/dL AST 55 (17-59) U/L ALT 80 H (6-50) U/L Alkaline Phosphatase 118 (38-126) U/L Troponin I 0.653 H* 0.614 H* 0.592 H* (0.000-0.034) ng/mL Total Protein 8.3 H (6.3-8.2) g/dL Albumin 4.5 (3.5-5.1) g/dL Imaging Data Attestation: I personally reviewed and interpreted this imaging study as follows: Radiologist's impression: Impressions Head CT 02/14/25 07:54 IMPRESSION: 1. New small right occipital lobe infarction with hyper attenuating changes along the margin likely representing luxury reperfusion; small acute parenchymal hemorrhage however is not excluded. 2. Chronic-appearing right cerebellar infarction. 3. Correlation with follow-up MRI should be considered as recommended on the December 28 exam. Chest X-Ray 02/14/25 08:05 IMPRESSION: 1. No acute cardiopulmonary findings given portable technique. Critical Care Time Critical Care Time Critical Care Time: Yes Total Critical Care Time: 30 Discharge Plan Discharge Clinical Impression: Deep vein thrombosis of right lower limb, Acute cerebrovascular accident (CVA), Non-STEMI (non-ST elevated myocardial infarction) Patient Disposition: Acute Care Hospital Condition: Guarded Prognosis Patient Language: Israeli Prescriptions: No Action aspirin [Adult Aspirin Regimen] 81 mg tablet,delayed release (DR/EC) 81 mg PO DAILY clopidogrel [Plavix] 75 mg tablet 75 mg PO DAILY losartan [Cozaar] 25 mg tablet 25 mg PO DAILY metoprolol succinate 25 mg capsule,sprinkle,ER 24hr 25 mg PO DAILY spironolactone [Aldactone] 25 mg tablet 12.5 mg PO DAILY dabigatran etexilate [Pradaxa] 150 mg capsule 150 mg PO BID atorvastatin 80 mg tablet 80 mg PO QPM Follow-up/Referrals: Ehsan,Fritz Johnson MD [Non-Staff] Quality Stroke Scale Stroke Scale 1: Stroke scale date:: 02/14/25 1a Level of consciousness: alert-0 1b Level of consciousness questions: answers both correctly-0 1c Level of consciousness commands: obeys both correctly-0 2 Best gaze: normal-0 3 Visual: no visual loss-0 4 Facial palsy: normal-0 5a Motor: left arm: no drift-0 5b Motor: right arm: no drift-0 6a Motor: left leg: no drift-0 6b Motor: right leg: no drift-0 7 Limb ataxia: absent-0 8 Sensory: normal-0 9 Best language: no aphasia-0 10 Dysarthria: normal-0 11 Extinction and inattention: no abnormality-0 Level:: 0
--- NOTE | 2025-02-14 07:27 | ECG_ITS ---
Test Date: 2025-02-14 08:33:53 Measurements Intervals [place] Rate: 72 P: 43 [place]: 152 QRS: -56 QRSD: 118 T: -58 QT: 394 QTc: 432 Interpretive Statements SINUS RHYTHM INCOMPLETE RIGHT BUNDLE BRANCH BLOCK [90+ ms QRS DURATION, TERMINAL R IN V1/V2, 40+ ms S IN I/aVL/V4/V5/V6] LEFT ANTERIOR FASCICULAR BLOCK [QRS AXIS <= -45, QR IN I, RS IN II] MARKED T-WAVE ABNORMALITY, CONSIDER ANTEROLATERAL ISCHEMIA [-0.5+ mV T-WAVE IN I/aVL/V3-V6] Compared to ECG 12/24/2024 13:54:17 Possible ischemia now present Electronically Signed On 02-14-2025 08:39:28 FORM RAISER by Josh Guevara M.D.
[2025-02-14 07:39] LABS: Hematocrit 36.7 % (42.0-52.0); Hemoglobin 11.7 g/dL (14.0-18.0); Immature Granulocyte Percent A 0.3 % (0-0.5); Lymphocytes Absolute Auto 2.25 K/mm3 (0.9-3.2); Mean Corpuscular HGB Conc 31.9 g/dl (32-36); Mean Corpuscular Hemoglobin 27.7 pg (26-34); Mean Corpuscular Volume 87.0 fl (80-100); Nucleated Red Blood Cells Absolute Auto 0.000 K/mm3 (0.0-0.012); Nucleated Red Blood Cells Perc 0.0 % (0.0-0.2); Platelet Count Result 225 k/mm3 (150-375); Red Blood Count 4.22 M/mm3 (4.6-6.20); White Blood Count 12.2 K/mm3 (4.5-10.0)
[2025-02-14 07:45] LABS: Alanine Aminotransferase 80 U/L (6-50); Albumin Level 4.5 g/dL (3.5-5.1); Alkaline Phosphatase 118 U/L (38-126); Anion Gap 11 mmol/L (4-12); Aspartate Amino Transferase 55 U/L (17-59); Bilirubin,Total 0.8 mg/dL (0.2-1.3); Blood Urea Nitrogen 17 mg/dL (9-20); Calcium 9.5 mg/dL (8.4-10.2); Carbon Dioxide 26 mmol/L (22-30); Chloride 100 mmol/L (98-107); Estimated CRCL calculation 74 ml/min; Estimated Glomerular Filt Rate > 60; Glucose 113 mg/dL (65-110); Potassium 4.9 mmol/L (3.4-5.0); Sodium 137 mmol/L (137-145); Total Protein 8.3 g/dL (6.3-8.2)
[2025-02-14 08:00] LABS: Troponin I 0.653 ng/mL (0.000-0.034)
[2025-02-14 08:31] LABS: INR 1.6; Prothrombin Time 19.4 Seconds (11.1-14.7)
[2025-02-14 08:32] LABS: Partial Thromboplastin Time 49.9 Seconds (22.3-36.8)
[2025-02-14] MEDS: HEPARIN SOD/D5W 100 UNITS/ML 25,000 UNITS/250 ML BAG 10 UNITS IV CONT (09:50)
[2025-02-14] MEDS: PHARMACIST COMMUNICATION ORDER 1 EACH XX (09:52)
--- NOTE | 2025-02-14 12:05 | ECG_ITS ---
Test Date: 2025-02-14 12:30:57 Measurements Intervals [place] Rate: 79 P: 42 DC: 146 QRS: -56 QRSD: 118 T: -31 QT: 386 QTc: 444 Interpretive Statements SINUS RHYTHM LEFT ANTERIOR FASCICULAR BLOCK [QRS AXIS <= -45, QR IN I, RS IN II] T-WAVE ABNORMALITIES, CONSIDER ANTERIOR ISCHEMIA Compared to ECG 01/09/2025 19:37:33 T-wave abnormality now present Possible ischemia now present First degree AV block no longer present Left bundle-branch block no longer present Electronically Signed On 02-14-2025 14:47:19 ANALYTICS SPECIALIST by Josh Guevara M.D.
[2025-02-14 12:48] LABS: Troponin I 0.614 ng/mL (0.000-0.034)
[2025-02-14] MEDS: ONDANSETRON INJ 4 MG/2 ML VIAL IV PUSH ×2 (14:40→18:27)
[2025-02-14] MEDS: MORPHINE SULFATE (*CRX) 4 MG/ML INJ IV PUSH ×2 (14:40→18:27)
--- NOTE | 2025-02-14 15:48 | ECG_ITS ---
Test Date: 2025-02-14 16:05:45 Measurements Intervals [place] Rate: 78 P: 34 [place]: 150 QRS: -60 QRSD: 120 T: -55 QT: 391 QTc: 448 Interpretive Statements SINUS RHYTHM POSSIBLE RIGHT VENTRICULAR CONDUCTION DELAY [RSR (QR) IN V1/V2] LEFT ANTERIOR FASCICULAR BLOCK [QRS AXIS <= -45, QR IN I, RS IN II] SUSPECT RECENT ANTERIOR INFARCTION / ANTEROLATERAL ISCHEMIA ABNORMAL ECG INTERPRETATION BASED ON A DEFAULT AGE OF 40 YEARS Compared to ECG 02/14/2025 08:33:53 THERE IS NO SIGNIFICANT DIFFERENCE Electronically Signed On 02-15-2025 07:50:19 MOUTHPIECE MAKER by Jacinto Parikh M.D.
[2025-02-14 16:43] LABS: Partial Thromboplastin Time 50.8 Seconds (22.3-36.8)
[2025-02-14 16:51] LABS: Troponin I 0.592 ng/mL (0.000-0.034)
== END 2025-02-14 18:52 | disposition short-term general hospital (02) ==
PROVIDERS: Emergency Provider Emergency Medicine
DX: I82.431 Acute embolism and thrombosis of right popliteal vein (principal); I82.441 Acute embolism and thrombosis of right tibial vein; I82.451 Acute embolism and thrombosis of right peroneal vein; I82.811 Embolism and thrombosis of superficial veins of right lower extremity; I63.9 Cerebral infarction, unspecified; R29.700 NIHSS score 0; I21.4 Non-ST elevation (NSTEMI) myocardial infarction; E78.5 Hyperlipidemia, unspecified; I10 Essential (primary) hypertension; F17.200 Nicotine dependence, unspecified, uncomplicated; Z86.73 Personal history of transient ischemic attack (TIA), and cerebral infarction without residual deficits; Z79.82 Long term (current) use of aspirin; Z79.02 Long term (current) use of antithrombotics/antiplatelets; Z79.899 Other long term (current) drug therapy; I45.2 Bifascicular block; R94.31 Abnormal electrocardiogram [ECG] [EKG]
CPT/HCPCS: 36415; 70450; 71045; 80053; 84484; 85025; 85380; 85610; 85730; 93005; 93971; 96361; 96374; 96375; 96376; 99291; J1644; J2270; J2405